=== PATIENT | male | born 1935 | race Caucasian/White ===

== ENCOUNTER → 2016-04-21 | Outpatient (CLI) | payer MEDICARE, BC ==
[2016-04-21 15:03] LABS: Blood Urea Nitrogen 18 mg/dL (9-20); Non-African American GFR(MDRD) >60 (>60 ml/min/1.73 sqM)
--- NOTE | 2016-04-21 15:54 | CT ---
EXAMINATION TYPE: CT chest w con DATE OF EXAM: 04/21/2016 3:33 PM COMPARISON: NONE HISTORY: Follow-up study of lung nodule. CT DLP: 387.80 mGycm Automated exposure control for dose reduction was used. CONTRAST: CT scan of the chest is performed with IV Contrast, patient injected with 100 mL of Omnipaque 300. FINDINGS: There is a 7 mm noncalcified nodule in the anterior aspect of the right middle lobe, best s een on image 38. There are 2 noncalcified nodules measuring 3.8 and 6.5 mm respectively in the right middle lobe, best seen on image 39. At least one of these was present previously. There is scarring at the right lung base has resolved and likely represented atelectasis. There is a 7.5 mm, subpleural, spiculated nodule seen in the left lingula on image 53. There is a small amount o f groundglass opacity in the apical posterior segment of the left upper lobe and also in the lateral segment of the right upper lobe. There is no significant axillary or hilar adenopathy. There are some normal-sized lymph nodes within the mediastinum. There is no evidence of pulmonary embolus. The aorta is normal in caliber without evidence of dissection. The heart is not enlarged. There is no pleural or pericardial fluid. Visualized portions of the upper abdomen are normal. There is mild hypertrophic spondylosis within the spine. IMPRESSION: 1. Multiple groundglass nodules within the right middle lobe. 2. Resolution of the nodule at the right lung base. 3. Spiculated nodule in the left lingula. 4. Groundglass opacities as described may represent ongoing alveolitis or pneumonitis. 5. Degenerative changes within the spine.
== END | disposition home or self-care (01) ==
LOC: RADCTMAIN 14:28
PROVIDERS: ATTEND Family Medicine
DX: R91.8 Other nonspecific abnormal finding of lung field (principal); R10.9 Unspecified abdominal pain
CPT/HCPCS: 82565; 84520; 71260; 36415; Q9967

== ENCOUNTER → 2017-03-07 | Outpatient (CLI) | payer MEDICARE, BC ==
--- NOTE | 2017-03-07 15:50 | XR ---
EXAMINATION TYPE: XR chest 2V DATE OF EXAM: 03/07/2017 COMPARISON: Prior chest x-ray 09/25/2015 HISTORY: COPD, sinus infection TECHNIQUE: Frontal and lateral views of the chest are obtained. FINDINGS: There is no focal air space opacity, pleural effusion, or pneumothorax seen. The cardiac silhouette size is stable. Prominent lung lines compatible with underlying COPD. Patient is rotated. There may be some improvement in aeration as compared to prior, density at the left costophrenic angl e is improved. The osseous structures are intact. IMPRESSION: No acute cardiopulmonary process.
== END | disposition home or self-care (01) ==
LOC: RADXRMAIN 10:30
PROVIDERS: ATTEND Family Medicine
DX: J44.1 Chronic obstructive pulmonary disease with (acute) exacerbation (principal)
CPT/HCPCS: 71046

== ENCOUNTER → 2017-03-26 | Outpatient (CLI) | payer MEDICARE, BC ==
[2017-03-26 13:59] VITALS: BP 180/74; PULSE 55; RESP 16
--- NOTE | 2017-03-26 14:27 | P.CONS ---
History of Present Illness - Reason for Consult Consult date: 03/26/17 - Chief Complaint Right leg pain - History of Present Illness Chief complaint: Right leg pain History of present illness: This is a 81-year-old male with 18 months history of right leg pain for which he's been going to his chiropractor and taken aspirin for it. One week ago the pain spontaneously resolved with no pain at all at this point. When the patient had the pain used to go across his lower back and down his right leg on the front of his thigh anteriorly down to the knee level. He denies any numbness or tingling or weakness in the lower extremities. He denies any bowel or bladder dysfunction. He did do was 10 pounds of his weight over the last few weeks because with he thinks is a bad cold and loss of appetite. He does have a significant history of COPD and he is being followed up by his primary care physician for this problem. He describes the pain that he had as burning in quality that would get worse by standing for too long. The patient is claustrophobic and he could not get an MRI done on the lumbar spine however his lumbar spine plain x-ray showed moderate to severe degenerative changes. Social history tobacco: none Marijuana none illicit drugs none On disability:no Work [ ]Review of Systems : 1- Constitutional : no chills , no fever , no night sweats , 2- Ears : no ear discharge , no change in hearing 3-Nose, Mouth ,Throat ; no bleeding gums, no sore throat , no epistaxis , 4-Cardiovascular : Denies chest pain, , no orthopnea , no palpitation 5-Respiratory : Patient has: Is coughing with small amount of sputum ,however he denies any fever or shortness of breath 6-Gastrointestinal :, no change in bowel habits , no coffee- ground emesis . 7-Genitourinary : No hematuria , no discharge , no incontinence, 8-Musculoskeletal : No gait dysfunction , report low back pain , 9- Neurological : no ataxia , no tremor , no seizure , 10-Psychatric , no suicidal ideation no hallucination 11- Endocrine : no cold intolerence , no polyuria , no polydypsia , 12-Hematologic : no easy bleeding , no easy brusing , 13-Allergic / immunology : no angioedema , no wheezing ,no allergic rhinitis 14-Integumentary : no brttle nails , no change hair / nails , no foot/leg ulcers . Physical Examinations : 1-Constitutional : Cooperative , not in acute distress . 2-HEENT : nech ; supple , no Lymphadenopathy , no Thyromegaly , eyes , no icterus, no photophobia . ENT : , normal oropharynx , no Thrush 3- Respiratory : Chest clear to auscultations Bilaterally , no wheezing .+ Reduced sounds in the right lung base. . 4- Cardiovascular : regular rate and rhythem , S1 , S2 , no S3 , no S4. 5- Gastrointestinal: abdomen soft no tenderness , no organomegally . 6- Genitourinary : Defferred . 7-Integumentary : No cellulitis , no ulcers , normal skin turgor , no cyanosis . 8- neurologic : Cranial nerve II to XII intact , no focal neurological deffecit 9-psychatric : alert , oriented X 3 , appropriate affect , intact judgment and insight . 10-Lymphatic : no Lymphadenopathy. 11- musculoskeltal: normal gait , Neuro exam of the lower extremities showed normal and symmetrical muscle strength, symmetrical knee reflexes and absent ankle reflexes. Straight leg raising test negative bilaterally. The patient has mild tenderness in the lumbar paravertebral area. He has normal range of motion of the lumbar spine. Past Medical History Past Medical History: COPD, Prostate Disorder History of Any Multi-Drug Resistant Organisms: None Reported Past Surgical History: Orthopedic Surgery, Tonsillectomy Additional Past Surgical History / Comment(s): bilat. cataract removal Past Anesthesia/Blood Transfusion Reactions: No Reported Reaction Past Psychological History: No Psychological Hx Reported Smoking Status: Former smoker Past Alcohol Use History: Daily Past Drug Use History: None Reported - Past Family History Brother(s) Family Medical History: Congestive Heart Failure (CHF), Prostate Disorder Medications and Allergies Home Medications Medication Instructions Recorded Confirmed Type Albuterol Sulfate [Proair Hfa] 1 - 2 puff INHALATION RT-QID PRN 05/22/15 History Nebivolol [Bystolic] 5 mg PO DAILY 05/22/15 03/26/17 History Roflumilast [Daliresp] 500 mcg PO DAILY 05/22/15 03/26/17 History Alfuzosin HCl [Uroxatral ER] 10 mg PO DAILY 09/09/15 03/26/17 History Finasteride [Proscar] 5 mg PO DAILY 09/09/15 03/26/17 History Tiotropium 18 Mcg/Puff [Spiriva] 1 cap INHALATION RT-DAILY 09/09/15 03/26/17 History Travoprost [Travatan Z 0.004%] 1 drop BOTH EYES HS 09/10/15 03/26/17 History Mometasone Furoate [Nasonex Nasal 1 spray EA NOSTRIL BID #1 bottle 09/21/1501/29 Rx [place]] Ammonium Lactate Lotion 1 applic TOPICAL BID PRN 09/25/15 03/26/17 History [Lac-Hydrin 12% Lotion] Nystatin 100,000 Unit/ml Susp 5 ml PO QID 09/25/15 03/26/17 History [Mycostatin Oral Susp] predniSONE 10 mg PO DAILY #40 tab 09/27/15 03/26/17 Rx Budesonide/Formoterol Fumarate 2 puff IN BID 03/26/17 03/26/17 History [Symbicort 80-4.5 Mcg Inhaler] Allergies Allergy/AdvReac Type Severity Reaction Status Date / Time amoxicillin trihydrate Allergy Unknown Verified 03/26/17 13:35 [From Augmentin] moxifloxacin HCl Allergy Nausea & Verified 03/26/17 13:35 [From Avelox] Vomiting potassium clavulanate Allergy Unknown Verified 03/26/17 13:35 [From Augmentin] Physical Exam Vitals: Vital Signs Pulse Resp BP Pulse Ox 03/26/17 13:43 55 L 16 180/74 94 L Intake and Output 03/25/17 03/26/17 03/26/17 22:59 06:59 14:59 Other: Weight 86.183 kg Patient Weight 03/27/17 06:59 Weight 86.183 kg Assessment and Plan Plan: This is a 81-year-old male with a spontaneously and completely resolved lower back and right leg pain. The patient has significant degeneration of the lumbar spine on his plain x-ray. He is claustrophobic and cannot go through an MRI. He takes aspirin on a daily basis that also helps him with the pain. I asked the patient to give us a call with the first sign of his pain coming back and then we will schedule him to have lumbar epidural steroid injection under fluoroscopic guidance at the L3-4 or L4-5 levels in the right paramedian approach. The patient has history of COPD and by physical exam today he has reduced breath sounds in the right lung base however he denies any fever or any other symptoms that would suggest a pneumonia and as a matter of fact he had an x-ray done at his primary care physician's office a few days ago that did not show any abnormality. The patient will be seen on an as-needed basis.
== END | disposition home or self-care (01) ==
LOC: PNWHC3 12:55
PROVIDERS: ATTEND Anesthesiology
DX: M51.36 Other intervertebral disc degeneration, lumbar region (principal); J44.9 Chronic obstructive pulmonary disease, unspecified; N42.9 Disorder of prostate, unspecified; Z87.891 Personal history of nicotine dependence; Z88.1 Allergy status to other antibiotic agents; Z79.52 Long term (current) use of systemic steroids; Z79.899 Other long term (current) drug therapy; Z79.82 Long term (current) use of aspirin
CPT/HCPCS: 99211

== ENCOUNTER → 2018-01-11 | Outpatient (CLI) | payer MEDICARE, BC ==
--- NOTE | 2018-01-11 13:14 | XR ---
EXAMINATION TYPE: XR chest 2V DATE OF EXAM: 01/11/2018 COMPARISON: 03/07/2017 TECHNIQUE: PA and lateral views submitted. HISTORY: Cough and congestion FINDINGS: The lungs are clear and there is no pneumothorax, pleural effusion, or focal pneumonia. Atheroscler otic change aorta. Degenerative change of the spine. No overt failure. Hyperinflation suggests COPD. Atherosclerotic change of the aorta. IMPRESSION: 1. No acute process.
== END ==
LOC: RADXRMAIN 11:52
PROVIDERS: ATTEND Family Medicine
DX: J44.1 Chronic obstructive pulmonary disease with (acute) exacerbation (principal)
CPT/HCPCS: 71046

== ENCOUNTER 2018-03-21 06:36 | Observation (INO) | payer MEDICARE, BC ==
[2018-03-21] MEDS ORDERED: ASPIRIN 81 MG PO STA (06:44)
[2018-03-21] MEDS ORDERED: NITROGLYCERIN SL TABS 0.4 MG TAB SUBLINGUAL STA (06:58)
--- NOTE | 2018-03-21 07:02 | ED ---
Chest Pain HPI - General Chief Complaint: Chest Pain Stated Complaint: chest pain Source: patient Mode of arrival: wheelchair Limitations: no limitations - History of Present Illness Initial Comments: Marin is a pleasant 82-year-old male with history of hypertension and hyperlipidemia as well as former cigarette smoking and COPD he presents the emergency department today for evaluation of pressure in his chest radiating to his left shoulder and neck. Patient reports that he frequently has a morning cough and a little bit of chest discomfort however for the past 3 days he's noticed more heaviness in his chest which is new to him. Patient reports that he initially thought that this was due to COPD so he been trying to treated at home with breathing treatments. Patient reports that he's felt more fatigued over the past 3 days and upon waking this morning he feels more chest pressure and a general sense of dread which made him very nervous and prompted him to ask his to bring him to the hospital for evaluation. 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 - Related Data Home Medications Medication Instructions Recorded Confirmed Albuterol Sulfate [Proair Hfa] 1 - 2 puff INHALATION RT-QID PRN 05/22/15 Nebivolol [Bystolic] 5 mg PO DAILY 05/22/15 03/21/18 Roflumilast [Daliresp] 500 mcg PO DAILY 05/22/15 03/21/18 Alfuzosin HCl [Uroxatral ER] 10 mg PO DAILY 09/09/15 03/21/18 Finasteride [Proscar] 5 mg PO DAILY 09/09/15 03/21/18 Tiotropium 18 Mcg/Puff [Spiriva] 1 cap INHALATION RT-DAILY 09/09/15 03/21/18 Travoprost [Travatan Z 0.004%] 1 drop BOTH EYES HS 09/10/15 03/21/18 Budesonide/Formoterol Fumarate 2 puff INHALATION RT-BID 03/26/17 03/21/18 [Symbicort 80-4.5 Mcg Inhaler] Aspirin EC [Ecotrin] 650 mg PO DAILY 03/21/18 03/21/18 Brinzolamide/Brimonidine Tart 1 drop BOTH EYES BID 03/21/18 03/21/18 [Simbrinza 1%-0.2% Eye Drops] Allergies Allergy/AdvReac Type Severity Reaction Status Date / Time amoxicillin trihydrate Allergy Unknown Verified 03/21/18 06:52 [From Augmentin] moxifloxacin HCl Allergy Nausea & Verified 03/21/18 06:52 [From Avelox] Vomiting potassium clavulanate Allergy Unknown Verified 03/21/18 06:52 [From Augmentin] Review of Systems ROS Statement: Those systems with pertinent positive or pertinent negative responses have been documented in the HPI. ROS Other: All systems not noted in ROS Statement are negative. EKG Findings - EKG Comments: EKG Findings:: EKG obtained at 6:44 AM, rate is 77 rhythm is sinus with frequent PVCs. There is a normal axis there are normal intervals, IN 188, QRS 114, QTC 475. There are no acute ST elevations or depressions there is no evidence of acute ischemia or infarction. Past Medical History Past Medical History: COPD, Prostate Disorder History of Any Multi-Drug Resistant Organisms: None Reported Past Surgical History: Orthopedic Surgery, Tonsillectomy Additional Past Surgical History / Comment(s): bilat. cataract removal Past Anesthesia/Blood Transfusion Reactions: No Reported Reaction Past Psychological History: No Psychological Hx Reported Smoking Status: Former smoker Past Alcohol Use History: Daily Past Drug Use History: None Reported - Past Family History Brother(s) Family Medical History: Congestive Heart Failure (CHF), Prostate Disorder General Exam - General Exam Comments Initial Comments: Physical Exam GENERAL: Patient is well-developed and well-nourished. Patient is nontoxic and well- hydrated and is in no distress. HENT: Normocephalic, Atraumatic. EYES: PERRL, EOMI PULMONARY: Unlabored respirations. No audible rales rhonchi or wheezing was noted. CARDIOVASCULAR: There is a regular rate and rhythm without any murmurs gallops or rubs. ABDOMEN: Soft and nontender with normal bowel sounds. SKIN: Skin is clear with no lesions or rashes and otherwise unremarkable. : Deferred NEUROLOGIC: Patient is alert and oriented x3. Moving all extremities spontaneously MUSCULOSKELETAL: Normal extremities with adequate strength and full range of motion. No lower extremity swelling or edema. No calf tenderness. PSYCHIATRIC: Normal psychiatric evaluation. Limitations: no limitations Limitations: no limitations Course Vital Signs 03/21/18 06:45 Temperature 98.0 F Pulse Rate 81 Respiratory 16 Rate Blood Pressure 185/84 O2 Sat by Pulse 94 L Oximetry Chest Pain MDM - MDM Patient seen and evaluated history is obtained from the patient 82-year-old male multiple cardiac risk factors presenting with heaviness in his chest and her sense of dread Patient hemodynamically stable EKG nonischemic though there are frequent PVCs Patient took 2 full dose Aspirin prior to coming to the hospital Nitro ordered She care was discussed with patient's primary care physician Dr. Yu who agrees the patient requires further observation and evaluation by cardiology Admission orders were placed, labs are pending Dr Giang to follow up on any critical labs that result in ER Disposition Clinical Impression: Chest pain Disposition: ADMITTED IP TO THIS HOSP Condition: Stable Is patient prescribed a controlled substance at d/c from ED?: No Referrals: Shar Yu MD [Primary Care Provider] - 1-2 days
[2018-03-21 07:14] LABS: Basophils # (A) 0.1 k/uL (0-0.2); Basophils % (A) 1 %; Eosinophils # (A) 0.3 k/uL (0-0.7); Eosinophils % (A) 6 %; HCT 40.8 % (39.0-53.0); HGB 13.6 gm/dL (13.0-17.5); Lymphocytes # (A) 2.2 k/uL (1.0-4.8); Lymphocytes % (A) 38 %; MCH 33.6 pg (25.0-35.0); MCHC 33.4 g/dL (31.0-37.0); MCV 100.5 fL (80.0-100.0); Macrocytosis Slight; Mean Platelet Volume 7.3; Monocytes # (A) 0.3 k/uL (0-1.0); Monocytes % (A) 5 %; Neutrophils # (A) 2.7 k/uL (1.3-7.7); Neutrophils % (A) 48 %; Platelet Count 145 k/uL (150-450); RBC 4.06 m/uL (4.30-5.90); RDW 14.1 % (11.5-15.5); WBC 5.7 k/uL (3.8-10.6)
[2018-03-21 07:22] LABS: INR 0.9 (<1.2); Partial Thromboplastin Time 25.5 sec (22.0-30.0); Prothrombin Time 10.1 sec (9.0-12.0)
[2018-03-21 07:29] LABS: ALT 31 U/L (21-72); AST 30 U/L (17-59); Alkaline Phosphatase 68 U/L (38-126); Anion Gap 9 mmol/L; Blood Urea Nitrogen 15 mg/dL (9-20); Calcium 9.8 mg/dL (8.4-10.2); Carbon Dioxide 22 mmol/L (22-30); Chloride 111 mmol/L (98-107); Glucose 132 mg/dL (74-99); Potassium 4.2 mmol/L (3.5-5.1); Sodium 142 mmol/L (137-145); Total Bilirubin 0.6 mg/dL (0.2-1.3); Total Protein 6.3 g/dL (6.3-8.2)
[2018-03-21 07:39] LABS: Creatine Kinase 190 U/L (55-170)
[2018-03-21 07:52] LABS: Creatine Kinase MB 5.1 ng/mL (0.0-2.4); Troponin I <0.012 ng/mL (0.000-0.034)
[2018-03-21 08:09] VITALS: RESP 18
[2018-03-21] MEDS ORDERED: NON-FORMULARY DRUG (Brinzolamide/Brimonidine Tart [Simbrinza 1%-0.2% Eye Drops] 1 DROP) BOTH EYES SCH (09:00)
[2018-03-21] MEDS: PATIENT'S OWN MED (Roflumilast [Daliresp] 500 MCG) PO SCH (09:53)
--- NOTE | 2018-03-21 10:22 | ECHOF ---
Referral Reason:chest pain MEASUREMENTS -------- HEIGHT: 182.9 cm WEIGHT: 96.2 kg BP: 185/84 RVIDd: 2.9 cm (< 3.3) IVSd: 1.3 cm (0.6 - 1.1) LVIDd: 4.6 cm (3.9 - 5.3) LVPWd: 1.2 cm (0.6 - 1.1) IVSs: 1.7 cm LVIDs: 3.2 cm LVPWs: 1.2 cm LA Diam: 4.4 cm (2.7 - 3.8) LAESV Index (A-L): 34.26 ml/m Ao Diam: 3.3 cm (2.0 - 3.7) AV Cusp: 1.9 cm (1.5 - 2.6) LA Diam: 3.8 cm (2.7 - 3.8) MV EXCURSION: 26.161 mm (> 18.000) MV EF SLOPE: 69 mm/s (70 - 150) EPSS: 0.5 cm MV E Lionel: 0.77 m/s MV DecT: 346 ms MV A Lionel: 1.13 m/s MV E/A Ratio: 0.69 RAP: 5.00 mmHg RVSP: 26.95 mmHg FINDINGS -------- Sinus rhythm. This was a technically good study. The left ventricular size is normal. There is mild concentric left ventricular hypertrophy. Overa ll left ventricular systolic function is normal with, an EF between 55 - 60 %. The right ventricle is normal in size. The left atrium is moderately dilated. LA is moderately dilated 34-39 ml/m2 The right atrial size is normal. The aortic valve is trileaflet, and appears structurally normal. No aortic stenosis or regurgitation. Mild mitral annular calcification present. Mild mitral regurgitation is present. Mild tricuspid regurgitation present. There is no evidence of pulmonary hypertension. The right v entricular systolic pressure, as measured by Doppler, is 26.95mmHg. There is no pulmonic regurgitation present. The aortic root size is normal. There is no pericardial effusion. CONCLUSIONS -------- 1. The left ventricular size is normal. 2. There is mild concentric left ventricular hypertrophy. 3. Overall left ventricular systolic function is normal with, an EF between 55 - 60 %. 4. The right ventricle is normal in size. 5. The left atrium is moderately dilated. 6. LA is moderately dilated 34-39 ml/m2 7. The right atrial size is normal. 8. The aortic valve is trileaflet, and appears structurally normal. No aortic stenosis or regurgitati on. 9. Mild mitral annular calcification present. 10. Mild mitral regurgitation is present. 11. Mild tricuspid regurgitation present. 12. There is no evidence of pulmonary hypertension. 13. The right ventricular systolic pressure, as measured by Doppler, is 26.95mmHg. 14. There is no pulmonic regurgitation present. 15. The aortic root size is normal. 16. There is no pericardial effusion. MOBILE ENGINEER: Trinity Heredia RDCS
[2018-03-21] MEDS: NEBIVOLOL 5 MG TAB PO SCH (10:24)
[2018-03-21] MEDS: TAMSULOSIN 0.4 MG CAP.ER.24H PO SCH (10:24)
[2018-03-21] MEDS: DORZOLAMIDE HCL 2% DROPS 10 ML BTL BOTH EYES SCH ×2 (10:25→20:16)
[2018-03-21] MEDS: BRIMONIDINE TARTRATE 0.2% DROPS 5 ML BTL BOTH EYES SCH ×2 (10:25→20:17)
[2018-03-21] MEDS: FINASTERIDE 5 MG TAB PO SCH (10:25)
[2018-03-21] MEDS ORDERED: ALPRAZolam 0.25 MG TAB PO PRN (11:07)
[2018-03-21] MEDS ORDERED: SODIUM CHLORIDE 0.9% 1,000 ML in EMPTY BAG 1 BAG IV ONE (11:07)
[2018-03-21] MEDS ORDERED: ALPRAZolam 0.5 MG TAB PO PRN (11:07)
[2018-03-21 11:20] LABS: Cholesterol 234 mg/dL (<200); HDL Cholesterol 72 mg/dL (40-60); LDL Cholesterol,Calculated 150 mg/dL (0-99); Triglycerides 59 mg/dL (<150)
--- NOTE | 2018-03-21 11:43 | P.CRDCN ---
History of Present Illness History of present illness: This is a pleasant 82-year-old male past medical history significant for hypertension, dyslipidemia, COPD and former nicotine dependence. He also drinks 2 martinis or 2 beers daily. He denies history of coronary artery disease and is never seen a cardiovascular tech for any reason. We have been asked to see him in consultation for symptoms of chest discomfort. He states approximately one month ago he felt a full sensation at the base of his neck and into the upper anterior chest wall. This came early in the morning with no specific aggravating factor. Ultimately the symptoms subsided on their own with no specific aggravating factor. He subsequently followed up with his primary care physician Dr. Yu and was advised he should undergo outpatient stress testing. However a conservative approach was also discussed and determined that the patient felt symptoms similar to this again he would present to the emergency department for further evaluation. For the last 2 mornings he has woke up feeling similar symptoms with a full sensation at the base of his neck with radiation up the neck and into the upper anterior chest wall and left precordial region. There is no radiation into the back, down the arms or into the jaw. He denies associated shortness of breath, dizziness, palpitations, nausea or diaphoresis. Throughout the course of these previous couple of days he has also felt increasingly fatigued with a feeling of impending doom. He initially associated these symptoms with his COPD however they have not improved with his inhalers. He is seen and examined sitting up in bed with his at the bedside. He denies active chest pain at this time. EKG on arrival reveals sinus mechanism with ST depression noted in the lateral leads. When compared to previous EKGs these ST depressions were noted in the past as well at times. Laboratory data reviewed, WBC 5.7, hemoglobin 13.6, platelets 145 and a sodium 142, potassium 4.2, creatinine 0.9, magnesium 2.0, cardiac enzymes negative 1, LDL 150 HDL 72, triglycerides 59 total cholesterol 234, and T proBNP 397. Current cardiac medications include aspirin 650 mg daily and bystolic 5 mg daily. At the time of my exam: CONSTITUTIONAL: Denies fever. Denies chills. EYES: Denies blurred vision. Denies vision changes. Denies eye pain. EARS, NOSE, MOUTH & THROAT: Denies headache. Denies sore throat. Denies ear pain. CARDIOVASCULAR: Denies chest pain. Denies shortness of breath. Denies orthopnea. Denies PND. Denies palpitations. RESPIRATORY: Denies cough. GASTROINTESTINAL: Denies abdominal pain. Denies diarrhea. Denies constipation. Denies nausea. Denies vomiting. MUSCULOSKELETAL: Denies myalgias. INTEGUMENTARY: Denies pruitis. Denies rash. NEUROLOGIC: Denies numbness. Denies tingling. Denies weakness. PSYCHIATRIC: Denies anxiety. Denies depression. ENDOCRINE: Denies fatigue. Denies weight change. Denies polydipsia. Denies polyurina. GENITOURINARY: Denies burning, hematuria or urgency with micturation. HEMATOLOGIC: Denies history of anemia. Denies bleeding. Blood pressure 162/63 heart rate 69 afebrile maintaining oxygen saturation on room air GENERAL: This is a 82-year-old male in no apparent distress at the time of my examination. HEENT: Head is atraumatic, normocephalic. Pupils are equal, round. Sclerae anicteric. Conjunctivae are clear. Mucous membranes of the mouth are moist. Neck is supple. There is no jugular venous distention. No carotid bruit is heard. LUNGS: Clear to auscultation no wheezes, rales or rhonchi. No chest wall tenderness is noted on palpation or with deep breathing. Diminished bilaterally. HEART: Regular rate and rhythm with short systolic murmur at the left sternal border, no rubs or gallops. S1 and S2 heard. ABDOMEN: Soft, nontender. Bowel sounds are heard. No organomegaly noted. EXTREMITIES: No evidence of peripheral edema and no calf tenderness noted. VASCULAR: Radial and dorsalis pedis pulses palpated, no evidence of clubbing. NEUROLOGIC: Patient is awake, alert and oriented x3. ASSESSMENT Unstable angina Hypertension Dyslipidemia COPD Former nicotine dependence Daily alcohol use PLAN Recommend proceeding with cardiac catheterization to assess for obstructive coronary artery disease. I have discussed the risks, benefits and alternative therapies for the above- mentioned procedure and for both sedation/analgesia as well as necessary blood product administration, if indicated, as they pertain to this patient. The patient and his have indicated understanding and acceptance of the risks and procedures discussed. Questions have been answered appropriately and he is agreeable to move forward with the above stated procedure. Obtain 2-D echocardiogram and Doppler study to assess cardiac structure and function. Check lipid panel. Further recommendations to follow based upon clinical course. Thank you kindly for this consultation. The above impression and plan of care have been discussed and directed by the signing physician. Lamar Rosales, nurse practitioner, acting as scribe for signing physician. 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 History of Any Multi-Drug Resistant Organisms: None Reported Past Surgical History: Orthopedic Surgery, Tonsillectomy Additional Past Surgical History / Comment(s): 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 Past Anesthesia/Blood Transfusion Reactions: No Reported Reaction Additional Past Anesthesia/Blood Transfusion Reaction / Comment(s): Pt has clausterphobia. Smoking Status: Former smoker - Past Family History Brother(s) Family Medical History: Prostate Disorder Additional Family Medical History / Comment(s): Prostate cancer. Father Family Medical History: Dementia Additional Family Medical History / Comment(s): Father of dementia at the age of 79yrs. Mother Family Medical History: No Reported History Additional Family Medical History / Comment(s): Mother was healthy and lived to be 86yrs old. Medications and Allergies Home Medications Medication Instructions Recorded Confirmed Type Albuterol Sulfate [Proair Hfa] 1 - 2 puff INHALATION RT-QID PRN 05/22/15 History Nebivolol [Bystolic] 5 mg PO DAILY 05/22/15 03/21/18 History Roflumilast [Daliresp] 500 mcg PO DAILY 05/22/15 03/21/18 History Alfuzosin HCl [Uroxatral ER] 10 mg PO DAILY 09/09/15 03/21/18 History Finasteride [Proscar] 5 mg PO DAILY 09/09/15 03/21/18 History Tiotropium 18 Mcg/Puff [Spiriva] 1 cap INHALATION RT-DAILY 09/09/15 03/21/18 History Travoprost [Travatan Z 0.004%] 1 drop BOTH EYES HS 09/10/15 03/21/18 History Budesonide/Formoterol Fumarate 2 puff INHALATION RT-BID 03/26/17 03/21/18 History [Symbicort 80-4.5 Mcg Inhaler] Aspirin EC [Ecotrin] 650 mg PO DAILY 03/21/18 03/21/18 History Brinzolamide/Brimonidine Tart 1 drop BOTH EYES BID 03/21/18 03/21/18 History [Simbrinza 1%-0.2% Eye Drops] Allergies Allergy/AdvReac Type Severity Reaction Status Date / Time amoxicillin trihydrate Allergy Unknown Verified 03/21/18 06:52 [From Augmentin] moxifloxacin HCl Allergy Nausea & Verified 03/21/18 06:52 [From Avelox] Vomiting potassium clavulanate Allergy Unknown Verified 03/21/18 06:52 [From Augmentin] Physical Exam Vitals: Vital Signs Temp Pulse Pulse Resp BP BP Pulse Ox 03/21/18 08:20 98.2 F 69 18 162/63 93 L 03/21/18 08:19 18 03/21/18 08:08 84 18 134/67 95 03/21/18 06:45 98.0 F 81 16 185/84 94 L Intake and Output 03/20/18 03/21/18 03/21/18 22:59 06:59 14:59 Other: Voiding Method Toilet # Voids 1 Weight 96.162 kg Results 03/21/18 06:44 03/21/18 06:44 Cardiac Enzymes 03/21/18 03/21/18 Range/Units 06:44 06:44 AST 30 (17-59) U/L CK-MB (CK-2) 5.1 H (0.0-2.4) ng/mL Troponin I <0.012 (0.000-0.034) ng/mL Coagulation 03/21/18 Range/Units 06:44 PT 10.1 (9.0-12.0) sec APTT 25.5 (22.0-30.0) sec CBC 03/21/18 Range/Units 06:44 WBC 5.7 (3.8-10.6) k/uL RBC 4.06 L (4.30-5.90) m/uL Hgb 13.6 (13.0-17.5) gm/dL Hct 40.8 (39.0-53.0) % Plt Count 145 L (150-450) k/uL Comprehensive Metabolic Panel 03/21/18 Range/Units 06:44 Sodium 142 (137-145) mmol/L Potassium 4.2 (3.5-5.1) mmol/L Chloride 111 H (98-107) mmol/L Carbon Dioxide 22 (22-30) mmol/L BUN 15 (9-20) mg/dL Creatinine 0.90 (0.66-1.25) mg/dL Glucose 132 H (74-99) mg/dL Calcium 9.8 (8.4-10.2) mg/dL AST 30 (17-59) U/L ALT 31 (21-72) U/L Alkaline Phosphatase 68 (38-126) U/L Total Protein 6.3 (6.3-8.2) g/dL Albumin 4.0 (3.5-5.0) g/dL Current Medications Generic Name Dose Route Start Last Admin Trade Name Sunilq PRN Reason Stop Dose Admin Brimonidine Tartrate 1 drops 03/21/18 09:30 03/21/18 10:25 Alphagan P 0.2% Ophth Soln BOTH EYES 1 drops BID WILFREDO Administration Budesonide/Formoterol Fumarate 2 puff 03/21/18 20:00 Symbicort 80-4.5 Mcg Inhaler INHALATION RT-BID WILFREDO Dorzolamide HCl 1 drops 03/21/18 09:30 03/21/18 10:25 Trusopt BOTH EYES 1 drops BID WILFREDO Administration Finasteride 5 mg 03/21/18 09:00 03/21/18 10:25 Proscar PO 5 mg DAILY WILFREDO Administration Ipratropium Mary Alice 0.5 mg 03/21/18 09:00 Atrovent Nebulized INHALATION RT-QID WILFREDO Latanoprost 1 drops 03/21/18 21:00 Xalatan 0.005% BOTH EYES HS WILFREDO Nebivolol 5 mg 03/21/18 09:00 03/21/18 10:24 Bystolic PO 5 mg DAILY WILFREDO Administration Patient's Own Med ( 500 mcg 03/21/18 09:00 03/21/18 09:53 Roflumilast [ PO Not Given Daliresp] 500 Mcg) DAILY WILFREDO Tamsulosin HCl 0.4 mg 03/21/18 09:00 03/21/18 10:24 Flomax PO 0.4 mg DAILY WILFREDO Administration Intake and Output 03/20/18 03/21/18 03/21/18 22:59 06:59 14:59 Other: Voiding Method Toilet # Voids 1 Weight 96.162 kg 03/21/18 06:44 03/21/18 06:44
[2018-03-21] MEDS: IPRATROPIUM 0.5 MG/2.5 ML NEBU INHALATION SCH ×4 (12:04→18:33)
--- NOTE | 2018-03-21 12:09 | XR ---
EXAMINATION TYPE: XR chest 2V DATE OF EXAM: 03/21/2018 COMPARISON: 01/11/2018 HISTORY: Shortness of breath TECHNIQUE: Frontal and lateral views of the chest are obtained. FINDINGS: Scattered senescent parenchymal changes noted. Hyperinflation compatible with COPD. No evidence for infiltrate. No evidence for atelectasis. Heart size is stable. Mediastinal structures are stable and grossly unremarkable. No evidence for hilar prominence. Degenerative changes dorsal spine. IMPRESSION: 1. No evidence for acute pulmonary disease.
--- NOTE | 2018-03-21 12:11 | P.HPIM ---
History of Present Illness 82-year-old male on presented the emergency room with complaints of 2 days of chest pain worse in the morning pain radiated to neck mild nausea and some diaphoresis at night. 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 History of Any Multi-Drug Resistant Organisms: None Reported Past Surgical History: Orthopedic Surgery, Tonsillectomy Additional Past Surgical History / Comment(s): 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 Past Anesthesia/Blood Transfusion Reactions: No Reported Reaction Additional Past Anesthesia/Blood Transfusion Reaction / Comment(s): Pt has clausterphobia. Smoking Status: Former smoker - Past Family History Brother(s) Family Medical History: Prostate Disorder Additional Family Medical History / Comment(s): Prostate cancer. Father Family Medical History: Dementia Additional Family Medical History / Comment(s): Father of dementia at the age of 79yrs. Mother Family Medical History: No Reported History Additional Family Medical History / Comment(s): Mother was healthy and lived to be 86yrs old. Medications and Allergies Home Medications Medication Instructions Recorded Confirmed Type Albuterol Sulfate [Proair Hfa] 1 - 2 puff INHALATION RT-QID PRN 05/22/15 History Nebivolol [Bystolic] 5 mg PO DAILY 05/22/15 03/21/18 History Roflumilast [Daliresp] 500 mcg PO DAILY 05/22/15 03/21/18 History Alfuzosin HCl [Uroxatral ER] 10 mg PO DAILY 09/09/15 03/21/18 History Finasteride [Proscar] 5 mg PO DAILY 09/09/15 03/21/18 History Tiotropium 18 Mcg/Puff [Spiriva] 1 cap INHALATION RT-DAILY 09/09/15 03/21/18 History Travoprost [Travatan Z 0.004%] 1 drop BOTH EYES HS 09/10/15 03/21/18 History Budesonide/Formoterol Fumarate 2 puff INHALATION RT-BID 03/26/17 03/21/18 History [Symbicort 80-4.5 Mcg Inhaler] Aspirin EC [Ecotrin] 650 mg PO DAILY 03/21/18 03/21/18 History Brinzolamide/Brimonidine Tart 1 drop BOTH EYES BID 03/21/18 03/21/18 History [Simbrinza 1%-0.2% Eye Drops] Allergies Allergy/AdvReac Type Severity Reaction Status Date / Time amoxicillin trihydrate Allergy Unknown Verified 03/21/18 06:52 [From Augmentin] moxifloxacin HCl Allergy Nausea & Verified 03/21/18 06:52 [From Avelox] Vomiting potassium clavulanate Allergy Unknown Verified 03/21/18 06:52 [From Augmentin] Physical Exam Vitals: Vital Signs Temp Pulse Pulse Resp BP BP Pulse Ox 03/21/18 08:20 98.2 F 69 18 162/63 93 L 03/21/18 08:19 18 03/21/18 08:08 84 18 134/67 95 03/21/18 06:45 98.0 F 81 16 185/84 94 L Intake and Output 03/20/18 03/21/18 03/21/18 22:59 06:59 14:59 Other: Voiding Method Toilet # Voids 1 Weight 96.162 kg - Constitutional General appearance: obese - EENT Eyes: PERRLA Ears: bilateral: normal - Neck Neck: normal ROM - Respiratory Respiratory: bilateral: CTA - Cardiovascular Rhythm: regularly irregular - Gastrointestinal General gastrointestinal: soft - Integumentary Integumentary: normal - Neurologic Neurologic: CNII-XII intact - Musculoskeletal Musculoskeletal: gait normal - Psychiatric Psychiatric: A&O x's 3, appropriate affect, intact judgment & insight Results CBC & Chem 7: 03/21/18 06:44 03/21/18 06:44 Labs: Abnormal Lab Results - Last 24 Hours (Table) 03/21/18 03/21/18 03/21/18 Range/Units 06:44 06:44 06:44 RBC 4.06 L (4.30-5.90) m/uL MCV 100.5 H (80.0-100.0) fL Plt Count 145 L (150-450) k/uL Chloride 111 H (98-107) mmol/L Glucose 132 H (74-99) mg/dL Total Creatine Kinase 190 H (55-170) U/L CK-MB (CK-2) 5.1 H (0.0-2.4) ng/mL Cholesterol (<200) mg/dL LDL Cholesterol, Calc (0-99) mg/dL HDL Cholesterol (40-60) mg/dL 03/21/18 Range/Units 10:45 RBC (4.30-5.90) m/uL MCV (80.0-100.0) fL Plt Count (150-450) k/uL Chloride (98-107) mmol/L Glucose (74-99) mg/dL Total Creatine Kinase (55-170) U/L CK-MB (CK-2) (0.0-2.4) ng/mL Cholesterol 234 H (<200) mg/dL LDL Cholesterol, Calc 150 H (0-99) mg/dL HDL Cholesterol 72 H (40-60) mg/dL Chest x-ray: report reviewed Thrombosis Risk Factor Assmnt - Choose All That Apply Any of the Below Risk Factors Present?: Yes Each Factor Represents 1 point: Abnormal pulmonary function (COPD), Obesity ( BMI >25) Other Risk Factors: Yes Each Risk Factor Represents 2 Points: Malignancy Each Risk Factor Represents 3 Points: Age 75 years or older Other congenital or acquired thrombophilia - If yes, enter type in comment: No Thrombosis Risk Factor Assessment Total Risk Factor Score: 7 Thrombosis Risk Factor Assessment Level: High Risk Assessment and Plan Plan: Assessment Chest pain unstable angina History of COPD Prostate cancer hypertension Hyperlipidemia Daily alcohol Plan Cardiology consultation with cardiac cath in the morning
[2018-03-21] MEDS: ALBUTEROL NEBULIZED 2.5 MG/3 ML INHALATION PRN (18:33)
[2018-03-21] MEDS ORDERED: ATORVASTATIN 80 MG TAB PO SCH (21:00)
[2018-03-21] MEDS ORDERED: LATANOPROST 0.005% OPHTH DROPS 2.5 ML BTL BOTH EYES SCH (21:00)
[2018-03-21] MEDS: SYMBICORT 80-4.5 MCG INHALER INHALATION SCH (21:13)
[2018-03-22] MEDS ORDERED: hydrALAZINE HCL 20 MG/ML 1 ML VIAL IVP PRN (00:05)
[2018-03-22] MEDS: ALBUTEROL NEBULIZED 2.5 MG/3 ML INHALATION PRN (05:45)
[2018-03-22] MEDS: SYMBICORT 80-4.5 MCG INHALER INHALATION SCH ×2 (07:42→19:51)
[2018-03-22] MEDS: IPRATROPIUM 0.5 MG/2.5 ML NEBU INHALATION SCH ×4 (07:42→19:51)
[2018-03-22] MEDS: FINASTERIDE 5 MG TAB PO SCH (08:01)
[2018-03-22] MEDS: TAMSULOSIN 0.4 MG CAP.ER.24H PO SCH (08:01)
[2018-03-22] MEDS: NEBIVOLOL 5 MG TAB PO SCH (08:01)
[2018-03-22] MEDS: PATIENT'S OWN MED (Roflumilast [Daliresp] 500 MCG) PO SCH (08:03)
[2018-03-22] MEDS ORDERED: ATORVASTATIN 80 MG TAB PO ONE (09:00)
[2018-03-22] MEDS ORDERED: ASPIRIN 325 MG TAB PO ONE (09:00)
[2018-03-22] MEDS: DORZOLAMIDE HCL 2% DROPS 10 ML BTL BOTH EYES SCH (09:16)
[2018-03-22] MEDS: BRIMONIDINE TARTRATE 0.2% DROPS 5 ML BTL BOTH EYES SCH (09:16)
[2018-03-22] MEDS ORDERED: LIDOCAINE 1% INJ 10MG/ML (20 ML MDV) ONE (10:35)
[2018-03-22] MEDS ORDERED: fentaNYL (PF) 50 MCG/ML 2 ML AMP ONE (10:36)
[2018-03-22] MEDS ORDERED: fentaNYL (PF) 50 MCG/ML 2 ML AMP IVP ONE (10:37)
[2018-03-22] MEDS ORDERED: LIDOCAINE 1% (PF) 10 MG/ML (30 ML SDV) SQ ONE (10:40)
[2018-03-22] MEDS ORDERED: MIDAZOLAM 2 MG/2 ML VIAL IVP ONE (10:47)
[2018-03-22] MEDS ORDERED: IV FLUID CONTINUATION 1,000 ML IV ONE (10:48)
[2018-03-22] MEDS ORDERED: NITROGLYCERIN OINT 1 INCH/GM PACKET TOPICAL ONE ×2 (10:53→10:56)
[2018-03-22] MEDS ORDERED: RX INFO: IV CONTRAST WAS GIVEN 1 EACH MISC MISCELLANE PRN (10:57)
[2018-03-22] MEDS ORDERED: IOPAMIDOL-370 125ML BTL INJ ONE (10:57)
[2018-03-22] MEDS ORDERED: LOSARTAN 50 MG TAB PO SCH (11:00)
--- NOTE | 2018-03-22 12:22 | CC ---
CARDIAC CATHETERIZATION REPORT INDICATION: Unstable angina. PROCEDURE NOTE: After obtaining informed consent, left heart catheterization and coronary angiogram were performed via the right femoral artery using standard Sarina catheters. Patient tolerated the procedure well without any obvious immediate complications. A femoral angiogram was performed and Angio-Seal was deployed for hemostasis. FINDINGS: HEMODYNAMICS: Left ventricular end-diastolic pressure is 14-16 mm. There is no significant gradient across the aortic valve. LEFT VENTRICULOGRAM: Ventriculogram is not performed. ANGIOGRAPHIC DATA: LEFT MAIN CORONARY ARTERY: This is a short vessel. Divides into a large dominant circumflex coronary artery and LAD. Circumflex coronary artery and its branches are free of significant stenosis. LAD and its branches are free of significant stenosis. Right coronary artery is a small nondominant vessel and is free of significant disease. CONCLUSION: 1. Normal coronary arteries. 2. Normal left ventricular end-diastolic pressure. PLAN: Patient's chest discomfort is noncardiac in origin and his management is going to be optimal medical therapy. Patient received moderate conscious sedation. Total sedation time was 19 minutes. MMODL / IJN: [id number] /
--- NOTE | 2018-03-22 17:23 | P.DS ---
Providers Date of admission: 03/21/18 07:09 Expected date of discharge: 03/22/18 Attending physician: Shar Yu Consults: 03/21/18 07:10 Consult Physician Urgent Consulting Provider: [facility] Consult Reason/Comments: high risk chest pain Do you want consulting provider notified?: Yes Primary care physician: Shar Yu Hospital Course: Discharge diagnosis - Chest pain, cardiac cause ruled out, heart cath shows no significant blockage - HTN - Hyperlipidemia - COPD Hospital course Very pleasant 82 y/o male comes in with c/o chest pain. He says he was having chest pain for the past 3 days but last evening his chest pain was constant.Ther was no radiation of the pain, he was having cogh, no sob, no diarrhea, no vomiting, no nausea , no vomiting, no lightheadedness, no dizziness. He had a heart cath done which was neagtive His d dimer was high. There is low probability of PE, so he will get a vq scan. He negative he can be discharged home and follow up with cardiology and PCP. Patient Condition at Discharge: Fair Plan - Discharge Summary Discharge Rx Participant: No New Discharge Prescriptions: New Atorvastatin [Lipitor] 80 mg PO HS #30 tab Losartan [Cozaar] 50 mg PO DAILY #30 tab Continue Albuterol Sulfate [Proair Hfa] 1 - 2 puff INHALATION RT-QID PRN PRN Reason: Shortness Of Breath Nebivolol [Bystolic] 5 mg PO DAILY Roflumilast [Daliresp] 500 mcg PO DAILY Tiotropium 18 Mcg/Puff [Spiriva] 1 cap INHALATION RT-DAILY Alfuzosin HCl [Uroxatral ER] 10 mg PO DAILY Finasteride [Proscar] 5 mg PO DAILY Travoprost [Travatan Z 0.004%] 1 drop BOTH EYES HS Budesonide/Formoterol Fumarate [Symbicort 80-4.5 Mcg Inhaler] 2 puff INHALATION RT-BID Brinzolamide/Brimonidine Tart [Simbrinza 1%-0.2% Eye Drops] 1 drop BOTH EYES BID Aspirin EC [Ecotrin] 650 mg PO DAILY Discharge Medication List Albuterol Sulfate [Proair Hfa] 1 - 2 puff INHALATION RT-QID PRN 05/22/15 [ History] Nebivolol [Bystolic] 5 mg PO DAILY 05/22/15 [History] Roflumilast [Daliresp] 500 mcg PO DAILY 05/22/15 [History] Alfuzosin HCl [Uroxatral ER] 10 mg PO DAILY 09/09/15 [History] Finasteride [Proscar] 5 mg PO DAILY 09/09/15 [History] Tiotropium 18 Mcg/Puff [Spiriva] 1 cap INHALATION RT-DAILY 09/09/15 [History] Travoprost [Travatan Z 0.004%] 1 drop BOTH EYES HS 09/10/15 [History] Budesonide/Formoterol Fumarate [Symbicort 80-4.5 Mcg Inhaler] 2 puff INHALATION RT-BID 03/26/17 [History] Aspirin EC [Ecotrin] 650 mg PO DAILY 03/21/18 [History] Brinzolamide/Brimonidine Tart [Simbrinza 1%-0.2% Eye Drops] 1 drop BOTH EYES BID 03/21/18 [History] Atorvastatin [Lipitor] 80 mg PO HS #30 tab 03/22/18 [Rx] Losartan [Cozaar] 50 mg PO DAILY #30 tab 03/22/18 [Rx] Follow up Appointment(s)/Referral(s): Shar Yu MD [Primary Care Provider] - 1-2 days Godwin Gillette MD [STAFF PHYSICIAN] - 04/02/18 4:15 pm Activity/Diet/Wound Care/Special Instructions: Discahrge if vq scan negative and after cleared by cardiology Care Plan Goals (MU): If you ahve any chest pain, racing heart, any cough, sob, any lightheadedness, dizziness, pls come to er or call 911. Discharge Disposition: HOME SELF-CARE
--- NOTE | 2018-03-22 19:21 | NM ---
EXAMINATION TYPE: NM pul vent and perfuse DATE OF EXAM: 03/22/2018 COMPARISON: Chest radiographs 03/31/1916 HISTORY: Elevated d-dimer, dyspnea TECHNIQUE: Utilizing inhalation of 38.2 mCi Tc 99m DTPA aerosol and intravenous injection of 5.15 mC i of Tc 99m MAA, ventilation and perfusion images are acquired post injection in multiple projections . FINDINGS: Mild-plus heterogeneous distribution of the radiopharmaceutical activity throughout the lungs on both the perfusion and ventilation scintigraphic images - more prominent on the ventilation images. However, no evidence of mismatched defects. IMPRESSION: Low probability for the diagnosis of pulmonary embolism.
[2018-03-22 19:34] VITALS: BP 164/83; TEMP 98
[2018-03-22 20:03] VITALS: PULSE 67
== END 2018-03-22 20:35 | disposition home or self-care (01) ==
LOC: EC 06:36 → 1SOBS 07:09
PROVIDERS: ADMIT Family Medicine; ATTEND Family Medicine
DX: R07.89 Other chest pain (principal); R79.89 Other specified abnormal findings of blood chemistry; R53.83 Other fatigue; R11.0 Nausea; R61 Generalized hyperhidrosis; I10 Essential (primary) hypertension; E78.5 Hyperlipidemia, unspecified; J44.9 Chronic obstructive pulmonary disease, unspecified; H40.9 Unspecified glaucoma; I49.3 Ventricular premature depolarization; N40.0 Benign prostatic hyperplasia without lower urinary tract symptoms; Z87.891 Personal history of nicotine dependence; Z79.82 Long term (current) use of aspirin; Z79.899 Other long term (current) drug therapy; Z88.0 Allergy status to penicillin; Z88.1 Allergy status to other antibiotic agents; Z87.01 Personal history of pneumonia (recurrent); Z87.09 Personal history of other diseases of the respiratory system; Z85.830 Personal history of malignant neoplasm of bone; E66.9 Obesity, unspecified; Z68.27 Body mass index [BMI] 27.0-27.9, adult; Z82.49 Family history of ischemic heart disease and other diseases of the circulatory system; Z80.42 Family history of malignant neoplasm of prostate; Z81.8 Family history of other mental and behavioral disorders
CPT/HCPCS: 96361 ×2; 96374; 99285; 36415; 94640 ×4; 93005; 93306; 93458; 85379; 83880; 80061; 80053; 82550; 82553; 83735; 84484; 85025; 85610; 85730; 71046; 78582; G0378 ×2; C1760; C1894; C1769; A9540; A9567; S0138 ×2; J2250; J0360; J2001; J3010; Q9967

== ENCOUNTER → 2018-11-12 | Outpatient (CLI) | payer BC, MEDICARE ==
--- NOTE | 2018-11-12 14:05 | US ---
EXAMINATION TYPE: US venous doppler duplex LE BI DATE OF EXAM: 11/12/2018 1:12 PM COMPARISON: NONE CLINICAL HISTORY: R60.0 Edema. SIDE PERFORMED: TECHNIQUE: The lower extremity deep venous system is examined utilizing real time linear array sonog rome with graded compression, doppler sonography and color-flow sonography. VESSELS IMAGED: Common Femoral Vein Deep Femoral Vein Greater Saphenous Vein * Femoral Vein Popliteal Vein Small Saphenous Vein * Proximal Calf Veins (* superficial vessels) Right Leg: Negative for DVT. Fluid channels are noted anteriorly from superior to inferior right lat eral leg at patient's c/o swelling. Left Leg: Negative for DVT IMPRESSION: 1. Soft tissue edema right lower extremity. 2. No deep venous thrombosis bilateral lower extremities.
== END | disposition home or self-care (01) ==
LOC: RADUSWWP 12:07
PROVIDERS: ATTEND Family Medicine
DX: M79.89 Other specified soft tissue disorders (principal)
CPT/HCPCS: 93970

== ENCOUNTER → 2018-12-06 | Outpatient (CLI) | payer MEDICARE ==
--- NOTE | 2018-12-11 09:19 | P.ARTDOP ---
Arterial Doppler LOWER EXTREMITY ARTERIAL DOPPLER: DATE OF SERVICE: 12/06/2018 Reason for study: Right leg ulcer, swelling right leg. Doppler waveforms: Multiphasic at the right femoral, atypical at the right popliteal, monophasic below. Pulse volume recording: []. Pressure gradients: Mild gradient above the knee bilaterally. Moderate gradient below the knee on the left and more severe gradient on the right.. Ankle-brachial indices: 0.31 on the right and 0.65 on the left. 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 Moderate to severe right fem-pop disease. Clinical correlation recommended..
== END | disposition home or self-care (01) ==
LOC: RADUSWWP 08:04
PROVIDERS: ATTEND Family Medicine
DX: I83.009 Varicose veins of unspecified lower extremity with ulcer of unspecified site (principal)
CPT/HCPCS: 93923

== ENCOUNTER 2020-04-20 13:42 | Emergency (ER) | payer MEDICARE ==
[2020-04-20 13:47] VITALS: RESP 18; TEMP 98.1
--- NOTE | 2020-04-20 14:05 | ED ---
General Adult HPI - General Chief complaint: Chest Pain Stated complaint: chest pain Time Seen by Provider: 04/20/20 13:45 Source: patient, RN notes reviewed, old records reviewed Mode of arrival: ambulatory Limitations: no limitations - History of Present Illness Initial comments: This is an 84-year-old male who presents emergency Department complaining of chest pain. Patient states this in the center of his chest. It does not radiate anywhere. Patient denies any shortness of breath associated with it. Patient states he woke up with it. Patient denies any diaphoretic episodes. Patient denies any nausea vomiting. Patient states he did take 4 aspirin. Home. Patient denies any headache patient denies numbness weakness. Patient denies any abdominal pain patient denies nausea vomiting diarrhea. Patient denies any recent fever chills or cough. Patient denies any exposure: The patient denies any swelling to the legs and in fact he says he Chronic cellulitis and it is getting better slowly. - Related Data Home Medications Medication Instructions Recorded Confirmed Albuterol Sulfate [Proair Hfa] 2 puff INHALATION RT-Q4H PRN 05/22/15 04/20/20 Roflumilast [Daliresp] 500 mcg PO DAILY 05/22/15 04/20/20 Alfuzosin HCl [Uroxatral ER] 10 mg PO DAILY 09/09/15 04/20/20 Finasteride [Proscar] 5 mg PO DAILY 09/09/15 04/20/20 Travoprost [Travatan Z 0.004%] 1 drop BOTH EYES HS 09/10/15 04/20/20 Brinzolamide/Brimonidine Tart 1 drop BOTH EYES BID 03/21/18 04/20/20 [Simbrinza 1%-0.2% Eye Drops] Budesonide/Glycopyr/Formoterol 2 puff INHALATION RT-BID 04/20/20 04/20/20 [Breztri Aerosphere Inhaler] Carvedilol [Coreg] 3.125 mg PO BID 04/20/20 04/20/20 Fluticasone Nasal [place] [Flonase 1 spray EA NOSTRIL DAILY PRN 04/20/20 04/20/20 Nasal [place]] Levocetirizine Dihydrochloride 5 mg PO DAILY 04/20/20 04/20/20 Multivitamins, Thera [Multivitamin 1 tab PO DAILY 04/20/20 04/20/20 (formulary)] Tiotropium 2.5 Mcg/Puff [Spiriva 2 puff INHALATION RT-DAILY 04/20/20 04/20/20 Respimat 2.5 Mcg] Vit C/E/Zn/Coppr/Lutein/Zeaxan 1 cap PO DAILY 04/20/20 04/20/20 [Preservision Areds 2 Softgel] rOPINIRole HCL [Requip] 1 mg PO TID 04/20/20 04/20/20 Allergies Allergy/AdvReac Type Severity Reaction Status Date / Time amoxicillin trihydrate Allergy Unknown Verified 04/20/20 15:33 [From Augmentin] moxifloxacin HCl Allergy Nausea & Verified 04/20/20 15:33 [From Avelox] Vomiting potassium clavulanate Allergy Unknown Verified 04/20/20 15:33 [From Augmentin] Review of Systems ROS Statement: Those systems with pertinent positive or pertinent negative responses have been documented in the HPI. ROS Other: All systems not noted in ROS Statement are negative. 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 heart cath negative (2019) Past Anesthesia/Blood Transfusion Reactions: No Reported Reaction Additional Past Anesthesia/Blood Transfusion Reaction / Comment(s): Pt has clausterphobia. Past Psychological History: No Psychological Hx Reported Smoking Status: Former smoker Past Alcohol Use History: Daily Past Drug Use History: None Reported - Past Family History Brother(s) Family Medical History: Prostate Disorder Additional Family Medical History / Comment(s): Prostate cancer. Father Family Medical History: Dementia Additional Family Medical History / Comment(s): Father of dementia at the age of 79yrs. Mother Family Medical History: No Reported History Additional Family Medical History / Comment(s): Mother was healthy and lived to be 86yrs old. General Exam - General Exam Comments Initial Comments: GENERAL: Patient is well-developed and well-nourished. Patient is nontoxic and well- hydrated and is in mild distress. ENT: Neck is soft and supple. No significant lymphadenopathy is noted. Oropharynx is clear. Moist mucous membranes. Neck has full range of motion without eliciting any pain. EYES: The sclera were anicteric and conjunctiva were pink and moist. Extraocular movements were intact and pupils were equal round and reactive to light. Eyelids were unremarkable. PULMONARY: Unlabored respirations. Good breath sounds bilaterally. No audible rales rhonchi or wheezing was noted. CARDIOVASCULAR: There is a regular rate and rhythm without any murmurs gallops or rubs. ABDOMEN: Soft and nontender with normal bowel sounds. SKIN: Skin is clear with no lesions or rashes and otherwise unremarkable. NEUROLOGIC: Patient is alert and oriented x3. Cranial nerves II through XII are grossly intact. Motor and sensory are also intact. Normal speech, volume and content. Symmetrical smile. MUSCULOSKELETAL: Normal extremities with adequate strength and full range of motion. No edema bilaterally with chronic cellulitis LYMPHATICS: No significant lymphadenopathy is noted PSYCHIATRIC: Normal psychiatric evaluation. Limitations: no limitations Course Vital Signs 04/20/20 04/20/20 13:43 14:55 Temperature 98.1 F Pulse Rate 65 65 Respiratory 18 18 Rate Blood Pressure 198/92 138/94 O2 Sat by Pulse 95 98 Oximetry Medical Decision Making - Medical Decision Making EKG shows sinus rhythm at 76 bpm NC interval 150 for cardiac 114 QT interval 42 QTC is 452. Patient's EKG shows a PVC but no ST segment elevation there is some slight ST segment depression in precordial leads V3 through V6. Chest x-ray shows no acute normalities. I discussed that the patient on heparin however the patient refused to stay he understood that he had a sent out AGAINST MEDICAL ADVICE and he understood the risks of possibly going home. Patient was informed to follow up with primary medical care doctor soon as possible. Patient also was informed if he had any further chest pain or difficulty breathing to return to emergency department immediately. - Lab Data Result diagrams: 04/20/20 14:48 04/20/20 14:48 Lab Results 04/20/20 04/20/20 04/20/20 Range/Units 14:48 14:48 14:48 WBC 6.1 (3.8-10.6) k/uL RBC 3.91 L (4.30-5.90) m/uL Hgb 13.0 (13.0-17.5) gm/dL Hct 38.9 L (39.0-53.0) % MCV 99.3 (80.0-100.0) fL MCH 33.2 (25.0-35.0) pg MCHC 33.4 (31.0-37.0) g/dL RDW 13.8 (11.5-15.5) % Plt Count 141 L (150-450) k/uL MPV 8.3 Neutrophils % 69 % Lymphocytes % 19 % Monocytes % 6 % Eosinophils % 4 % Basophils % 1 % Neutrophils # 4.2 (1.3-7.7) k/uL Lymphocytes # 1.2 (1.0-4.8) k/uL Monocytes # 0.4 (0-1.0) k/uL Eosinophils # 0.2 (0-0.7) k/uL Basophils # 0.1 (0-0.2) k/uL PT 10.2 (9.0-12.0) sec INR 0.9 (<1.2) APTT 24.4 (22.0-30.0) sec Sodium 140 (137-145) mmol/L Potassium 4.5 (3.5-5.1) mmol/L Chloride 106 (98-107) mmol/L Carbon Dioxide 24 (22-30) mmol/L Anion Gap 10 mmol/L BUN 21 H (9-20) mg/dL Creatinine 0.83 (0.66-1.25) mg/dL Est GFR (CKD-EPI)AfAm >90 (>60 ml/min/1.73 sqM) Est GFR (CKD-EPI)NonAf 82 (>60 ml/min/1.73 sqM) Glucose 105 H (74-99) mg/dL Calcium 9.7 (8.4-10.2) mg/dL Magnesium 2.1 (1.6-2.3) mg/dL Total Bilirubin 0.5 (0.2-1.3) mg/dL AST 27 (17-59) U/L ALT 18 (4-49) U/L Alkaline Phosphatase 81 (38-126) U/L Troponin I (0.000-0.034) ng/mL Total Protein 6.6 (6.3-8.2) g/dL Albumin 4.0 (3.5-5.0) g/dL 04/20/20 Range/Units 14:48 WBC (3.8-10.6) k/uL RBC (4.30-5.90) m/uL Hgb (13.0-17.5) gm/dL Hct (39.0-53.0) % MCV (80.0-100.0) fL MCH (25.0-35.0) pg MCHC (31.0-37.0) g/dL RDW (11.5-15.5) % Plt Count (150-450) k/uL MPV Neutrophils % % Lymphocytes % % Monocytes % % Eosinophils % % Basophils % % Neutrophils # (1.3-7.7) k/uL Lymphocytes # (1.0-4.8) k/uL Monocytes # (0-1.0) k/uL Eosinophils # (0-0.7) k/uL Basophils # (0-0.2) k/uL PT (9.0-12.0) sec INR (<1.2) APTT (22.0-30.0) sec Sodium (137-145) mmol/L Potassium (3.5-5.1) mmol/L Chloride (98-107) mmol/L Carbon Dioxide (22-30) mmol/L Anion Gap mmol/L BUN (9-20) mg/dL Creatinine (0.66-1.25) mg/dL Est GFR (CKD-EPI)AfAm (>60 ml/min/1.73 sqM) Est GFR (CKD-EPI)NonAf (>60 ml/min/1.73 sqM) Glucose (74-99) mg/dL Calcium (8.4-10.2) mg/dL Magnesium (1.6-2.3) mg/dL Total Bilirubin (0.2-1.3) mg/dL AST (17-59) U/L ALT (4-49) U/L Alkaline Phosphatase (38-126) U/L Troponin I <0.012 (0.000-0.034) ng/mL Total Protein (6.3-8.2) g/dL Albumin (3.5-5.0) g/dL Disposition Clinical Impression: Unstable angina pectoris Disposition: Left Against Medical Advice Instructions (If sedation given, give patient instructions): Chest Pain (ED) Referrals: Shar Yu MD [Primary Care Provider] - 1-2 days Time of Disposition: 16:08
[2020-04-20] MEDS ORDERED: NITROGLYCERIN OINT 1 INCH/GM PACKET TOPICAL STA (14:37)
--- NOTE | 2020-04-20 15:04 | XR ---
EXAMINATION TYPE: XR chest 2V DATE OF EXAM: 04/20/2020 COMPARISON: Chest x-ray March 21, 2018 HISTORY: Chest pain today. TECHNIQUE: Frontal and lateral views of the chest are obtained. FINDINGS: There is chronic parenchymal change bilaterally without suspicious new focal air space [place] or pneumothorax seen. Chronic blunting left posterior costophrenic angle consistent with tiny pl eural effusion or pleural thickening redemonstrated. The cardiac silhouette size is stable and within normal limits. Exaggerated thoracic kyphosis with mild to moderate multilevel disc space narrowing a nd endplate sclerosis. IMPRESSION: Chronic parenchymal changes without acute pulmonary process.
[2020-04-20 15:12] LABS: Basophils # (A) 0.1 k/uL (0-0.2); Basophils % (A) 1 %; Eosinophils # (A) 0.2 k/uL (0-0.7); Eosinophils % (A) 4 %; HCT 38.9 % (39.0-53.0); Lymphocytes # (A) 1.2 k/uL (1.0-4.8); Lymphocytes % (A) 19 %; MCH 33.2 pg (25.0-35.0); MCHC 33.4 g/dL (31.0-37.0); MCV 99.3 fL (80.0-100.0); Mean Platelet Volume 8.3; Monocytes # (A) 0.4 k/uL (0-1.0); Monocytes % (A) 6 %; Neutrophils # (A) 4.2 k/uL (1.3-7.7); Neutrophils % (A) 69 %; Platelet Count 141 k/uL (150-450); RBC 3.91 m/uL (4.30-5.90); RDW 13.8 % (11.5-15.5); WBC 6.1 k/uL (3.8-10.6)
[2020-04-20 15:21] LABS: INR 0.9 (<1.2)
[2020-04-20 15:22] LABS: Partial Thromboplastin Time 24.4 sec (22.0-30.0); Prothrombin Time 10.2 sec (9.0-12.0)
[2020-04-20 15:27] LABS: ALT 18 U/L (4-49); AST 27 U/L (17-59); African American GFR (CKD) >90 (>60 ml/min/1.73 sqM); Alkaline Phosphatase 81 U/L (38-126); Anion Gap 10 mmol/L; Blood Urea Nitrogen 21 mg/dL (9-20); Calcium 9.7 mg/dL (8.4-10.2); Carbon Dioxide 24 mmol/L (22-30); Chloride 106 mmol/L (98-107); Glucose 105 mg/dL (74-99); Magnesium 2.1 mg/dL (1.6-2.3); Non-African American GFR(CKD) 82 (>60 ml/min/1.73 sqM); Potassium 4.5 mmol/L (3.5-5.1); Sodium 140 mmol/L (137-145); Total Bilirubin 0.5 mg/dL (0.2-1.3); Total Protein 6.6 g/dL (6.3-8.2)
[2020-04-20] MEDS ORDERED: HEPARIN SODIUM,PORCINE 5,000 UNIT/ML 1 ML VIAL IV ONE (16:04)
[2020-04-20 16:11] VITALS: BP 174/77; PULSE 66
[2020-04-20] MEDS ORDERED: HEPARIN SOD,PORK IN 0.45% NACL 25,000 UNIT in 0.45% NACL 1 250ML.BAG IV SCH (16:15)
== END 2020-04-20 16:31 | disposition left against medical advice (07) ==
LOC: EC 13:42
DX: I20.0 Unstable angina (principal); E78.5 Hyperlipidemia, unspecified; I10 Essential (primary) hypertension; J44.9 Chronic obstructive pulmonary disease, unspecified; Z79.899 Other long term (current) drug therapy; Z87.891 Personal history of nicotine dependence; Z88.0 Allergy status to penicillin
CPT/HCPCS: 36415; 71046; 80053; 83735; 84484; 85025; 85610; 85730; 93005; 96374; 99285

== ENCOUNTER 2020-04-23 02:31 | Emergency (ER) | payer MEDICARE ==
[2020-04-23 02:40] VITALS: TEMP 97.9
[2020-04-23 03:17] LABS: Basophils # (A) 0.1 k/uL (0-0.2); Basophils % (A) 1 %; Eosinophils # (A) 0.4 k/uL (0-0.7); Eosinophils % (A) 6 %; HCT 37.4 % (39.0-53.0); HGB 12.6 gm/dL (13.0-17.5); Lymphocytes # (A) 1.3 k/uL (1.0-4.8); Lymphocytes % (A) 22 %; MCH 33.4 pg (25.0-35.0); MCHC 33.6 g/dL (31.0-37.0); MCV 99.5 fL (80.0-100.0); Monocytes # (A) 0.4 k/uL (0-1.0); Monocytes % (A) 6 %; Neutrophils # (A) 3.6 k/uL (1.3-7.7); Neutrophils % (A) 62 %; Platelet Count 139 k/uL (150-450); RBC 3.76 m/uL (4.30-5.90); RDW 13.6 % (11.5-15.5); WBC 5.7 k/uL (3.8-10.6)
--- NOTE | 2020-04-23 03:34 | XR ---
EXAM: XR Chest, 2 Views CLINICAL HISTORY: ITS.REASON XR Reason: Chest Pain TECHNIQUE: Frontal and lateral views of the chest. COMPARISON: April 20, 2020 FINDINGS: Lungs: Slight interstitial prominence in the lungs, similar to previous suggesting mild emphysema. No acute infiltrate is seen. Pleural space: Unremarkable. No pneumothorax. Heart: The heart size is upper normal. Mediastinum: Unremarkable. Bones/joints: Mild to moderate degenerative changes throughout the mid to lower thoracic spine, unchanged. IMPRESSION: Slight interstitial prominence in the lungs, similar to previous suggesting mild emphysema. No acute infiltrate is seen.
[2020-04-23 04:05] LABS: ALT 18 U/L (4-49); AST 26 U/L (17-59); African American GFR (CKD) >90 (>60 ml/min/1.73 sqM); Albumin 3.7 g/dL (3.5-5.0); Alkaline Phosphatase 71 U/L (38-126); Anion Gap 11 mmol/L; Blood Urea Nitrogen 20 mg/dL (9-20); Calcium 9.2 mg/dL (8.4-10.2); Carbon Dioxide 21 mmol/L (22-30); Chloride 107 mmol/L (98-107); Glucose 121 mg/dL (74-99); Non-African American GFR(CKD) 80 (>60 ml/min/1.73 sqM); Potassium 4.1 mmol/L (3.5-5.1); Sodium 139 mmol/L (137-145); Total Bilirubin 0.4 mg/dL (0.2-1.3); Total Protein 6.1 g/dL (6.3-8.2)
[2020-04-23 04:32] LABS: INR 0.9 (<1.2); Partial Thromboplastin Time 24.7 sec (22.0-30.0); Prothrombin Time 10.2 sec (9.0-12.0)
--- NOTE | 2020-04-23 04:53 | ED ---
Chest Pain HPI - General Chief Complaint: Chest Pain Stated Complaint: Neck & Left arm pain Time Seen by Provider: 04/23/20 02:45 Source: patient Mode of arrival: wheelchair Limitations: no limitations - History of Present Illness MD Complaint: other Onset/Timin -: hour(s) Onset: during rest Pain Radiation: LUE, neck Severity: mild Quality: aching Consistency: now resolved Improves With: nothing Worsens With: nothing Treatments Prior to Arrival: none - Related Data Home Medications Medication Instructions Recorded Confirmed Albuterol Sulfate [Proair Hfa] 2 puff INHALATION RT-Q4H PRN 05/22/15 04/20/20 Roflumilast [Daliresp] 500 mcg PO DAILY 05/22/15 04/20/20 Alfuzosin HCl [Uroxatral ER] 10 mg PO DAILY 09/09/15 04/20/20 Finasteride [Proscar] 5 mg PO DAILY 09/09/15 04/20/20 Travoprost [Travatan Z 0.004%] 1 drop BOTH EYES HS 09/10/15 04/20/20 Brinzolamide/Brimonidine Tart 1 drop BOTH EYES BID 03/21/18 04/20/20 [Simbrinza 1%-0.2% Eye Drops] Budesonide/Glycopyr/Formoterol 2 puff INHALATION RT-BID 04/20/20 04/20/20 [Breztri Aerosphere Inhaler] Carvedilol [Coreg] 3.125 mg PO BID 04/20/20 04/20/20 Fluticasone Nasal [place] [Flonase 1 spray EA NOSTRIL DAILY PRN 04/20/20 04/20/20 Nasal [place]] Levocetirizine Dihydrochloride 5 mg PO DAILY 04/20/20 04/20/20 Multivitamins, Thera [Multivitamin 1 tab PO DAILY 04/20/20 04/20/20 (formulary)] Tiotropium 2.5 Mcg/Puff [Spiriva 2 puff INHALATION RT-DAILY 04/20/20 04/20/20 Respimat 2.5 Mcg] Vit C/E/Zn/Coppr/Lutein/Zeaxan 1 cap PO DAILY 04/20/20 04/20/20 [Preservision Areds 2 Softgel] rOPINIRole HCL [Requip] 1 mg PO TID 04/20/20 04/20/20 Allergies Allergy/AdvReac Type Severity Reaction Status Date / Time amoxicillin trihydrate Allergy Unknown Verified 04/23/20 02:41 [From Augmentin] moxifloxacin HCl Allergy Nausea & Verified 04/23/20 02:41 [From Avelox] Vomiting potassium clavulanate Allergy Unknown Verified 04/23/20 02:41 [From Augmentin] Review of Systems ROS Statement: Those systems with pertinent positive or pertinent negative responses have been documented in the HPI. ROS Other: All systems not noted in ROS Statement are negative. Constitutional: Denies: fever, chills Respiratory: Denies: cough, dyspnea Cardiovascular: Reports: chest pain. 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 heart cath negative (2019) Past Anesthesia/Blood Transfusion Reactions: No Reported Reaction Additional Past Anesthesia/Blood Transfusion Reaction / Comment(s): Pt has clausterphobia. Past Psychological History: No Psychological Hx Reported Smoking Status: Former smoker Past Alcohol Use History: Daily Past Drug Use History: None Reported - Past Family History Brother(s) Family Medical History: Prostate Disorder Additional Family Medical History / Comment(s): Prostate cancer. Father Family Medical History: Dementia Additional Family Medical History / Comment(s): Father of dementia at the age of 79yrs. Mother Family Medical History: No Reported History Additional Family Medical History / Comment(s): Mother was healthy and lived to be 86yrs old. General Exam Limitations: no limitations General appearance: alert, in no apparent distress Head exam: Present: atraumatic, normocephalic Eye exam: Present: normal appearance. Absent: scleral icterus, conjunctival injection Neck exam: Present: normal inspection, full ROM. Absent: tenderness Respiratory exam: Present: normal lung sounds bilaterally. Absent: respiratory distress, wheezes, rales, rhonchi, stridor Cardiovascular Exam: Present: regular rate, normal rhythm, normal heart sounds. Absent: systolic murmur, diastolic murmur, rubs, gallop GI/Abdominal exam: Present: soft. Absent: distended, tenderness, guarding, rebound, rigid, mass Extremities exam: Present: normal inspection, normal capillary refill. Absent: pedal edema, calf tenderness Back exam: Present: normal inspection. Absent: CVA tenderness (R), CVA tenderness (L) Neurological exam: Present: alert Skin exam: Present: warm, dry, intact, normal color. Absent: rash Course Vital Signs 04/23/20 04/23/20 02:36 05:06 Temperature 97.9 F Pulse Rate 66 53 L Respiratory 18 16 Rate Blood Pressure 139/66 173/81 O2 Sat by Pulse 95 96 Oximetry Chest Pain MDM - MDM This patient is a 84-year-old man who presents with episode of chest discomfort. Given that this is second visit for similar complaint I was in the process of working on admission for the patient when it was called and informed me that he wanted to go home. We discussed that there is deftly risk of missing cardiac source of his chest pain if we stopped workup at this point. The patient expresses understanding states she will follow up as outpatient but declines admission. He states he will return if he has any further symptoms. Disposition Clinical Impression: Chest pain Disposition: HOME SELF-CARE Condition: Undetermined Instructions (If sedation given, give patient instructions): Chest Pain (ED) Is patient prescribed a controlled substance at d/c from ED?: No Referrals: Shar Yu MD [Primary Care Provider] - 1-2 days
[2020-04-23 05:07] VITALS: BP 173/81; PULSE 53; RESP 16
== END 2020-04-23 05:07 | disposition home or self-care (01) ==
LOC: EC 02:31
DX: R07.9 Chest pain, unspecified (principal); E78.5 Hyperlipidemia, unspecified; I10 Essential (primary) hypertension; J44.9 Chronic obstructive pulmonary disease, unspecified; Z87.891 Personal history of nicotine dependence; Z88.0 Allergy status to penicillin
CPT/HCPCS: 36415; 71046; 80053; 83735; 84484; 85025; 85610; 85730; 93005; 99285

== ENCOUNTER → 2020-07-01 | Outpatient (CLI) | payer MEDICARE ==
--- NOTE | 2020-07-01 16:10 | US ---
EXAMINATION TYPE: US venous doppler duplex LE DATE OF EXAM: 07/01/2020 3:20 PM COMPARISON: US 11/12/18 CLINICAL HISTORY: R60.0 edema. SIDE PERFORMED: Bilateral TECHNIQUE: The lower extremity deep venous system is examined utilizing real time linear array sonog rome with graded compression, doppler sonography and color-flow sonography. VESSELS IMAGED: Common Femoral Vein Deep Femoral Vein Greater Saphenous Vein * Femoral Vein Popliteal Vein Small Saphenous Vein * Proximal Calf Veins (* superficial vessels) Edema in the left popliteal soft tissues. Bilateral enlarged lymph nodes noted in groin. Largest: Right = 2.4 cm Left = 3.9 cm Right Leg: Negative for DVT Left Leg: Negative for DVT IMPRESSION: 1. No evidence of deep venous thrombosis of the lower extremities. 2. Bilateral prominent groin lymph nodes, larger on the left measuring 3.9 cm. Clinical follow-up is recommended. Returned imaging as clinically indicated. 3. Edema within the left popliteal fossa soft tissues.
== END | disposition home or self-care (01) ==
LOC: RADUSWWP 14:42
PROVIDERS: ATTEND Family Medicine
DX: R60.0 Localized edema (principal)
CPT/HCPCS: 93970

== ENCOUNTER → 2020-08-06 | Outpatient (CLI) | payer MEDICARE ==
[2020-08-06 10:11] LABS: African American GFR (CKD) >90 (>60 ml/min/1.73 sqM); Blood Urea Nitrogen 17 mg/dL (9-20); Non-African American GFR(CKD) 81 (>60 ml/min/1.73 sqM)
--- NOTE | 2020-08-06 12:33 | CT ---
EXAMINATION TYPE: CT abdomen pelvis wo/w con DATE OF EXAM: 08/06/2020 COMPARISON: 12/03/2015 INDICATION: Malignant neoplasm of prostate DLP: 2402.00 mGycm, Automated exposure control for dose reduction was used. CONTRAST: 100 ml mL of Isovue 300. Study performed with Oral Contrast TECHNIQUE: Axial images were obtained from above the diaphragm to the pubic rami in the axial plane a t 5 mm thick sections. Reconstructed images are reviewed on the computer in the coronal plane. FINDINGS: Limited CT sections are obtained the lung bases. The lung bases are clear. CT ABDOMEN: Liver: Normal Spleen: Normal Pancreas: Normal Adrenal glands: The adrenal glands are normal. Gallbladder: Normal Kidneys: No masses are evident. No hydronephrosis is present. There is a 1.6 cm cyst on the lateral right mid kidney. No renal stones are evident. Aorta: Vascular calcification is within the aorta. Inferior vena cava: Normal. CT PELVIS: Loops of bowel within the abdomen and pelvis are normal. There are loops of bowel which are incom pletely distended or lack oral contrast limiting their evaluation. Appendix: Normal as visualized. No adjacent inflammatory changes are Urinary bladder: Normal. Genitourinary structures: Prostate is prominent inferior urinary bladder impression Osseous structures: There is some scattered sclerotic areas with ill-defined margins within the lumba r lower thoracic region. Metastatic disease and degenerative change could be considered. These are ch anges from comparison. Nuclear medicine bone scan may be useful. Lymphadenopathy: No suspicious pelvic adenopathy is evident. There are scattered enlarged lymph nodes in the periaortic and retrocaval regions. There are some enlarged retrocaval lymph nodes. There is some nonspecific left retroperitoneal inflammatory type change present of uncertain etiology IMPRESSIONS: 1. Prostate hypertrophy with inferior impression on the urinary bladder. 2. Irregular sclerotic areas which appear to be developing within the thoracic lumbar spine within th e [id number]. Sclerotic metastasis should be considered. Nuclear medicine bone scan may be useful for differentiation from degenerative changes. 3. Enlarged retroperitoneal periaortic and retrocaval adenopathy consider additional workup with PET CT
--- NOTE | 2020-08-06 15:20 | NM ---
EXAMINATION TYPE: NM bone scan whole body DATE OF EXAM: 08/06/2020 COMPARISON: CT same date HISTORY: C 61 Delayed whole-body scanning was performed following the injection of 22.1 mCi Tc 99m MDP. Images acq uired 3 hours post injection. FINDINGS: Multiple foci of uptake are present along the spine which are felt likely to be degenerative changes. Uptake within the shoulders, sternoclavicular joints, wrists and hands, knees and feet is likely deg enerative. Soft tissue uptake is within normal limits. IMPRESSION: No convincing metastatic disease. Findings felt likely to be degenerative change.
== END | disposition home or self-care (01) ==
LOC: RADCTMAIN 09:31
PROVIDERS: ATTEND Radiology Radiation Oncology
DX: C61 Malignant neoplasm of prostate (principal); N40.0 Benign prostatic hyperplasia without lower urinary tract symptoms
CPT/HCPCS: 82565; 84520; 74178; 36415; 78306; A9503; Q9967

== ENCOUNTER 2020-09-02 08:23 | Day surgery (SDC) | payer MEDICARE ==
[2020-08-31 14:11] VITALS: BMI 27.7
--- NOTE | 2020-09-01 20:04 | P.GSHP ---
History of Present Illness H&P Date: 09/01/20 84 yo male with large prostate[80ml] whose psa went from 6.5 to 44.6 Biopsies showed a larger extra prostate nodule next to the right sv that was biopsied for a G8 cap as well as one biopsy in the prostate. Because of this high grade lesion in the location it is I felt he would be best served with ebrt and lhrh. He comes for spaceoar treatment by Dr Beyer prior to his ebrt. His metastatic w/u was negative - Constitutional Constitutional: Denies chills, Denies fever - EENT Eyes: denies blurred vision, denies pain Ears, nose, mouth and throat: Denies headache, Denies sore throat - Cardiovascular Cardiovascular: Denies chest pain, Denies shortness of breath - Respiratory Respiratory: Denies cough, Denies 7 - Gastrointestinal Gastrointestinal: Denies abdominal pain, Denies diarrhea, Denies nausea, Denies vomiting - Genitourinary (Female) Genitourinary: Denies dysuria, Denies hematuria - Genitourinary (Male) Genitourinary: Denies dysuria, Denies hematuria - Musculoskeletal Musculoskeletal: Denies myalgias - Integumentary Integumentary: Denies pruritus, Denies rash - Neurological Neurological: Denies numbness, Denies weakness - Psychiatric Psychiatric: Denies anxiety, Denies depression - Endocrine Endocrine: Denies fatigue, Denies weight change Past Medical History Past Medical History: Cancer, COPD, Hyperlipidemia, Hypertension, Pneumonia, Prostate Disorder Additional Past Medical History / Comment(s): Tracheobronchitis, BPH, 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 Past Anesthesia/Blood Transfusion Reactions: No Reported Reaction Additional Past Anesthesia/Blood Transfusion Reaction / Comment(s): Pt has claustrophobia. Smoking Status: Former smoker - Past Family History Brother(s) Family Medical History: Cancer Additional Family Medical History / Comment(s): Prostate cancer. Father Family Medical History: Deep Vein Thrombosis (DVT) Additional Family Medical History / Comment(s): Father of dementia at the age of 79yrs. Mother Family Medical History: No Reported History Additional Family Medical History / Comment(s): Mother was healthy and lived to be 86yrs old. Medications and Allergies Home Medications Medication Instructions Recorded Confirmed Type Albuterol Sulfate [Proair Hfa] 2 puff INHALATION RT-Q4H PRN 05/22/15 08/31/20 History Roflumilast [Daliresp] 500 mcg PO DAILY 05/22/15 08/31/20 History Alfuzosin HCl [Uroxatral ER] 10 mg PO DAILY 09/09/15 08/31/20 History Finasteride [Proscar] 5 mg PO DAILY 09/09/15 08/31/20 History Travoprost [Travatan Z 0.004%] 1 drop BOTH EYES HS 09/10/15 08/31/20 History Brinzolamide/Brimonidine Tart 1 drop BOTH EYES BID 03/21/18 08/31/20 History [Simbrinza 1%-0.2% Eye Drops] Budesonide/Glycopyr/Formoterol 2 puff INHALATION RT-BID 04/20/20 08/31/20 History [Breztri Aerosphere Inhaler] Fluticasone Nasal [place] [Flonase 1 spray EA NOSTRIL DAILY PRN 04/20/20 08/31/20 History Nasal [place]] Levocetirizine Dihydrochloride 5 mg PO DAILY 04/20/20 08/31/20 History Multivitamins, Thera [Multivitamin 1 tab PO DAILY 04/20/20 08/31/20 History (formulary)] Vit C/E/Zn/Coppr/Lutein/Zeaxan 1 cap PO DAILY 04/20/20 08/31/20 History [Preservision Areds 2 Softgel] rOPINIRole HCL [Requip] 1 mg PO TID PRN 04/20/20 08/31/20 History Albuterol Nebulized [Ventolin 2.5 mg INHALATION QID PRN 08/31/20 08/31/20 History Nebulized] Aspirin 325 mg PO DAILY 08/31/20 08/31/20 History Furosemide [Lasix] 20 mg PO DAILY 08/31/20 08/31/20 History Nebivolol HCl [Bystolic] 5 mg PO DAILY 08/31/20 08/31/20 History Allergies Allergy/AdvReac Type Severity Reaction Status Date / Time amoxicillin trihydrate Allergy Unknown Verified 08/31/20 13:52 [From Augmentin] moxifloxacin HCl Allergy Nausea & Verified 08/31/20 13:52 [From Avelox] Vomiting potassium clavulanate Allergy Unknown Verified 08/31/20 13:52 [From Augmentin] Surgical - Exam - General well developed, well nourished, no distress - ENT no hearing loss - Neck trachea midline - Respiratory normal expansion, normal respiratory effort - Cardiovascular Rhythm: regular - Abdomen Abdomen: soft, non tender - Genitourinary prostate large without palpable nodule - Integumentary no rash - Neurologic normal coordination, normal sensation - Musculoskeletal normal gait, normal posture - Psychiatric oriented to time, oriented to person, oriented to place, speech is normal, memory intact Assessment and Plan Assessment: Impression: High grade t3a ca prostate Plan Spaceoar prior to ebrt
[~2020-09-02 08:23] MED LIST: DEXAMETHASONE SOD PHOSPHATE 4 MG/ML 1 ML VIAL IV ONE; HYDROmorphone 0.5 MG/0.5 ML SYRINGE IVP PRN; LACTATED RINGERS 1,000 ML IV SCH; ONDANSETRON 4 MG/2 ML VIAL IVP ONE
[2020-09-02 08:54] VITALS: TEMP 97.5
[2020-09-02] MEDS ORDERED: ONDANSETRON 4 MG/2 ML VIAL ONE (08:57)
[2020-09-02] MEDS ORDERED: LIDOCAINE 1% (10MG/ML) FOR IV START INTRADERMA ONE (08:58)
[2020-09-02] MEDS ORDERED: fentaNYL (PF) 50 MCG/ML 2 ML AMP ONE (10:22)
[2020-09-02] MEDS ORDERED: PROPOFOL 10 MG/ML 20 ML VIAL IV ONE (10:22)
[2020-09-02] MEDS ORDERED: MIDAZOLAM 2 MG/2 ML VIAL ONE (10:22)
[2020-09-02] MEDS ORDERED: LIDOCAINE 2% INJ 20 MG/ML SQ ONE ×2 (10:48)
--- NOTE | 2020-09-02 11:08 | P.OP ---
Date of Procedure: 09/02/20 Preoperative Diagnosis: Adenocarcinoma of the prostate Postoperative Diagnosis: Same Procedure(s) Performed: SpaceOAR Implant Anesthesia: MAC Surgeon: Miguel Ángel Beyer Estimated Blood Loss (ml): 10 IV fluids (ml): 800 Pathology: none sent Condition: stable Disposition: PACU Indications for Procedure: The patient is an 84-year-old white male whose PSA level corrine from 6.5-44.6. He was found to have a right-sided prostate nodule with extension into the right seminal vesicle, Collin score 7 (4+3). His metastatic evaluation was negative. He is to be treated with IMRT and androgen deprivation therapy. He now comes for SpaceOAR implant. Operative Findings: Large external hemorrhoids. Excellent separation created between prostate and rectum. Description of Procedure: The patient was taken to the operating room and placed in the dorsolithotomy position, with his legs supported in Desmond stirrups. The external genitalia was prepped and draped sterilely. Large external hemorrhoids were noted. The Bruel and Kjaer transrectal ultrasound probe was placed intrarectally. The prostate was imaged. The probe was then placed within the stabilizing stand. A spinal needle was advanced under ultrasonic guidance to the level of the urogenital diaphragm, and lidocaine was used to infiltrate the tissues as the needle was withdrawn. Next, the SpaceOAR needle was passed through the midline of the perineum, 1-2 cm anterior to the anal opening. The needle was slowly advanced under ultrasonic guidance until the needle tip was located within the fat plane between the prostate and rectum, at the level of the mid prostate gland. The needle was confirmed to be midline on the axial imaging. A small amount of normal saline was injected for hydrodissection. Next, the SpaceOAR components were mixed and loaded into the Y connector per protocol. The Y connector was then connected to the needle, and the components were injected slowly over a course of approximately 12 seconds. A total of 13 ml was injected. Significant distance (1.3 cm) was created between the prostate and rectum. It should be noted that at no point was there any concern of rectal perforation. The needle was withdrawn, as well as the transrectal ultrasound probe, and the procedure was terminated. The patient tolerated the procedure well and was taken to the recovery room in stable condition.
[2020-09-02 11:34] VITALS: RESP 16
[2020-09-02] MEDS ORDERED: hydrALAZINE HCL 20 MG/ML 1 ML VIAL ONE (11:45)
[2020-09-02] MEDS ORDERED: hydrALAZINE HCL 20 MG/ML 1 ML VIAL IV ONE (11:47)
[2020-09-02 12:05] VITALS: BP 172/78; PULSE 65
== END 2020-09-02 12:23 | disposition home or self-care (01) ==
LOC: OR 08:23
PROVIDERS: ATTEND Urology
DX: C61 Malignant neoplasm of prostate (principal); J44.9 Chronic obstructive pulmonary disease, unspecified; E78.5 Hyperlipidemia, unspecified; I10 Essential (primary) hypertension; Z87.891 Personal history of nicotine dependence; Z80.9 Family history of malignant neoplasm, unspecified
CPT/HCPCS: 55876; C1889; J2001; J2250; J0360; J1100; J0690; J2405; J3010; J2704

== ENCOUNTER → 2020-10-26 | Outpatient (CLI) | payer MEDICARE ==
--- NOTE | 2020-10-26 15:47 | XR ---
EXAM TYPE: LUMBAR SPINE X RAY SERIES COMPARISON: NONE HISTORY: Pain TECHNIQUE: 3 views are submitted. FINDINGS: There is severe multilevel degenerative disc disease with scoliotic curvature. Severe changes at all levels with multilevel facet arthropathy and foraminal encroachment suspected. Scoliotic curvature no roly. Suspect a 6 mm left renal calculus. Vascular calcification seen. IMPRESSION: 1. Scoliosis with severe multilevel degenerative disc disease, facet arthropathy and suspected forami nal encroachment. 2. Left renal calculus measuring 6 mm suspected correlate clinically..
== END | disposition home or self-care (01) ==
LOC: RADXRMAIN 14:15
PROVIDERS: ATTEND Family Medicine
DX: M51.36 Other intervertebral disc degeneration, lumbar region (principal); M41.86 Other forms of scoliosis, lumbar region; M47.816 Spondylosis without myelopathy or radiculopathy, lumbar region
CPT/HCPCS: 72100

== ENCOUNTER → 2020-11-24 | Outpatient (CLI) | payer MEDICARE ==
--- NOTE | 2020-12-23 18:37 | EM ---
EVENT MONITOR Patient was monitored between November 24 and December 07, 2020. The rhythm strip revealed sinus mechanism with normal conduction. Single PVCs and ventricular couplets were noted. No ventricular tachycardia was noted. No atrial fibrillation was noted. No pauses were noted. No symptoms were reported. ZORAN / SEAN: [id number] /
== END | disposition home or self-care (01) ==
LOC: RADECHMAIN 11:48
PROVIDERS: ATTEND Family Medicine
DX: I49.3 Ventricular premature depolarization (principal)
CPT/HCPCS: 93270

== ENCOUNTER 2021-05-08 22:36 | Emergency (ER) | payer MEDICARE ==
[2021-05-08 22:42] VITALS: BP 119/89; PULSE 59; RESP 18; TEMP 97.9
--- NOTE | 2021-05-08 22:55 | ED ---
General Adult HPI - General Chief complaint: Fall Stated complaint: Fall Time Seen by Provider: 05/08/21 22:46 Source: patient Mode of arrival: EMS Limitations: no limitations - History of Present Illness Initial comments: Patient presents to the ED by ambulance for evaluation with his friend at bedside. Patient states that he accidentally tripped and fell while leaving a restaurant tonight. Patient admits to drinking 4-5 alcoholic beverages tonight. Patient has sustained some dermal avulsions to his bilateral upper extremities. Patient denies having any significant pain. Patient does admit to head injury, but he denies LOC, and patient's friend (who is with him at the time of his fall) also denies LOC. Patient is unsure of his last tetanus shot. Patient denies headache, facial pain, focal neuro deficit, visual changes, neck/back/extremity pain, chest pain, dyspnea, dizziness, abdominal pain, nausea or vomiting, or any other symptoms or complaints. Patient denies any anticoagulant medication abuse besides aspirin. - Related Data Home Medications Medication Instructions Recorded Confirmed Albuterol Sulfate [Proair Hfa] 2 puff INHALATION RT-Q4H PRN 05/22/15 09/02/20 Roflumilast [Daliresp] 500 mcg PO DAILY 05/22/15 09/02/20 Alfuzosin HCl [Uroxatral ER] 10 mg PO DAILY 09/09/15 09/02/20 Finasteride [Proscar] 5 mg PO DAILY 09/09/15 09/02/20 Travoprost [Travatan Z 0.004%] 1 drop BOTH EYES HS 09/10/15 09/02/20 Brinzolamide/Brimonidine Tart 1 drop BOTH EYES BID 03/21/18 09/02/20 [Simbrinza 1%-0.2% Eye Drops] Budesonide/Glycopyr/Formoterol 2 puff INHALATION RT-BID 04/20/20 09/02/20 [Breztri Aerosphere Inhaler] Fluticasone Nasal [place] [Flonase 1 spray EA NOSTRIL DAILY PRN 04/20/20 09/02/20 Nasal [place]] Levocetirizine Dihydrochloride 5 mg PO DAILY 04/20/20 09/02/20 Multivitamins, Thera [Multivitamin 1 tab PO DAILY 04/20/20 09/02/20 (formulary)] Vit C/E/Zn/Coppr/Lutein/Zeaxan 1 cap PO DAILY 04/20/20 09/02/20 [Preservision Areds 2 Softgel] rOPINIRole HCL [Requip] 1 mg PO TID PRN 04/20/20 09/02/20 Albuterol Nebulized [Ventolin 2.5 mg INHALATION QID PRN 08/31/20 09/02/20 Nebulized] Aspirin 325 mg PO DAILY 08/31/20 09/02/20 Furosemide [Lasix] 20 mg PO DAILY 08/31/20 09/02/20 Nebivolol HCl [Bystolic] 5 mg PO DAILY 08/31/20 09/02/20 Allergies Allergy/AdvReac Type Severity Reaction Status Date / Time amoxicillin trihydrate Allergy Unknown Verified 08/31/20 13:52 [From Augmentin] moxifloxacin HCl Allergy Nausea & Verified 08/31/20 13:52 [From Avelox] Vomiting potassium clavulanate Allergy Unknown Verified 08/31/20 13:52 [From Augmentin] Review of Systems ROS Statement: Those systems with pertinent positive or pertinent negative responses have been documented in the HPI. ROS Other: All systems not noted in ROS Statement are negative. 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 Past Anesthesia/Blood Transfusion Reactions: No Reported Reaction Additional Past Anesthesia/Blood Transfusion Reaction / Comment(s): Pt has claustrophobia. Past Psychological History: No Psychological Hx Reported Smoking Status: Former smoker - Past Family History Brother(s) Family Medical History: Cancer Additional Family Medical History / Comment(s): Prostate cancer. Father Family Medical History: Deep Vein Thrombosis (DVT) Additional Family Medical History / Comment(s): Father of dementia at the age of 79yrs. Mother Family Medical History: No Reported History Additional Family Medical History / Comment(s): Mother was healthy and lived to be 86yrs old. General Exam Limitations: no limitations General appearance: alert, appears intoxicated, other (Smells of alcohol) Head exam: Present: other (Left forehead swelling and ecchymosis) Eye exam: Present: normal appearance, PERRL, EOMI ENT exam: Present: mucous membranes moist, TM's normal bilaterally Neck exam: Present: normal inspection, other (Trachea is in midline; no step-off deformity). Absent: tenderness Respiratory exam: Present: normal lung sounds bilaterally. Absent: respiratory distress, wheezes, rales, rhonchi, stridor, chest wall tenderness Cardiovascular Exam: Present: regular rate, normal rhythm, normal heart sounds, other (Normal radial pulses bilaterally) GI/Abdominal exam: Present: soft. Absent: distended, tenderness, guarding Extremities exam: Present: full ROM, other (A large dermal avulsion and ecchymosis is noted over left lateral elbow; patient has full range of motion at left elbow; a small dermal avulsion and ecchymosis is also noted over right second MCP joint dorsally; patient has full range of motion of right hand; pelvis is stable and nontender). Absent: tenderness, pedal edema Back exam: Present: normal inspection. Absent: tenderness Neurological exam: Present: alert, oriented X3, CN II-XII intact. Absent: motor sensory deficit Psychiatric exam: Present: normal affect, normal mood Skin exam: Present: warm, dry Course Vital Signs 05/08/21 22:37 Temperature 97.9 F Pulse Rate 59 L Respiratory 18 Rate Blood Pressure 119/89 O2 Sat by Pulse 97 Oximetry - Reevaluation(s) Reevaluation #1: 05/09/21 00:33 Patient continues to deny having any significant pain while in the ED. Patient remains alert and breathing comfortable. Patient and friend are aware the patient's negative imaging studies, and patient feels comfortable being discharged home with his friend at this time. Patient was counseled about alcohol intoxication, skin tears and contusions. Patient was clearly explained return and follow-up instructions, and he was instructed to follow up closely with his primary care provider. Patient was also instructed to have a low threshold for return to the emergency department should his symptoms worsen. Patient feels comfortable with this plan. Medical Decision Making - Medical Decision Making Patient's imaging studies are negative. Patient's skin tears were cleaned and dressed by ED nursing staff. Will discharge patient home with his friend at this time. Patient and friend both feel comfortable with this plan. 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 No fracture. Cerebral atrophy. No acute intracranial abnormality. Brain not change compared to 06/27/2013. Left elbow x-rays: Negative left elbow exam. 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 There is also osteoarthritis at the DIP joints of all the digits. No fracture seen. Mild osteoarthritis at the radiocarpal joint. Disposition Clinical Impression: Fall, Alcohol intoxication, Head injury, Contusion of left arm, Contusion of right hand, Skin tear Disposition: HOME SELF-CARE Condition: Stable Instructions (If sedation given, give patient instructions): Fall Prevention for Older Adults (ED), Alcohol Intoxication (ED), Contusion in Adults (ED), Skin Tear (ED), Facial Contusion (ED) Additional Instructions: Return to the ER immediately should you develop new or worsening pain, feeling dizzy or faint, shortness of breath, or new or worsening symptoms. Follow up closely with your primary care provider. Is patient prescribed a controlled substance at d/c from ED?: No Referrals: Shar Yu MD [Primary Care Provider] - 1-2 days Time of Disposition: 00:36
[2021-05-08] MEDS ORDERED: DIPH,PERTUS(ACELL)TETVAC-LF 0.5 ML VIAL IM ONE (23:00)
--- NOTE | 2021-05-08 23:33 | CT ---
EXAMINATION TYPE: CT brain luis wo con DATE OF EXAM: 05/08/2021 COMPARISON: CT brain 06/27/2013 HISTORY: fall CT DLP: 1649.9 mGycm Automated exposure control for dose reduction was used. Images obtained of the brain and cervical spine without contrast. There is cerebral cortical atrophy. There is left lateral frontal scalp hematoma. This measures 6 mm in thickness. There is no mass effect or midline shift. There is no sign of intracranial hemorrhage. The calvarium is intact. There is 4 mm calcification in the left parietal sulcus unchanged and of amrita btful significance. Cervical vertebra have normal alignment. There is degenerative disc space narrowing at C5-6 and C6-7 with spurring and sclerosis. Facet joints are intact. There is multilevel hypertrophic facet arthropa thy. No cervical spine fracture seen. 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 No fracture. Cerebral atrophy. No acute intracranial abnormality. Brain not changed compared to 06/27/2013.
--- NOTE | 2021-05-09 00:30 | XR ---
EXAMINATION TYPE: XR hand complete RT DATE OF EXAM: 05/09/2021 COMPARISON: NONE HISTORY: Fall. Pain TECHNIQUE: 3 views FINDINGS: There is narrowing and spurring at the first carpometacarpal joint. There is moderate spurr ing at the scaphoid trapezium joint. I see no fracture nor dislocation. 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 There is also osteoarthritis at the DIP joints of all the digits. No fracture seen. Mild osteoarthritis at the radiocarpal joint.
--- NOTE | 2021-05-09 00:31 | XR ---
EXAMINATION TYPE: XR elbow complete LT DATE OF EXAM: 05/09/2021 COMPARISON: NONE HISTORY: Fall. Pain TECHNIQUE: 3 views FINDINGS: There is no fracture nor dislocation. Joint spaces are normal. There is no sign of an elbow joint effusion. IMPRESSION: Negative left elbow exam.
== END 2021-05-09 00:52 | disposition home or self-care (01) ==
LOC: EC 22:36
DX: S09.90XA Unspecified injury of head, initial encounter (principal); S51.012A Laceration without foreign body of left elbow, initial encounter; S61.411A Laceration without foreign body of right hand, initial encounter; F10.129 Alcohol abuse with intoxication, unspecified; M19.041 Primary osteoarthritis, right hand; Z23 Encounter for immunization; J44.9 Chronic obstructive pulmonary disease, unspecified; E78.5 Hyperlipidemia, unspecified; I10 Essential (primary) hypertension; Z79.82 Long term (current) use of aspirin; Z85.46 Personal history of malignant neoplasm of prostate; Z87.891 Personal history of nicotine dependence; W01.0XXA Fall on same level from slipping, tripping and stumbling without subsequent striking against object, initial encounter; Y90.9 Presence of alcohol in blood, level not specified
CPT/HCPCS: 70450; 72125; 90471; 90715; 99284

== ENCOUNTER 2021-09-06 16:19 | Inpatient (IN) | payer MEDICARE ==
--- NOTE | 2021-09-06 16:50 | ED ---
SOB HPI - General Chief Complaint: Shortness of Breath Stated Complaint: SOB Time Seen by Provider: 09/06/21 16:24 Source: patient, RN notes reviewed, old records reviewed Mode of arrival: EMS Limitations: no limitations - History of Present Illness Initial Comments: Patient is an 85-year-old male presents to the emergency room via EMS after worsening progressive shortness of breath over the last week. He reports that he became very short of breath earlier today with minimal exertion. He was hypoxic upon initial arrival of EMS with an O2 saturation in the upper 80s. He had 2 L nasal cannula applied and was given albuterol treatment resulting and good aeration with oxygen levels coming up to 99% on 2 L and subsequently 94-95% on room air. He reports that he has had progressive shortness of breath with activity over the last week where he is unable to go shorter and shorter distances. He has known COPD but is not on home oxygen. He utilizes nebulizers and inhalers as prescribed and typically follows with pulmonary once a year. He denies a past medical history of CHF and is not currently on any diuretics but does follow with cardiology in regards to hypertension; he had a cardiac catheterization in 2019 that showed no coronary artery disease. He has a past medical history in addition to his hypertension and COPD significant for prostate cancer and restless leg syndrome. He denies any chest pain, orthopnea, previous lower extremity swelling; he reports his lower extremity swelling he currently has is due to his legs being in the dependent position often over the last week from his lack of activity. He denies any fevers, chills, exposure to cold or influenza. He denies any other complaints or concerns at this time. - Related Data Home Medications Medication Instructions Recorded Confirmed Albuterol Sulfate [Proair Hfa] 2 puff INHALATION RT-Q6H PRN 05/22/15 09/06/21 Roflumilast [Daliresp] 500 mcg PO DAILY 05/22/15 09/06/21 Alfuzosin HCl [Uroxatral ER] 10 mg PO DAILY 09/09/15 09/06/21 Finasteride [Proscar] 5 mg PO DAILY 09/09/15 09/06/21 Travoprost [Travatan Z 0.004%] 1 drop BOTH EYES HS 09/10/15 09/06/21 Brinzolamide/Brimonidine Tart 1 drop BOTH EYES BID 03/21/18 09/06/21 [Simbrinza 1%-0.2% Eye Drops] Fluticasone Nasal [place] [Flonase 1 spray EA NOSTRIL DAILY PRN 04/20/20 09/06/21 Nasal [place]] Levocetirizine Dihydrochloride 5 mg PO DAILY PRN 04/20/20 09/06/21 rOPINIRole HCL [Requip] 1 mg PO TID PRN 04/20/20 09/06/21 Albuterol Nebulized [Ventolin 2.5 mg INHALATION RT-QID PRN 08/31/20 09/06/21 Nebulized] Aspirin 325 mg PO DAILY 08/31/20 09/06/21 Nebivolol HCl [Bystolic] 5 mg PO DAILY 08/31/20 09/06/21 Budesonide-Formot 160-4.5 Mcg 2 puff INHALATION RT-BID 09/06/21 09/06/21 [Symbicort 160-4.5 Mcg Inhaler] Tiotropium 2.5 Mcg/Puff [Spiriva 2 puff INHALATION RT-DAILY 09/06/21 09/06/21 Respimat 2.5 Mcg] Allergies Allergy/AdvReac Type Severity Reaction Status Date / Time amoxicillin trihydrate Allergy Unknown Verified 09/06/21 19:12 [From Augmentin] moxifloxacin HCl Allergy Nausea & Verified 09/06/21 19:12 [From Avelox] Vomiting potassium clavulanate Allergy Unknown Verified 09/06/21 19:12 [From Augmentin] Review of Systems ROS Statement: Those systems with pertinent positive or pertinent negative responses have been documented in the HPI. ROS Other: All systems not noted in ROS Statement are negative. 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 Past Anesthesia/Blood Transfusion Reactions: No Reported Reaction Additional Past Anesthesia/Blood Transfusion Reaction / Comment(s): Pt has claustrophobia. Past Psychological History: No Psychological Hx Reported Smoking Status: Former smoker - Past Family History Brother(s) Family Medical History: Cancer Additional Family Medical History / Comment(s): Prostate cancer. Father Family Medical History: Deep Vein Thrombosis (DVT) Additional Family Medical History / Comment(s): Father of dementia at the age of 79yrs. Mother Family Medical History: No Reported History Additional Family Medical History / Comment(s): Mother was healthy and lived to be 86yrs old. General Exam Limitations: no limitations General appearance: alert, in no apparent distress Head exam: Present: atraumatic, normocephalic, normal inspection Eye exam: Present: normal appearance, PERRL, EOMI. Absent: scleral icterus, conjunctival injection, periorbital swelling ENT exam: Present: normal exam, mucous membranes moist Neck exam: Present: normal inspection Respiratory exam: Present: wheezes (Fine bilateral upper expiratory), decreased breath sounds. Absent: respiratory distress, rales, rhonchi, accessory muscle use Cardiovascular Exam: Present: regular rate, normal rhythm, normal heart sounds. Absent: systolic murmur, diastolic murmur, rubs, gallop, clicks GI/Abdominal exam: Present: soft, normal bowel sounds. Absent: distended, tenderness, guarding, rebound, rigid Extremities exam: Present: pedal edema (bilateral lower extremity edema +1 L>R) Back exam: Present: normal inspection Neurological exam: Present: alert, oriented X3, CN II-XII intact Psychiatric exam: Present: normal affect, normal mood Skin exam: Present: warm, dry, intact, normal color. Absent: rash Course Vital Signs 09/06/21 09/06/21 09/06/21 16:23 16:32 17:57 Temperature 98.3 F Pulse Rate 91 75 Respiratory 24 24 16 Rate Blood Pressure 156/59 143/80 O2 Sat by Pulse 93 L 96 Oximetry Medical Decision Making - Medical Decision Making Progressive shortness of breath with exertion and known COPD with improvement with albuterol treatment. High probability for COPD exacerbation Will check CBC, lactic acid and CMP along with chest x-ray.however in the setting of progressive trends of breath with exertion along with associated lower extremity swelling will also obtain EKG and troponin along with a proBNP. No significant wheeze on exam except for mild fine expiratory upper lobe wheeze no indication for repeat breathing treatment at this time. Oxygen saturations stable on room air. No need for ABGs or CTA. Will await diagnostic laboratory studies prior to any other medication administration at this time. Chest x-ray shows no acute cardiopulmonary process and COPD. Chronic anemia noted on CBC without leukocytosis low probability for pneumonia; BUN slightly elevated at 22, creatinine normal mildly low sodium levels. Troponin slightly elevated 0.035. Low probability for ACS however given normal creatinine along with previously normal troponin will need observation admission for troponin rocky nding. ProBNP slightly elevated at 1160 previous normal in the 300s elevation for him noted will treat with IV Lasix 1 dose along with one-time dose of IV steroids. Will plan for observation admission. No need for IV antibiotics. Will defer further steroids as well at this time. Nay Jones with [facility] hospitalists contacted regarding admission who is covering for Dr. Yu his primary care provider. Case discussed with Dr. Lorenz. - Lab Data Result diagrams: 09/06/21 16:32 09/06/21 16:32 Lab Results 09/06/21 09/06/21 09/06/21 Range/Units 16:32 16:32 16:32 WBC 6.9 (3.8-10.6) k/uL RBC 3.53 L (4.30-5.90) m/uL Hgb 11.5 L (13.0-17.5) gm/dL Hct 35.3 L (39.0-53.0) % MCV 100.1 H (80.0-100.0) fL MCH 32.6 (25.0-35.0) pg MCHC 32.6 (31.0-37.0) g/dL RDW 14.5 (11.5-15.5) % Plt Count 125 L (150-450) k/uL MPV 7.7 Neutrophils % 88 % Lymphocytes % 7 % Monocytes % 3 % Eosinophils % 1 % Basophils % 1 % Neutrophils # 6.1 (1.3-7.7) k/uL Lymphocytes # 0.5 L (1.0-4.8) k/uL Monocytes # 0.2 (0-1.0) k/uL Eosinophils # 0.1 (0-0.7) k/uL Basophils # 0.0 (0-0.2) k/uL Macrocytosis Slight Sodium 134 L (137-145) mmol/L Potassium 4.4 (3.5-5.1) mmol/L Chloride 103 (98-107) mmol/L Carbon Dioxide 23 (22-30) mmol/L Anion Gap 8 mmol/L BUN 22 H (9-20) mg/dL Creatinine 0.90 (0.66-1.25) mg/dL Est GFR (CKD-EPI)AfAm >90 (>60 ml/min/1.73 sqM) Est GFR (CKD-EPI)NonAf 79 (>60 ml/min/1.73 sqM) Glucose 195 H (74-99) mg/dL Lactic Ac Sepsis Rflx Plasma Lactic Acid Alok 2.3 H* (0.7-2.0) mmol/L Calcium 8.8 (8.4-10.2) mg/dL Total Bilirubin 1.1 (0.2-1.3) mg/dL AST 25 (17-59) U/L ALT 19 (4-49) U/L Alkaline Phosphatase 63 (38-126) U/L CK-MB (CK-2) (0.0-2.4) ng/mL Troponin I (0.000-0.034) ng/mL NT-Pro-B Natriuret Pep pg/mL Total Protein 5.7 L (6.3-8.2) g/dL Albumin 3.4 L (3.5-5.0) g/dL Coronavirus (PCR) (Not Detectd) Influenza Type A RNA (Not Detectd) Influenza Type B (PCR) (Not Detectd) 09/06/21 09/06/21 09/06/21 Range/Units 16:32 16:32 16:51 WBC (3.8-10.6) k/uL RBC (4.30-5.90) m/uL Hgb (13.0-17.5) gm/dL Hct (39.0-53.0) % MCV (80.0-100.0) fL MCH (25.0-35.0) pg MCHC (31.0-37.0) g/dL RDW (11.5-15.5) % Plt Count (150-450) k/uL MPV Neutrophils % % Lymphocytes % % Monocytes % % Eosinophils % % Basophils % % Neutrophils # (1.3-7.7) k/uL Lymphocytes # (1.0-4.8) k/uL Monocytes # (0-1.0) k/uL Eosinophils # (0-0.7) k/uL Basophils # (0-0.2) k/uL Macrocytosis Sodium (137-145) mmol/L Potassium (3.5-5.1) mmol/L Chloride (98-107) mmol/L Carbon Dioxide (22-30) mmol/L Anion Gap mmol/L BUN (9-20) mg/dL Creatinine (0.66-1.25) mg/dL Est GFR (CKD-EPI)AfAm (>60 ml/min/1.73 sqM) Est GFR (CKD-EPI)NonAf (>60 ml/min/1.73 sqM) Glucose (74-99) mg/dL Lactic Ac Sepsis Rflx Plasma Lactic Acid Alok (0.7-2.0) mmol/L Calcium (8.4-10.2) mg/dL Total Bilirubin (0.2-1.3) mg/dL AST (17-59) U/L ALT (4-49) U/L Alkaline Phosphatase (38-126) U/L CK-MB (CK-2) (0.0-2.4) ng/mL Troponin I 0.035 H* (0.000-0.034) ng/mL NT-Pro-B Natriuret Pep 1160 pg/mL Total Protein (6.3-8.2) g/dL Albumin (3.5-5.0) g/dL Coronavirus (PCR) (Not Detectd) Influenza Type A RNA Not Detected (Not Detectd) Influenza Type B (PCR) Not Detected (Not Detectd) 09/06/21 09/06/21 09/06/21 Range/Units 16:51 17:54 19:24 WBC (3.8-10.6) k/uL RBC (4.30-5.90) m/uL Hgb (13.0-17.5) gm/dL Hct (39.0-53.0) % MCV (80.0-100.0) fL MCH (25.0-35.0) pg MCHC (31.0-37.0) g/dL RDW (11.5-15.5) % Plt Count (150-450) k/uL MPV Neutrophils % % Lymphocytes % % Monocytes % % Eosinophils % % Basophils % % Neutrophils # (1.3-7.7) k/uL Lymphocytes # (1.0-4.8) k/uL Monocytes # (0-1.0) k/uL Eosinophils # (0-0.7) k/uL Basophils # (0-0.2) k/uL Macrocytosis Sodium (137-145) mmol/L Potassium (3.5-5.1) mmol/L Chloride (98-107) mmol/L Carbon Dioxide (22-30) mmol/L Anion Gap mmol/L BUN (9-20) mg/dL Creatinine (0.66-1.25) mg/dL Est GFR (CKD-EPI)AfAm (>60 ml/min/1.73 sqM) Est GFR (CKD-EPI)NonAf (>60 ml/min/1.73 sqM) Glucose (74-99) mg/dL Lactic Ac Sepsis Rflx Y Plasma Lactic Acid Alok (0.7-2.0) mmol/L Calcium (8.4-10.2) mg/dL Total Bilirubin (0.2-1.3) mg/dL AST (17-59) U/L ALT (4-49) U/L Alkaline Phosphatase (38-126) U/L CK-MB (CK-2) 3.1 H (0.0-2.4) ng/mL Troponin I 0.034 (0.000-0.034) ng/mL NT-Pro-B Natriuret Pep pg/mL Total Protein (6.3-8.2) g/dL Albumin (3.5-5.0) g/dL Coronavirus (PCR) Not Detected (Not Detectd) Influenza Type A RNA (Not Detectd) Influenza Type B (PCR) (Not Detectd) - EKG Data EKG Comments: Sinus rhythm, old ST changes in lead II/aVF 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 Ventricular 92 bpm, LA interval 196 ms QRS duration 109 ms, QT/QTC 364/413 ms, PRT axes 64, 83, 9 When compared to previous EKG there are: no significant change - Radiology Data Radiology results: report reviewed, image reviewed Disposition Clinical Impression: Acute exacerbation of chronic obstructive pulmonary disease, Elevated troponin I level Disposition: ADMITTED IP TO THIS HOSP Condition: Stable Is patient prescribed a controlled substance at d/c from ED?: No
[2021-09-06 17:10] LABS: Basophils % (A) 1 %; Eosinophils # (A) 0.1 k/uL (0-0.7); Eosinophils % (A) 1 %; HCT 35.3 % (39.0-53.0); HGB 11.5 gm/dL (13.0-17.5); Lymphocytes # (A) 0.5 k/uL (1.0-4.8); Lymphocytes % (A) 7 %; MCH 32.6 pg (25.0-35.0); MCHC 32.6 g/dL (31.0-37.0); MCV 100.1 fL (80.0-100.0); Macrocytosis Slight; Mean Platelet Volume 7.7; Monocytes # (A) 0.2 k/uL (0-1.0); Monocytes % (A) 3 %; Neutrophils # (A) 6.1 k/uL (1.3-7.7); Neutrophils % (A) 88 %; Platelet Count 125 k/uL (150-450); RBC 3.53 m/uL (4.30-5.90); RDW 14.5 % (11.5-15.5); WBC 6.9 k/uL (3.8-10.6)
--- NOTE | 2021-09-06 17:17 | XR ---
EXAMINATION TYPE: XR chest 2V DATE OF EXAM: 09/06/2021 4:59 PM COMPARISON: Chest radiographs from 04/23/2020 TECHNIQUE: XR chest 2V Frontal and lateral views of the chest. CLINICAL INDICATION:Male, 85 years old with history of difficulty breathing; FINDINGS: Lungs/Pleura: There is flattening of the diaphragm with increased lucency of the lungs. No evidence o f pneumothorax, pleural effusion or focal consolidation. Pulmonary vascularity: Unremarkable. Heart/mediastinum: Cardiomediastinal silhouette is unremarkable. Musculoskeletal: No acute osseous pathology. IMPRESSION: 1. No acute cardiopulmonary disease process. 2. COPD changes.
[2021-09-06 17:19] LABS: ALT 19 U/L (4-49); AST 25 U/L (17-59); African American GFR (CKD) >90 (>60 ml/min/1.73 sqM); Albumin 3.4 g/dL (3.5-5.0); Alkaline Phosphatase 63 U/L (38-126); Anion Gap 8 mmol/L; Blood Urea Nitrogen 22 mg/dL (9-20); Calcium 8.8 mg/dL (8.4-10.2); Carbon Dioxide 23 mmol/L (22-30); Chloride 103 mmol/L (98-107); Glucose 195 mg/dL (74-99); Non-African American GFR(CKD) 79 (>60 ml/min/1.73 sqM); Potassium 4.4 mmol/L (3.5-5.1); Sodium 134 mmol/L (137-145); Total Bilirubin 1.1 mg/dL (0.2-1.3); Total Protein 5.7 g/dL (6.3-8.2)
[2021-09-06] MEDS ORDERED: NALOXONE 0.4 MG/ML 1 ML VIAL IV PRN (19:13)
[2021-09-06] MEDS ORDERED: FUROSEMIDE 10 MG/ML 4 ML VIAL IV STA (19:16)
[2021-09-06] MEDS ORDERED: methylPREDNISolone SOD SUCCI 125 MG/2 ML VIAL IV STA (19:16)
[2021-09-06 20:20] LABS: Creatine Kinase MB 3.1 ng/mL (0.0-2.4); Troponin I 0.034 ng/mL (0.000-0.034)
[2021-09-07] MEDS: carvediloL 3.125 MG TAB PO SCH ×2 (00:34→06:32)
[2021-09-07] MEDS: ALBUTEROL NEBULIZED 2.5 MG/3 ML INHALATION SCH ×4 (05:59→20:38)
[2021-09-07] MEDS ORDERED: FLUTICASONE 50MCG/SPRAY NASAL 16GM EA NOSTRIL PRN (06:34)
[2021-09-07] MEDS ORDERED: ALBUTEROL NEBULIZED 2.5 MG/3 ML INHALATION PRN ×2 (06:34)
[2021-09-07] MEDS ORDERED: SYMBICORT 160-4.5 MCG INHALER INHALATION SCH (08:00)
--- NOTE | 2021-09-07 08:47 | P.HPIM ---
History of Present Illness This is a pleasant 86 years old male with past medical history of hypertension, hyperlipidemia, advanced COPD on ruflumilast , restless leg syndrome patient presents because of dyspnea for about one week associated with cough and clear phlegm but no chest pain. Patient says that he has history of COPD but he is not on home oxygen and his been following up with Dr. Riggins in his enrollment services vice president. He denies any GI or urinary symptoms. No headache or weakness or numbness. He is alert awake and oriented 3 and he wants to go home. He does not want to stay in the hospital because he thinks he can go home. Vitals looks stable, blood pressure is slightly elevated to 186/86. CBC is unremarkable except for mild anemia with hemoglobin 11.5 and thrombocytopenia with platelet 125. BMP is unremarkable. Sodium 134. Creatinine 0.9. Liver enzymes not elevated. Troponin is elevated 0.03 and 0.034. ProBNP is 1160. EKG showing normal sinus rhythm at [address]-T changes. In the emergency room he received steroids and Lasix Patient's wants to leave [facility], I explained the risks and benefits for him including but not limited to risk of respiratory failure and/or not this and he verbalized understanding but he still does not want to send the hospital. I asked the patient if there is anything I can do to prevent him from leaving [facility] and he declines. However he wants to wait until he sees a enrollment services vice president Review of Systems Review of systems CONSTITUTIONAL: No fever, no malaise, no fatigue. HEENT: No recent visual problems or hearing problems. Denied any sore throat. CARDIOVASCULAR: No orthopnea, PND, no palpitations, no syncope. PULMONARY: No chest wall tenderness no cough, no hemoptysis. GASTROINTESTINAL: No diarrhea, no nausea, no vomiting, no abdominal pain. Normoactive bowel sounds. NEUROLOGICAL: No headaches, no weakness, no numbness. HEMATOLOGICAL: Denies any bleeding or petechiae. GENITOURINARY: Denies any burning micturition, frequency, or urgency. MUSCULOSKELETAL/RHEUMATOLOGICAL: Denies any joint pain, swelling, or any muscle pain. ENDOCRINE: Denies any polyuria or polydipsia. 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 Past Anesthesia/Blood Transfusion Reactions: No Reported Reaction Additional Past Anesthesia/Blood Transfusion Reaction / Comment(s): Pt has claustrophobia. Past Psychological History: No Psychological Hx Reported Smoking Status: Former smoker - Past Family History Brother(s) Family Medical History: Cancer Additional Family Medical History / Comment(s): Prostate cancer. Father Family Medical History: Deep Vein Thrombosis (DVT) Additional Family Medical History / Comment(s): Father of dementia at the age of 79yrs. Mother Family Medical History: No Reported History Additional Family Medical History / Comment(s): Mother was healthy and lived to be 86yrs old. Medications and Allergies Home Medications Medication Instructions Recorded Confirmed Type Albuterol Sulfate [Proair Hfa] 2 puff INHALATION RT-Q6H PRN 05/22/15 09/06/21 History Roflumilast [Daliresp] 500 mcg PO DAILY 05/22/15 09/06/21 History Alfuzosin HCl [Uroxatral ER] 10 mg PO DAILY 09/09/15 09/06/21 History Finasteride [Proscar] 5 mg PO DAILY 09/09/15 09/06/21 History Travoprost [Travatan Z 0.004%] 1 drop BOTH EYES HS 09/10/15 09/06/21 History Brinzolamide/Brimonidine Tart 1 drop BOTH EYES BID 03/21/18 09/06/21 History [Simbrinza 1%-0.2% Eye Drops] Fluticasone Nasal [place] [Flonase 1 spray EA NOSTRIL DAILY PRN 04/20/20 09/06/21 History Nasal [place]] Levocetirizine Dihydrochloride 5 mg PO DAILY PRN 04/20/20 09/06/21 History rOPINIRole HCL [Requip] 1 mg PO TID PRN 04/20/20 09/06/21 History Albuterol Nebulized [Ventolin 2.5 mg INHALATION RT-QID PRN 08/31/20 09/06/21 His tory Nebulized] Aspirin 325 mg PO DAILY 08/31/20 09/06/21 History Nebivolol HCl [Bystolic] 5 mg PO DAILY 08/31/20 09/06/21 History Budesonide-Formot 160-4.5 Mcg 2 puff INHALATION RT-BID 09/06/21 09/06/21 History [Symbicort 160-4.5 Mcg Inhaler] Tiotropium 2.5 Mcg/Puff [Spiriva 2 puff INHALATION RT-DAILY 09/06/21 09/06/21 History Respimat 2.5 Mcg] Allergies Allergy/AdvReac Type Severity Reaction Status Date / Time amoxicillin trihydrate Allergy Unknown Verified 09/06/21 19:12 [From Augmentin] moxifloxacin HCl Allergy Nausea & Verified 09/06/21 19:12 [From Avelox] Vomiting potassium clavulanate Allergy Unknown Verified 09/06/21 19:12 [From Augmentin] Physical Exam Vitals: Vital Signs Temp Pulse Pulse Resp BP BP Pulse Ox 09/07/21 06:31 12 195/84 98 09/07/21 05:57 70 09/07/21 04:00 97.8 F 70 14 186/86 95 09/07/21 02:00 178/79 09/07/21 00:00 98.4 F 72 12 190/89 97 09/06/21 20:39 98.5 F 72 12 172/69 98 09/06/21 17:57 75 16 143/80 96 09/06/21 16:32 24 09/06/21 16:23 98.3 F 91 24 156/59 93 L Intake and Output 09/06/21 09/06/21 09/07/21 14:59 22:59 06:59 Intake Total 240 Balance 240 Intake: Oral 240 Other: Voiding Method Toilet Toilet # Voids 5 Weight 95.254 kg GENERAL: The patient is alert and oriented x3, not in any acute distress. Well developed, well nourished. HEENT: Pupils are round and equally reacting to light. EOMI. No scleral icterus. No conjunctival pallor. Normocephalic, atraumatic. No pharyngeal erythema. No thyromegaly. CARDIOVASCULAR: S1 and S2 present. No murmurs, rubs, or gallops. -PULMONARY: Chest is clear to auscultation, no wheezing or crackles. Decreased air entry on both sides ABDOMEN: Soft, nontender, nondistended, normoactive bowel sounds. No palpable organomegaly. MUSCULOSKELETAL: No joint swelling or deformity. EXTREMITIES: No cyanosis, clubbing, or pedal edema. NEUROLOGICAL: Gross neurological examination did not reveal any focal deficits. SKIN: No rashes. no petechiae. Results CBC & Chem 7: 09/06/21 16:32 09/06/21 16:32 Labs: Abnormal Lab Results - Last 24 Hours (Table) 09/06/21 09/06/21 09/06/21 Range/Units 16:32 16:32 16:32 RBC 3.53 L (4.30-5.90) m/uL Hgb 11.5 L (13.0-17.5) gm/dL Hct 35.3 L (39.0-53.0) % MCV 100.1 H (80.0-100.0) fL Plt Count 125 L (150-450) k/uL Lymphocytes # 0.5 L (1.0-4.8) k/uL Sodium 134 L (137-145) mmol/L BUN 22 H (9-20) mg/dL Glucose 195 H (74-99) mg/dL Plasma Lactic Acid Alok 2.3 H* (0.7-2.0) mmol/L CK-MB (CK-2) (0.0-2.4) ng/mL Troponin I (0.000-0.034) ng/mL Total Protein 5.7 L (6.3-8.2) g/dL Albumin 3.4 L (3.5-5.0) g/dL 09/06/21 09/06/21 09/06/21 Range/Units 16:32 19:24 20:28 RBC (4.30-5.90) m/uL Hgb (13.0-17.5) gm/dL Hct (39.0-53.0) % MCV (80.0-100.0) fL Plt Count (150-450) k/uL Lymphocytes # (1.0-4.8) k/uL Sodium (137-145) mmol/L BUN (9-20) mg/dL Glucose (74-99) mg/dL Plasma Lactic Acid Alok 2.4 H* (0.7-2.0) mmol/L CK-MB (CK-2) 3.1 H (0.0-2.4) ng/mL Troponin I 0.035 H* (0.000-0.034) ng/mL Total Protein (6.3-8.2) g/dL Albumin (3.5-5.0) g/dL Thrombosis Risk Factor Assmnt - Choose All That Apply Any of the Below Risk Factors Present?: Yes Each Factor Represents 1 point: Abnormal pulmonary function (COPD), Obesity (BMI >25) Other Risk Factors: Yes Each Risk Factor Represents 3 Points: Age 75 years or older Other congenital or acquired thrombophilia - If yes, enter type in comment: No Thrombosis Risk Factor Assessment Total Risk Factor Score: 5 Thrombosis Risk Factor Assessment Level: High Risk Assessment and Plan Assessment: Acute COPD exacerbation Elevated troponin, rule out cardiac causes noncompliance, patient does not want to stay in the hospital despite the risk and benefits explained Hypertension Hyperlipidemia History of restless leg syndrome Benign prostatic hypertrophy History of bilateral regular, History of chronic back pain History of prostate cancer Plan: This is a pleasant 86 years old male who presents with elevated troponin, possible COPD Continue with aspirin Cardiology consult and pulmonary consult Start Solu-Medrol based upon my evaluation patient has capacity to make medical decision Labs and medication were reviewed.. Continue same treatment. Continue with symptomatic treatment. Resume home medication. Monitor lytes and vitals. DVT and GI prophylaxis. Further recommendations as per clinical course of the patient DVT prophylaxis: Subcutaneous heparin GI Prophylaxis: Pepcid PT/OT: Pending Prognosis is guarded
[2021-09-07] MEDS: SYMBICORT 160-4.5 MCG INHALER INHALATION SCH ×2 (08:54→20:38)
[2021-09-07] MEDS ORDERED: FAMOTIDINE 20 MG/2 ML VIAL IV SCH (09:00)
[2021-09-07] MEDS ORDERED: HEPARIN SODIUM,PORCINE/PF 5,000 UNIT/0.5 ML SYRINGE SQ SCH (09:00)
[2021-09-07] MEDS: FINASTERIDE 5 MG TAB PO SCH (09:11)
[2021-09-07] MEDS: ASPIRIN 325 MG TAB PO SCH (09:11)
[2021-09-07] MEDS: methylPREDNISolone SOD SUCCI 40 MG/ML 1 ML VIAL IV SCH ×3 (09:12→22:34)
[2021-09-07] MEDS: FUROSEMIDE 10 MG/ML 4 ML VIAL IV SCH ×2 (09:12→20:05)
[2021-09-07] MEDS: BRIMONIDINE TARTRATE 0.2% DROPS 5 ML BTL BOTH EYES SCH ×2 (09:13→20:06)
[2021-09-07] MEDS: DORZOLAMIDE HCL 2% DROPS 10 ML BTL BOTH EYES SCH ×2 (09:13→20:06)
[2021-09-07] MEDS: Roflumilast [Daliresp] PO SCH (09:14)
[2021-09-07] MEDS: amLODIPine 10 MG TAB PO SCH (12:18)
[2021-09-07] MEDS: NEBIVOLOL 5 MG TAB PO SCH (12:19)
--- NOTE | 2021-09-07 12:41 | CA ---
Transthoracic Echo Report Name: Samy Gracia Age: 86 Gender: M : 1935 Exam Date: 09/07/2021 10:17 Exam Location: [place] [facility] Ht (in): 71 Wt (lb): 210 Ordering Physician: Neetu Mccrary Attending/Referring Phys: Concessions Manager Zulema Dailey RDCS Procedure CPT: Indications: Per Dr. Gillette repeat secondary to elevate D-dimer Cardiac Hx: Copd Technical Quality: Technically difficult study Contrast 1: [place]ason Total Dose (mL): 1 Contrast 2: Total Dose (mL): MEASUREMENTS (Male / Female) Normal Values 2D ECHO LV Diastolic Diameter PLAX 3.8 cm 4.2 - 5.9 / 3.9 - 5.3 cm LV Systolic Diameter PLAX 2.3 cm IVS Diastolic Thickness 1.3 cm 0.6 - 1.0 / 0.6 - 0.9 cm LVPW Diastolic Thickness 1.4 cm 0.6 - 1.0 / 0.6 - 0.9 cm LV Relative Wall Thickness 0.7 DOPPLER AV Peak Velocity 137.9 cm/s AV Peak Gradient 7.6 mmHg MV Area PHT 1.8 cm??? MR Peak Velocity 185.3 cm/s MR Peak Gradient 13.7 mmHg Mitral E Point Velocity 53.1 cm/s Mitral A Point Velocity 119.8 cm/s Mitral E to A Ratio 0.4 MV Deceleration Time 430.8 ms MV E' Velocity 2.9 cm/s Mitral E to MV E' Ratio 18.5 TR Peak Velocity 85.3 cm/s TR Peak Gradient 2.9 mmHg Right Ventricular Systolic Press 7.9 mmHg FINDINGS Left Ventricle Mildly increased septal wall thickness. Left ventricular ejection fraction is estimated at 55-60%. Left ventricular cavity size normal. Right Ventricle Right ventricle not well visualized. Right Atrium Right atrium not well visualized. Left Atrium Normal left atrial size. Mitral Valve Structurally normal mitral valve. Trace mitral regurgitation. Aortic Valve Aortic valve not well visualized. Tricuspid Valve Trace tricuspid regurgitation. Pulmonic Valve Pulmonic valve not well visualized. Pericardium No pericardial effusion. Aorta Aortic root and proximal ascending aorta not well visualized. CONCLUSIONS Technically difficult study. [place] LV systolic function is normal. There is no significant abnormality on Doppler although the study is technically difficult. No pericardial effusion Previewed by: Dr. Hayley Middleton MD (Electronically Signed) Final Date: 07 September 2021 12:41
--- NOTE | 2021-09-07 13:07 | CONS ---
CONSULTATION CHIEF COMPLAINT: Shortness of breath. Samy is an 86-year-old gentleman with history of COPD, hypertension and diastolic heart failure who presented to hospital complaining of shortness of breath at home. He was complaining of worsening shortness of breath of one week's duration. It initially started with shortness of breath with exertion and has gradually gotten worse. He has also had worsening leg edema. Patient had a cardiac catheterization in 2019 that did not reveal significant obstructive CAD. He had a stress test within the last one year that did not reveal ischemia and he had an echocardiogram within the last one month that showed normal LV function. The patient's clinical presentation is consistent with both COPD and CHF exacerbations. He does not have any chest pain. He has had a troponin that was mildly elevated to 0.035, but the subsequent one was 0.03. EKG showed sinus tachycardia with evidence of prior inferior wall myocardial infarction. Patient's elevated troponin could be related to congestive heart failure. His D-dimer was elevated at 3 and BNP was elevated at . We were consulted because of elevated troponin. I am going to perform a CT scan of the chest to rule out pulmonary embolism, given the elevated D-dimer. PAST MEDICAL HISTORY: Significant for COPD, chronic diastolic heart failure, hypertension. MEDICATIONS: Medications at home include aspirin, Bystolic, Lasix, Uroxatral various nebulizers that he is on. ALLERGIES: AMOXICILLIN AND AVELOX. FAMILY HISTORY: Negative for premature coronary artery disease. SOCIAL HISTORY: Negative for smoking, EtOH abuse or drug abuse. REVIEW OF SYSTEMS: Significant for shortness of breath and mild leg edema. Rest of the system review is not relevant. PHYSICAL EXAMINATION: Comfortable at rest. Afebrile. Heart rate is 70 beats per minute. Blood pressure is 186/86, respiratory rate 18. Chest exam reveals diminished air entry bilaterally with occasional rhonchi. Heart exam reveals first and second heart sounds, a systolic murmur at the apex. Abdomen is soft. Examination of extremities reveals bilateral 1+ edema. ASSESSMENT: 1. Shortness of breath with elevated D-dimer. Rule out pulmonary embolism. 2. Acute exacerbation of chronic diastolic heart failure. 3. Troponin elevation, probably related to either pulmonary embolism or heart failure. 4. Uncontrolled hypertension. PLAN: I will treat the patient with IV Lasix, obtain a CT scan of the chest to rule out pulmonary embolism. We need to control his blood pressures better. Will start him on amlodipine 10 mg daily. Resume the Bystolic and start him on an LAWRENCE inhibitor. MMODL / IJN: [id number] /
[2021-09-07] MEDS ORDERED: HEPARIN SODIUM 1,000 UN/ML (10ML VL) IV PRN (14:29)
--- NOTE | 2021-09-07 14:32 | CT ---
EXAMINATION TYPE: CT angio chest CT DLP: 523.9 mGycm, Automated exposure control for dose reduction was used. DATE OF EXAM: 09/07/2021 2:02 PM COMPARISON: Chest radiograph 09/06/2021, CT chest 04/21/2016. CLINICAL INDICATION:Male, 86 years old with history of elevated d-dimer rule out Pulmonary Embolism; elevated d-dimer rule out Pulmonary Embolism TECHNIQUE/CONTRAST: CTA scan of the thorax is performed with IV Contrast, patient injected with 100 mL of Isovue 300, pul monary embolism protocol. MIP images are created and reviewed. FINDINGS: Pulmonary Artery: Filling defects demonstrated within the left lower lobe and left upper lobe segment al pulmonary arteries. Questionable filling defect demonstrated within the lingular segmental pulmona ry artery. No evidence for right heart strain. The pulmonary artery is of normal size. Lungs/Pleura: No evidence of focal consolidation, pleural effusion or pneumothorax. Slight increase i n bilateral perihilar groundglass opacities. Respiratory motion artifact. Right minor fissure intrafi ssural lymph node redemonstrated. Subsegmental atelectasis of the left lower lobe. No new or enlargin g pulmonary nodules. Airway: Large airways are patent. Heart: Heart is within normal limits for size. Coronary artery calcifications. No pericardial effusio n. Vasculature: No evidence of aortic aneurysm. Atherosclerotic calcification of the aorta and its branc hes. Mediastinum: No gross evidence of adenopathy. Musculoskeletal: No acute osseous abnormalities. Moderate degenerative changes of the visualized spin e. Dextrocurvature of the thoracic spine. Soft Tissues: Unremarkable. Lower neck: No significant findings. Upper Abdomen: Small hypodensity peripheral region within the spleen which may represent perfusion ab normality versus small splenic infarct. IMPRESSION: 1. Pulmonary emboli demonstrated within the left upper lower lobe segmental pulmonary arteries with q uestionable embolus in the left middle lobe segmental pulmonary artery. 2. Slightly more prominent patchy groundglass opacities which may represent air trapping versus pneum onitis. Findings communicated with Neetu Mccrary NP at 2:28 PM on 09/07/2021 via [employer].
--- NOTE | 2021-09-07 14:51 | P.CNPUL ---
History of Present Illness Consult date: 09/07/21 Requesting physician: Demarcus Robles Reason for consult: dyspnea Chief complaint: Shortness of breath History of present illness: 86-year-old male patient of Dr. Shar Yu with past history of COPD not on home oxygen, former smoker who quit smoking 5 years ago, but does carry [id number] smoking history, hypertension, hyperlipidemia, BPH, presents the emergency department on 09/06/2021 with complaints of progressive worsening shortness of breath over the past week. Patient was recently treated with steroids by Dr. Yu, she finished the taper, however noticed that he still quite short of breath with any exertion. He denied any cough, no fever, no chest pain. When EMS arrived he was hypoxic in the upper 80s, he was placed on supplemental oxygen at 2 L and was given breathing treatments. Chest x-ray showed no acute cardiopulmonary process. Patient tested negative for COVID-19, influenza A and B. His proBNP was 1160, initial troponin was 0.035, and second set was 0.034. White blood cell count is 6.9, hemoglobin is 11.5. Patient had elevated d-dimer of 3.05, and CTA chest was completed showing pulmonary emboli within the left upper lobe segmental pulmonary arteries with questionable embolus in the left middle lobe, and slightly more prominent patchy groundglass opacities that could represent air trapping versus pneumonitis. Patient was started on heparin infusion. Echocardiogram showing left ventricular ejection fraction of 55-60%, right ventricle was not well visualized, trace mitral regurg, trace tricuspid regurg, no pericardial effusion. Patient is on IV s teroids and Symbicort. He was started on IV Lasix per cardiology Review of Systems All systems: negative Constitutional: Denies chills, Denies fever Eyes: denies blurred vision, denies pain Ears, nose, mouth and throat: Denies headache, Denies sore throat Cardiovascular: Denies chest pain, Denies shortness of breath Respiratory: Reports dyspnea, Denies cough Gastrointestinal: Denies abdominal pain, Denies diarrhea, Denies nausea, Denies vomiting Musculoskeletal: Denies myalgias Integumentary: Denies pruritus, Denies rash Neurological: Denies numbness, Denies weakness Psychiatric: Denies anxiety, Denies depression Endocrine: Denies fatigue, Denies weight change Past Medical History Past Medical History: Cancer, COPD, Hyperlipidemia, Hypertension, Pneumonia, Prostate Disorder Additional Past Medical History / Comment(s): Tracheobronchitis, BPH, 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 Past Anesthesia/Blood Transfusion Reactions: No Reported Reaction Additional Past Anesthesia/Blood Transfusion Reaction / Comment(s): Pt has claustrophobia. Past Psychological History: No Psychological Hx Reported Smoking Status: Former smoker - Past Family History Brother(s) Family Medical History: Cancer Additional Family Medical History / Comment(s): Prostate cancer. Father Family Medical History: Deep Vein Thrombosis (DVT) Additional Family Medical History / Comment(s): Father of dementia at the age of 79yrs. Mother Family Medical History: No Reported History Additional Family Medical History / Comment(s): Mother was healthy and lived to be 86yrs old. Medications and Allergies Home Medications Medication Instructions Recorded Confirmed Type Albuterol Sulfate [Proair Hfa] 2 puff INHALATION RT-Q6H PRN 05/22/15 09/06/21 Hi story Roflumilast [Daliresp] 500 mcg PO DAILY 05/22/15 09/06/21 History Alfuzosin HCl [Uroxatral ER] 10 mg PO DAILY 09/09/15 09/06/21 History Finasteride [Proscar] 5 mg PO DAILY 09/09/15 09/06/21 History Travoprost [Travatan Z 0.004%] 1 drop BOTH EYES HS 09/10/15 09/06/21 History Brinzolamide/Brimonidine Tart 1 drop BOTH EYES BID 03/21/18 09/06/21 History [Simbrinza 1%-0.2% Eye Drops] Fluticasone Nasal [place] [Flonase 1 spray EA NOSTRIL DAILY PRN 04/20/20 09/06/21 History Nasal [place]] Levocetirizine Dihydrochloride 5 mg PO DAILY PRN 04/20/20 09/06/21 History rOPINIRole HCL [Requip] 1 mg PO TID PRN 04/20/20 09/06/21 History Albuterol Nebulized [Ventolin 2.5 mg INHALATION RT-QID PRN 08/31/20 09/06/21 History Nebulized] Aspirin 325 mg PO DAILY 08/31/20 09/06/21 History Nebivolol HCl [Bystolic] 5 mg PO DAILY 08/31/20 09/06/21 History Budesonide-Formot 160-4.5 Mcg 2 puff INHALATION RT-BID 09/06/21 09/06/21 History [Symbicort 160-4.5 Mcg Inhaler] Tiotropium 2.5 Mcg/Puff [Spiriva 2 puff INHALATION RT-DAILY 09/06/21 09/06/21 History Respimat 2.5 Mcg] Furosemide [Lasix] 40 mg PO BID #60 tablet 09/07/21 Rx Allergies Allergy/AdvReac Type Severity Reaction Status Date / Time amoxicillin trihydrate Allergy Unknown Verified 09/06/21 19:12 [From Augmentin] moxifloxacin HCl Allergy Nausea & Verified 09/06/21 19:12 [From Avelox] Vomiting potassium clavulanate Allergy Unknown Verified 09/06/21 19:12 [From Augmentin] Physical Exam Vitals: Vital Signs Temp Pulse Pulse Resp BP BP Pulse Ox 09/07/21 12:26 68 09/07/21 12:12 66 09/07/21 12:00 82 16 176/89 100 09/07/21 08:00 76 16 205/98 96 09/07/21 06:31 12 195/84 98 09/07/21 05:57 70 09/07/21 04:00 97.8 F 70 14 186/86 95 09/07/21 02:00 178/79 09/07/21 00:00 98.4 F 72 12 190/89 97 09/06/21 20:39 98.5 F 72 12 172/69 98 09/06/21 17:57 75 16 143/80 96 09/06/21 16:32 24 09/06/21 16:23 98.3 F 91 24 156/59 93 L Intake and Output 09/06/21 09/07/21 09/07/21 22:59 06:59 14:59 Intake Total 240 Output Total 600 Balance 240 -600 Intake: Oral 240 Output: Urine 600 Other: Voiding Method Toilet Toilet Toilet # Voids 5 Weight 95.254 kg 95.7 kg GENERAL EXAM: Alert, very pleasant, 86-year-old on room air with a pulse oximeter 100% comfortable in no apparent distress. HEAD: Normocephalic/atraumatic. EYES: Normal reaction of pupils, equal size. Conjunctiva pink, sclera white. NOSE: Clear with pink turbinates. THROAT: No erythema or exudates. NECK: No masses, no JVD, no thyroid enlargement, no adenopathy. CHEST: No chest wall deformity. Symmetrical expansion. LUNGS: Equal air entry with no crackles, wheeze, rhonchi or dullness. CVS: Regular rate and rhythm, normal S1 and S2, no gallops, no murmurs, no rubs ABDOMEN: Soft, nontender. No hepatosplenomegaly, normal bowel sounds, no guarding or rigidity. EXTREMITIES: No clubbing, no edema, no cyanosis, 2+ pulses and upper and lower extremities. MUSCULOSKELETAL: Muscle strength and tone normal. SPINE: No scoliosis or deformity SKIN: No rashes CENTRAL NERVOUS SYSTEM: Alert and oriented -3. No focal deficits, tone is normal in all 4 extremities. PSYCHIATRIC: Alert and oriented -3. Appropriate affect. Intact judgment and insight. Results - Laboratory Findings CBC and BMP: 09/06/21 16:32 09/06/21 16:32 PT/INR, D-dimer D-Dimer 3.05 mg/L FEU (<0.60) H 09/07/21 09:07 Abnormal lab findings: Abnormal Labs 09/06/21 09/06/21 09/06/21 16:32 16:32 16:32 RBC 3.53 L Hgb 11.5 L Hct 35.3 L MCV 100.1 H Plt Count 125 L Lymphocytes # 0.5 L D-Dimer Sodium 134 L BUN 22 H Glucose 195 H Plasma Lactic Acid Alok 2.3 H* CK-MB (CK-2) Troponin I Total Protein 5.7 L Albumin 3.4 L 09/06/21 09/06/21 09/06/21 16:32 19:24 20:28 RBC Hgb Hct MCV Plt Count Lymphocytes # D-Dimer Sodium BUN Glucose Plasma Lactic Acid Alok 2.4 H* CK-MB (CK-2) 3.1 H Troponin I 0.035 H* Total Protein Albumin 09/07/21 09:07 RBC Hgb Hct MCV Plt Count Lymphocytes # D-Dimer 3.05 H Sodium BUN Glucose Plasma Lactic Acid Aolk CK-MB (CK-2) Troponin I Total Protein Albumin - Diagnostic Findings Chest x-ray: report reviewed, image reviewed CT scan - chest: report reviewed, image reviewed Assessment and Plan Plan: Assessment: #1. Acute hypoxic respiratory failure, related to acute pulmonary embolism. D- dimer was elevated, and CT chest completed showing pulmonary emboli in the left upper lobe segmental pulmonary arteries and questionable PE in the left middle lobe segmental pulmonary artery #2. Acute exacerbation of chronic diastolic heart failure #3. History of COPD not on home oxygen #4. Troponin leak likely related to acute PE and acute exacerbation of diastolic CHF #5. Hypertension #6. Hyperlipidemia #7. BPH #8. Former smoker, smoking 5 years ago, carries [id number] smoking history Plan: Continue heparin infusion Continue IV steroids, continue bronchodilators Echocardiogram, CT chest, chest x-ray reviewed Vital signs are stable, patient remains on room air We'll continue to follow Will likely switch the patient to oral anticoagulants tomorrow, and consider patient for discharge if cleared by cardiology I have personally seen and examined the patient, performed the documentation and the assessment and plan as written. Number of minutes spent on the visit: [15] Time with Patient: Greater than 30
[2021-09-07 15:00] LABS: Basophils % (A) 0 %; Eosinophils % (A) 0 %; HCT 38.1 % (39.0-53.0); HGB 12.8 gm/dL (13.0-17.5); Lymphocytes # (A) 0.3 k/uL (1.0-4.8); Lymphocytes % (A) 6 %; MCH 33.3 pg (25.0-35.0); MCHC 33.6 g/dL (31.0-37.0); MCV 99.1 fL (80.0-100.0); Mean Platelet Volume 8.3; Monocytes # (A) 0.2 k/uL (0-1.0); Monocytes % (A) 3 %; Neutrophils # (A) 5.5 k/uL (1.3-7.7); Neutrophils % (A) 91 %; Platelet Count 137 k/uL (150-450); RBC 3.85 m/uL (4.30-5.90); RDW 14.1 % (11.5-15.5); WBC 6.1 k/uL (3.8-10.6)
[2021-09-07] MEDS: HEPARIN SOD,PORK IN 0.45% NACL 25,000 UNIT in 0.45% NACL 1 250ML.BAG IV SCH (15:09)
[2021-09-07 15:12] LABS: INR 0.9 (<1.2); Partial Thromboplastin Time 24.8 sec (22.0-30.0)
[2021-09-07 16:39] LABS: Glucose,Whole Blood 232 mg/dL (70-110)
[2021-09-07] MEDS ORDERED: DEXTROSE 50% SYRINGE 50 ML IVP PRN ×2 (17:33)
[2021-09-07] MEDS: INSULIN ASPART (NovoLOG) 100 UNIT/ML VIAL SQ SCH ×2 (18:56→20:18)
[2021-09-07] MEDS: FAMOTIDINE 20 MG TAB PO SCH (20:05)
[2021-09-07 20:17] LABS: Glucose,Whole Blood 326 mg/dL (70-110)
[2021-09-08] MEDS: HEPARIN SOD,PORK IN 0.45% NACL 25,000 UNIT in 0.45% NACL 1 250ML.BAG IV SCH (05:35)
[2021-09-08 06:04] LABS: Glucose,Whole Blood 243 mg/dL (70-110)
[2021-09-08] MEDS: INSULIN ASPART (NovoLOG) 100 UNIT/ML VIAL SQ SCH ×2 (06:21→12:01)
[2021-09-08 07:58] LABS: Basophils % (A) 0 %; Eosinophils % (A) 0 %; HGB 12.5 gm/dL (13.0-17.5); Lymphocytes # (A) 0.5 k/uL (1.0-4.8); Lymphocytes % (A) 7 %; MCH 32.8 pg (25.0-35.0); MCHC 32.9 g/dL (31.0-37.0); MCV 99.6 fL (80.0-100.0); Mean Platelet Volume 7.5; Monocytes # (A) 0.2 k/uL (0-1.0); Monocytes % (A) 4 %; Neutrophils # (A) 5.8 k/uL (1.3-7.7); Neutrophils % (A) 89 %; Platelet Count 175 k/uL (150-450); RBC 3.81 m/uL (4.30-5.90); RDW 13.9 % (11.5-15.5); WBC 6.5 k/uL (3.8-10.6)
[2021-09-08] MEDS: SYMBICORT 160-4.5 MCG INHALER INHALATION SCH (08:26)
[2021-09-08] MEDS: ALBUTEROL NEBULIZED 2.5 MG/3 ML INHALATION SCH ×2 (08:26→11:51)
[2021-09-08 08:47] LABS: Calcium 9.3 mg/dL (8.4-10.2); Magnesium 2.2 mg/dL (1.6-2.3); Potassium 4.6 mmol/L (3.5-5.1)
[2021-09-08] MEDS: ASPIRIN 325 MG TAB PO SCH (08:47)
[2021-09-08] MEDS: FAMOTIDINE 20 MG TAB PO SCH (08:47)
[2021-09-08] MEDS: NEBIVOLOL 5 MG TAB PO SCH (08:47)
[2021-09-08] MEDS: amLODIPine 10 MG TAB PO SCH (08:48)
[2021-09-08] MEDS: FUROSEMIDE 10 MG/ML 4 ML VIAL IV SCH (08:48)
[2021-09-08] MEDS: FINASTERIDE 5 MG TAB PO SCH (08:48)
[2021-09-08] MEDS: methylPREDNISolone SOD SUCCI 40 MG/ML 1 ML VIAL IV SCH (08:48)
[2021-09-08 08:54] VITALS: RESP 16
[2021-09-08] MEDS ORDERED: APIXABAN 5 MG TAB PO SCH (09:15)
--- NOTE | 2021-09-08 10:17 | P.PN ---
Subjective This is a pleasant 86 years old male with past medical history of hypertension, hyperlipidemia, advanced COPD on ruflumilast , restless leg syndrome patient presents because of dyspnea for about one week associated with cough and clear phlegm but no chest pain. Patient says that he has history of COPD but he is not on home oxygen and his been following up with Dr. 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 He denies any GI or urinary symptoms. No headache or weakness or numbness. He is alert awake and oriented 3 and he wants to go home. He does not want to stay in the hospital because he thinks he can go home. Vitals looks stable, blood pressure is slightly elevated to 186/86. CBC is unremarkable except for mild anemia with hemoglobin 11.5 and thr ombocytopenia with platelet 125. BMP is unremarkable. Sodium 134. Creatinine 0.9. Liver enzymes not elevated. Troponin is elevated 0.03 and 0.034. ProBNP is 1160. EKG showing normal sinus rhythm at [address]-T changes. In the emergency room he received steroids and Lasix Patient's wants to leave [facility], I explained the risks and benefits for him including but not limited to risk of respiratory failure and/or not this and he verbalized understanding but he still does not want to send the hospital. I asked the patient if there is anything I can do to prevent him from leaving [facility] and he declines. 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 No chest pain or dyspnea. Patient informed that he has pulmonary embolism and he has to be on blood thinner heparin and then Eliquis and risks of bleeding are explained for him ex tensively and he verbalized understanding and acceptance. He has also month elements of fluid overload and COPD exacerbation responding well to IV Lasix which is switched to oral dose today. Also he is on aspirin 325 mg. He denies any other symptoms. Ejection fraction was 55-60% and his troponin leak could be secondary to his pulmonary embolism. Physical therapy recommended home. Objective - Vital Signs Vital signs: Vital Signs Temp 97.7 F 09/08/21 04:00 Pulse 76 09/08/21 08:43 Resp 16 09/08/21 08:00 BP 177/54 09/08/21 08:00 Pulse Ox 97 09/08/21 08:00 FiO2 Intake & Output 09/07/21 09/08/21 09/08/21 18:59 06:59 18:59 Intake Total 230.398 37.53 Output Total 600 Balance -600 230.398 37.53 Weight 95.7 kg Intake: Intake, IV Titration 230.398 37.53 Amount Heparin Sod,Pork in 0.45% 230.398 37.53 NaCl 25,000 unit In 0.45 % NaCl 1 250ml.bag @ 18 UNITS/KG/HR 17.226 mls/hr IV .[id number] [facility] Rx#: [id number] Output: Urine 600 Other: Voiding Method Toilet Toilet - Exam GENERAL: The patient is alert and oriented x3, not in any acute distress. Well d eveloped, well nourished. HEENT: Pupils are round and equally reacting to light. EOMI. No scleral icterus. No conjunctival pallor. Normocephalic, atraumatic. No pharyngeal erythema. No thyromegaly. CARDIOVASCULAR: S1 and S2 present. No murmurs, rubs, or gallops. PULMONARY: Chest is clear to auscultation, no wheezing or crackles. ABDOMEN: Soft, nontender, nondistended, normoactive bowel sounds. No palpable organomegaly. MUSCULOSKELETAL: No joint swelling or deformity. EXTREMITIES: No cyanosis, clubbing, or pedal edema. NEUROLOGICAL: Gross neurological examination did not reveal any focal deficits. SKIN: No rashes. no petechiae. - Labs CBC & Chem 7: 09/08/21 07:14 09/08/21 07:14 Labs: Abnormal Lab Results - Last 24 Hours (Table) 09/07/21 09/07/21 09/07/21 Range/Units 09:07 14:50 14:50 RBC 3.85 L (4.30-5.90) m/uL Hgb 12.8 L (13.0-17.5) gm/dL Hct 38.1 L (39.0-53.0) % Plt Count 137 L (150-450) k/uL Lymphocytes # 0.3 L (1.0-4.8) k/uL APTT (22.0-30.0) sec D-Dimer 3.05 H (<0.60) mg/L FEU Sodium (137-145) mmol/L Chloride (98-107) mmol/L BUN (9-20) mg/dL Glucose (74-99) mg/dL POC Glucose (mg/dL) (70-110) mg/dL Hemoglobin A1c 7.4 H (0.0-6.0) % 09/07/21 09/07/21 09/07/21 Range/Units 16:37 20:09 20:14 RBC (4.30-5.90) m/uL Hgb (13.0-17.5) gm/dL Hct (39.0-53.0) % Plt Count (150-450) k/uL Lymphocytes # (1.0-4.8) k/uL APTT 87.4 H (22.0-30.0) sec D-Dimer (<0.60) mg/L FEU Sodium (137-145) mmol/L Chloride (98-107) mmol/L BUN (9-20) mg/dL Glucose (74-99) mg/dL POC Glucose (mg/dL) 232 H 326 H (70-110) mg/dL Hemoglobin A1c (0.0-6.0) % 09/08/21 09/08/21 09/08/21 Range/Units 01:29 06:02 07:14 RBC (4.30-5.90) m/uL Hgb (13.0-17.5) gm/dL Hct (39.0-53.0) % Plt Count (150-450) k/uL Lymphocytes # (1.0-4.8) k/uL APTT 138.7 H* (22.0-30.0) sec D-Dimer (<0.60) mg/L FEU Sodium 133 L (137-145) mmol/L Chloride 96 L (98-107) mmol/L BUN 36 H (9-20) mg/dL Glucose 245 H (74-99) mg/dL POC Glucose (mg/dL) 243 H (70-110) mg/dL Hemoglobin A1c (0.0-6.0) % 09/08/21 09/08/21 Range/Units 07:14 07:14 RBC 3.81 L (4.30-5.90) m/uL Hgb 12.5 L (13.0-17.5) gm/dL Hct 38.0 L (39.0-53.0) % Plt Count (150-450) k/uL Lymphocytes # 0.5 L (1.0-4.8) k/uL APTT 70.7 H (22.0-30.0) sec D-Dimer (<0.60) mg/L FEU Sodium (137-145) mmol/L Chloride (98-107) mmol/L BUN (9-20) mg/dL Glucose (74-99) mg/dL POC Glucose (mg/dL) (70-110) mg/dL Hemoglobin A1c (0.0-6.0) % Assessment and Plan Assessment: Acute left pulmonary embolism Acute COPD exacerbation Elevated troponin, rule out cardiac causes noncompliance, patient does not want to stay in the hospital despite the risk and benefits explained Hypertension Hyperlipidemia History of restless leg syndrome Benign prostatic hypertrophy History of bilateral regular, History of chronic back pain History of prostate cancer Plan: This is a pleasant 86 years old male who presents with elevated troponin, possible COPD Continue with aspirin continue with Eliquis at therapeutic dose Cardiology consult and pulmonary consultContinue with steroids, currently on Solu-Medrol based upon my evaluation patient has capacity to make medical decision Labs and medication were reviewed.. Continue same treatment. Continue with symptomatic treatment. Resume home medication. Monitor lytes and vitals. DVT and GI prophylaxis. Further recommendations as per clinical course of the patient DVT prophylaxis Eliquis GI Prophylaxis: Pepcid PT/OT Home
--- NOTE | 2021-09-08 10:49 | P.PN ---
Subjective Progress Note Date: 09/08/21 Principal diagnosis: Acute exacerbation of COPD and pulmonary embolism 86-year-old male patient of Dr. Shar Yu with past history of COPD not on home oxygen, former smoker who quit smoking 5 years ago, but does carry [id number] smoking history, hypertension, hyperlipidemia, BPH, presents the emergency department on 09/06/2021 with complaints of progressive worsening shortness of breath over the past week. Patient was recently treated with steroids by Dr. Yu, she finished the taper, however noticed that he still quite short of breath with any exertion. He denied any cough, no fever, no chest pain. When EMS arrived he was hypoxic in the upper 80s, he was placed on supplemental oxygen at 2 L and was given breathing treatments. Chest x-ray showed no acute cardiopulmonary process. Patient tested negative for COVID-19, influenza A and B. His proBNP was 1160, initial troponin was 0.035, and second set was 0.034. White blood cell count is 6.9, hemoglobin is 11.5. Patient had elevated d-dimer of 3.05, and CTA chest was completed showing pulmonary emboli within the left upper lobe segmental pulmonary arteries with questionable embolus in the left middle lobe, and slightly more prominent patchy groundglass opacities that could represent air trapping versus pneumonitis. Patient was started on heparin infusion. Echocardiogram showing left ventricular ejection fraction of 55-60%, right ventricle was not well visualized, trace mitral regurg, trace tricuspid regurg, no pericardial effusion. Patient is on IV steroids and Symbicort. He was started on IV Lasix per cardiology Reevaluated today 09/08/21, patient seems to be doing well, asymptomatic, he is already on eliquis replacing heparin. Patient is in the process of being discharged home. Patient will follow-up with Dr. Maldonado postdischarge. Objective - Vital Signs Vital signs: Vital Signs Temp 97.7 F 09/08/21 04:00 Pulse 76 09/08/21 08:43 Resp 16 09/08/21 08:00 BP 177/54 09/08/21 08:00 Pulse Ox 97 09/08/21 08:00 FiO2 Intake & Output 09/07/21 09/08/21 09/08/21 18:59 06:59 18:59 Intake Total 230.398 37.53 Output Total 600 Balance -600 230.398 37.53 Weight 95.7 kg 95.1 kg Intake: Intake, IV Titration 230.398 37.53 Amount Heparin Sod,Pork in 0.45% 230.398 37.53 NaCl 25,000 unit In 0.45 % NaCl 1 250ml.bag @ 18 UNITS/KG/HR 17.226 mls/hr IV .[id number] [facility] Rx#: [id number] Output: Urine 600 Other: Voiding Method Toilet Toilet - Exam Physical Exam: Revealed an 86-year-old white male in no distress. Head: Atraumatic, normocephalic. HEENT:[Neck is supple.] [No neck masses.] [No thyromegaly.] [No JVD.] Chest: [Clear throughout, no crackles, no rhonchi, no wheezes.] Cardiac Exam: [Normal S1 and S2, no S3 gallop, no murmur.] Abdomen: [Soft, nontender, no megaly, no rebound, no guarding, normal bowel sounds.] Extremities: [No clubbing, no edema, no cyanosis.] Neurological Exam: [No focal neurologic deficit.] Alert oriented 3. Psychiatric: Normal mood, affect and normal mental status examination. Skin: No rashes. - Labs CBC & Chem 7: 09/08/21 07:14 09/08/21 07:14 Labs: Abnormal Lab Results - Last 24 Hours (Table) 09/07/21 09/07/21 09/07/21 Range/Units 14:50 14:50 16:37 RBC 3.85 L (4.30-5.90) m/uL Hgb 12.8 L (13.0-17.5) gm/dL Hct 38.1 L (39.0-53.0) % Plt Count 137 L (150-450) k/uL Lymphocytes # 0.3 L (1.0-4.8) k/uL APTT (22.0-30.0) sec Sodium (137-145) mmol/L Chloride (98-107) mmol/L BUN (9-20) mg/dL Glucose (74-99) mg/dL POC Glucose (mg/dL) 232 H (70-110) mg/dL Hemoglobin A1c 7.4 H (0.0-6.0) % 09/07/21 09/07/21 09/08/21 Range/Units 20:09 20:14 01:29 RBC (4.30-5.90) m/uL Hgb (13.0-17.5) gm/dL Hct (39.0-53.0) % Plt Count (150-450) k/uL Lymphocytes # (1.0-4.8) k/uL APTT 87.4 H 138.7 H* (22.0-30.0) sec Sodium (137-145) mmol/L Chloride (98-107) mmol/L BUN (9-20) mg/dL Glucose (74-99) mg/dL POC Glucose (mg/dL) 326 H (70-110) mg/dL Hemoglobin A1c (0.0-6.0) % 09/08/21 09/08/21 09/08/21 Range/Units 06:02 07:14 07:14 RBC 3.81 L (4.30-5.90) m/uL Hgb 12.5 L (13.0-17.5) gm/dL Hct 38.0 L (39.0-53.0) % Plt Count (150-450) k/uL Lymphocytes # 0.5 L (1.0-4.8) k/uL APTT (22.0-30.0) sec Sodium 133 L (137-145) mmol/L Chloride 96 L (98-107) mmol/L BUN 36 H (9-20) mg/dL Glucose 245 H (74-99) mg/dL POC Glucose (mg/dL) 243 H (70-110) mg/dL Hemoglobin A1c (0.0-6.0) % 09/08/21 Range/Units 07:14 RBC (4.30-5.90) m/uL Hgb (13.0-17.5) gm/dL Hct (39.0-53.0) % Plt Count (150-450) k/uL Lymphocytes # (1.0-4.8) k/uL APTT 70.7 H (22.0-30.0) sec Sodium (137-145) mmol/L Chloride (98-107) mmol/L BUN (9-20) mg/dL Glucose (74-99) mg/dL POC Glucose (mg/dL) (70-110) mg/dL Hemoglobin A1c (0.0-6.0) % Assessment and Plan Assessment: Impression: Acute hypoxic respiratory failure secondary to acute exacerbation of COPD and acute pulmonary embolism with acute on chronic diastolic congestive heart failure. Hypertension. Dyslipidemia Ex-smoker patient had a [id number] smoking history quit 5 years ago. Recommendation: Continue bronchodilators Prednisone taper over the next 2 weeks Eliquis as per protocol for acute pulmonary embolism Agree with discharge planning today and follow up on outpatient basis with Dr. Maldonado. Time with Patient: Less than 30
[2021-09-08] MEDS ORDERED: predniSONE 10 MG TAB PO SCH (11:00)
--- NOTE | 2021-09-08 11:10 | P.PN ---
Subjective This is an 86-year-old male past medical history of hypertension, dyslipidemia, mitral regurgitation, COPD, former tobacco use, chronic heart failure with preserved ejection fraction. He follows in the office with Dr. Gillette. We have been asked to consultation for shortness of breath and bigeminy. Patient presents emergency department for worsening shortness of breath for one week. Patient's D-dimer was elevated and he underwent CT chest. DIAGNOSTICS: Lexiscan stress test 05/2020 revealed a moderate fixed perfusion defects involving the inferior wall. No reversible perfusion defects noted. Echocardiogram revealed EF 5560%, technically difficult study CTA- reported with pulmonary emboli demonstrated within the left upper lobe segmental pulmonary arteries with questionable embolus in the left middle lobe segmental pulmonary artery. 09/08/2021 Patient seen and examined at bedside, no acute distress. He denies any chest pain or shortness of breath. Overall his symptoms have improved. CTA revealed a pulmonary embolism, patient was started on IV heparin drip. Blood pressure this morning elevated at 177/54 prior to medications given. Amlodipine 10mg started yesterday. , heart rate 70, afebrile, saturations 97% room air. Serum creatinine 0.94, BUN 36. GENERAL: Well-appearing, well-nourished and in no acute distress. NECK: Supple without JVD or thyromegaly. LUNGS: Breath sounds clear to auscultation bilaterally. Respiration equal and unlabored. No wheezes, rales or rhonchi. HEART: Regular rate and rhythm without murmurs, rubs or gallops. S1 and S2 heard. EXTREMITIES: Normal range of motion, no edema. No clubbing or cyanosis. Peripheral pulses intact. ASSESSMENT Shortness of breath Pulmonary embolism Elevated troponin, likely related to pulmonary embolism Acute on chronic heart failure with preserved ejection fraction Hypertension Dyslipidemia CPOD Former tobacco use PLAN From cardiology perspective, patient can be discharged home today on Eliquis Continue home cardiac medications. Transition to PO Lasix 40mg BID Follow up with Dr Gillette in 1-2 weeks. Nurse Practitioner note has been reviewed, I agree with a documented findings and plan of care. Patient was seen and examined. Objective - Vital Signs Vital signs: Vital Signs Temp 97.8 F 09/07/21 04:00 Pulse 68 09/07/21 12:26 Resp 16 09/07/21 12:00 BP 176/89 09/07/21 12:00 Pulse Ox 100 09/07/21 12:00 FiO2 Intake & Output 09/06/21 09/07/21 09/07/21 18:59 06:59 18:59 Intake Total 240 Output Total 600 Balance 240 -600 Weight 95.254 kg 95.254 kg 95.7 kg Intake: Oral 240 Output: Urine 600 Other: Voiding Method Toilet Toilet # Voids 5 - Labs CBC & Chem 7: 09/08/21 07:14 09/08/21 07:14 Labs: Abnormal Lab Results - Last 24 Hours (Table) 09/06/21 09/06/21 09/06/21 Range/Units 16:32 16:32 16:32 RBC 3.53 L (4.30-5.90) m/uL Hgb 11.5 L (13.0-17.5) gm/dL Hct 35.3 L (39.0-53.0) % MCV 100.1 H (80.0-100.0) fL Plt Count 125 L (150-450) k/uL Lymphocytes # 0.5 L (1.0-4.8) k/uL D-Dimer (<0.60) mg/L FEU Sodium 134 L (137-145) mmol/L BUN 22 H (9-20) mg/dL Glucose 195 H (74-99) mg/dL Plasma Lactic Acid Alok 2.3 H* (0.7-2.0) mmol/L CK-MB (CK-2) (0.0-2.4) ng/mL Troponin I (0.000-0.034) ng/mL Total Protein 5.7 L (6.3-8.2) g/dL Albumin 3.4 L (3.5-5.0) g/dL 09/06/21 09/06/21 09/06/21 Range/Units 16:32 19:24 20:28 RBC (4.30-5.90) m/uL Hgb (13.0-17.5) gm/dL Hct (39.0-53.0) % MCV (80.0-100.0) fL Plt Count (150-450) k/uL Lymphocytes # (1.0-4.8) k/uL D-Dimer (<0.60) mg/L FEU Sodium (137-145) mmol/L BUN (9-20) mg/dL Glucose (74-99) mg/dL Plasma Lactic Acid Alok 2.4 H* (0.7-2.0) mmol/L CK-MB (CK-2) 3.1 H (0.0-2.4) ng/mL Troponin I 0.035 H* (0.000-0.034) ng/mL Total Protein (6.3-8.2) g/dL Albumin (3.5-5.0) g/dL 09/07/21 Range/Units 09:07 RBC (4.30-5.90) m/uL Hgb (13.0-17.5) gm/dL Hct (39.0-53.0) % MCV (80.0-100.0) fL Plt Count (150-450) k/uL Lymphocytes # (1.0-4.8) k/uL D-Dimer 3.05 H (<0.60) mg/L FEU Sodium (137-145) mmol/L BUN (9-20) mg/dL Glucose (74-99) mg/dL Plasma Lactic Acid Alok (0.7-2.0) mmol/L CK-MB (CK-2) (0.0-2.4) ng/mL Troponin I (0.000-0.034) ng/mL Total Protein (6.3-8.2) g/dL Albumin (3.5-5.0) g/dL
[2021-09-08] MEDS: Roflumilast [Daliresp] PO SCH (11:45)
[2021-09-08] MEDS: BRIMONIDINE TARTRATE 0.2% DROPS 5 ML BTL BOTH EYES SCH (11:52)
[2021-09-08] MEDS: DORZOLAMIDE HCL 2% DROPS 10 ML BTL BOTH EYES SCH (11:52)
[2021-09-08 11:53] LABS: Glucose,Whole Blood 295 mg/dL (70-110)
[2021-09-08 12:07] VITALS: BP 146/74; PULSE 58; TEMP 97.4
[2021-09-08] MEDS ORDERED: FUROSEMIDE 40 MG TAB PO SCH (21:00)
== END 2021-09-08 13:32 | disposition home or self-care (01) | DRG 175 ==
LOC: EC 16:19 → 3SCARD 19:38 → OBSVTOIN 09-08 07:23
PROVIDERS: ADMIT Hospitalist; ATTEND Hospitalist
DX: I26.94 Multiple subsegmental thrombotic pulmonary emboli without acute cor pulmonale (principal); I50.33 Acute on chronic diastolic (congestive) heart failure; J96.01 Acute respiratory failure with hypoxia; J44.1 Chronic obstructive pulmonary disease with (acute) exacerbation; D69.6 Thrombocytopenia, unspecified; I11.0 Hypertensive heart disease with heart failure; D64.9 Anemia, unspecified; G25.81 Restless legs syndrome; I08.1 Rheumatic disorders of both mitral and tricuspid valves; M79.89 Other specified soft tissue disorders; E78.5 Hyperlipidemia, unspecified; N40.0 Benign prostatic hyperplasia without lower urinary tract symptoms; H40.9 Unspecified glaucoma; M19.90 Unspecified osteoarthritis, unspecified site; F40.240 Claustrophobia; R00.8 Other abnormalities of heart beat; G89.29 Other chronic pain; M54.9 Dorsalgia, unspecified; R00.0 Tachycardia, unspecified; I26.99 Other pulmonary embolism without acute cor pulmonale; R77.8 Other specified abnormalities of plasma proteins; Z96.1 Presence of intraocular lens; Z20.822 Contact with and (suspected) exposure to COVID-19; I25.2 Old myocardial infarction; Z91.19 Patient's noncompliance with other medical treatment and regimen; Z98.61 Coronary angioplasty status; Z85.46 Personal history of malignant neoplasm of prostate; Z79.899 Other long term (current) drug therapy; Z79.82 Long term (current) use of aspirin; Z79.51 Long term (current) use of inhaled steroids; Z88.0 Allergy status to penicillin; Z88.1 Allergy status to other antibiotic agents; Z87.01 Personal history of pneumonia (recurrent); Z85.830 Personal history of malignant neoplasm of bone; Z90.89 Acquired absence of other organs; Z98.41 Cataract extraction status, right eye; Z98.42 Cataract extraction status, left eye; Z87.891 Personal history of nicotine dependence; Z80.42 Family history of malignant neoplasm of prostate; Z81.8 Family history of other mental and behavioral disorders; Z82.49 Family history of ischemic heart disease and other diseases of the circulatory system
CPT/HCPCS: 36415; 71046; 71275; 80048; 80053; 82553; 83036; 83605; 83735; 83880; 84484; 85025; 85379; 85610; 85730; 87502; 87635; 93005; 93306; 94640; 96374; 96375; 99285

== ENCOUNTER 2021-09-11 20:48 | Observation (INO) | payer MEDICARE ==
--- NOTE | 2021-09-11 21:07 | ED ---
SOB HPI - General Chief Complaint: Shortness of Breath Stated Complaint: Shortness of Breath, Recent PE Time Seen by Provider: 09/11/21 20:51 Source: EMS, RN notes reviewed, old records reviewed Mode of arrival: EMS Limitations: no limitations - History of Present Illness Initial Comments: This is a 6-year-old male DF for evaluation patient presents today for evaluation regards to shortness of breath. Patient has history of COPD with multiple admissions. Recent hospital admission for shortness of breath for a phone he had a PE, patient's on blood thinners has been taking them and doing his breathing treatments as expected to patient is no travel history or sick contacts no current chest pain or no other issue MD Complaint: shortness of breath, cough -: days(s) Severity: moderate Severity scale (1-10): 4 Quality: dull Consistency: constant Improves With: nothing Worsens With: nothing Known History Of: COPD, congestive heart failure Context: recent URI Associated Symptoms: denies other symptoms Treatments Prior to Arrival: oxygen - Related Data Home Medications Medication Instructions Recorded Confirmed Albuterol Sulfate [Proair Hfa] 2 puff INHALATION RT-Q6H PRN 05/22/15 09/11/21 Roflumilast [Daliresp] 500 mcg PO DAILY 05/22/15 09/11/21 Alfuzosin HCl [Uroxatral ER] 10 mg PO DAILY 09/09/15 09/11/21 Finasteride [Proscar] 5 mg PO DAILY 09/09/15 09/11/21 Travoprost [Travatan Z 0.004%] 1 drop BOTH EYES HS 09/10/15 09/11/21 Brinzolamide/Brimonidine Tart 1 drop BOTH EYES BID 03/21/18 09/11/21 [Simbrinza 1%-0.2% Eye Drops] Fluticasone Nasal [place] [Flonase 1 spray EA NOSTRIL DAILY PRN 04/20/20 09/11/21 Nasal [place]] rOPINIRole HCL [Requip] 1 mg PO TID PRN 04/20/20 09/11/21 Albuterol Nebulized [Ventolin 2.5 mg INHALATION RT-QID PRN 08/31/20 09/11/21 Nebulized] Nebivolol HCl [Bystolic] 5 mg PO DAILY 08/31/20 09/11/21 Budesonide-Formot 160-4.5 Mcg 2 puff INHALATION RT-BID 09/06/21 09/11/21 [Symbicort 160-4.5 Mcg Inhaler] Tiotropium 2.5 Mcg/Puff [Spiriva 2 puff INHALATION RT-DAILY 09/06/21 09/11/21 Respimat 2.5 Mcg] Apixaban [Eliquis] See Taper PO DIRECTED 09/11/21 09/11/21 predniSONE See Taper PO DIRECTED 09/11/21 09/11/21 Previous Rx's Medication Instructions Recorded Furosemide [Lasix] 40 mg PO BID #60 tablet 09/07/21 amLODIPine [Norvasc] 10 mg PO DAILY #30 tab 09/08/21 Allergies Allergy/AdvReac Type Severity Reaction Status Date / Time amoxicillin trihydrate Allergy Unknown Verified 09/06/21 19:12 [From Augmentin] moxifloxacin HCl Allergy Nausea & Verified 09/06/21 19:12 [From Avelox] Vomiting potassium clavulanate Allergy Unknown Verified 09/06/21 19:12 [From Augmentin] Review of Systems ROS Statement: Those systems with pertinent positive or pertinent negative responses have been documented in the HPI. ROS Other: All systems not noted in ROS Statement are negative. 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 Past Anesthesia/Blood Transfusion Reactions: No Reported Reaction Additional Past Anesthesia/Blood Transfusion Reaction / Comment(s): Pt has claustrophobia. Past Psychological History: No Psychological Hx Reported Smoking Status: Former smoker - Past Family History Brother(s) Family Medical History: Cancer Additional Family Medical History / Comment(s): Prostate cancer. Father Family Medical History: Deep Vein Thrombosis (DVT) Additional Family Medical History / Comment(s): Father of dementia at the age of 79yrs. Mother Family Medical History: No Reported History Additional Family Medical History / Comment(s): Mother was healthy and lived to be 86yrs old. General Exam Limitations: no limitations General appearance: alert, in no apparent distress Head exam: Present: atraumatic, normocephalic, normal inspection Eye exam: Present: normal appearance, PERRL, EOMI. Absent: scleral icterus, conjunctival injection, periorbital swelling ENT exam: Present: normal exam, mucous membranes moist Neck exam: Present: normal inspection. Absent: tenderness, meningismus, lymphadenopathy Respiratory exam: Present: normal lung sounds bilaterally. Absent: respiratory distress, wheezes, rales, rhonchi, stridor Cardiovascular Exam: Present: regular rate, normal rhythm, normal heart sounds. Absent: systolic murmur, diastolic murmur, rubs, gallop, clicks GI/Abdominal exam: Present: soft, normal bowel sounds. Absent: distended, tenderness, guarding, rebound, rigid Extremities exam: Present: normal inspection, full ROM, normal capillary refill. Absent: tenderness, pedal edema, joint swelling, calf tenderness Back exam: Present: normal inspection Neurological exam: Present: alert, oriented X3, CN II-XII intact Psychiatric exam: Present: normal affect, normal mood Skin exam: Present: warm, dry, intact, normal color. Absent: rash Course Vital Signs 09/11/21 09/11/21 09/11/21 20:51 21:36 21:44 Temperature 98.3 F Pulse Rate 57 L 84 84 Respiratory 18 Rate Blood Pressure 144/78 O2 Sat by Pulse 95 Oximetry 09/11/21 22:28 Temperature Pulse Rate 85 Respiratory 18 Rate Blood Pressure 133/91 O2 Sat by Pulse 93 L Oximetry - Reevaluation(s) Reevaluation #1: 09/11/21 21:35 Medical record is reviewed Reevaluation #2: 09/11/21 21:35 Patient feels better after treatment per EMS Reevaluation #3: 09/11/21 22:59 Patient does feel improved here in the ER with no chest pain or abdominal pain - Consultations Consultation #1: Spoke with [facility] regarding admission there agreeable Medical Decision Making - Medical Decision Making 86 male with significant lactic acidosis, COPD exacerbation.., At this point we will put on prophylactic antibiotics secondary lactic acid and possible false negative chest x-ray. We'll repeat chest x-ray in the morning after hydration. Patient placed on breathing treatments and steroids. Patient also found to have elevated blood sugar, to be new onset diabetes - Lab Data Result diagrams: 09/11/21 21:26 09/11/21 21:26 Lab Results 09/11/21 09/11/21 09/11/21 Range/Units 21:26 21: 21: WBC 5.3 (3.8-10.6) k/uL RBC 3.26 L (4.30-5.90) m/uL Hgb 10.8 L (13.0-17.5) gm/dL Hct 32.1 L (39.0-53.0) % MCV 98.4 (80.0-100.0) fL MCH 33.0 (25.0-35.0) pg MCHC 33.6 (31.0-37.0) g/dL RDW 14.0 (11.5-15.5) % Plt Count 145 L (150-450) k/uL MPV 7.7 Neutrophils % 90 % Lymphocytes % 6 % Monocytes % 3 % Eosinophils % 1 % Basophils % 0 % Neutrophils # 4.8 (1.3-7.7) k/uL Lymphocytes # 0.3 L (1.0-4.8) k/uL Monocytes # 0.2 (0-1.0) k/uL Eosinophils # 0.0 (0-0.7) k/uL Basophils # 0.0 (0-0.2) k/uL PT 10.5 (9.0-12.0) sec INR 1.0 (<1.2) APTT 23.4 (22.0-30.0) sec Sodium 133 L (137-145) mmol/L Potassium 4.2 (3.5-5.1) mmol/L Chloride 96 L (98-107) mmol/L Carbon Dioxide 29 (22-30) mmol/L Anion Gap 8 mmol/L BUN 34 H (9-20) mg/dL Creatinine 1.10 (0.66-1.25) mg/dL Est GFR (CKD-EPI)AfAm 71 (>60 ml/min/1.73 sqM) Est GFR (CKD-EPI)NonAf 61 (>60 ml/min/1.73 sqM) Glucose 384 H (74-99) mg/dL Plasma Lactic Acid Alok (0.7-2.0) mmol/L Calcium 9.0 (8.4-10.2) mg/dL Magnesium 1.9 (1.6-2.3) mg/dL Total Bilirubin 0.5 (0.2-1.3) mg/dL AST 21 (17-59) U/L ALT 26 (4-49) U/L Alkaline Phosphatase 66 (38-126) U/L Troponin I (0.000-0.034) ng/mL NT-Pro-B Natriuret Pep pg/mL Total Protein 5.5 L (6.3-8.2) g/dL Albumin 3.4 L (3.5-5.0) g/dL 09/11/21 09/11/21 09/11/21 Range/Units 21:26 21:26 21:28 WBC (3.8-10.6) k/uL RBC (4.30-5.90) m/uL Hgb (13.0-17.5) gm/dL Hct (39.0-53.0) % MCV (80.0-100.0) fL MCH (25.0-35.0) pg MCHC (31.0-37.0) g/dL RDW (11.5-15.5) % Plt Count (150-450) k/uL MPV Neutrophils % % Lymphocytes % % Monocytes % % Eosinophils % % Basophils % % Neutrophils # (1.3-7.7) k/uL Lymphocytes # (1.0-4.8) k/uL Monocytes # (0-1.0) k/uL Eosinophils # (0-0.7) k/uL Basophils # (0-0.2) k/uL PT (9.0-12.0) sec INR (<1.2) APTT (22.0-30.0) sec Sodium (137-145) mmol/L Potassium (3.5-5.1) mmol/L Chloride (98-107) mmol/L Carbon Dioxide (22-30) mmol/L Anion Gap mmol/L BUN (9-20) mg/dL Creatinine (0.66-1.25) mg/dL Est GFR (CKD-EPI)AfAm (>60 ml/min/1.73 sqM) Est GFR (CKD-EPI)NonAf (>60 ml/min/1.73 sqM) Glucose (74-99) mg/dL Plasma Lactic Acid Alok 4.1 H* (0.7-2.0) mmol/L Calcium (8.4-10.2) mg/dL Magnesium (1.6-2.3) mg/dL Total Bilirubin (0.2-1.3) mg/dL AST (17-59) U/L ALT (4-49) U/L Alkaline Phosphatase (38-126) U/L Troponin I 0.034 (0.000-0.034) ng/mL NT-Pro-B Natriuret Pep 790 pg/mL Total Protein (6.3-8.2) g/dL Albumin (3.5-5.0) g/dL - EKG Data -: EKG Interpreted by Me (EKG shows sinus rhythm 72 FL 187 QRS 121 QTc 401) - Radiology Data Radiology results: report reviewed (Chest x-rays negative for acute disease), image reviewed Disposition Clinical Impression: Acute exacerbation of chronic obstructive pulmonary disease, Lactic acidosis Disposition: ADMITTED IP TO THIS HOSP Condition: Fair Is patient prescribed a controlled substance at d/c from ED?: No Referrals: Shar Yu MD [Primary Care Provider] - 1-2 days Time of Disposition: 23:00
[2021-09-11] MEDS ORDERED: SODIUM CHLORIDE 0.9% 1,000 ML IV STA ×2 (21:22→22:27)
[2021-09-11] MEDS ORDERED: SODIUM CHLORIDE 0.9% 500 ML 500 ML IV STA (21:22)
[2021-09-11] MEDS ORDERED: IPRATROPIUM-ALBUTEROL 3 ML NEB INHALATION STA (21:22)
[2021-09-11 21:34] LABS: Basophils % (A) 0 %; Eosinophils % (A) 1 %; HCT 32.1 % (39.0-53.0); HGB 10.8 gm/dL (13.0-17.5); Lymphocytes # (A) 0.3 k/uL (1.0-4.8); Lymphocytes % (A) 6 %; MCHC 33.6 g/dL (31.0-37.0); MCV 98.4 fL (80.0-100.0); Mean Platelet Volume 7.7; Monocytes # (A) 0.2 k/uL (0-1.0); Monocytes % (A) 3 %; Neutrophils # (A) 4.8 k/uL (1.3-7.7); Neutrophils % (A) 90 %; Platelet Count 145 k/uL (150-450); RBC 3.26 m/uL (4.30-5.90); WBC 5.3 k/uL (3.8-10.6)
[2021-09-11 21:43] LABS: Albumin 3.4 g/dL (3.5-5.0); Magnesium 1.9 mg/dL (1.6-2.3); Potassium 4.2 mmol/L (3.5-5.1); Total Bilirubin 0.5 mg/dL (0.2-1.3); Total Protein 5.5 g/dL (6.3-8.2)
--- NOTE | 2021-09-11 21:44 | XR ---
EXAMINATION TYPE: XR chest 1V portable DATE OF EXAM: 09/11/2021 COMPARISON: 09/06/2021 HISTORY: Short of breath TECHNIQUE: FINDINGS: There is no heart failure nor confluent pneumonic infiltrate. Costophrenic angles are clear . There is minimal subsegmental atelectasis left lung base. There are no hilar masses. There are ches t leads. IMPRESSION: Mild subsegmental atelectasis left lung base that is increased compared to old exam. Norm al heart.
[2021-09-11 21:49] LABS: Partial Thromboplastin Time 23.4 sec (22.0-30.0); Prothrombin Time 10.5 sec (9.0-12.0)
[2021-09-11] MEDS ORDERED: AZITHROMYCIN 500 MG in SODIUM CHLORIDE 0.9% 250 ML IVPB STA (22:27)
[2021-09-12] MEDS ORDERED: NALOXONE 0.4 MG/ML 1 ML VIAL IVP PRN (01:01)
[2021-09-12] MEDS: methylPREDNISolone SOD SUCCI 125 MG/2 ML VIAL IV SCH ×3 (05:37→18:35)
[2021-09-12] MEDS ORDERED: FLUTICASONE 50MCG/SPRAY NASAL 16GM EA NOSTRIL PRN (06:34)
[2021-09-12] MEDS ORDERED: DEXTROSE 50% SYRINGE 50 ML IVP PRN ×4 (06:36→21:44)
[2021-09-12] MEDS ORDERED: hydrALAZINE HCL 25 MG TAB PO PRN (06:37)
[2021-09-12 06:53] LABS: Glucose,Whole Blood 222 mg/dL (70-110)
[2021-09-12] MEDS ORDERED: FAMOTIDINE 20 MG/2 ML VIAL IV SCH (09:00)
[2021-09-12] MEDS: IPRATROPIUM-ALBUTEROL 3 ML NEB INHALATION SCH ×4 (09:00→19:34)
[2021-09-12] MEDS: ROFLUMILAST 500 MCG PO SCH (09:02)
[2021-09-12] MEDS: SYMBICORT 160-4.5 MCG INHALER INHALATION SCH ×2 (09:03→19:34)
[2021-09-12] MEDS: APIXABAN 5 MG TAB PO SCH ×2 (09:09→20:45)
[2021-09-12] MEDS: NEBIVOLOL 5 MG TAB PO SCH (09:10)
[2021-09-12] MEDS: FINASTERIDE 5 MG TAB PO SCH (09:10)
[2021-09-12] MEDS: amLODIPine 10 MG TAB PO SCH (09:10)
[2021-09-12] MEDS: INSULIN ASPART (NovoLOG) 100 UNIT/ML VIAL SQ SCH ×4 (09:10→22:07)
[2021-09-12] MEDS: FUROSEMIDE 40 MG TAB PO SCH ×2 (09:10→18:35)
--- NOTE | 2021-09-12 10:41 | P.HPIM ---
History of Present Illness This is a pleasant 86 years old male with past medical history of hypertension, hyperlipidemia, advanced COPD on ruflumilast , restless leg syndrome Patient was recently discharged from this facility (09/06-09/08) where he was for acute pulmonary embolism, with elements of acute COPD exacerbation, also had elevated troponin secondary to his PE, he is been evaluated by wan support specialist and company dancer who cleared him for discharge Presents because of worsening dyspnea Patient says that she's been doing well for the first 3-4 days but on Sunday he started getting more short of breath especially with exertion and feels very tired and lost his energy, he's been having some cough with little phlegm but no chest pain. No other abdominal or urinary complaints. No dizziness or weakness or numbness. Patient conference to me he's been taking his prednisone taper and Eliquis pupils twice a day as instructed and he does not miss any dose, actually he confirms to me that 3 more days are left On admission he is saturating 95% on room air, currently 94% within ureter oxygen, rest of vitals looks stable Hemoglobin is 10.8. Trace of CBC, INR is unremarkable. BMP is unremarkable, sodium is 133, BUN is 34 and creatinine 1.1. Glucose is elevated 384. EKG showing normal sinus rhythm at [address]-T changes. Chest x-ray: Likely mild subsegmental atelectasis in the left lung bases that is increased compared to old exam. Normal heart Patient received bronchodilator, normal saline and Rocephin as well as Solu-Medrol Patient also confirms to me he did not smoke over the last few days, last time he smoked about 5 years ago Review of Systems CONSTITUTIONAL: No fever, no malaise, no fatigue. HEENT: No recent visual problems or hearing problems. Denied any sore throat. CARDIOVASCULAR: No orthopnea, PND, no palpitations, no syncope. PULMONARY: No chest wall tenderness, no hemoptysis. GASTROINTESTINAL: No diarrhea, no nausea, no vomiting, no abdominal pain. Normoactive bowel sounds. NEUROLOGICAL: No headaches, no weakness, no numbness. HEMATOLOGICAL: Denies any bleeding or petechiae. GENITOURINARY: Denies any burning micturition, frequency, or urgency. MUSCULOSKELETAL/RHEUMATOLOGICAL: Denies any joint pain, swelling, or any muscle pain. ENDOCRINE: Denies any polyuria or polydipsia. 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 Past Anesthesia/Blood Transfusion Reactions: No Reported Reaction Additional Past Anesthesia/Blood Transfusion Reaction / Comment(s): Pt has claustrophobia. Past Psychological History: No Psychological Hx Reported Additional Psychological History / Comment(s): . Smoking Status: Former smoker Past Alcohol Use History: Daily Additional Past Alcohol Use History / Comment(s): Pt started smoking in 1954 and quit 5 yrs ago. He drinks 2 beers a day. Past Drug Use History: None Reported - Past Family History Brother(s) Family Medical History: Cancer Additional Family Medical History / Comment(s): Prostate cancer. Father Family Medical History: Deep Vein Thrombosis (DVT) Additional Family Medical History / Comment(s): Father of dementia at the age of 79yrs. Mother Family Medical History: No Reported History Additional Family Medical History / Comment(s): Mother was healthy and lived to be 86yrs old. Medications and Allergies Home Medications Medication Instructions Recorded Confirmed Type Albuterol Sulfate [Proair Hfa] 2 puff INHALATION RT-Q6H PRN 05/22/15 09/11/21 History Roflumilast [Daliresp] 500 mcg PO DAILY 05/22/15 09/11/21 History Alfuzosin HCl [Uroxatral ER] 10 mg PO DAILY 09/09/15 09/11/21 History Finasteride [Proscar] 5 mg PO DAILY 09/09/15 09/11/21 History Travoprost [Travatan Z 0.004%] 1 drop BOTH EYES HS 09/10/15 09/11/21 History Brinzolamide/Brimonidine Tart 1 drop BOTH EYES BID 03/21/18 09/11/21 History [Simbrinza 1%-0.2% Eye Drops] Fluticasone Nasal [place] [Flonase 1 spray EA NOSTRIL DAILY PRN 04/20/20 09/11/21 History Nasal [place]] rOPINIRole HCL [Requip] 1 mg PO TID PRN 04/20/20 09/11/21 History Albuterol Nebulized [Ventolin 2.5 mg INHALATION RT-QID PRN 08/31/20 09/11/21 History Nebulized] Nebivolol HCl [Bystolic] 5 mg PO DAILY 08/31/20 09/11/21 History Budesonide-Formot 160-4.5 Mcg 2 puff INHALATION RT-BID 09/06/21 09/11/21 History [Symbicort 160-4.5 Mcg Inhaler] Tiotropium 2.5 Mcg/Puff [Spiriva 2 puff INHALATION RT-DAILY 09/06/21 09/11/21 History Respimat 2.5 Mcg] Furosemide [Lasix] 40 mg PO BID #60 tablet 09/07/21 09/11/21 Rx amLODIPine [Norvasc] 10 mg PO DAILY #30 tab 09/08/21 09/11/21 Rx Apixaban [Eliquis] See Taper PO DIRECTED 09/11/21 09/11/21 History predniSONE See Taper PO DIRECTED 09/11/21 09/11/21 History Allergies Allergy/AdvReac Type Severity Reaction Status Date / Time amoxicillin trihydrate Allergy Unknown Verified 09/06/21 19:12 [From Augmentin] moxifloxacin HCl Allergy Nausea & Verified 09/06/21 19:12 [From Avelox] Vomiting potassium clavulanate Allergy Unknown Verified 09/06/21 19:12 [From Augmentin] Physical Exam Vitals: Vital Signs Temp Pulse Pulse Resp BP BP Pulse Ox 09/12/21 02:10 97.8 F 75 18 150/66 94 L 09/11/21 22:28 85 18 133/91 93 L 09/11/21 21:44 84 09/11/21 21:36 84 09/11/21 20:51 98.3 F 57 L 18 144/78 95 Intake and Output 09/11/21 09/11/21 09/12/21 14:59 22:59 06:59 Other: # Voids 2 Weight 95.708 kg 95.708 kg GENERAL: The patient is alert and oriented x3, not in any acute distress. Well developed, well nourished. HEENT: Pupils are round and equally reacting to light. EOMI. No scleral icterus. No conjunctival pallor. Normocephalic, atraumatic. No pharyngeal erythema. No thyromegaly. CARDIOVASCULAR: S1 and S2 present. No murmurs, rubs, or gallops. -PULMONARY: Chest is clear to auscultation, no wheezing or crackles. Scattered expiratory wheezing with limited to air entry on both sides ABDOMEN: Soft, nontender, nondistended, normoactive bowel sounds. No palpable organomegaly. MUSCULOSKELETAL: No joint swelling or deformity. EXTREMITIES: No cyanosis, clubbing, or pedal edema. NEUROLOGICAL: Gross neurological examination did not reveal any focal deficits. SKIN: No rashes. No petechiae Results CBC & Chem 7: 09/11/21 21:26 09/11/21 21:26 Labs: Abnormal Lab Results - Last 24 Hours (Table) 09/11/21 09/11/21 09/11/21 Range/Units 21:26 21:26 21:26 RBC 3.26 L (4.30-5.90) m/uL Hgb 10.8 L (13.0-17.5) gm/dL Hct 32.1 L (39.0-53.0) % Plt Count 145 L (150-450) k/uL Lymphocytes # 0.3 L (1.0-4.8) k/uL Sodium 133 L (137-145) mmol/L Chloride 96 L (98-107) mmol/L BUN 34 H (9-20) mg/dL Glucose 384 H (74-99) mg/dL Plasma Lactic Acid Alok 4.1 H* (0.7-2.0) mmol/L Total Protein 5.5 L (6.3-8.2) g/dL Albumin 3.4 L (3.5-5.0) g/dL 09/12/21 Range/Units 01:20 RBC (4.30-5.90) m/uL Hgb (13.0-17.5) gm/dL Hct (39.0-53.0) % Plt Count (150-450) k/uL Lymphocytes # (1.0-4.8) k/uL Sodium (137-145) mmol/L Chloride (98-107) mmol/L BUN (9-20) mg/dL Glucose (74-99) mg/dL Plasma Lactic Acid Alok 3.7 H* (0.7-2.0) mmol/L Total Protein (6.3-8.2) g/dL Albumin (3.5-5.0) g/dL Thrombosis Risk Factor Assmnt - Choose All That Apply Any of the Below Risk Factors Present?: Yes Each Factor Represents 1 point: Abnormal pulmonary function (COPD), Obesity (BMI >25) Each Risk Factor Represents 3 Points: History of DVT/PE Thrombosis Risk Factor Assessment Total Risk Factor Score: 5 Thrombosis Risk Factor Assessment Level: High Risk Assessment and Plan Assessment: Acute COPD exacerbation, with chest x-ray showing atelectasis, pneumonia felt less likely Dehydration and elevated lactic acid, improved with normal saline Recent history of Acute left pulmonary embolism hyperglycemia, most likely secondary to steroid effect noncompliance, patient did not want to stay in the hospital despite the risk and benefits explained to him last time Hypertension Hyperlipidemia History of restless leg syndrome Benign prostatic hypertrophy History of bilateral regular, History of chronic back pain History of prostate cancer Plan: This is a pleasant 86 years old male who presents with acute COPD exacerbation Continue with Solu-Medrol Continue with oxygen as needed Continue with bronchodilator and oxygen Pulmonary consult check ProTime is counseled on and Labs and medication were reviewed.. Continue same treatment. Continue with symptomatic treatment. Resume home medication. Monitor lytes and vitals. DVT and GI prophylaxis. Further recommendations depends on the clinical course of the patient DVT prophylalaxis: Eliquis GI prophylaxis: Pepcid PT/OT: Pending Prognosis is guarded
[2021-09-12 11:17] LABS: Glucose,Whole Blood 415 mg/dL (70-110)
[2021-09-12] MEDS ORDERED: INSULIN DETEMIR (LEVEMIR) 100 UNIT/ML SYR SQ SCH (11:35)
[2021-09-12] MEDS: DOCUSATE 100 MG CAP PO SCH ×2 (12:33→12:39)
[2021-09-12] MEDS ORDERED: DOCUSATE 100 MG CAP PO PRN (12:50)
[2021-09-12 16:35] LABS: Glucose,Whole Blood 401 mg/dL (70-110)
[2021-09-12] MEDS ORDERED: INSULIN DETEMIR (LEVEMIR) 100 UNIT/ML SYR SQ ONE (20:30)
[2021-09-12] MEDS: FAMOTIDINE 20 MG TAB PO SCH (20:45)
[2021-09-12 21:30] LABS: Glucose,Whole Blood 477 mg/dL (70-110)
[2021-09-12] MEDS ORDERED: INSULIN ASPART (NovoLOG) 100 UNIT/ML VIAL SQ ONE (22:15)
[2021-09-13] MEDS: AZITHROMYCIN 500 MG in SODIUM CHLORIDE 0.9% 250 ML IVPB SCH ×2 (00:57→22:50)
[2021-09-13] MEDS: methylPREDNISolone SOD SUCCI 125 MG/2 ML VIAL IV SCH ×5 (00:57→20:08)
[2021-09-13 07:05] LABS: Glucose,Whole Blood 264 mg/dL (70-110)
[2021-09-13] MEDS: INSULIN DETEMIR (LEVEMIR) 100 UNIT/ML SYR SQ SCH (07:38)
[2021-09-13] MEDS: INSULIN ASPART (NovoLOG) 100 UNIT/ML VIAL SQ SCH ×7 (07:39→21:04)
[2021-09-13] MEDS: SYMBICORT 160-4.5 MCG INHALER INHALATION SCH ×2 (08:33→20:01)
[2021-09-13] MEDS: IPRATROPIUM-ALBUTEROL 3 ML NEB INHALATION SCH ×4 (08:33→20:01)
[2021-09-13] MEDS: amLODIPine 10 MG TAB PO SCH (09:21)
[2021-09-13] MEDS: FAMOTIDINE 20 MG TAB PO SCH ×2 (09:21→21:01)
[2021-09-13] MEDS: FINASTERIDE 5 MG TAB PO SCH (09:21)
[2021-09-13] MEDS: NEBIVOLOL 5 MG TAB PO SCH (09:21)
[2021-09-13] MEDS: FUROSEMIDE 40 MG TAB PO SCH (09:22)
[2021-09-13] MEDS: APIXABAN 5 MG TAB PO SCH ×2 (09:22→21:01)
[2021-09-13] MEDS: ROFLUMILAST 500 MCG PO SCH (09:26)
[2021-09-13] MEDS ORDERED: DEXTROSE 50% SYRINGE 50 ML IVP PRN ×2 (09:34)
[2021-09-13 10:47] LABS: Glucose,Whole Blood 235 mg/dL (70-110)
[2021-09-13 11:25] LABS: African American GFR (CKD) >90 (>60 ml/min/1.73 sqM); Anion Gap 11 mmol/L; Blood Urea Nitrogen 27 mg/dL (9-20); Calcium 8.7 mg/dL (8.4-10.2); Carbon Dioxide 24 mmol/L (22-30); Chloride 99 mmol/L (98-107); Glucose 240 mg/dL (74-99); Non-African American GFR(CKD) 80 (>60 ml/min/1.73 sqM); Potassium 3.9 mmol/L (3.5-5.1); Sodium 134 mmol/L (137-145)
--- NOTE | 2021-09-13 15:11 | P.CNPUL ---
History of Present Illness Consult date: 09/13/21 Requesting physician: Amalia Hirsch Reason for consult: dyspnea, COPD, hypoxemia, pulmonary embolism, abnormal CXR/CT Chief complaint: Shortness of breath. History of present illness: Pulmonary consult dated 09/13/2021. 86-year-old male seen in the emergency room, on September 11. He apparently came there with a complaint of shortness of breath. The patient was recently inpatient here, and saw my partner, for COPD exacerbation, and pulmonary embolism. The patient has been on a factor X a inhibitor. Currently, he is resting comfortably, on 2 L. He's not receiving any IV fluids. There is a discharge note already in the chart. He had a pulmonary embolism on the last admission. The patient is not on home oxygen. He appears in no acute distress. White count 5.3, hemoglobin 10.8, hematocrit 31, with a platelet count of 145,000. Sodium 134, potassium 3.9, chlorides 99, CO2 24, BUN 27, creatinine 0.85. Initial plasma lactic acid was 4.1, repeat was 2. Albumin was 3.4. Chest x-ray showed some minimal atelectasis at the left lung base. Review of Systems REVIEW OF SYSTEMS: CONSTITUTIONAL: [Negative.] NEUROLOGIC: [ Negative.] HEENT: [ Negative.] CARDIAC: [Negative.] PULMONARY: Shortness of breath, worse on exertion. GI: [Negative.] : [Negative.] RHEUMATOLOGIC: [ Negative.] IMMUNOLOGIC: [ Negative.] ENDOCRINE: [Negative. 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 Past Anesthesia/Blood Transfusion Reactions: No Reported Reaction Additional Past Anesthesia/Blood Transfusion Reaction / Comment(s): Pt has claustrophobia. Past Psychological History: No Psychological Hx Reported Additional Psychological History / Comment(s): . Smoking Status: Former smoker Past Alcohol Use History: Daily Additional Past Alcohol Use History / Comment(s): Pt started smoking in 1954 and quit 5 yrs ago. He drinks 2 beers a day. Past Drug Use History: None Reported - Past Family History Brother(s) Family Medical History: Cancer Additional Family Medical History / Comment(s): Prostate cancer. Father Family Medical History: Deep Vein Thrombosis (DVT) Additional Family Medical History / Comment(s): Father of dementia at the age of 79yrs. Mother Family Medical History: No Reported History Additional Family Medical History / Comment(s): Mother was healthy and lived to be 86yrs old. Medications and Allergies Home Medications Medication Instructions Recorded Confirmed Type Albuterol Sulfate [Proair Hfa] 2 puff INHALATION RT-Q6H PRN 05/22/15 09/11/21 History Roflumilast [Daliresp] 500 mcg PO DAILY 05/22/15 09/11/21 History Alfuzosin HCl [Uroxatral ER] 10 mg PO DAILY 09/09/15 09/11/21 History Finasteride [Proscar] 5 mg PO DAILY 09/09/15 09/11/21 History Travoprost [Travatan Z 0.004%] 1 drop BOTH EYES HS 09/10/15 09/11/21 History Brinzolamide/Brimonidine Tart 1 drop BOTH EYES BID 03/21/18 09/11/21 History [Simbrinza 1%-0.2% Eye Drops] Fluticasone Nasal [place] [Flonase 1 spray EA NOSTRIL DAILY PRN 04/20/20 09/11/21 History Nasal [place]] rOPINIRole HCL [Requip] 1 mg PO TID PRN 04/20/20 09/11/21 History Albuterol Nebulized [Ventolin 2.5 mg INHALATION RT-QID PRN 08/31/20 09/11/21 History Nebulized] Nebivolol HCl [Bystolic] 5 mg PO DAILY 08/31/20 09/11/21 History Budesonide-Formot 160-4.5 Mcg 2 puff INHALATION RT-BID 09/06/21 09/11/21 History [Symbicort 160-4.5 Mcg Inhaler] Tiotropium 2.5 Mcg/Puff [Spiriva 2 puff INHALATION RT-DAILY 09/06/21 09/11/21 History Respimat 2.5 Mcg] Furosemide [Lasix] 40 mg PO BID #60 tablet 09/07/21 09/11/21 Rx amLODIPine [Norvasc] 10 mg PO DAILY #30 tab 09/08/21 09/11/21 Rx Apixaban [Eliquis] See Taper PO DIRECTED #0 09/13/21 09/11/21 Rx Azithromycin [Zithromax] 500 mg PO DAILY 3 Days #3 tab 09/13/21 Rx Docusate [Colace] 100 mg PO BID PRN cap 09/13/21 Rx Empagliflozin [Jardiance] 10 mg PO DAILY #30 tablet 09/13/21 Rx Famotidine [Pepcid] 20 mg PO DAILY #30 tablet 09/13/21 Rx Insulin Glargine,Hum.rec.anlog 12 units SQ DAILY #2 each 09/13/21 Rx [Lantus Solostar Pen] predniSONE 0 mg PO DIRECTED 9 Days #27 tab 09/13/21 Rx Allergies Allergy/AdvReac Type Severity Reaction Status Date / Time amoxicillin trihydrate Allergy Unknown Verified 09/06/21 19:12 [From Augmentin] moxifloxacin HCl Allergy Nausea & Verified 09/06/21 19:12 [From Avelox] Vomiting potassium clavulanate Allergy Unknown Verified 09/06/21 19:12 [From Augmentin] Physical Exam Osteopathic Statement: *. No significant issues noted on an osteopathic structural exam other than those noted in the History and Physical/Consult. Vitals: Vital Signs Temp Pulse Pulse Resp BP Pulse Ox 09/13/21 13:42 98.1 F 84 20 136/60 96 09/13/21 13:25 76 09/13/21 13:14 76 09/13/21 08:50 76 09/13/21 08:33 76 95 09/13/21 08:00 89 18 177/86 93 L 09/13/21 07:49 97.8 F 70 20 177/80 95 09/13/21 02:35 97.9 F 67 18 162/65 99 09/12/21 20:00 98.1 F 70 18 163/66 98 09/12/21 19:45 76 09/12/21 19:35 73 09/12/21 16:04 71 09/12/21 15:55 72 96 No acute distress, oriented 3. No conversational dyspnea, use of accessory mus cles, or audible wheezing. Room air saturation is 96%. HEENT examination is grossly unremarkable. Neck supple. Full range of motion. No adenopathy thyromegaly or neck vein distention. Cardiovascular examination reveals regular rhythm rate. S1-S2 normal. No S3 or S4. No discernible murmur noted. Heart rate 84 bpm. Lungs reveal clear, slightly diminished bilateral breath sounds. No wheezes. No rhonchi. No crackles. Breath sounds equal bilaterally. Abdomen soft bowel sounds are heard. No masses or tenderness. Extremities are intact. No cyanosis clubbing or edema. Skin is without rash or lesion. Neurologic examination is brief but nonfocal. Results - Laboratory Findings CBC and BMP: 09/11/21 21:26 09/13/21 10:40 PT/INR, D-dimer PT 10.5 sec (9.0-12.0) 09/11/21 21:26 INR 1.0 (<1.2) 09/11/21 21:26 Abnormal lab findings: Abnormal Labs 09/11/21 09/11/21 09/11/21 21:26 21:26 21:26 RBC 3.26 L Hgb 10.8 L Hct 32.1 L Plt Count 145 L Lymphocytes # 0.3 L Sodium 133 L Chloride 96 L BUN 34 H Glucose 384 H POC Glucose (mg/dL) Hemoglobin A1c Plasma Lactic Acid Alok 4.1 H* Total Protein 5.5 L Albumin 3.4 L 09/12/21 09/12/21 09/12/21 01:20 06:38 06:50 RBC Hgb Hct Plt Count Lymphocytes # Sodium Chloride BUN Glucose POC Glucose (mg/dL) 222 H Hemoglobin A1c 7.8 H Plasma Lactic Acid Alok 3.7 H* Total Protein Albumin 09/12/21 09/12/21 09/12/21 11:15 16:33 21:29 RBC Hgb Hct Plt Count Lymphocytes # Sodium Chloride BUN Glucose POC Glucose (mg/dL) 415 H 401 H 477 H Hemoglobin A1c Plasma Lactic Acid Alok Total Protein Albumin 09/13/21 09/13/21 09/13/21 07:03 10:40 10:45 RBC Hgb Hct Plt Count Lymphocytes # Sodium 134 L Chloride BUN 27 H Glucose 240 H POC Glucose (mg/dL) 264 H 235 H Hemoglobin A1c Plasma Lactic Acid Alok Total Protein Albumin - Diagnostic Findings Chest x-ray: image reviewed Assessment and Plan Assessment: Chronic shortness of breath, worse on exertion, secondary to COPD, as well as a recent diagnosis of pulmonary embolism. History of hyperlipidemia. History of hypertension. History of BPH. History of glaucoma. History of prostate cancer. Multiple other medical problems and comorbidities. Plan: Plan dated 09/13/2021. Not exactly sure why this patient was actually admitted to the hospital. He is currently at baseline. The patient was recently diagnosed with pulmonary embolism and COPD exacerbation on his last admission, just last week. He is currently on a factor X a inhibitor. He is tolerating it well. I believe he is pretty much at baseline. In my opinion, the patient could be discharged home. Labs, x-rays, medications are reviewed. The patient does not need antibiotics in my opinion. Additional recommendations and suggestions are forthcoming. The patient should follow my partner, post discharge. Time with Patient: Greater than 30
[2021-09-13 18:04] LABS: Glucose,Whole Blood 281 mg/dL (70-110)
[2021-09-13 20:54] LABS: Glucose,Whole Blood 289 mg/dL (70-110)
[2021-09-13] MEDS: predniSONE 20 MG TAB PO SCH (22:15)
--- NOTE | 2021-09-14 00:36 | P.PN ---
Subjective Progress Note Date: 09/14/21 This is an 86 year old male with history of COPD, quit smoking 5 years ago. He follows with Dr Maldonado outpatient and is maintained on symbicort, albuterol, spiriva. He is also on Roflumilast daily. He was recently hospitalized with COPD exacerbation and also recent diagnosis of PE on eliquis. He returns to the hospital with shortness of breath, cough with phlegm and fatigue. He was started on IV antibiotics, IV steroids and pulmonary was consulted for evaluation. Today patient has no wheezing, he is not short of breath at rest. He does require home oxygen as his saturations were dropping into the mid 80s with ambulation on room air. This has been set up for discharge. Discharge was held today as patient found was fount have hemoglobin A1C of 7.8 with A1C of 7.4 previous admission. He does have elevated A1C back in 2016 consistent with diabetes, although patient states he is not diabetic. Patient will be set up with glucometer and will discharge tomorrow. He already has follow up appointments made with Dr Gillette and Dr Maldonado within the next week. No antibiotics on discharge. Pulmonary has evaluated the patient. Review of Systems Constitutional: Denied any fatigue denied any fever. Cardio vascular: denied any chest pain, palpitations Gastrointestinal: denied any nausea, vomiting, diarrhea Pulmonary: Denied any shortness of breath cough Neurologic denied any new focal deficits All inpatient medications were reviewed and appropriate changes in these medications as dictated in the interval history and assessment and plan. PHYSICAL EXAMINATION: GENERAL: The patient is alert and oriented x3, not in any acute distress. Well developed, well nourished. HEENT: Pupils are round and equally reacting to light. EOMI. No scleral icterus. No conjunctival pallor. Normocephalic, atraumatic. No pharyngeal erythema. No thyromegaly. CARDIOVASCULAR: S1 and S2 present. No murmurs, rubs, or gallops. PULMONARY: Chest is clear to auscultation, no wheezing or crackles. ABDOMEN: Soft, nontender, nondistended, normoactive bowel sounds. No palpable organomegaly. MUSCULOSKELETAL: No joint swelling or deformity. EXTREMITIES: No cyanosis, clubbing, or pedal edema. NEUROLOGICAL: Cranial nerves grossly intact. No focal neurological deficit. SKIN: No rashes. Assessment and Plan Assessment Acute on chronic hypoxic respiratory distress secondary to COPD with recent diagnosis of acute PE requiring 2L nasal cannula, patient is set up with home oxygen Lactic acidosis secondary to dehydration Recent history acute left pulmonary embolism, on eliquis Diabetes Mellitus type 2 with A1C 7.8 Hyponatremia Steroid inducted hyperglycemia Hypertension Hyperlipidemia History BPH History of Prostate Cancer Former smoker GI Prophylaxis DVT Prophylaxis Plan Discontinue antibiotics Change to oral steroids Patient will be set up with glucometer Keep same follow up appointments from previous hospital stay. Monitor blood glucose Repeat BMP in AM Discharge home tomorrow with blood glucose monitoring, and oxygen The impression and plan of care has been dictated by Fanta Garcia, Nurse Practitioner as directed. Dr. Leonora MD I have performed a history and physical examination and medical decision making of this patient, discussed the same with the dictator, and agree with the dictators assessment and plan as written, documented as a scribe. Based on total visit time, I have performed more than 50% of this visit. Objective - Vital Signs Vital signs: Vital Signs Temp 98.1 F 09/13/21 19:45 Pulse 76 09/13/21 20:13 Resp 18 09/13/21 20:13 BP 161/56 09/13/21 19:45 Pulse Ox 94 L 09/13/21 20:01 FiO2 Intake & Output 09/13/21 09/13/21 09/14/21 06:59 18:59 06:59 Intake Total 50 Balance 50 Intake: Intake, IV Titration 50 Amount cefTRIAXone 1 gm In 50 Sodium Chloride 0.9% 50 ml @ 100 mls/hr IVPB Q12H [facility] Rx#:[id number] Other: Voiding Method Toilet - Labs CBC & Chem 7: 09/11/21 21:26 09/13/21 10:40 Labs: Abnormal Lab Results - Last 24 Hours (Table) 09/13/21 09/13/21 09/13/21 Range/Units 07:03 10:40 10:45 Sodium 134 L (137-145) mmol/L BUN 27 H (9-20) mg/dL Glucose 240 H (74-99) mg/dL POC Glucose (mg/dL) 264 H 235 H (70-110) mg/dL 09/13/21 09/13/21 Range/Units 18:03 20:52 Sodium (137-145) mmol/L BUN (9-20) mg/dL Glucose (74-99) mg/dL POC Glucose (mg/dL) 281 H 289 H (70-110) mg/dL Assessment and Plan Time with Patient: Less than 30
[2021-09-14 06:51] LABS: Glucose,Whole Blood 176 mg/dL (70-110)
[2021-09-14 07:16] VITALS: BP 117/74; RESP 18; TEMP 97.9
[2021-09-14] MEDS: INSULIN ASPART (NovoLOG) 100 UNIT/ML VIAL SQ SCH ×4 (07:28→12:22)
[2021-09-14] MEDS: APIXABAN 5 MG TAB PO SCH (07:29)
[2021-09-14] MEDS: amLODIPine 10 MG TAB PO SCH (07:29)
[2021-09-14] MEDS: INSULIN DETEMIR (LEVEMIR) 100 UNIT/ML SYR SQ SCH (07:29)
[2021-09-14] MEDS: predniSONE 20 MG TAB PO SCH (07:29)
[2021-09-14] MEDS: FINASTERIDE 5 MG TAB PO SCH (07:30)
[2021-09-14] MEDS: ROFLUMILAST 500 MCG PO SCH (07:30)
[2021-09-14] MEDS: FAMOTIDINE 20 MG TAB PO SCH (07:30)
[2021-09-14] MEDS: NEBIVOLOL 5 MG TAB PO SCH (07:30)
[2021-09-14] MEDS: IPRATROPIUM-ALBUTEROL 3 ML NEB INHALATION SCH ×2 (07:50→12:01)
[2021-09-14] MEDS: SYMBICORT 160-4.5 MCG INHALER INHALATION SCH (07:50)
--- NOTE | 2021-09-14 12:06 | P.PN ---
Subjective Progress Note Date: 09/14/21 Principal diagnosis: Shortness of breath. Pulmonary consult dated 09/13/2021. 86-year-old male seen in the emergency room, on September 11. He apparently came there with a complaint of shortness of breath. The patient was recently inpatient here, and saw my partner, for COPD exacerbation, and pulmonary embolism. The patient has been on a factor X a inhibitor. Currently, he is resting comfortably, on 2 L. He's not receiving any IV fluids. There is a discharge note already in the chart. He had a pulmonary embolism on the last admission. The patient is not on home oxygen. He appears in no acute distress. White count 5.3, hemoglobin 10.8, hematocrit 31, with a platelet count of 145,000. Sodium 134, potassium 3.9, chlorides 99, CO2 24, BUN 27, creatinine 0.85. Initial plasma lactic acid was 4.1, repeat was 2. Albumin was 3.4. Chest x-ray showed some minimal atelectasis at the left lung base. Progress note dated 09/14/2021. 86-year-old male seen in consultation yesterday. He was seen in the emergency department on September 11, with complaints of shortness of breath. He was recently inpatient at this institution, for a COPD exacerbation, and pulmonary embolism. On that admission, he was started on a factor X a inhibitor. The patient was seen yesterday in consultation, and I wondered why the patient was admitted to the hospital. The patient was very comfortable, on 2 L. He was not manifesting any signs or symptoms of respiratory distress. I'm not even sure that he needed the oxygen. He was taking his blood thinner. The only laboratory data today is a glucose of 176. Objective - Vital Signs Vital signs: Vital Signs Temp 97.9 F 09/14/21 07:16 Pulse 60 09/14/21 12:01 Resp 18 09/14/21 09:03 BP 117/74 09/14/21 07:16 Pulse Ox 97 09/14/21 07:50 FiO2 Intake & Output 09/13/21 09/14/21 09/14/21 18:59 06:59 18:59 Intake Total 50 590 Balance 50 590 Intake: Intake, IV Titration 50 Amount cefTRIAXone 1 gm In 50 Sodium Chloride 0.9% 50 ml @ 100 mls/hr IVPB Q12H [facility] Rx#:[id number] Oral 590 Other: Voiding Method Toilet Toilet - Exam No acute distress, oriented 3. No conversational dyspnea, use of accessory muscles, or audible wheezing. Room air saturation is 97%. HEENT examination is grossly unremarkable. Neck supple. Full range of motion. No adenopathy thyromegaly or neck vein distention. Cardiovascular examination reveals regular rhythm rate. S1-S2 normal. No S3 or S4. No discernible murmur noted. Heart rate 87bpm. Lungs reveal clear, slightly diminished bilateral breath sounds. No wheezes. No rhonchi. No crackles. Breath sounds equal bilaterally. Abdomen soft bowel sounds are heard. No masses or tenderness. Extremities are intact. No cyanosis clubbing or edema. Skin is without rash or lesion. Neurologic examination is brief but nonfocal. - Labs CBC & Chem 7: 09/11/21 21:26 09/13/21 10:40 Labs: Abnormal Lab Results - Last 24 Hours (Table) 09/13/21 09/13/21 09/14/21 Range/Units 18:03 20:52 06:50 POC Glucose (mg/dL) 281 H 289 H 176 H (70-110) mg/dL Assessment and Plan Assessment: Chronic shortness of breath, worse on exertion, secondary to COPD, as well as a recent diagnosis of pulmonary embolism. History of hyperlipidemia. History of hypertension. History of BPH. History of glaucoma. History of prostate cancer. Multiple other medical problems and comorbidities. Plan: Plan dated 09/13/2021. Not exactly sure why this patient was actually admitted to the hospital. He is currently at baseline. The patient was recently diagnosed with pulmonary embolism and COPD exacerbation on his last admission, just last week. He is currently on a factor X a inhibitor. He is tolerating it well. I believe he is pretty much at baseline. In my opinion, the patient could be discharged home. Labs, x-rays, medications are reviewed. The patient does not need antibiotics in my opinion. Additional recommendations and suggestions are forthcoming. The patient should follow my partner, post discharge. Plan dated 09/14/2021. The patient appears be doing well. His room air saturations are 97%. He is not manifesting any signs or symptoms of respiratory difficulty or distress. The patient will likely be discharged home possibly today. We'll leave that up to the primary service. No additional recommendations are made at this time. The patient does have a follow-up appointment with my partner next week. He needs to keep that appointment. Prognosis is thought to be generally good. Labs, x- rays, and medications are all reviewed. Time with Patient: Less than 30
[2021-09-14 12:12] VITALS: PULSE 58
--- NOTE | 2021-09-14 16:32 | P.DS ---
Providers Date of admission: 09/12/21 01:01 Attending physician: Amalia Hirsch Consults: 09/12/21 19:58 Consult Physician Routine Consulting Provider: Ankur Almanzar Reason/Comments: sob, copd, recent PE Do you want consulting provider notified?: Yes Primary care physician: Shar Yu Hospital Course: Diagnosis Acute on chronic hypoxic respiratory distress secondary to COPD with recent diagnosis of acute PE requiring 2L nasal cannula, patient is set up with home oxygen Lactic acidosis secondary to dehydration Recent history acute left pulmonary embolism, on eliquis Diabetes Mellitus type 2 with A1C 7.8 Hyponatremia Steroid inducted hyperglycemia Hypertension Hyperlipidemia History BPH History of Prostate Cancer Daily alcohol use with 2 mixed drinks every night Discharge Disposition Patient stable for discharge. Cleared by pulmonary he has follow up appointment with Dr Maldonado early next week. No recommendations for antibiotics on discharge. A1C found to be 7.8, he will be discharge on lantus and jardiance. Recommend to check blood sugar and follow up with Dr Yu for further management. Follow up with cardiology as previously scheduled. Hospital Course This is an 86-year-old male with history of COPD who quit smoking 5 years ago, he sees Dr Maldonado in the office. he is maintained on Symbicort, albuterol, Spiriva. He is also on Roflumilast daily. Patient is recently hospital as a COPD exacerbation and also the recent diagnosis of pulmonary embolism and was started on eliquis. Patient returns to the hospital after being discharged 5 days ago for shortness of breath and cough with phlegm and fatigue. Her lactic acidosis on admission at 4.1, sodium 133, hemoglobin 10.8. Troponin is negative. BNP 790. He was started on IV antibiotics and IV steroids and pulmonary was counseled for evaluation. Patient has not been wheezing this hospital stay. During home oxygen evaluation patient was found to be 85% on room air and he will be discharged on 2 L nasal cannula as needed. Patient will continue all current home medications and complete a short course of oral steroids to taper and will not need antibiotics on discharge. Educated on hemoglobin A1c, he did present with a blood glucose of 477 this hospital stay. Patient will follow-up with his primary care doctor for further management. 09/14/2021 Patient sitting up at the bedside. No acute events overnight. Chest pain, denies shortness of breath, denies nausea vomiting diarrhea. He is tolerating diet. His lungs are clear, S1-S2 auscultated, abdomen is soft nontender, focal neurological exam is negative he is alert and oriented 3. Blood glucose today is 176. His afebrile, heart rate 60, blood pressure 17/74, 97% on 2 L nasal cannula. Please see medication reconciliation for list of current medication. Thank you for allowing us to participate in the care of this patient. Total time taken in discharge planning greater than 35 minutes. The impression and plan of care has been dictated by Fanta Garcia, Nurse Practitioner as directed. Dr. Leonora MD I have performed a history and physical examination and medical decision making of this patient, discussed the same with the dictator, and agree with the dictators assessment and plan as written, documented as a scribe. Based on total visit time, I have performed more than 50% of this visit. Patient Condition at Discharge: Fair Plan - Discharge Summary Discharge Rx Participant: Yes New Discharge Prescriptions: New Empagliflozin [Jardiance] 10 mg PO DAILY #30 tablet predniSONE 0 mg PO DIRECTED 9 Days #27 tab Docusate [Colace] 100 mg PO BID PRN cap PRN Reason: Constipation Insulin Glargine,Hum.rec.anlog [Lantus Solostar Pen] 12 units SQ DAILY #2 each Famotidine [Pepcid] 20 mg PO DAILY #30 tablet Continue Albuterol Sulfate [Proair Hfa] 2 puff INHALATION RT-Q6H PRN PRN Reason: Shortness Of Breath Roflumilast [Daliresp] 500 mcg PO DAILY Alfuzosin HCl [Uroxatral ER] 10 mg PO DAILY Finasteride [Proscar] 5 mg PO DAILY Travoprost [Travatan Z 0.004%] 1 drop BOTH EYES HS Brinzolamide/Brimonidine Tart [Simbrinza 1%-0.2% Eye Drops] 1 drop BOTH EYES BID rOPINIRole HCL [Requip] 1 mg PO TID PRN PRN Reason: restless legs Fluticasone Nasal [place] [Flonase Nasal [place]] 1 spray EA NOSTRIL DAILY PRN PRN Reason: Allergy Symptoms Nebivolol HCl [Bystolic] 5 mg PO DAILY Budesonide-Formot 160-4.5 Mcg [Symbicort 160-4.5 Mcg Inhaler] 2 puff INHALATION RT-BID Furosemide [Lasix] 40 mg PO BID #60 tablet amLODIPine [Norvasc] 10 mg PO DAILY #30 tab Albuterol Nebulized [Ventolin Nebulized] 2.5 mg INHALATION RT-QID PRN PRN Reason: Shortness Of Breath Tiotropium 2.5 Mcg/Puff [Spiriva Respimat 2.5 Mcg] 2 puff INHALATION RT-DAILY Changed Apixaban [Eliquis] See Taper PO DIRECTED #0 Discontinued predniSONE See Taper PO DIRECTED Discharge Medication List Albuterol Sulfate [Proair Hfa] 2 puff INHALATION RT-Q6H PRN 05/22/15 [History] Roflumilast [Daliresp] 500 mcg PO DAILY 05/22/15 [History] Alfuzosin HCl [Uroxatral ER] 10 mg PO DAILY 09/09/15 [History] Finasteride [Proscar] 5 mg PO DAILY 09/09/15 [History] Travoprost [Travatan Z 0.004%] 1 drop BOTH EYES HS 09/10/15 [History] Brinzolamide/Brimonidine Tart [Simbrinza 1%-0.2% Eye Drops] 1 drop BOTH EYES BID 03/21/18 [History] Fluticasone Nasal [place] [Flonase Nasal [place]] 1 spray EA NOSTRIL DAILY PRN 04/20/20 [History] rOPINIRole HCL [Requip] 1 mg PO TID PRN 04/20/20 [History] Albuterol Nebulized [Ventolin Nebulized] 2.5 mg INHALATION RT-QID PRN 08/31/20 [History] Nebivolol HCl [Bystolic] 5 mg PO DAILY 08/31/20 [History] Budesonide-Formot 160-4.5 Mcg [Symbicort 160-4.5 Mcg Inhaler] 2 puff INHALATION RT-BID 09/06/21 [History] Tiotropium 2.5 Mcg/Puff [Spiriva Respimat 2.5 Mcg] 2 puff INHALATION RT-DAILY 09/06/21 [History] Furosemide [Lasix] 40 mg PO BID #60 tablet 09/07/21 [Rx] amLODIPine [Norvasc] 10 mg PO DAILY #30 tab 09/08/21 [Rx] Apixaban [Eliquis] See Taper PO DIRECTED #0 09/13/21 [Rx] Docusate [Colace] 100 mg PO BID PRN cap 09/13/21 [Rx] Empagliflozin [Jardiance] 10 mg PO DAILY #30 tablet 09/13/21 [Rx] Famotidine [Pepcid] 20 mg PO DAILY #30 tablet 09/13/21 [Rx] Insulin Glargine,Hum.rec.anlog [Lantus Solostar Pen] 12 units SQ DAILY #2 each 09/13/21 [Rx] predniSONE 0 mg PO DIRECTED 9 Days #27 tab 09/13/21 [Rx] Follow up Appointment(s)/Referral(s): Shar Yu MD [Primary Care Provider] - 09/16/21 3:[address] [facility],Equipment [NON-STAFF] - As Needed (oxygen and nebulizer) Care,Alyssa Senior [NON-STAFF] - As Needed Godwin Gillette MD [STAFF PHYSICIAN] - 09/20/21 Jarvis Maldonado MD [STAFF PHYSICIAN] - 09/19/21 10:00 am (With Dr almanzar) Ambulatory/Diagnostic Orders: Basic Metabolic Panel [LAB.AMB] Time Frame: 2 Days, Location: None Selected Patient Instructions/Handouts: Hypoglycemia in a Person with Diabetes (DC), COPD (Chronic Obstructive Pulmonary Disease) (DC), Meal Planning with Diabetes Exchanges (DC), Diabetic Hyperglycemia (DC), Type 2 Diabetes Management for Adults (DC) Activity/Diet/Wound Care/Special Instructions: Diabetic supplies ordered through [facility] at [facility] Continue eliquis 10 mg PO twice a day through 09/16/2021 AM dose Beginning 09/16/2021 evening dose transition to eliquis 5 mg PO twice a day. Discontinue previous oral steroid taper and begin new steroid taper as prescribed A1C was 7.8, this is consistent with Diabetes Mellitus Type 2 Patient will require glucometer on discharge and will need to check blood sugar before meals and at bedtime Keep log and bring to follow up appointment with Dr Gigi Weeks long acting insulin has been prescribed as a once daily in the morning injection Patient has been started on Jardiance 10 mg PO daily in the morning Information provided regarding diabetic diet Follow up with office workforce planner outpatient Continue pepcid 20 mg po daily for GI prophylaxis especially while continuing on oral steroids Hold Lasix today and resume tomorrow Repeat labs in 2-3 days to monitor sodium Discharge Disposition: HOME WITH HOME HEALTH SERVICES
[2021-09-16] MEDS ORDERED: APIXABAN 5 MG TAB PO SCH (09:00)
== END 2021-09-14 13:30 | disposition home health service (06) ==
LOC: EC 20:48 → INTOOBSV 09-12 01:01 → 4SSUR 09-12 01:01 → UNDODISIN 09-14 13:30
PROVIDERS: ADMIT Hospitalist; ATTEND Hospitalist
DX: J44.1 Chronic obstructive pulmonary disease with (acute) exacerbation (principal); E86.0 Dehydration; E87.2 Acidosis; E11.65 Type 2 diabetes mellitus with hyperglycemia; T38.0X5A Adverse effect of glucocorticoids and synthetic analogues, initial encounter; E87.1 Hypo-osmolality and hyponatremia; I26.99 Other pulmonary embolism without acute cor pulmonale; I11.0 Hypertensive heart disease with heart failure; I50.9 Heart failure, unspecified; E78.5 Hyperlipidemia, unspecified; H40.89 Other specified glaucoma; C61 Malignant neoplasm of prostate; G25.81 Restless legs syndrome; M54.9 Dorsalgia, unspecified; G89.29 Other chronic pain; J98.11 Atelectasis; N40.0 Benign prostatic hyperplasia without lower urinary tract symptoms; Z79.899 Other long term (current) drug therapy; Z88.0 Allergy status to penicillin; Z98.42 Cataract extraction status, left eye; Z98.41 Cataract extraction status, right eye; Z96.1 Presence of intraocular lens; Z87.891 Personal history of nicotine dependence; Z80.42 Family history of malignant neoplasm of prostate; Z82.0 Family history of epilepsy and other diseases of the nervous system
CPT/HCPCS: 96376 ×2; 96361 ×4; 96366 ×3; 96375; 96365 ×2; 99285; 36415; 94640 ×7; 94760; 93005; 83880; 80053; 80048; 83605 ×2; 83735; 84484; 85025; 85610; 85730; 83036; 71045; G0378 ×3; S0138 ×3; J2930 ×2; J0456 ×2; J0696 ×3; J7512 ×2; 96368

== ENCOUNTER → 2022-07-13 | Outpatient (CLI) | payer MEDICARE | END | disposition home or self-care (01) | LOC: LABWHC1 13:25 | PROVIDERS: ATTEND Urology | DX: C61 Malignant neoplasm of prostate (principal) | CPT/HCPCS: 36415; 84153 ==

== ENCOUNTER 2022-12-22 07:11 | Emergency (ER) | payer MEDICARE ==
[2022-12-22 07:35] VITALS: RESP 18
[2022-12-22] MEDS ORDERED: SODIUM CHLORIDE 0.9% 500 ML 500 ML IV STA (07:55)
[2022-12-22] MEDS ORDERED: ONDANSETRON 4 MG/2 ML VIAL IVP STA (07:55)
--- NOTE | 2022-12-22 08:16 | ED ---
General Adult HPI - General Chief complaint: Upper Respiratory Infection Stated complaint: Flu Symptoms Time Seen by Provider: 12/22/22 07:20 Source: patient, EMS, RN notes reviewed, old records reviewed Mode of arrival: EMS Limitations: no limitations - History of Present Illness Initial comments: This is an 87-year-old male presents emergency department stating that over the last 2 days he's had diffuse abdominal discomfort. Patient states this made him nauseated. Patient states been having quite a bit of problems having a bowel movement lately. Patient denies any fever chills. patient's any vomiting or diarrhea. Patient denies any back pain. Patient's chest pain difficulty breathing or shortness of breath. Patient states she just doesn't feel well and is not getting any better over the last 2 days patient states he had a slight cough that is nonproductive and only occurs once a great while. - Related Data Home Medications Medication Instructions Recorded Confirmed Albuterol Sulfate [Proair Hfa] 2 puff INHALATION RT-Q6H PRN 05/22/15 12/22/22 Alfuzosin HCl [Uroxatral ER] 10 mg PO DAILY 09/09/15 12/22/22 Finasteride [Proscar] 5 mg PO DAILY 09/09/15 12/22/22 Travoprost [Travatan Z 0.004%] 1 drop BOTH EYES HS 09/10/15 12/22/22 rOPINIRole HCL [Requip] 2 - 3 mg PO DAILY 04/20/20 12/22/22 Dorzolamide-Timol 2.23%/0.68% 1 drop RIGHT EYE BID 10/29/22 12/22/22 [Cosopt] Enzalutamide [Xtandi] 160 mg PO DAILY 10/29/22 12/22/22 Fluticasone/Umeclidin/Vilanter 1 puff INHALATION RT-DAILY 10/29/22 12/22/22 [Trelegy Ellipta 100-62.5-25] Vit C/E/Zn/Coppr/Lutein/Zeaxan 1 cap PO DAILY 10/29/22 12/22/22 [Preservision Areds 2 Softgel] HYDROcodone/APAP 5-325MG [[place] 1 tab PO BID PRN 12/22/22 12/22/22 5-325] Previous Rx's Medication Instructions Recorded Empagliflozin [Jardiance] 10 mg PO DAILY #30 tablet 09/13/21 Aspirin 81 mg PO DAILY 30 Days #30 tab 11/02/22 lisinopriL [Zestril] 10 mg PO DAILY 30 Days #30 tab 11/02/22 Allergies Allergy/AdvReac Type Severity Reaction Status Date / Time amoxicillin trihydrate Allergy Unknown Verified 12/22/22 08:42 [From Augmentin] moxifloxacin HCl Allergy Nausea & Verified 12/22/22 08:42 [From Avelox] Vomiting potassium clavulanate Allergy Unknown Verified 12/22/22 08:42 [From Augmentin] Review of Systems ROS Statement: Those systems with pertinent positive or pertinent negative responses have been documented in the HPI. ROS Other: All systems not noted in ROS Statement are negative. 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 Past Anesthesia/Blood Transfusion Reactions: No Reported Reaction Additional Past Anesthesia/Blood Transfusion Reaction / Comment(s): Pt has claustrophobia. Past Psychological History: No Psychological Hx Reported Smoking Status: Former smoker Past Alcohol Use History: Daily Past Drug Use History: None Reported - Past Family History Brother(s) Family Medical History: Cancer Additional Family Medical History / Comment(s): Prostate cancer. Father Family Medical History: Deep Vein Thrombosis (DVT) Additional Family Medical History / Comment(s): Father of dementia at the age of 79yrs. Mother Family Medical History: No Reported History Additional Family Medical History / Comment(s): Mother was healthy and lived to be 86yrs old. General Exam - General Exam Comments Initial Comments: GENERAL: Patient is well-developed and well-nourished. Patient is nontoxic and well- hydrated and is in mild distress. ENT: Neck is soft and supple. No significant lymphadenopathy is noted. Oropharynx is clear. Moist mucous membranes. Neck has full range of motion without eliciting any pain. EYES: The sclera were anicteric and conjunctiva were pink and moist. Extraocular movements were intact and pupils were equal round and reactive to light. Eyelids were unremarkable. PULMONARY: Unlabored respirations. Good breath sounds bilaterally. No audible rales rhonchi or wheezing was noted. CARDIOVASCULAR: There is a regular rate and rhythm without any murmurs gallops or rubs. Femoral pulses are equal bilaterally ABDOMEN: Mild diffuse tenderness no point tenderness no rebound or guarding. Abdomen looks mildly distended SKIN: Skin is clear with no lesions or rashes and otherwise unremarkable. NEUROLOGIC: Patient is alert and oriented x3. Cranial nerves II through XII are grossly intact. Motor and sensory are also intact. Normal speech, volume and content. Symmetrical smile. MUSCULOSKELETAL: Normal extremities with adequate strength and full range of motion. No lower extremity swelling or edema. No calf tenderness. LYMPHATICS: No significant lymphadenopathy is noted PSYCHIATRIC: Normal psychiatric evaluation. Limitations: no limitations Course Vital Signs 12/22/22 12/22/22 07:16 09:21 Temperature 97.8 F Pulse Rate 58 L 46 L Respiratory 18 18 Rate Blood Pressure 143/67 162/74 O2 Sat by Pulse 100 100 Oximetry Medical Decision Making - Medical Decision Making Was pt. sent in by a medical professional or institution (ELINA Luo, FILLING CARRIER, urgent care, hospital, or correction...) When possible be specific @ -No Did you speak to anyone other than the patient for history (EMS, parent, family, police, friend...)? What history was obtained from this source @ -No Did you review nursing and triage notes (agree or disagree)? Why? @ -I reviewed and agree with nursing and triage notes Were old charts reviewed (outside hosp., previous admission, EMS record, old EKG, old radiological studies, urgent care reports/EKG's, correction records)? Report findings @ -I reviewed prior charts in prior lab work on this patient Differential Diagnosis (chest pain, altered mental status, abdominal pain women, abdominal pain men, vaginal bleeding, weakness, fever, dyspnea, syncope, headache, dizziness, GI bleed, back pain, seizure, CVA, palpatations, mental health, musculoskeletal)? @ -Differential Abdominal Pain Men: Appendicitis, cholecystitis, diverticulosis, ischemic bowel, pancreatitis, hepatitis, UTI, gastroenteritis, AAA, incarcerated hernia, bowel obstruction, constipation, inflammatory bowel, hepatitis, peptic ulcer disease, splenic infarction, perforated viscus, testicular torsion, this is not meant to be an all-inclusive list EKG interpreted by me (3pts min.). @ -As above X-rays interpreted by me (1pt min.). @ -KUB shows no acute abnormality CT interpreted by me (1pt min.). @ -CT of the abdomen when compared to previous CT shows no acute abnormality U/S interpreted by me (1pt. min.). @ -None done What testing was considered but not performed or refused? (CT, X-rays, U/S, labs)? Why? @ -None What meds were considered but not given or refused? Why? @ -None Did you discuss the management of the patient with other professionals (professionals i.e. , PA, FILLING CARRIER, lab, RT, psych nurse, addiction social worker, housing manager, teacher, agricultural technical officer, employment case manager)? Give summary @ -No Was smoking cessation discussed for >3mins.? @ -No Was critical care preformed (if so, how long)? @ -No Were there social determinants of health that impacted care today? How? (Homelessness, low income, unemployed, alcoholism, drug addiction, transportation, low edu. Level, literacy, decrease access to med. care, custodial, rehab)? @ -No Was there de-escalation of care discussed even if they declined (Discuss DNR or withdrawal of care, Hospice)? DNR status @ -No What co-morbidities impacted this encounter? (DM, HTN, Smoking, COPD, CAD, Cancer, CVA, ARF, Chemo, Hep., AIDS, mental health diagnosis, sleep apnea, morb id obesity)? @ -None Was patient admitted / discharged? Hospital course, mention meds given and route, prescriptions, significant lab abnormalities, going to OR and other pertinent info. @ -Patient's CAT scan lab work within normal range. Patient was feeling better after the Zofran and patient felt comfortable going home at this time. Undiagnosed new problem with uncertain prognosis? @ -No Drug Therapy requiring intensive monitoring for toxicity (Heparin, Nitro, Insulin, Cardizem)? @ -No Were any procedures done? @ -No Diagnosis/symptom? @ -Abdominal pain Acute, or Chronic, or Acute on Chronic? @ -Acute Uncomplicated (without systemic symptoms) or Complicated (systemic symptoms)? @ -Complicated Side effects of treatment? @ -No Exacerbation, Progression, or Severe Exacerbation? @ -No Poses a threat to life or bodily function? How? (Chest pain, [place], MT, pneumonia, PE, COPD, DKA, ARF, appy, cholecystitis, CVA, Diverticulitis, Homicidal, Suicidal, threat to staff... and all critical care pts) @ -No - Lab Data Result diagrams: 12/22/22 08:31 12/22/22 08:31 Lab Results 12/22/22 12/22/22 Range/Units 08:31 08:31 WBC 5.5 (3.8-10.6) k/uL RBC 3.38 L (4.30-5.90) m/uL Hgb 11.1 L (13.0-17.5) gm/dL Hct 33.6 L (39.0-53.0) % MCV 99.4 (80.0-100.0) fL MCH 32.9 (25.0-35.0) pg MCHC 33.1 (31.0-37.0) g/dL RDW 14.7 (11.5-15.5) % Plt Count 177 (150-450) k/uL MPV 7.9 Neutrophils % 64 % Lymphocytes % 23 % Monocytes % 5 % Eosinophils % 6 % Basophils % 0 % Neutrophils # 3.5 (1.3-7.7) k/uL Lymphocytes # 1.3 (1.0-4.8) k/uL Monocytes # 0.3 (0-1.0) k/uL Eosinophils # 0.3 (0-0.7) k/uL Basophils # 0.0 (0-0.2) k/uL Macrocytosis Slight Sodium 138 (137-145) mmol/L Potassium 4.5 (3.5-5.1) mmol/L Chloride 102 (98-107) mmol/L Carbon Dioxide 27 (22-30) mmol/L Anion Gap 9 mmol/L BUN 20 (9-20) mg/dL Creatinine 0.74 (0.66-1.25) mg/dL Est GFR (CKD-EPI)AfAm >90 (>60 ml/min/1.73 sqM) Est GFR (CKD-EPI)NonAf 84 (>60 ml/min/1.73 sqM) Glucose 106 H (74-99) mg/dL Calcium 9.2 (8.4-10.2) mg/dL Total Bilirubin 0.8 (0.2-1.3) mg/dL AST 26 (17-59) U/L ALT 11 (4-49) U/L Alkaline Phosphatase 81 (38-126) U/L Total Protein 5.8 L (6.3-8.2) g/dL Albumin 3.5 (3.5-5.0) g/dL Amylase 34 (30-110) U/L Lipase 38 (23-300) U/L Disposition Clinical Impression: Abdominal pain Disposition: HOME SELF-CARE Instructions (If sedation given, give patient instructions): Abdominal Pain (ED) Is patient prescribed a controlled substance at d/c from ED?: No Referrals: Shar Yu MD [Primary Care Provider] - 1-2 days Time of Disposition: 11:51
[2022-12-22 08:43] LABS: Basophils % (A) 0 %; Eosinophils # (A) 0.3 k/uL (0-0.7); Eosinophils % (A) 6 %; HCT 33.6 % (39.0-53.0); HGB 11.1 gm/dL (13.0-17.5); Lymphocytes # (A) 1.3 k/uL (1.0-4.8); Lymphocytes % (A) 23 %; MCH 32.9 pg (25.0-35.0); MCHC 33.1 g/dL (31.0-37.0); MCV 99.4 fL (80.0-100.0); Macrocytosis Slight; Mean Platelet Volume 7.9; Monocytes # (A) 0.3 k/uL (0-1.0); Monocytes % (A) 5 %; Neutrophils # (A) 3.5 k/uL (1.3-7.7); Neutrophils % (A) 64 %; Platelet Count 177 k/uL (150-450); RBC 3.38 m/uL (4.30-5.90); RDW 14.7 % (11.5-15.5); WBC 5.5 k/uL (3.8-10.6)
--- NOTE | 2022-12-22 08:59 | XR ---
EXAMINATION TYPE: XR KUB DATE OF EXAM: 12/22/2022 COMPARISON: NONE HISTORY: Pain TECHNIQUE: One view abdominal series FINDINGS: The osseous structures are intact. The bowel gas pattern is nonspecific. Prominent small bowel loops are seen and there is arthropathy of the hips and scoliosis and degenerative changes in the spine. L johnny bases are clear. Calcification is seen in the left upper quadrant which is not renal calculus in the differential diagnosis. IMPRESSION: 1. Nonspecific abdomen. Few prominent small bowel loops are seen in the mid and left abdomen. Could be on the basis of an ileus or enteritis. Partial obstructive pattern not entirely excluded. 2. Possible left renal calculus.
[2022-12-22 09:01] LABS: ALT 11 U/L (4-49); AST 26 U/L (17-59); African American GFR (CKD) >90 (>60 ml/min/1.73 sqM); Albumin 3.5 g/dL (3.5-5.0); Alkaline Phosphatase 81 U/L (38-126); Amylase 34 U/L (30-110); Anion Gap 9 mmol/L; Blood Urea Nitrogen 20 mg/dL (9-20); Calcium 9.2 mg/dL (8.4-10.2); Carbon Dioxide 27 mmol/L (22-30); Chloride 102 mmol/L (98-107); Glucose 106 mg/dL (74-99); Lipase 38 U/L (23-300); Non-African American GFR(CKD) 84 (>60 ml/min/1.73 sqM); Potassium 4.5 mmol/L (3.5-5.1); Sodium 138 mmol/L (137-145); Total Bilirubin 0.8 mg/dL (0.2-1.3); Total Protein 5.8 g/dL (6.3-8.2)
--- NOTE | 2022-12-22 10:34 | CT ---
EXAMINATION TYPE: CT abdomen pelvis wo con DATE OF EXAM: 12/22/2022 COMPARISON: 08/06/2020 HISTORY: 87-year-old male with abdominal pain, FLU SYMPTOMS, ABDOMINAL PAIN CT DLP: 817.2 mGycm. Automated exposure control for dose reduction was used. TECHNIQUE: Contiguous axial scanning of the abdomen and pelvis without IV contrast. Coronal and sagit joseph reconstructions performed. FINDINGS: Heart borderline in size. No pericardial effusion. Mitral annular calcifications are present. Mild br onchial wall thickening in the lower lungs with strandy scarring or atelectasis, similar 2020. No ple ural effusions. Tiny hiatal hernia. Subtle contour nodularity of the liver. Noncontrast appearance of the gallbladder, and atrophic pancreas shows no gross abnormality. Tiny 9 mm cortical lesion lateral lower pole left kidney was present in 2020 as well suggesting a com plicated cyst. 2.1 cm cortical cyst lateral right kidney was slightly smaller in 2020. A small 1.0 cm cyst lateral spleen slightly larger from 202. There is generalized anasarca change. Scattered trace intraperitoneal fluid. No free air. Moderate atherosclerotic calcifications abdominal aorta and iliac arteries. No dilated small bowel or free air. There is some distended small bowel loops with air-fluid levels i n the left upper quadrant. Dilatation up to 3.1 cm with some fecalization of intraluminal content, re daniel to coronal image 32 and 35. Transition point not clearly identified. Normal appendix. Generalized colonic diverticulosis. No significant stool burden. Possible inflamed epiploic appendage at the junction of the descending and sigmoid colon, axial image 56. Bladder urine distended. Prostate gland enlargement measuring 5.5 x 5.3 cm. Nodular soft tissue impre sses into the base of the bladder, likely median lobe hypertrophy. Some prominent inguinal lymph nodes measuring up to 1.7 cm short axis appear to be chronic, present b ack on 08/06/2020 as well. Presacral edema. Bones: Advanced spondylotic change throughout the visualized spine. Mild degenerative change of both hips. IMPRESSION: 1. Correlate for fluid overload state/third spacing given generalized anasarca change and scattered trace peritoneal fluid. 2. Subtle contour nodularity of the liver may reflect underlying cirrhosis. Clinically correlate. 3. Distended small bowel loops with air-fluid levels in the left upper quadrant, dilated up to 3.1 c m. There is some fecalization of bowel content here. Early/partial small bowel obstruction not exclud ed at this time. Refer to coronal images 32 and 35. 4. Generalized colonic diverticulosis with a possible inflamed epiploic appendage at the junction of the descending and sigmoid colon. 5. Prostatomegaly of 5.5 cm with soft tissue impressing into the base of the bladder, likely median lobe hypertrophy. Correlate with PSA values. 6. Inguinal adenopathy measuring up to 1.7 cm short axis appears to be a chronic finding, present ba ck in 2020.
[2022-12-22] MEDS ORDERED: KETOROLAC 15 MG/ML 1 ML VIAL IVP STA (10:43)
[2022-12-22] MEDS ORDERED: lisinopriL 10 MG TAB PO STA (12:51)
[2022-12-22] MEDS ORDERED: ONDANSETRON ODT 4 MG TAB PO STA (13:50)
[2022-12-22] MEDS ORDERED: ONDANSETRON 4 MG ODT STARTER PACK 2 TAB BTL PO STA (13:52)
[2022-12-22 14:52] VITALS: BP 166/74; PULSE 78; TEMP 98.5
== END 2022-12-22 14:47 | disposition home or self-care (01) ==
LOC: EC 07:11
DX: R10.9 Unspecified abdominal pain (principal); J44.9 Chronic obstructive pulmonary disease, unspecified; E78.5 Hyperlipidemia, unspecified; I10 Essential (primary) hypertension; Z87.891 Personal history of nicotine dependence; Z79.51 Long term (current) use of inhaled steroids; Z79.899 Other long term (current) drug therapy; Z88.0 Allergy status to penicillin; Z88.1 Allergy status to other antibiotic agents
CPT/HCPCS: 36415; 80053; 82150; 83690; 85025; 74018; 74176; 99285; 96374; J1885; S0119

== ENCOUNTER → 2023-06-11 | Outpatient (CLI) | payer MEDICARE ==
--- NOTE | 2023-06-11 14:23 | XR ---
EXAMINATION TYPE: XR chest 2V DATE OF EXAM: 06/11/2023 COMPARISON: 10/29/2022 TECHNIQUE: PA and lateral views submitted. HISTORY: Shortness of breath FINDINGS: Bilateral consolidation small effusion. Heart size mildly enlarged. Atherosclerotic change of the aor ta. Biapical pleural thickening. Underlying COPD. Enlargement of the pulmonary arteries suggestive of arterial hypertension. Vascular calcifications. Diffuse osteopenia. Degenerative change of the spine . IMPRESSION: 1. Bilateral lower lobe infiltrate and small effusion. No overt failure..
== END | disposition home or self-care (01) ==
LOC: RADXRMAIN 14:00
PROVIDERS: ATTEND Family Medicine
DX: R91.8 Other nonspecific abnormal finding of lung field (principal); J90 Pleural effusion, not elsewhere classified; I50.9 Heart failure, unspecified
CPT/HCPCS: 71046

== ENCOUNTER 2023-11-28 21:03 | Observation (INO) | payer MEDICARE ==
--- NOTE | 2023-11-28 21:28 | ED ---
General Adult HPI - General Chief complaint: Weakness Stated complaint: Weakness Time Seen by Provider: 11/28/23 21:05 Source: patient, EMS, RN notes reviewed, old records reviewed Mode of arrival: EMS - History of Present Illness Initial comments: 88-year-old male presenting from home with weakness. Patient states he does not feel right. He is unable to give specific care to his symptoms. He denies chest pain. Denies abdominal pain. Denies fever. States has had poor appetite today. No vomiting. No diarrhea. No dysuria or hematuria. - Related Data Home Medications Medication Instructions Recorded Confirmed Albuterol Sulfate [Proair Hfa] 2 puff INHALATION RT-Q6H PRN 05/22/15 12/22/22 Alfuzosin HCl [Uroxatral ER] 10 mg PO DAILY 09/09/15 12/22/22 Finasteride [Proscar] 5 mg PO DAILY 09/09/15 12/22/22 Travoprost [Travatan Z 0.004%] 1 drop BOTH EYES HS 09/10/15 12/22/22 rOPINIRole HCL [Requip] 2 - 3 mg PO DAILY 04/20/20 12/22/22 Dorzolamide-Timol 2.23%/0.68% 1 drop RIGHT EYE BID 10/29/22 12/22/22 [Cosopt] Enzalutamide [Xtandi] 160 mg PO DAILY 10/29/22 12/22/22 Fluticasone/Umeclidin/Vilanter 1 puff INHALATION RT-DAILY 10/29/22 12/22/22 [Trelegy Ellipta 100-62.5-25] Vit C/E/Zn/Coppr/Lutein/Zeaxan 1 cap PO DAILY 10/29/22 12/22/22 [Preservision Areds 2 Softgel] HYDROcodone/APAP 5-325MG [[place] 1 tab PO BID PRN 12/22/22 12/22/22 5-325] Previous Rx's Medication Instructions Recorded Empagliflozin [Jardiance] 10 mg PO DAILY #30 tablet 09/13/21 Aspirin 81 mg PO DAILY 30 Days #30 tab 11/02/22 lisinopriL [Zestril] 10 mg PO DAILY 30 Days #30 tab 11/02/22 Allergies Allergy/AdvReac Type Severity Reaction Status Date / Time amoxicillin trihydrate Allergy Unknown Verified 11/28/23 21:13 [From Augmentin] moxifloxacin HCl Allergy Nausea & Verified 11/28/23 21:13 [From Avelox] Vomiting potassium clavulanate Allergy Unknown Verified 11/28/23 21:13 [From Augmentin] Review of Systems ROS Statement: Those systems with pertinent positive or pertinent negative responses have been documented in the HPI. ROS Other: All systems not noted in ROS Statement are negative. 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 Past Anesthesia/Blood Transfusion Reactions: No Reported Reaction Additional Past Anesthesia/Blood Transfusion Reaction / Comment(s): Pt has claustrophobia. Past Psychological History: No Psychological Hx Reported Smoking Status: Former smoker Past Alcohol Use History: Daily Past Drug Use History: None Reported - Past Family History Brother(s) Family Medical History: Cancer Additional Family Medical History / Comment(s): Prostate cancer. Father Family Medical History: Deep Vein Thrombosis (DVT) Additional Family Medical History / Comment(s): Father of dementia at the age of 79yrs. Mother Family Medical History: No Reported History Additional Family Medical History / Comment(s): Mother was healthy and lived to be 86yrs old. General Exam General appearance: alert, in no apparent distress Head exam: Present: atraumatic, normocephalic Eye exam: Present: normal appearance, PERRL ENT exam: Present: mucous membranes dry Neck exam: Present: normal inspection. Absent: tenderness, meningismus Respiratory exam: Present: decreased breath sounds. Absent: respiratory distress, wheezes Cardiovascular Exam: Present: bradycardia, irregular rhythm GI/Abdominal exam: Present: soft, distended. Absent: tenderness Extremities exam: Present: pedal edema (Venous stasis) Neurological exam: Present: alert, oriented X3, CN II-XII intact. Absent: motor sensory deficit Psychiatric exam: Present: normal affect, normal mood Skin exam: Present: warm, dry Course Vital Signs 11/28/23 21:07 Temperature 97.9 F Pulse Rate 56 L Respiratory 19 Rate Blood Pressure 118/78 O2 Sat by Pulse 94 L Oximetry Medical Decision Making - Medical Decision Making Was pt. sent in by a medical professional or institution (, [facility], [facility], urgent care, hospital, or care home...) When possible be specific @ -No Did you speak to anyone other than the patient for history (EMS, parent, family, police, friend...)? What history was obtained from this source @ -No Did you review nursing and triage notes (agree or disagree)? Why? @ -I reviewed and agree with nursing and triage notes Were old charts reviewed (outside hosp., previous admission, EMS record, old EKG, old radiological studies, urgent care reports/EKG's, care home records)? Report findings @ -No old charts were reviewed Differential Weakness: Hypoglycemia, shock, sepsis, hyponatremia, anemia, infection, MA, ETOH, adverse medicine reaction, overdose, stroke, this is not meant to be an all-inclusive list. EKG interpreted by me (3pts min.). @ -Initial EKG at 2137, narrow complex suspect sinus rhythm with a rate of 47, RI interval 126, Qtc 473 T wave inversion in V6 Repeat EKG at 2316, sinus bradycardia rate of 42 RI interval 217, QRS duration 126, QTc 478 X-rays interpreted by me (1pt min.). @ -X-ray showing left-sided pleural effusion no other acute findings CT interpreted by me (1pt min.). @ -None done U/S interpreted by me (1pt. min.). @ -None done What testing was considered but not performed or refused? (CT, X-rays, U/S, labs)? Why? @ -None What meds were considered but not given or refused? Why? @ -None Did you discuss the management of the patient with other professionals (professionals i.e. [facility] Luo, [facility], lab, RT, psych nurse, social work specialist, planer hand, teacher, facility security officer, classification case manager)? Give summary @ -No Was smoking cessation discussed for >3mins.? @ -No Was critical care preformed (if so, how long)? @ -No Were there social determinants of health that impacted care today? How? (Homelessness, low income, unemployed, alcoholism, drug addiction, transportation, low edu. Level, literacy, decrease access to med. care, prison, rehab)? @ -No Was there de-escalation of care discussed even if they declined (Discuss DNR or withdrawal of care, Hospice)? DNR status @ -No What co-morbidities impacted this encounter? (DM, HTN, Smoking, COPD, CAD, Cancer, CVA, ARF, Chemo, Hep., AIDS, mental health diagnosis, sleep apnea, morbid obesity)? @ -Hypertension Was patient admitted / discharged? Hospital course, mention meds given and route, prescriptions, significant lab abnormalities, going to OR and other pertinent info. @ -[88-year-old male presenting with generalized weakness, not feeling well. No specific additional symptoms. Patient is bradycardic and is on a beta- idania. Otherwise vital signs are stable. Chest x-ray shows left-sided pleural effusion. He has cytopenia. Normal electrolytes. Negative troponin. Urinalysis pending. Patient will be observed for small amount of IV hydration and telemetry. Cardiology placed on consult. Undiagnosed new problem with uncertain prognosis? @ -No Drug Therapy requiring intensive monitoring for toxicity (Heparin, Nitro, Insulin, Cardizem)? @ -No Were any procedures done? @ -No Diagnosis/symptom? @ -Weakness, bradycardia Acute, or Chronic, or Acute on Chronic? @ -Acute Uncomplicated (without systemic symptoms) or Complicated (systemic symptoms)? @ -Default Side effects of treatment? @ -No Exacerbation, Progression, or Severe Exacerbation? @ -No Poses a threat to life or bodily function? How? (Chest pain, USA, MA, pneumonia, PE, COPD, DKA, ARF, appy, cholecystitis, CVA, Diverticulitis, Homicidal, Suicidal, threat to staff... and all critical care pts) @ -moderate risk - Lab Data Result diagrams: 11/28/23 21:47 11/28/23 21:47 Lab Results 11/28/23 11/28/23 11/28/23 Range/Units 21:47 21:47 21:47 WBC 2.9 L (3.8-10.6) k/uL RBC 2.95 L (4.30-5.90) m/uL Hgb 9.6 L (13.0-17.5) gm/dL Hct 30.4 L (39.0-53.0) % MCV 103.1 H (80.0-100.0) fL MCH 32.5 (25.0-35.0) pg MCHC 31.5 (31.0-37.0) g/dL RDW 14.9 (11.5-15.5) % Plt Count 103 L (150-450) k/uL MPV 9.4 Neutrophils % 58 % Lymphocytes % 27 % Monocytes % 5 % Eosinophils % 6 % Basophils % 1 % Neutrophils # 1.7 (1.3-7.7) k/uL Lymphocytes # 0.8 L (1.0-4.8) k/uL Monocytes # 0.2 (0-1.0) k/uL Eosinophils # 0.2 (0-0.7) k/uL Basophils # 0.0 (0-0.2) k/uL Hypochromasia Slight Macrocytosis Slight PT 11.4 (10.0-12.5) sec INR 1.0 (<1.2) APTT 31.1 H (22.0-30.0) sec Sodium 139 (137-145) mmol/L Potassium 4.5 (3.5-5.1) mmol/L Chloride 102 (98-107) mmol/L Carbon Dioxide 30 (22-30) mmol/L Anion Gap 7 mmol/L BUN 23 H (9-20) mg/dL Creatinine 0.73 (0.66-1.25) mg/dL Est GFR (CKD-EPI)AfAm >90 (>60 ml/min/1.73 sqM) Est GFR (CKD-EPI)NonAf 84 (>60 ml/min/1.73 sqM) Glucose 115 H (74-99) mg/dL Plasma Lactic Acid Alok (0.7-2.0) mmol/L Calcium 8.4 (8.4-10.2) mg/dL Magnesium 2.0 (1.6-2.3) mg/dL Total Bilirubin 0.9 (0.2-1.3) mg/dL AST 28 (17-59) U/L ALT 9 (4-49) U/L Alkaline Phosphatase 74 (38-126) U/L Troponin I (0.000-0.034) ng/mL Total Protein 5.9 L (6.3-8.2) g/dL Albumin 3.6 (3.5-5.0) g/dL Influenza Type A (PCR) (Not Detectd) Influenza Type B (PCR) (Not Detectd) RSV (PCR) (Not Detectd) SARS-CoV-2 (PCR) (Not Detectd) 11/28/23 11/28/23 11/28/23 Range/Units 21:47 21:47 21:50 WBC (3.8-10.6) k/uL RBC (4.30-5.90) m/uL Hgb (13.0-17.5) gm/dL Hct (39.0-53.0) % MCV (80.0-100.0) fL MCH (25.0-35.0) pg MCHC (31.0-37.0) g/dL RDW (11.5-15.5) % Plt Count (150-450) k/uL MPV Neutrophils % % Lymphocytes % % Monocytes % % Eosinophils % % Basophils % % Neutrophils # (1.3-7.7) k/uL Lymphocytes # (1.0-4.8) k/uL Monocytes # (0-1.0) k/uL Eosinophils # (0-0.7) k/uL Basophils # (0-0.2) k/uL Hypochromasia Macrocytosis PT (10.0-12.5) sec INR (<1.2) APTT (22.0-30.0) sec Sodium (137-145) mmol/L Potassium (3.5-5.1) mmol/L Chloride (98-107) mmol/L Carbon Dioxide (22-30) mmol/L Anion Gap mmol/L BUN (9-20) mg/dL Creatinine (0.66-1.25) mg/dL Est GFR (CKD-EPI)AfAm (>60 ml/min/1.73 sqM) Est GFR (CKD-EPI)NonAf (>60 ml/min/1.73 sqM) Glucose (74-99) mg/dL Plasma Lactic Acid Alok 1.1 (0.7-2.0) mmol/L Calcium (8.4-10.2) mg/dL Magnesium (1.6-2.3) mg/dL Total Bilirubin (0.2-1.3) mg/dL AST (17-59) U/L ALT (4-49) U/L Alkaline Phosphatase (38-126) U/L Troponin I 0.017 (0.000-0.034) ng/mL Total Protein (6.3-8.2) g/dL Albumin (3.5-5.0) g/dL Influenza Type A (PCR) Not Detected (Not Detectd) Influenza Type B (PCR) Not Detected (Not Detectd) RSV (PCR) Not Detected (Not Detectd) SARS-CoV-2 (PCR) Not Detected (Not Detectd) Disposition Clinical Impression: Weakness, Bradycardia Disposition: ADMITTED IP TO THIS HOSP Condition: Stable Is patient prescribed a controlled substance at d/c from ED?: No Referrals: Shar Yu MD [Primary Care Provider] - 1-2 days Time of Disposition: 00:13
[2023-11-28 22:11] LABS: Basophils % (A) 1 %; Eosinophils # (A) 0.2 k/uL (0-0.7); Eosinophils % (A) 6 %; HCT 30.4 % (39.0-53.0); HGB 9.6 gm/dL (13.0-17.5); Hypochromasia Slight; Lymphocytes # (A) 0.8 k/uL (1.0-4.8); Lymphocytes % (A) 27 %; MCH 32.5 pg (25.0-35.0); MCHC 31.5 g/dL (31.0-37.0); MCV 103.1 fL (80.0-100.0); Macrocytosis Slight; Mean Platelet Volume 9.4; Monocytes # (A) 0.2 k/uL (0-1.0); Monocytes % (A) 5 %; Neutrophils # (A) 1.7 k/uL (1.3-7.7); Neutrophils % (A) 58 %; Platelet Count 103 k/uL (150-450); RBC 2.95 m/uL (4.30-5.90); RDW 14.9 % (11.5-15.5); WBC 2.9 k/uL (3.8-10.6)
[2023-11-28 22:25] LABS: Partial Thromboplastin Time 31.1 sec (22.0-30.0); Prothrombin Time 11.4 sec (10.0-12.5)
[2023-11-28 22:52] LABS: ALT 9 U/L (4-49); African American GFR (CKD) >90 (>60 ml/min/1.73 sqM); Anion Gap 7 mmol/L; Blood Urea Nitrogen 23 mg/dL (9-20); Calcium 8.4 mg/dL (8.4-10.2); Carbon Dioxide 30 mmol/L (22-30); Chloride 102 mmol/L (98-107); Glucose 115 mg/dL (74-99); Non-African American GFR(CKD) 84 (>60 ml/min/1.73 sqM); Sodium 139 mmol/L (137-145); Total Bilirubin 0.9 mg/dL (0.2-1.3)
[2023-11-28 22:56] LABS: AST 28 U/L (17-59); Albumin 3.6 g/dL (3.5-5.0); Alkaline Phosphatase 74 U/L (38-126); Potassium 4.5 mmol/L (3.5-5.1); Total Protein 5.9 g/dL (6.3-8.2)
--- NOTE | 2023-11-28 23:51 | XR ---
EXAM: XR Chest, 2 Views CLINICAL HISTORY: ITS.REASON XR Reason: Weakness TECHNIQUE: Frontal and lateral views of the chest. COMPARISON: No relevant prior studies available. FINDINGS: Lungs: Unremarkable. No consolidation. Pleural space: Moderate LEFT pleural effusion. No pneumothorax. Heart: Cardiomegaly. Mediastinum: Unremarkable. Normal mediastinal contour. Bones/joints: Unremarkable. No acute fracture. IMPRESSION: Moderate LEFT pleural effusion.
[2023-11-29] MEDS ORDERED: NALOXONE 0.4 MG/ML 1 ML VIAL IV PRN (00:09)
[2023-11-29] MEDS ORDERED: ACETAMINOPHEN TAB 325 MG TAB PO PRN (00:09)
[2023-11-29] MEDS ORDERED: ONDANSETRON 4 MG/2 ML VIAL IVP PRN (00:09)
[2023-11-29] MEDS: SODIUM CHLORIDE 0.9% 1,000 ML IV SCH (00:29)
[2023-11-29 02:54] LABS: Appearance,Urine Clear (Clear); Bilirubin,Urine Negative (Negative); Blood,Urine Negative (Negative); Color,Urine Yellow; Glucose,Urine (UA) 4+ (Negative); Ketones,Urine Negative (Negative); Leukocyte Esterase,Urine Negative (Negative); Nitrite,Urine Negative (Negative); PH, Urine 6.5 (5.0-8.0); Protein,Urine Negative (Negative); Specific Gravity,Urine 1.024 (1.001-1.035)
[2023-11-29] MEDS ORDERED: DAPAGLIFLOZIN PROPANEDIOL 5 MG TABLET PO SCH ×2 (09:15→09:30)
--- NOTE | 2023-11-29 09:34 | P.HPIM ---
History of Present Illness This is a pleasant 88 years old male with past medical history of COPD and chronic hypoxic respiratory failure. Presents because of nonspecific symptoms, he says he did not feel well and could not specify for how long. However patient denies any other specific symptoms. And when I ask him he denies any chest pain or dyspnea. He has occasional coughing but nothing done and usual No abdominal pain vomiting or diarrhea on the other side he is constipated. Also he denies urinary complaints like change in frequency, urgency or dysuria He denies headache dizziness weakness or numbness On admission he has evidence of urinary retention and Zimmer catheter was inserted. Other than that patient now feels fine and hope he can be discharged and go home today. at bedside and she is agreeable with him. Patient is hemodynamically stable. His heart rate is on the low side it went down to 41 during the night, currently 52 but patient is asymptomatic He denies smoking or illicit drugs. However he states he drinks about 2 beers per day and sometimes he takes a drink 1 beer. His labs reviewed. He has WBC of 2.9, hemoglobin 9.6 and platelet count 103 BMP and liver enzymes INR and troponin were unremarkable Urine analysis were unremarkable Influenza A and type B, RSV, SARS (coronavirus) are and detected EKG showing A-fib with slow ventricular rate another EKG showing sinus bradycardia Chest x-ray is negative for acute process Echocardiogram from 10/2022 showing ejection fraction of 30 to 35% with mild to moderate mitral regurgitation Review of Systems Review of systems CONSTITUTIONAL: No fever, no malaise, no fatigue. HEENT: No recent visual problems or hearing problems. Denied any sore throat. CARDIOVASCULAR: No orthopnea, PND, no palpitations, no syncope. PULMONARY: No shortness of breath, no cough, no hemoptysis. GASTROINTESTINAL: No diarrhea, no nausea, no vomiting, no abdominal pain. Normoactive bowel sounds. NEUROLOGICAL: No headaches, no weakness, no numbness. HEMATOLOGICAL: Denies any bleeding or petechiae. GENITOURINARY: Denies any burning micturition, frequency, or urgency. MUSCULOSKELETAL/RHEUMATOLOGICAL: Denies any joint pain, swelling, or any muscle pain. ENDOCRINE: Denies any polyuria or polydipsia. 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 Past Anesthesia/Blood Transfusion Reactions: No Reported Reaction Additional Past Anesthesia/Blood Transfusion Reaction / Comment(s): Pt has claustrophobia. Past Psychological History: No Psychological Hx Reported Smoking Status: Former smoker Past Alcohol Use History: Daily Past Drug Use History: None Reported - Past Family History Brother(s) Family Medical History: Cancer Additional Family Medical History / Comment(s): Prostate cancer. Father Family Medical History: Deep Vein Thrombosis (DVT) Additional Family Medical History / Comment(s): Father of dementia at the age of 79yrs. Mother Family Medical History: No Reported History Additional Family Medical History / Comment(s): Mother was healthy and lived to be 86yrs old. Medications and Allergies Home Medications Medication Instructions Recorded Confirmed Type Alfuzosin HCl [Uroxatral ER] 10 mg PO DAILY 09/09/15 11/29/23 History Finasteride [Proscar] 5 mg PO DAILY 09/09/15 11/29/23 History Travoprost [Travatan Z 0.004%] 1 drop BOTH EYES HS 09/10/15 11/29/23 History rOPINIRole HCL [Requip] 2 - 3 mg PO DAILY 04/20/20 11/29/23 History Empagliflozin [Jardiance] 10 mg PO DAILY #30 tablet 09/13/21 11/29/23 Rx Dorzolamide-Timol 2.23%/0.68% 1 drop RIGHT EYE BID 10/29/22 11/29/23 History [Cosopt] Enzalutamide [Xtandi] 160 mg PO DAILY 10/29/22 11/29/23 History Fluticasone/Umeclidin/Vilanter 1 puff INHALATION RT-DAILY 10/29/22 11/29/23 History [Treledebra Ellipta 100-62.5-25] lisinopriL [Zestril] 10 mg PO DAILY 30 Days #30 tab 11/02/22 11/29/23 Rx Ergocalciferol (Vitamin D2) 1,250 mcg PO FR 11/29/23 11/29/23 History [Drisdol (50,000 Iu)] Furosemide [Lasix] 40 mg PO DAILY 11/29/23 11/29/23 History Nebivolol [Bystolic] 5 mg PO DAILY 11/29/23 11/29/23 History Allergies Allergy/AdvReac Type Severity Reaction Status Date / Time amoxicillin trihydrate Allergy Unknown Verified 11/29/23 08:06 [From Augmentin] moxifloxacin HCl Allergy Nausea & Verified 11/29/23 08:06 [From Avelox] Vomiting potassium clavulanate Allergy Unknown Verified 11/29/23 08:06 [From Augmentin] Physical Exam Vitals: Vital Signs Temp Pulse Resp BP Pulse Ox 11/29/23 07:45 97.7 F 52 L 20 167/74 98 11/29/23 06:03 97.8 F 49 L 18 166/69 98 11/29/23 05:08 45 L 18 156/62 98 11/29/23 04:37 40 L 18 156/72 95 11/29/23 03:20 43 L 19 129/57 100 11/29/23 01:54 41 L 19 156/64 99 11/29/23 01:02 46 L 20 133/59 97 11/29/23 00:39 97.7 F 42 L 18 147/54 99 11/28/23 21:07 97.9 F 56 L 19 118/78 94 L Intake and Output 11/28/23 11/29/23 11/29/23 22:59 06:59 14:59 Output Total 600 Balance -600 Output: Urine 300 Uretheral (Zimmer) 300 Post Void Residual 300 Other: Weight 95.254 kg Results CBC & Chem 7: 11/28/23 21:47 11/28/23 21:47 Labs: Abnormal Lab Results - Last 24 Hours (Table) 11/28/23 11/28/23 11/28/23 Range/Units 21:47 21:47 21:47 WBC 2.9 L (3.8-10.6) k/uL RBC 2.95 L (4.30-5.90) m/uL Hgb 9.6 L (13.0-17.5) gm/dL Hct 30.4 L (39.0-53.0) % MCV 103.1 H (80.0-100.0) fL Plt Count 103 L (150-450) k/uL Lymphocytes # 0.8 L (1.0-4.8) k/uL APTT 31.1 H (22.0-30.0) sec BUN 23 H (9-20) mg/dL Glucose 115 H (74-99) mg/dL Total Protein 5.9 L (6.3-8.2) g/dL Urine Glucose (UA) (Negative) 11/29/23 Range/Units 02:36 WBC (3.8-10.6) k/uL RBC (4.30-5.90) m/uL Hgb (13.0-17.5) gm/dL Hct (39.0-53.0) % MCV (80.0-100.0) fL Plt Count (150-450) k/uL Lymphocytes # (1.0-4.8) k/uL APTT (22.0-30.0) sec BUN (9-20) mg/dL Glucose (74-99) mg/dL Total Protein (6.3-8.2) g/dL Urine Glucose (UA) 4+ H (Negative) Assessment and Plan Assessment: Paroxysmal A-fib with slow heart rate with periods of sinus bradycardia Chronic systolic CHF with ejection fraction 30 to 35%, with suspected or questionable acute exacerbation acute urinary retention status post Zimmer catheter COPD without acute exacerbation Chronic hypoxic respiratory failure on 3 L oxygen via nasal cannula Pancytopenia, mild, patient can follow-up outpatient Hyperlipidemia Hypertension BPH History of pulmonary embolism Alcohol use disorder Plan: Continue telemetry monitoring for heart rate Patient was started on IV Lasix by 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 Mancilla upon discharge and they are agreeable Continue with Zimmer catheter and Flomax Patient at some risk from alcohol withdrawal as he is a daily drinker Labs and medication were reviewed.. Continue same treatment. Continue with symptomatic treatment. Resume home medication. Monitor labs and vitals. DVT and GI prophylaxis. Further recommendations as per clinical course of the pat ient DVT prophylaxis: Subcutaneous heparin GI Prophylaxis: Pepcid PT/OT: Pending Prognosis is guarded
[2023-11-29] MEDS ORDERED: LORazepam 1 MG TAB PO PRN ×3 (09:35)
[2023-11-29] MEDS ORDERED: LORazepam 0.5 MG TAB PO PRN (09:35)
[2023-11-29] MEDS: DAPAGLIFLOZIN PROPANEDIOL 10 MG TABLET PO SCH (09:36)
[2023-11-29] MEDS: FUROSEMIDE 10 MG/ML 4 ML VIAL IV SCH (09:38)
[2023-11-29] MEDS: lisinopriL 10 MG TAB PO SCH ×2 (09:38→23:28)
[2023-11-29] MEDS: TAMSULOSIN 0.4 MG CAP.ER.24H PO SCH (09:51)
[2023-11-29] MEDS: THIAMINE 100 MG TAB PO SCH (09:51)
[2023-11-29] MEDS: FUROSEMIDE 40 MG TAB PO SCH (09:57)
--- NOTE | 2023-11-29 11:39 | P.CRDCN ---
History of Present Illness History of present illness: HISTORY OF PRESENT ILLNESS: This is a 88-year-old male with a past medical history significant for congestive heart failure, hypertension and COPD. Patient follows in the office with Dr. Gillette. We have been asked to see the patient in consultation for bradycardia. Patient examined at the bedside the emergency room. Patient's family is present. Patient states yesterday he felt very tired. He reports not having much of an appetite and did not eat much yesterday. He states because of his symptoms he was concerned and wanted to make sure there was nothing seriously wrong so he came to the emergency room. The patient currently denies any chest pain or pressure. He denies any shortness of breath. Denies dizziness or lightheadedness. No episodes of syncope at home. Blood pressures are elevated with a systolic between [id number]. Patient is bradycardic with a heart rate in the 40s50s. He is prescribed Bystolic on an outpatient basis. The patient is also prescribed Lasix 40 mg daily on an outpatient basis. Patient states he has not been compliant with his Lasix and has only been taking it approximately every other day due to increased urination. DIAGNOSTICS: - EKG reveals sinus bradycardia with no signs of acute ischemia. - Chest xray moderate left pleural effusion - Laboratory data: WBC 2.9. Hemoglobin 9.6. Platelet count 103. Sodium 139. Potassium 4.5. BUN 23. Creatinine 0.73. Troponin negative x 1. proBNP 1920. - Current home cardiac medications include Jardiance 10 mg daily, Lasix 40 mg daily, Bystolic 5 mg daily, lisinopril 10 mg daily - Most recent echocardiogram obtained in October 2022 revealed ejection fraction 30 to 35%, mild to moderate MR, mild TR. - Cardiac catheterization history: March 2018 revealing normal coronary arteries REVIEW OF SYSTEMS: At the time of my exam: CONSTITUTIONAL: Denies fever or chills. HEENT: Denies blurred vision, vision changes, or eye pain. Denies hemoptysis CARDIOVASCULAR: Denies chest pain. Denies orthopnea. Denies PND. Denies palpitations RESPIRATORY: Denies shortness of breath. GASTROINTESTINAL: Denies abdominal pain. Denies nausea or vomiting. HEMATOLOGIC: Denies bleeding disorders. GENITOURINARY: Denies any blood in urine. SKIN: Denies pruitis. Denies rash. PHYSICAL EXAM: VITAL SIGNS: Reviewed. GENERAL: Well-developed in no acute distress. HEENT: Head is normocephalic. Pupils are equal, round. Sclerae anicteric. Mucous membranes of the mouth are moist. Neck supple. No JVD or thyromegaly LUNGS: Respirations even and unlabored. Lungs essentially clear to auscultation bilaterally. HEART: Bradycardic. Regular rate and rhythm. S1 and S2 heard. ABDOMEN: Soft. Nondistended. Nontender. EXTREMITIES: Normal range of motion. No clubbing or cyanosis. Peripheral pulses intact. Trace bilateral lower extremity edema NEUROLOGIC: Awake and alert. Oriented x 3. ASSESSMENT: Generalized weakness and decreased appetite Asymptomatic sinus bradycardia Atrial fibrillation, ruled out, EKG reveals sinus mechanism Moderate left pleural effusion Acute on chronic heart failure with reduced EF Normal coronary arteries, per cath 2019 Nonischemic cardiomyopathy, 3035% Hypertension History of COPD Medication noncompliance, patient not taking Lasix daily as prescribed PLAN: Obtain 2D echo to assess cardiac structure and function Discontinue Bystolic Continue telemetry monitoring Begin IV Lasix 40 mg every 12 hours for 24 hours due to moderate left size p leural effusion Daily weights, accurate intake and output, and monitoring of kidney function Medication compliance reinforced Possible discharge home tomorrow Further recommendations pending patient course Nurse practitioner note has been reviewed by physician. Signing provider agrees with the documented findings, assessment, and plan of care documented by [employer] TECHNICIAN as a scribe. 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 Past Anesthesia/Blood Transfusion Reactions: No Reported Reaction Additional Past Anesthesia/Blood Transfusion Reaction / Comment(s): Pt has claustrophobia. Past Psychological History: No Psychological Hx Reported Smoking Status: Former smoker Past Alcohol Use History: Daily Past Drug Use History: None Reported - Past Family History Brother(s) Family Medical History: Cancer Additional Family Medical History / Comment(s): Prostate cancer. Father Family Medical History: Deep Vein Thrombosis (DVT) Additional Family Medical History / Comment(s): Father of dementia at the age of 79yrs. Mother Family Medical History: No Reported History Additional Family Medical History / Comment(s): Mother was healthy and lived to be 86yrs old. Medications and Allergies Home Medications Medication Instructions Recorded Confirmed Type Alfuzosin HCl [Uroxatral ER] 10 mg PO DAILY 09/09/15 11/29/23 History Finasteride [Proscar] 5 mg PO DAILY 09/09/15 11/29/23 History Travoprost [Travatan Z 0.004%] 1 drop BOTH EYES HS 09/10/15 11/29/23 History rOPINIRole HCL [Requip] 2 - 3 mg PO DAILY 04/20/20 11/29/23 History Empagliflozin [Jardiance] 10 mg PO DAILY #30 tablet 09/13/21 11/29/23 Rx Dorzolamide-Timol 2.23%/0.68% 1 drop RIGHT EYE BID 10/29/22 11/29/23 History [Cosopt] Enzalutamide [Xtandi] 160 mg PO DAILY 10/29/22 11/29/23 History Fluticasone/Umeclidin/Vilanter 1 puff INHALATION RT-DAILY 10/29/22 11/29/23 History [Trelegy Ellipta 100-62.5-25] lisinopriL [Zestril] 10 mg PO DAILY 30 Days #30 tab 11/02/22 11/29/23 Rx Ergocalciferol (Vitamin D2) 1,250 mcg PO FR 11/29/23 11/29/23 History [Drisdol (50,000 Iu)] Furosemide [Lasix] 40 mg PO DAILY 11/29/23 11/29/23 History Nebivolol [Bystolic] 5 mg PO DAILY 11/29/23 11/29/23 History Allergies Allergy/AdvReac Type Severity Reaction Status Date / Time amoxicillin trihydrate Allergy Unknown Verified 11/29/23 08:06 [From Augmentin] moxifloxacin HCl Allergy Nausea & Verified 11/29/23 08:06 [From Avelox] Vomiting potassium clavulanate Allergy Unknown Verified 11/29/23 08:06 [From Augmentin] Physical Exam Vitals: Vital Signs Temp Pulse Resp BP Pulse Ox 11/29/23 07:45 97.7 F 52 L 20 167/74 98 11/29/23 06:03 97.8 F 49 L 18 166/69 98 11/29/23 05:08 45 L 18 156/62 98 11/29/23 04:37 40 L 18 156/72 95 11/29/23 03:20 43 L 19 129/57 100 11/29/23 01:54 41 L 19 156/64 99 11/29/23 01:02 46 L 20 133/59 97 11/29/23 00:39 97.7 F 42 L 18 147/54 99 11/28/23 21:07 97.9 F 56 L 19 118/78 94 L Intake and Output 11/28/23 11/29/23 11/29/23 22:59 06:59 14:59 Output Total 600 Balance -600 Output: Urine 300 Uretheral (Zimmer) 300 Post Void Residual 300 Other: Weight 95.254 kg Results 11/28/23 21:47 11/28/23 21:47 Cardiac Enzymes 11/28/23 11/28/23 Range/Units 21:47 21:47 AST 28 (17-59) U/L Troponin I 0.017 (0.000-0.034) ng/mL Coagulation 11/28/23 Range/Units 21:47 PT 11.4 (10.0-12.5) sec APTT 31.1 H (22.0-30.0) sec CBC 11/28/23 Range/Units 21:47 WBC 2.9 L (3.8-10.6) k/uL RBC 2.95 L (4.30-5.90) m/uL Hgb 9.6 L (13.0-17.5) gm/dL Hct 30.4 L (39.0-53.0) % Plt Count 103 L (150-450) k/uL Comprehensive Metabolic Panel 11/28/23 Range/Units 21:47 Sodium 139 (137-145) mmol/L Potassium 4.5 (3.5-5.1) mmol/L Chloride 102 (98-107) mmol/L Carbon Dioxide 30 (22-30) mmol/L BUN 23 H (9-20) mg/dL Creatinine 0.73 (0.66-1.25) mg/dL Glucose 115 H (74-99) mg/dL Calcium 8.4 (8.4-10.2) mg/dL AST 28 (17-59) U/L ALT 9 (4-49) U/L Alkaline Phosphatase 74 (38-126) U/L Total Protein 5.9 L (6.3-8.2) g/dL Albumin 3.6 (3.5-5.0) g/dL Current Medications Generic Name Dose Route Start Last Admin Trade Name Freq PRN Reason Stop Dose Admin Acetaminophen 650 mg 11/29/23 00:09 Acetaminophen Tab 325 Mg Tab PO Q6HR PRN Mild Pain or Fever > 100.5 Budesonide/Formoterol Fumarate 2 puff 11/29/23 12:00 Symbicort 80-4.5 Mcg Inhaler INHALATION RT-BID WILFREDO Dapagliflozin 10 mg 11/29/23 10:00 11/29/23 09:36 Dapagliflozin Propanediol 10 Mg Tablet PO 10 mg DAILY WILFREDO Administration Dorzolamide/Timolol 1 drops 11/29/23 21:00 Dorzolamide-Timolol 2.23%/0.68 10ml Btl RIGHT EYE BID WILFREDO Ergocalciferol 1,250 mcg 11/30/23 09:00 Ergocalciferol 1,250 Mcg (50,000 Iu) Capsule PO FR WILFREDO Finasteride 5 mg 11/30/23 09:00 Finasteride 5 Mg Tab PO DAILY WILFREDO Furosemide 40 mg 11/29/23 09:30 11/29/23 09:38 Furosemide 10 Mg/Ml 4 Ml Vial IV 40 mg Q12HR WILFREDO Administration Ipratropium [place] 0.5 mg 11/29/23 12:00 Ipratropium 0.5 Mg/2.5 Ml Nebu INHALATION RT-QID WILFREDO Latanoprost 1 drops 11/29/23 21:00 Latanoprost 0.005% Ophth Drops 2.5 Ml Btl BOTH EYES HS WILFREDO Lisinopril 10 mg 11/29/23 09:15 11/29/23 09:38 Lisinopril 10 Mg Tab PO 10 mg DAILY WILFREDO Administration Lorazepam 0.5 mg 11/29/23 09:35 Lorazepam 0.5 Mg Tab PO Q4HR PRN [place] 4 To 5 Lorazepam 1 mg 11/29/23 09:35 Lorazepam 1 Mg Tab PO Q4HR PRN [place] 6 To 7 Lorazepam 2 mg 11/29/23 09:35 Lorazepam 1 Mg Tab PO Q2HR PRN [place] 10 or greater Lorazepam 2 mg 11/29/23 09:35 Lorazepam 1 Mg Tab PO Q3HR PRN [place] 8 To 9 Naloxone HCl 0.2 mg 11/29/23 00:09 Naloxone 0.4 Mg/Ml 1 Ml Vial IV Q2M PRN Opioid Reversal Alfuzosin Hcl [ 10 mg 11/30/23 09:00 Uroxatral Er] 10 Mg PO Tab.Er.24h DAILY WILFREDO Xtandi (Enzalutamide 160 mg 11/30/23 09:00 ) 40 Mg Capsule PO DAILY WILFREDO Ondansetron HCl 4 mg 11/29/23 00:09 Ondansetron 4 Mg/2 Ml Vial IVP Q8HR PRN Nausea And Vomiting Ropinirole HCl 3 mg 11/30/23 09:00 Ropinirole Hcl 1 Mg Tab PO DAILY WILFREDO Tamsulosin HCl 0.4 mg 11/29/23 09:45 11/29/23 09:51 Tamsulosin 0.4 Mg Cap.Er.24h PO 0.4 mg PC-[id number] WILFREDO Administration Thiamine HCl 100 mg 11/29/23 09:45 11/29/23 09:51 Thiamine 100 Mg Tab PO 100 mg DAILY WILFREDO Administration Intake and Output 11/28/23 11/29/23 11/29/23 22:59 06:59 14:59 Output Total 600 Balance -600 Output: Urine 300 Uretheral (Zimmer) 300 Post Void Residual 300 Other: Weight 95.254 kg 11/28/23 21:47 11/28/23 21:47
[2023-11-29] MEDS: SYMBICORT 80-4.5 MCG INHALER INHALATION SCH (17:12)
[2023-11-29] MEDS: IPRATROPIUM 0.5 MG/2.5 ML NEBU INHALATION SCH (17:13)
[2023-11-29] MEDS: DORZOLAMIDE-TIMOLOL 2.23%/0.68 10ML BTL RIGHT EYE SCH (21:02)
[2023-11-29] MEDS: LATANOPROST 0.005% OPHTH DROPS 2.5 ML BTL BOTH EYES SCH (21:05)
[2023-11-30 07:22] LABS: African American GFR (CKD) >90 (>60 ml/min/1.73 sqM); Anion Gap 5 mmol/L; Blood Urea Nitrogen 21 mg/dL (9-20); Calcium 9.1 mg/dL (8.4-10.2); Carbon Dioxide 31 mmol/L (22-30); Chloride 101 mmol/L (98-107); Glucose 105 mg/dL (74-99); Non-African American GFR(CKD) 78 (>60 ml/min/1.73 sqM); Potassium 4.2 mmol/L (3.5-5.1); Sodium 137 mmol/L (137-145)
[2023-11-30] MEDS: ERGOCALCIFEROL 1,250 MCG (50,000 IU) CAPSULE PO SCH (08:57)
[2023-11-30] MEDS: FINASTERIDE 5 MG TAB PO SCH (08:57)
[2023-11-30] MEDS: FUROSEMIDE 40 MG TAB PO SCH (09:02)
[2023-11-30] MEDS: lisinopriL 20 MG TAB PO SCH (09:02)
--- NOTE | 2023-11-30 11:24 | P.PN ---
Subjective This is a pleasant 88 years old male with past medical history of COPD and chronic hypoxic respiratory failure. Presents because of nonspecific symptoms, he says he did not feel well and could not specify for how long. However patient denies any other specific symptoms. And when I ask him he denies any chest pain or dyspnea. He has occasional c oughing but nothing done and usual No abdominal pain vomiting or diarrhea on the other side he is constipated. Also he denies urinary complaints like change in frequency, urgency or dysuria He denies headache dizziness weakness or numbness On admission he has evidence of urinary retention and Zimmer catheter was inserted. Other than that patient now feels fine and hope he can be discharged and go home today. at bedside and she is agreeable with him. Patient is hemodynamically stable. His heart rate is on the low side it went down to 41 during the night, currently 52 but patient is asymptomatic He denies smoking or illicit drugs. However he states he drinks about 2 beers per day and sometimes he takes a drink 1 beer. His labs reviewed. He has WBC of 2.9, hemoglobin 9.6 and platelet count 103 BMP and liver enzymes INR and troponin were unremarkable Urine analysis were unremarkable Influenza A and type B, RSV, SARS (coronavirus) are and detected EKG showing A-fib with slow ventricular rate another EKG showing sinus bradycardia Chest x-ray is negative for acute process Echocardiogram from 10/2022 showing ejection fraction of 30 to 35% with mild to moderate mitral regurgitation 12/01/2023 Patient awake alert, he denies specific symptoms, he wants to go home. But he agrees to stay per diesel crane operator recommendation to monitor his heart rate at his was going up and down. Per diesel crane operator patient has no A-fib His blood pressure was elevated with systolic 1 80-200. Norvasc 5 mg is added to his regiment He is also on IV Lasix for his cardiomyopathy with low ejection fraction. Creatinine and electrolytes are stable Patient aware about his mild pancytopenia and he agrees to follow-up as an outpatient Objective - Vital Signs Vital signs: Vital Signs Temp 98 F 11/30/23 08:00 Pulse 62 11/30/23 08:00 Resp 18 11/30/23 08:00 BP 186/76 11/30/23 08:00 Pulse Ox 99 11/30/23 08:00 FiO2 Intake & Output 10/11/30/23 11/30/23 18:59 06:59 18:59 Intake Total 240 240 Balance 240 240 Weight 95.254 kg 91.7 kg Intake: Oral 240 240 Other: Voiding Method Toilet - Labs CBC & Chem 7: 11/28/23 21:47 11/30/23 06:18 Labs: Abnormal Lab Results - Last 24 Hours (Table) 11/30/23 Range/Units 06:18 Carbon Dioxide 31 H (22-30) mmol/L BUN 21 H (9-20) mg/dL Glucose 105 H (74-99) mg/dL Assessment and Plan Assessment: The cardia, slow heart rate with periods of tachycardia, rule out sick sinus syndrome per diesel crane operator a (as per diesel crane operator patient has no A-fib) Acute on chronic systolic CHF with ejection fraction 30 to 35%, with suspected or questionable acute exacerbation acute urinary retention status post Zimmer catheter COPD without acute exacerbation Chronic hypoxic respiratory failure on 3 L oxygen via nasal cannula Pancytopenia, mild, patient can follow-up outpatient Hyperlipidemia Hypertension BPH History of pulmonary embolism Alcohol use disorder Plan: Continue telemetry monitoring for heart rate Patient was started on IV Lasix by diesel crane operator who evaluated the patient Check proBNP was elevated 1920, which is mildly elevated Continue with IV Lasix Hold Bystolic for bradycardia for now Patient could benefit from hematology/oncology evaluation as an outpatient, I talked to the patient and to follow-up with Dr. Mancilla upon discharge and they are agreeable Continue with Zimmer catheter and Flomax Patient at some risk from alcohol withdrawal as he is a daily drinker Labs and medication were reviewed.. Continue same treatment. Continue with symptomatic treatment. Resume home medication. Monitor labs and vitals. DVT and GI prophylaxis. Further recommendations as per clinical course of the patient DVT prophylaxis: Subcutaneous heparin GI Prophylaxis: Pepcid PT/OT: Pending Prognosis is guarded
--- NOTE | 2023-11-30 12:40 | P.PN ---
Subjective HISTORY OF PRESENT ILLNESS: This is a 88-year-old male with a past medical history significant for congestive heart failure, hypertension and COPD. Patient follows in the office with Dr. Gillette. We have been asked to see the patient in consultation for bradycardia. Patient examined at the bedside the emergency room. Patient's family is present. Patient states yesterday he felt very tired. He reports not having much of an appetite and did not eat much yesterday. He states because of his symptoms he was concerned and wanted to make sure there was nothing seriously wrong so he came to the emergency room. The patient currently denies any chest pain or pressure. He denies any shortness of breath. Denies dizziness or lightheadedness. No episodes of syncope at home. Blood pressures are elevated with a systolic between [id number]. Patient is bradycardic with a heart rate in the 40s50s. He is prescribed Bystolic on an outpatient basis. The patient is also prescribed Lasix 40 mg daily on an outpatient basis. Patient states he has not been compliant with his Lasix and has only been taking it approximately every other day due to increased urination. DIAGNOSTICS: - EKG reveals sinus bradycardia with no signs of acute ischemia. - Chest xray moderate left pleural effusion - Laboratory data: WBC 2.9. Hemoglobin 9.6. Platelet count 103. Sodium 139. Potassium 4.5. BUN 23. Creatinine 0.73. Troponin negative x 1. proBNP 1920. - Current home cardiac medications include Jardiance 10 mg daily, Lasix 40 mg daily, Bystolic 5 mg daily, lisinopril 10 mg daily - Most recent echocardiogram obtained in October 2022 revealed ejection fraction 30 to 35%, mild to moderate MR, mild TR. - Cardiac catheterization history: March 2018 revealing normal coronary arteries 11/30/2023 Patient examined this morning at the bedside. Patient currently denies chest pain or pressure. He denies shortness of breath. He denies any dizziness or lightheadedness. He has been up ambulating to the bathroom. Patient's blood pressures remain elevated this morning with a systolic in the 180s. Overnight, the patient did have pauses up to 3 seconds due to dropped QRS complex after a p wave. PHYSICAL EXAM: VITAL SIGNS: Reviewed. GENERAL: Well-developed in no acute distress. HEENT: Head is normocephalic. Pupils are equal, round. Sclerae anicteric. Mucous membranes of the mouth are moist. Neck supple. No JVD or thyromegaly LUNGS: Respirations even and unlabored. Lungs essentially clear to auscultation bilaterally. HEART: Bradycardic. Regular rate and rhythm. S1 and S2 heard. ABDOMEN: Soft. Nondistended. Nontender. EXTREMITIES: Normal range of motion. No clubbing or cyanosis. Peripheral pulses intact. Trace bilateral lower extremity edema NEUROLOGIC: Awake and alert. Oriented x 3. ASSESSMENT: Generalized weakness and decreased appetite Asymptomatic sinus bradycardia Sinus pauses of 3 seconds due to dropped QRS overnight/ Second degree Type II heart block Atrial fibrillation, ruled out, EKG reveals sinus mechanism Moderate left pleural effusion Acute on chronic heart failure with reduced EF Normal coronary arteries, per cath 2019 Nonischemic cardiomyopathy, 3035% Hypertension History of COPD Medication noncompliance, patient not taking Lasix daily as prescribed PLAN: Bystolic was discontinued yesterday Discontinue IV Lasix. Begin oral Lasix 40 mg daily Increase lisinopril to 20 mg twice a day secondary to elevated blood pressures this morning Patient with sinus pauses overnight up to 3 seconds. Continue to monitor telemetry for an additional 24 hours to assess the need for possible pacemaker Further recommendations pending patient course Nurse practitioner note has been reviewed by physician. Signing provider agrees with the documented findings, assessment, and plan of care documented by MEAT STUFFER as a scribe. Objective - Vital Signs Vital signs: Vital Signs Temp 98 F 11/30/23 08:00 Pulse 62 11/30/23 08:00 Resp 18 11/30/23 08:00 BP 186/76 11/30/23 08:00 Pulse Ox 99 11/30/23 08:00 FiO2 Intake & Output 11/29/23 11/30/23 11/30/23 18:59 06:59 18:59 Intake Total 240 240 Balance 240 240 Weight 95.254 kg 91.7 kg Intake: Oral 240 240 Other: Voiding Method Toilet Toilet - Labs CBC & Chem 7: 11/28/23 21:47 11/30/23 06:18 Labs: Abnormal Lab Results - Last 24 Hours (Table) 11/30/23 Range/Units 06:18 Carbon Dioxide 31 H (22-30) mmol/L BUN 21 H (9-20) mg/dL Glucose 105 H (74-99) mg/dL
[2023-11-30] MEDS: amLODIPine 5 MG TAB PO SCH (12:55)
--- NOTE | 2023-11-30 15:02 | CA ---
Transthoracic Echo Report Name: Samy Gracia Age: 88 Gender: M : 1935 Exam Date: 11/29/2023 15:11 Exam Location: [facility] Ht (in): 72 Wt (lb): 210 Ordering Physician: Mona Ferrer Attending/Referring Phys: [id number], Nabil Lift Mechanic Angelica Yang RDCS Procedure CPT: Indications: LV function, bradycardia, weakness Cardiac Hx: Technical Quality: Fair Contrast 1: Definity Total Dose (mL): 2 Contrast 2: Total Dose (mL): MEASUREMENTS (Male / Female) Normal Values 2D ECHO LV Diastolic Diameter PLAX 6.2 cm 4.2 - 5.9 / 3.9 - 5.3 cm LV Systolic Diameter PLAX 5.0 cm IVS Diastolic Thickness 1.3 cm 0.6 - 1.0 / 0.6 - 0.9 cm LVPW Diastolic Thickness 0.7 cm 0.6 - 1.0 / 0.6 - 0.9 cm LV Relative Wall Thickness 0.3 RV Internal Dim ED PLAX 1.9 cm LVOT Diameter 1.8 cm LA Systolic Diameter LX 4.7 cm 3.0 - 4.0 / 2.7 - 3.8 cm LA Volume 145.7 cm??? 18 - 58 / 22 - 52 cm??? LA Volume Index 65.7 cm???/m??? 16 - 28 cm???/m??? M-MODE Aortic Root Diameter MM 3.2 cm LA Systolic Diameter MM 5.6 cm LA Ao Ratio MM 1.8 AV Cusp Separation MM 1.4 cm DOPPLER AV Peak Velocity 230.8 cm/s AV Peak Gradient 21.3 mmHg AV Mean Velocity 158.0 cm/s AV Mean Gradient 11.0 mmHg AV Velocity Time Integral 68.5 cm AI Peak Velocity 349.8 cm/s AI Peak Gradient 48.9 mmHg AI Pressure Half Time 635.6 ms LVOT Peak Velocity 94.3 cm/s LVOT Peak Gradient 3.6 mmHg LVOT Velocity Time Integral 27.9 cm LVOT Stroke Volume 74.9 cm??? LVOT Stroke Volume Index 34.4 ml/m??? LVOT Cardiac Index 1991.6 cm???/min???m??? AV Area Cont Eq vti 1.1 cm??? AV Area Cont Eq pk 1.1 cm??? MV Area PHT 5.2 cm??? Mitral E Point Velocity 128.1 cm/s Mitral A Point Velocity 132.6 cm/s Mitral E to A Ratio 1.0 MV Deceleration Time 147.2 ms TR Peak Velocity 286.1 cm/s TR Peak Gradient 32.7 mmHg FINDINGS Left Ventricle Left ventricular ejection fraction is estimated at 40-45%. Mildly increased septal wall thickness. Mildly increased left ventricular diastolic diameter. Mildly reduced global left ventricular systolic function. Right Ventricle Normal right ventricular size and function. Mild pulmonary hypertension. Right Atrium Severe right atrial dilatation. Left Atrium Moderately increased left atrial diameter. Severely increased left atrial volume. Moderately increased left atrial area. Mitral Valve No mitral stenosis. Mitral valve thickened. Moderate mitral regurgitation. Aortic Valve Trileaflet aortic valve. Mild aortic stenosis with a peak gradient of 21 mmHg and a mean gradient of 11mmHg. Mild aortic regurgitation. Tricuspid Valve Structurally normal tricuspid valve. No tricuspid stenosis. Moderate tricuspid regurgitation. Pulmonic Valve Structurally normal pulmonic valve. Trace pulmonic regurgitation. No pulmonic stenosis. Pericardium No pericardial or pleural effusion. Aorta Normal size aortic root and proximal ascending aorta. CONCLUSIONS Left ventricular ejection fraction 40-45% Mild increased left ventricular wall thickness Moderately dilated left atrium Mild aortic stenosis Mild aortic regurgitation Moderate tricuspid regurgitation Previewed by: Dr. Deuce Valdez DO (Electronically Signed) Final Date: 30 November 2023 15:01
[2023-11-30] MEDS: ALFUZOSIN HCL 10 MG PO SCH (16:03)
[2023-11-30] MEDS: polyethylene glycoL 3350 17 GM POWD.PACK PO PRN (22:10)
[2023-12-01 01:24] VITALS: RESP 18
--- NOTE | 2023-12-01 14:52 | P.PN ---
Subjective This is a pleasant 88 years old male with past medical history of COPD and chronic hypoxic respiratory failure. Presents because of nonspecific symptoms, he says he did not feel well and could not specify for how long. However patient denies any other specific symptoms. And when I ask him he denies any chest pain or dyspnea. He has occasional c oughing but nothing done and usual No abdominal pain vomiting or diarrhea on the other side he is constipated. Also he denies urinary complaints like change in frequency, urgency or dysuria He denies headache dizziness weakness or numbness On admission he has evidence of urinary retention and Zimmer catheter was inserted. Other than that patient now feels fine and hope he can be discharged and go home today. at bedside and she is agreeable with him. Patient is hemodynamically stable. His heart rate is on the low side it went down to 41 during the night, currently 52 but patient is asymptomatic He denies smoking or illicit drugs. However he states he drinks about 2 beers per day and sometimes he takes a drink 1 beer. His labs reviewed. He has WBC of 2.9, hemoglobin 9.6 and platelet count 103 BMP and liver enzymes INR and troponin were unremarkable Urine analysis were unremarkable Influenza A and type B, RSV, SARS (coronavirus) are and detected EKG showing A-fib with slow ventricular rate another EKG showing sinus bradycardia Chest x-ray is negative for acute process Echocardiogram from 10/2022 showing ejection fraction of 30 to 35% with mild to moderate mitral regurgitation 11/30/2023 Patient awake alert, he denies specific symptoms, he wants to go home. But he agrees to stay per employment specialist recommendation to monitor his heart rate at his was going up and down. Per employment specialist patient has no A-fib His blood pressure was elevated with systolic 1 80-200. Norvasc 5 mg is added to his regiment He is also on IV Lasix for his cardiomyopathy with low ejection fraction. Creatinine and electrolytes are stable Patient aware about his mild pancytopenia and he agrees to follow-up as an outpatient 11/30 Patient with no complaint today No chest pain or dyspnea. No headache. He was eager to go home today. I discussed the problems and management plan in details with him. All his questions were answered to his satisfaction His heart rate is still on the low side 45 this morning and 53 currently. His blood pressure still uncontrolled 179/79 despite increasing dose of lisinopril and Norvasc. TSH 3.9 EKG today showing sinus bradycardia at 51 with first-degree AV block with occasional supracondylar nuclear premature complex Objective - Vital Signs Vital signs: Vital Signs Temp 97.8 F 12/01/23 12:00 Pulse 53 L 12/01/23 12:00 Resp 18 12/01/23 12:00 BP 179/79 12/01/23 12:00 Pulse Ox 96 12/01/23 12:00 FiO2 Intake & Output 11/30/23 12/01/23 12/01/23 18:59 06:59 18:59 Intake Total 476 10 10 Balance 476 10 10 Weight 88.8 kg Intake: IV 10 10 0.9 10 Invasive Line 1 10 Oral 476 Other: Voiding Method Toilet Toilet Toilet Urinal Urinal # Voids 1 - Exam GENERAL: The patient is alert and oriented x3, not in any acute distress. Well developed, well nourished. HEENT: Pupils are round and equally reacting to light. EOMI. No scleral icterus. No conjunctival pallor. Normocephalic, atraumatic. No pharyngeal erythema. No thyromegaly. CARDIOVASCULAR: S1 and S2 present. No murmurs, rubs, or gallops. PULMONARY: Chest is clear to auscultation, no wheezing , no crackles. ABDOMEN: Soft, nontender, nondistended, normoactive bowel sounds. No palpable organomegaly. MUSCULOSKELETAL: No joint swelling or deformity. EXTREMITIES: No cyanosis, clubbing, or pedal edema. NEUROLOGICAL: Gross neurological examination did not reveal any focal deficits. SKIN: No rashes. no petechiae. - Labs CBC & Chem 7: 11/28/23 21:47 11/30/23 06:18 Assessment and Plan Assessment: Bradycardia, slow heart rate with periods of tachycardia, rule out sick sinus syndrome per employment specialist (as per employment specialist patient has no A-fib) Acute on chronic systolic CHF with ejection fraction 30 to 35%, with suspected or questionable acute exacerbation acute urinary retention status post Zimmer catheter COPD without acute exacerbation Chronic hypoxic respiratory failure on 3 L oxygen via nasal cannula Pancytopenia, mild, patient can follow-up outpatient Hyperlipidemia Hypertension BPH History of pulmonary embolism Alcohol use disorder Plan: Continue telemetry monitoring for heart rate Continue with oral Lasix by employment specialist who evaluated the patient Continue with Norvasc and lisinopril Discontinue Bystolic for bradycardia for now Patient could benefit from hematology/oncology evaluation as an outpatient, I talked to the patient and to follow-up with Dr. Mancilla upon discharge and they are agreeable Continue with Zimmer catheter and Flomax Patient at some risk from alcohol withdrawal as he is a daily drinker Labs and medication were reviewed.. Continue same treatment. Continue with symptomatic treatment. Resume home medication. Monitor labs and vitals. DVT and GI prophylaxis. Further recommendations as per clinical course of the patient DVT prophylaxis: Subcutaneous heparin GI Prophylaxis: Pepcid PT/OT: Pending Prognosis is guarded
[2023-12-01] MEDS: amLODIPine 5 MG TAB PO STA (15:44)
[2023-12-01] MEDS: bisacodyL 5 MG TABLET.DR PO PRN (17:33)
[2023-12-02] MEDS: amLODIPine 10 MG TAB PO SCH (08:34)
--- NOTE | 2023-12-02 10:58 | P.PN ---
Subjective Progress Note Date: 12/01/23 HISTORY OF PRESENT ILLNESS: This is a 88-year-old male with a past medical history significant for alexandra estive heart failure, hypertension and COPD. Patient follows in the office with Dr. Gillette. We have been asked to see the patient in consultation for bradycardia. Patient examined at the bedside the emergency room. Patient's family is present. Patient states yesterday he felt very tired. He reports not having much of an appetite and did not eat much yesterday. He states because of his symptoms he was concerned and wanted to make sure there was nothing seriously wrong so he came to the emergency room. The patient currently denies any chest pain or pressure. He denies any shortness of breath. Denies dizziness or lightheadedness. No episodes of syncope at home. Blood pressures are elevated with a systolic between [id number]. Patient is bradycardic with a heart rate in the 40s50s. He is prescribed Bystolic on an outpatient basis. The patient is also prescribed Lasix 40 mg daily on an outpatient basis. Patient states he has not been compliant with his Lasix and has only been taking it approximately every other day due to increased urination. DIAGNOSTICS: - EKG reveals sinus bradycardia with no signs of acute ischemia. - Chest xray moderate left pleural effusion - Laboratory data: WBC 2.9. Hemoglobin 9.6. Platelet count 103. Sodium 139. Potassium 4.5. BUN 23. Creatinine 0.73. Troponin negative x 1. proBNP 1920. - Current home cardiac medications include Jardiance 10 mg daily, Lasix 40 mg daily, Bystolic 5 mg daily, lisinopril 10 mg daily - Most recent echocardiogram obtained in October 2022 revealed ejection fraction 30 to 35%, mild to moderate MR, mild TR. - Cardiac catheterization history: March 2018 revealing normal coronary arteries 11/30/2023 Patient examined this morning at the bedside. Patient currently denies chest pain or pressure. He denies shortness of breath. He denies any dizziness or lightheadedness. He has been up ambulating to the bathroom. Patient's blood pressures remain elevated this morning with a systolic in the 180s. Overnight, the patient did have pauses up to 3 seconds due to dropped QRS complex after a p wave. 12/01/2023 Patient is seen and examined at bedside this a.m. I reviewed the telemetry and patient is not having any further pauses more than 3 seconds. There were couple of pauses of skipped QRS interval not more than 2 seconds. PHYSICAL EXAM: VITAL SIGNS: Reviewed. GENERAL: Well-developed in no acute distress. HEENT: Head is normocephalic. Pupils are equal, round. Sclerae anicteric. Mucous membranes of the mouth are moist. Neck supple. No JVD or thyromegaly LUNGS: Respirations even and unlabored. Lungs essentially clear to auscultation bilaterally. HEART: Bradycardic. Regular rate and rhythm. S1 and S2 heard. ABDOMEN: Soft. Nondistended. Nontender. EXTREMITIES: Normal range of motion. No clubbing or cyanosis. Peripheral pulses intact. Trace bilateral lower extremity edema NEUROLOGIC: Awake and alert. Oriented x 3. ASSESSMENT: Generalized weakness and decreased appetite Asymptomatic sinus bradycardia Sinus pauses of 3 seconds due to dropped QRS overnight/ Second degree Type II heart block Atrial fibrillation, ruled out, EKG reveals sinus mechanism Moderate left pleural effusion Acute on chronic heart failure with reduced EF Normal coronary arteries, per cath 2019 Nonischemic cardiomyopathy, 3035% Hypertension History of COPD Medication noncompliance, patient not taking Lasix daily as prescribed PLAN: Bystolic was discontinued. Do not resume on discharge Begin oral Lasix 40 mg daily Increase lisinopril to 20 mg twice a day secondary to elevated blood pressures. Amlodipine was increased to 10 mg by primary team. Recommended that patient should get 7 to 14 days event monitor to be [facility] on [facility]. I agree with the details instructions how to do so for him. Patient is otherwise cleared from cardiovascular standpoint to be discharged. I recommended him close outpatient follow-up with Dr. De Guzman. Call cardiology clinic or go to the ER if patient had syncopal episodes or passes out Objective - Vital Signs Vital signs: Vital Signs Temp 97.6 F 12/02/23 08:32 Pulse 41 L 12/02/23 08:32 Resp 18 12/02/23 08:32 BP 146/56 12/02/23 08:32 Pulse Ox 100 12/02/23 09:10 FiO2 Intake & Output 12/01/23 12/02/23 12/02/23 18:59 06:59 18:59 Intake Total 20 20 128 Balance 20 20 128 Weight 88.2 kg Intake: IV 20 20 10 Invasive Line 1 20 20 10 Oral 118 Other: Voiding Method Toilet Toilet Toilet Urinal Urinal Urinal - Labs CBC & Chem 7: 11/28/23 21:47 11/30/23 06:18
[2023-12-02 11:23] VITALS: BP 160/74; PULSE 49; TEMP 97.5
[2023-12-02 15:09] LABS: HCT 33.3 % (39.0-53.0); HGB 10.4 gm/dL (13.0-17.5); Hypochromasia Slight; MCH 32.1 pg (25.0-35.0); MCHC 31.3 g/dL (31.0-37.0); MCV 102.6 fL (80.0-100.0); Macrocytosis Slight; RBC 3.25 m/uL (4.30-5.90); RDW 14.7 % (11.5-15.5); WBC 5.6 k/uL (3.8-10.6)
[2023-12-02 15:18] LABS: African American GFR (CKD) 76 (>60 ml/min/1.73 sqM); Anion Gap 3 mmol/L; Blood Urea Nitrogen 24 mg/dL (9-20); Calcium 8.8 mg/dL (8.4-10.2); Carbon Dioxide 36 mmol/L (22-30); Chloride 97 mmol/L (98-107); Glucose 133 mg/dL (74-99); Non-African American GFR(CKD) 66 (>60 ml/min/1.73 sqM); Potassium 3.9 mmol/L (3.5-5.1); Sodium 136 mmol/L (137-145)
[2023-12-02 15:49] LABS: Platelet Count 165 k/uL (150-450)
--- NOTE | 2023-12-07 10:14 | P.DS ---
Providers Date of admission: 11/29/23 00:10 Attending physician: Amalia Hirsch Consults: 11/29/23 00:09 Consult Physician Routine Consulting Provider: Godwin Gillette Consult Reason/Comments: Bradycardia Do you want consulting provider notified?: Yes Primary care physician: Shar Yu Hospital Course: diagnoses Bradycardia, slow heart rate with periods of tachycardia, rule out sick sinus syndrome per marine steam fitter (as per marine steam fitter patient has no A-fib). Bystolic was discontinued and the bradycardia improved Acute on chronic systolic CHF with ejection fraction 30 to 35%, with suspected or questionable acute exacerbation acute urinary retention status post Zimmer catheter. Improved and Zimmer catheter discontinued Alcohol use disorder COPD without acute exacerbation Chronic hypoxic respiratory failure on 3 L oxygen via nasal cannula Pancytopenia, mild, patient can follow-up outpatient Hyperlipidemia Hypertension BPH History of pulmonary embolism Hospital course: This is a pleasant 88 years old male with past medical history of COPD and chronic hypoxic respiratory failure. Presents because of nonspecific symptoms, he says he did not feel well and could not specify for how long. However patient denies any other specific symptoms. Bystolic beta-idania was discontinued. Railroad Detective monitored the patient closely lisinopril dose was increased, oral Lasix was added. Also patient was started on Norvasc. Event Monitor is recommended for him by marine steam fitter, patient informed with this recommendation and he agrees to follow up with the cardiology office regarding this Other than that patient remains with no chest pain or dyspnea, no other new complaint. Patient was eager to be discharged home. He has evidence of urine retention and Zimmer catheter was inserted. And he was started on Flomax. Prior to discharge we discontinued Zimmer catheter and post was residual was show no urinary retention, however patient was referred to urologist as an outpatient upon discharge and he is agreeable patient was counseled extensively to quit drinking alcohol. Patient did not develop any symptoms of alcohol withdrawal while in the hospital. Patient was cleared for discharge by marine steam fitter problems and management plan were discussed with the patient and he verbalized understanding and acceptance Patient was found stable and can be discharged home in guarded prognosis however he needs follow-up as an outpatient. Patient was instructed to follow up with PCP Dr. Yu within one week and patient agrees patient was instructed to follow up with marine steam fitter Dr. Gillette in one week and urologist Dr. Ortiz in 1 to 2 weeks and he agrees to calll and make appointments Physical exam Gen: patient is a AAOx3, no distress CVS: S1-S2, RRR, no murmur Lungs: B/L CTA, no wheezing Abdomen: soft, no distention, no tenderness, positive bowel sounds Extremity: no leg edema or induration Time spent more than 35 minutes Patient Condition at Discharge: Stable Plan - Discharge Summary Discharge Rx Participant: No New Discharge Prescriptions: New Tamsulosin [Flomax] 0.4 mg PO PC-BRKFST #30 cap lisinopriL [Zestril] 20 mg PO BID #60 tab amLODIPine [Norvasc] 10 mg PO DAILY #30 tab Thiamine [Vitamin B-1] 100 mg PO DAILY #30 tab Continue Alfuzosin HCl [Uroxatral ER] 10 mg PO DAILY Finasteride [Proscar] 5 mg PO DAILY Travoprost [Travatan Z 0.004%] 1 drop BOTH EYES HS rOPINIRole HCL [Requip] 2 - 3 mg PO DAILY Empagliflozin [Jardiance] 10 mg PO DAILY #30 tablet Enzalutamide [Xtandi] 160 mg PO DAILY Dorzolamide-Timol 2.23%/0.68% [Cosopt] 1 drop RIGHT EYE BID Fluticasone/Umeclidin/Vilanter [Trelegy Ellipta 100-62.5-25] 1 puff INHALATION RT-DAILY Ergocalciferol (Vitamin D2) [Drisdol (50,000 Iu)] 1,250 mcg PO FR Furosemide [Lasix] 40 mg PO DAILY #30 tab Discontinued lisinopriL [Zestril] 10 mg PO DAILY 30 Days #30 tab Nebivolol [Bystolic] 5 mg PO DAILY Discharge Medication List Alfuzosin HCl [Uroxatral ER] 10 mg PO DAILY 09/09/15 [History] Finasteride [Proscar] 5 mg PO DAILY 09/09/15 [History] Travoprost [Travatan Z 0.004%] 1 drop BOTH EYES HS 09/10/15 [History] rOPINIRole HCL [Requip] 2 - 3 mg PO DAILY 04/20/20 [History] Empagliflozin [Jardiance] 10 mg PO DAILY #30 tablet 09/13/21 [Rx] Dorzolamide-Timol 2.23%/0.68% [Cosopt] 1 drop RIGHT EYE BID 10/29/22 [History] Enzalutamide [Xtandi] 160 mg PO DAILY 10/29/22 [History] Fluticasone/Umeclidin/Vilanter [Trelegy Ellipta 100-62.5-25] 1 puff INHALATION RT-DAILY 10/29/22 [History] Ergocalciferol (Vitamin D2) [Drisdol (50,000 Iu)] 1,250 mcg PO FR 11/29/23 [History] Furosemide [Lasix] 40 mg PO DAILY #30 tab 12/02/23 [Rx] Tamsulosin [Flomax] 0.4 mg PO PC-BRKFST #30 cap 12/02/23 [Rx] Thiamine [Vitamin B-1] 100 mg PO DAILY #30 tab 12/02/23 [Rx] amLODIPine [Norvasc] 10 mg PO DAILY #30 tab 12/02/23 [Rx] lisinopriL [Zestril] 20 mg PO BID #60 tab 12/02/23 [Rx] Follow up Appointment(s)/Referral(s): Shar Yu MD [Primary Care Provider] - 1-2 days Godwin Gillette MD [STAFF PHYSICIAN] - 1 Week (to poultry picker event monitor) Robert Bell MD [STAFF PHYSICIAN] - 1 Week (Urologist for urinary retention) Patient Instructions/Handouts: Bradycardia (DC) Activity/Diet/Wound Care/Special Instructions: Heart healthy diet Activity is restricted till you see your doctor we recommended that patient should get 7 to 14 days event monitor to be picked [facility] from the [facility] on Sunday. We recommend to follow-up with your doctor in 1 week to check your blood including your kidney function blood test You will need close outpatient follow-up with your heart Dr. Gillette. Call cardiology clinic or go to the ER if patient had syncopal episodes or passes out Discharge Disposition: HOME WITH HOME HEALTH SERVICES Care Plan Goals (MU): Please followup with Dr. Gillette for 14 day event monitor
== END 2023-12-02 19:06 | disposition home health service (06) ==
LOC: EC 21:03 → 3SCARD 11-29 00:10
PROVIDERS: ADMIT Hospitalist; ATTEND Hospitalist
DX: J96.11 Chronic respiratory failure with hypoxia (principal); R00.1 Bradycardia, unspecified; R00.0 Tachycardia, unspecified; R63.0 Anorexia; I50.23 Acute on chronic systolic (congestive) heart failure; I11.0 Hypertensive heart disease with heart failure; J44.9 Chronic obstructive pulmonary disease, unspecified; E78.5 Hyperlipidemia, unspecified; I42.8 Other cardiomyopathies; I34.0 Nonrheumatic mitral (valve) insufficiency; I44.0 Atrioventricular block, first degree; D61.818 Other pancytopenia; F40.240 Claustrophobia; F10.10 Alcohol abuse, uncomplicated; N40.1 Benign prostatic hyperplasia with lower urinary tract symptoms; R33.8 Other retention of urine; M19.90 Unspecified osteoarthritis, unspecified site; K59.00 Constipation, unspecified; T50.1X6A Underdosing of loop [high-ceiling] diuretics, initial encounter; Z91.148 Patient's other noncompliance with medication regimen for other reason; Z79.69 Long term (current) use of other immunomodulators and immunosuppressants; Z79.51 Long term (current) use of inhaled steroids; Z79.84 Long term (current) use of oral hypoglycemic drugs; Z79.82 Long term (current) use of aspirin; Z79.899 Other long term (current) drug therapy; Z88.1 Allergy status to other antibiotic agents; Z88.0 Allergy status to penicillin; Z88.8 Allergy status to other drugs, medicaments and biological substances; Z86.711 Personal history of pulmonary embolism; Z85.830 Personal history of malignant neoplasm of bone; Z85.46 Personal history of malignant neoplasm of prostate; Z87.891 Personal history of nicotine dependence; Z86.69 Personal history of other diseases of the nervous system and sense organs; Z96.1 Presence of intraocular lens; Z80.42 Family history of malignant neoplasm of prostate
CPT/HCPCS: 96376; 96374; 99285; 51798; 36415; 94640; 94760; 93005; 97161; 83880; 80053; 80048 ×2; 84443; 83605; 83735; 84484; 85025; 85027; 85610; 85730; 81003; 87636; 71046; G0378 ×4; C8929; S0138 ×3; J1940; Q9957; 93306

== ENCOUNTER 2023-12-19 10:04 | Day surgery (SDC) | payer MEDICARE ==
[~2023-12-19 10:04] MED LIST changes: -DEXAMETHASONE SOD PHOSPHATE 4 MG/ML 1 ML VIAL IV ONE; -HYDROmorphone 0.5 MG/0.5 ML SYRINGE IVP PRN; -LACTATED RINGERS 1,000 ML IV SCH; -ONDANSETRON 4 MG/2 ML VIAL IVP ONE; +ceFAZolin 1 GM in SODIUM CHLORIDE 0.9% IRRIG BTL 250 ML IRRIGATION PRN
[2023-12-19] MEDS: SODIUM CHLORIDE 0.9% 1,000 ML IV SCH ×2 (10:24)
[2023-12-19] MEDS: IV FLUID CONTINUATION 1,000 ML IV ONE (10:27)
[2023-12-19 10:38] LABS: Glucose,Whole Blood 105 mg/dL (70-110)
[2023-12-19 10:40] LABS: Basophils % (A) 1 %; Eosinophils # (A) 0.3 k/uL (0-0.7); Eosinophils % (A) 5 %; HCT 33.1 % (39.0-53.0); HGB 10.7 gm/dL (13.0-17.5); Lymphocytes # (A) 1.5 k/uL (1.0-4.8); Lymphocytes % (A) 25 %; MCH 31.9 pg (25.0-35.0); MCHC 32.2 g/dL (31.0-37.0); Mean Platelet Volume 8.3; Monocytes # (A) 0.3 k/uL (0-1.0); Monocytes % (A) 6 %; Neutrophils # (A) 3.6 k/uL (1.3-7.7); Neutrophils % (A) 61 %; Platelet Count 138 k/uL (150-450); RBC 3.34 m/uL (4.30-5.90); RDW 13.9 % (11.5-15.5); WBC 5.9 k/uL (3.8-10.6)
[2023-12-19] MEDS: ceFAZolin 1,000 MG VIAL IVPB ONE (10:50)
[2023-12-19 10:52] LABS: African American GFR (CKD) 86 (>60 ml/min/1.73 sqM); Anion Gap 6 mmol/L; Blood Urea Nitrogen 33 mg/dL (9-20); Calcium 9.4 mg/dL (8.4-10.2); Carbon Dioxide 29 mmol/L (22-30); Chloride 104 mmol/L (98-107); Glucose 112 mg/dL (74-99); Non-African American GFR(CKD) 74 (>60 ml/min/1.73 sqM); Potassium 4.4 mmol/L (3.5-5.1); Sodium 139 mmol/L (137-145)
[2023-12-19] MEDS: MIDAZOLAM 2 MG/2 ML VIAL IVP ONE ×2 (11:40→11:50)
[2023-12-19] MEDS: fentaNYL (PF) 50 MCG/ML 2 ML AMP IVP ONE ×3 (11:40→11:54)
[2023-12-19] MEDS: LIDOCAINE 1% INJ 10MG/ML (20 ML MDV) SQ ONE (11:51)
--- NOTE | 2023-12-19 13:14 | P.PCN ---
Description of Procedure: CARDIOLOGY PROCEDURE NOTE Gyn: Dr. Deuce Valdez Procedure performed: Insertion dual chamber permanent pacemaker Site: Left subclavian Indications: Sick Sinus Syndrome, symptomatic bradycardia with need for beta idania for cardiomyopathy Complications: None Blood Loss: Minimal Description of Procedure: After the risks, benefits, and alternatives of the above-mentioned procedure was explained in detail with the patient, informed consent was obtained. The patient was taken to the cardiac catheterization suite where the left subclavian area was sterily prepped and draped in the usual fashion. One percent lidocaine was used to anesthetize the left subclavian area. Twenty milliliters of Isoview 370 contrast was injected into the left antecubital vein to allow for direct visualization of the left subclavian vein under fluoroscopy. A 1.5 inch incision was made utilizing a #15 blade in the left subclavian site. Hemostasis was made complete. Electrocautery along with digital blunt dissection was utilized to dissect to the level of the pectoralis muscle fascia and create a pocket large enough to accommodate the generator. A thin walled micro puncuture needle was used to cannulate the left subclavian vein. A guide-wire was inserted through the needle into the vascular lumen under fluoroscopic guidance. The needle was removed. Another thin walled micr puncture needle was used to again cannulate the left subclavian vein. A guide-wire was inserted through the needle into the vascular lumen under fluoroscopic guidance. The needle was removed and both guide-wires were attached to the field. A venous sheath and dilator were advanced over the guidewire into the vascular lumen under fluoroscopic guidance. The dilator and guidewire were then removed. A right ventricular bipolar lead was inserted into the sheath and advanced under fluoroscopic guidance into the right ventricle under fluoroscopic guidance. Adequate sensing and pacing thresholds were achieved and the lead was screwed into place in the RV apex. The sheath was then torn away. The lead collar was advanced and anchored into place utilizing #0 silk suture. Next, another venous sheath and dilator were advanced under fluoroscopic guidance into the vascular lumen over the guidewire. After removal of the dilator and guidewire, a right atrial bipolar lead was inserted into this sheath and advanced under fluoroscopic guidance into the right atrium. The lead was positioned into the right atrial appendage. Adequate sensing and pacing t hresholds were then achieved and the lead was screwed into place. The sheath was then torn away. The lead collar was advanced and anchored into place utilizing #0 silk suture. The leads were then inserted into the appropriate position into the generator. They were then secured with the setscrew provided. The leads and generator were inserted into the pocket with the leads posterior. The subcutaneous tissue was approximated utilizing #2.0 and 3.0 vicryl in an interrupted stitch fashion. The dermal layer was approximated utilizing #4.0 vicryl. The area was cleansed with sterile saline and dried. A sterile 4x4 dressing was applied and the patient was transferred to the post catheterization holding area in stable and satisfactory condition. The patient tolerated the procedure well. Generator Data Wood Grainer: Amiato Brand: [id number] Ashlie XT DR MRI Model #: [id number] Serial#: [id number] Right Atrial Bipolar Lead Data: Type: Active fixation lead Wood Grainer: Amiato Model#: 5076-52 Serial Number: [id number] Right Ventricular Bipolar Lead Data: Type: Active fixation lead Wood Grainer: Medtronic Model #: 5076-58 Serial #: [id number] Stimulation Thresholds: Right atrial bipolar lead pacing and sensing thresholds Voltage: 1.375 Impedance: 475 ohms P-wave sensin.3 mV Right Ventricular bipolar lead pacing and sensing thresholds Pulse Width: 0.4ms Voltage: 0.75 volts Impedance: 684 ohms R-wave sensin.0 mV Parameter Setting: Pacing mode is DDD Lower rate 60 bpm Upper rate 120 bpm Impressions: 1. Successful implantation of a dual chamber permanent pacemaker in the left pectoral site. Plan: 1. Routine post procedure care will be instituted as well as outpatient follow- up surveillance.
--- NOTE | 2023-12-19 17:54 | XR ---
EXAMINATION TYPE: XR chest 1V portable DATE OF EXAM: 12/19/2023 5:44 PM COMPARISON: Chest radiographs from 11/28/2023. CLINICAL INDICATION: Male, 88 years old with history of Lead placement check; [facility] TECHNIQUE: XR chest 1V portable Frontal view of the chest. FINDINGS: Lungs/Pleura: There is flattening of the diaphragm with increased lucency of the lungs. No evidence o f pneumothorax, pleural effusion or focal consolidation. Pulmonary vascularity: Unremarkable. Heart/mediastinum: Cardiomediastinal silhouette is enlarged. Two lead cardiac conduction device overl soumya the left hemithorax with lead tips projecting over the right ventricle and right atrium. Musculoskeletal: No acute osseous pathology. Other findings: None IMPRESSION: 1. Cardiac conduction leads appear in appropriate position. 2. Mild cardiomegaly. 3. COPD. 4. No acute cardiopulmonary disease/process. [facility], , 12/19/2023 5:52 PM
[2023-12-19] MEDS: LATANOPROST 0.005% OPHTH DROPS 2.5 ML BTL BOTH EYES SCH (19:50)
[2023-12-19] MEDS: ALBUTEROL NEBULIZED 2.5 MG/3 ML INHALATION SCH (19:51)
[2023-12-19] MEDS: ACETAMINOPHEN TAB 325 MG TAB PO PRN (19:51)
[2023-12-19] MEDS: SYMBICORT 80-4.5 MCG INHALER INHALATION SCH (19:51)
[2023-12-19] MEDS: DORZOLAMIDE-TIMOLOL 2.23%/0.68 10ML BTL RIGHT EYE SCH (19:51)
[2023-12-19] MEDS ORDERED: ASPIRIN PO SCH (21:00)
--- NOTE | 2023-12-20 06:56 | P.DS ---
Providers Attending physician: Deuce Valdez DO Primary care physician: Shar Yu [place] [place] Hospital Course: Patient is a pleasant 88 yo male with history of mild cardiomyopathy who presented for elective pacemaker implant secondary to symptomatic bradycardia and pauses > 3 seconds. Patient underwent successful dual chamber PPM 12/19/23 without any complications and is stable for discharge on 12/19. Plan - Discharge Summary Discharge Rx Participant: Yes New Discharge Prescriptions: No Action Alfuzosin HCl [Uroxatral ER] 10 mg PO DAILY Finasteride [Proscar] 5 mg PO DAILY Travoprost [Travatan Z 0.004%] 1 drop BOTH EYES HS rOPINIRole HCL [Requip] 2 - 3 mg PO DAILY Empagliflozin [Jardiance] 10 mg PO DAILY #30 tablet Albuterol Inhaler [Ventolin Hfa Inhaler] 1 - 2 puff INHALATION Q6H PRN PRN Reason: Shortness Of Breath Aspirin 1 tab PO BID Enzalutamide [Xtandi] 160 mg PO DAILY Dorzolamide-Timol 2.23%/0.68% [Cosopt] 1 drop RIGHT EYE BID Fluticasone/Umeclidin/Vilanter [Trelegy Ellipta 100-62.5-25] 1 puff INHALATION RT-DAILY Ergocalciferol (Vitamin D2) [Drisdol (50,000 Iu)] 1,250 mcg PO FR amLODIPine [Norvasc] 10 mg PO DAILY #30 tab Thiamine [Vitamin B-1] 100 mg PO DAILY #30 tab Furosemide [Lasix] 40 mg PO DAILY #30 tab lisinopriL [Zestril] 20 mg PO DAILY Albuterol Nebulized (Conc) [Ventolin Nebulized (Conc)] 2.5 mg INHALATION TID Discharge Medication List Alfuzosin HCl [Uroxatral ER] 10 mg PO DAILY 09/09/15 [History] Finasteride [Proscar] 5 mg PO DAILY 09/09/15 [History] Travoprost [Travatan Z 0.004%] 1 drop BOTH EYES HS 09/10/15 [History] rOPINIRole HCL [Requip] 2 - 3 mg PO DAILY 04/20/20 [History] Empagliflozin [Jardiance] 10 mg PO DAILY #30 tablet 09/13/21 [Rx] Dorzolamide-Timol 2.23%/0.68% [Cosopt] 1 drop RIGHT EYE BID 10/29/22 [History] Enzalutamide [Xtandi] 160 mg PO DAILY 10/29/22 [History] Fluticasone/Umeclidin/Vilanter [Trelegy Ellipta 100-62.5-25] 1 puff INHALATION RT-DAILY 10/29/22 [History] Ergocalciferol (Vitamin D2) [Drisdol (50,000 Iu)] 1,250 mcg PO FR 11/29/23 [History] Furosemide [Lasix] 40 mg PO DAILY #30 tab 12/02/23 [Rx] Thiamine [Vitamin B-1] 100 mg PO DAILY #30 tab 12/02/23 [Rx] amLODIPine [Norvasc] 10 mg PO DAILY #30 tab 12/02/23 [Rx] Albuterol Inhaler [Ventolin Hfa Inhaler] 1 - 2 puff INHALATION Q6H PRN 12/18/23 [History] Albuterol Nebulized (Conc) [Ventolin Nebulized (Conc)] 2.5 mg INHALATION TID 12/18/23 [History] Aspirin 1 tab PO BID 12/18/23 [History] lisinopriL [Zestril] 20 mg PO DAILY 12/18/23 [History] Follow up Appointment(s)/Referral(s): Deuce Valdez DO [STAFF PHYSICIAN] - 12/26/23 4:00 pm (Appointment is at the [facility] located at Cardiology's Main Office on [address]- Followed by appointment with Dr. Gillette) Patient Instructions/Handouts: Moderate Sedation (DC), Pacemaker (DC)
[2023-12-20 07:17] VITALS: BP 132/70; PULSE 60; RESP 17; TEMP 98.2
[2023-12-20] MEDS: IPRATROPIUM 0.5 MG/2.5 ML NEBU INHALATION SCH (08:18)
[2023-12-20] MEDS: FUROSEMIDE 40 MG TAB PO SCH (09:10)
[2023-12-20] MEDS: lisinopriL 20 MG TAB PO SCH (09:12)
[2023-12-20] MEDS: DAPAGLIFLOZIN PROPANEDIOL 5 MG TABLET PO SCH (09:12)
[2023-12-20] MEDS: THIAMINE 100 MG TAB PO SCH (09:12)
[2023-12-20] MEDS: FINASTERIDE 5 MG TAB PO SCH (09:12)
[2023-12-20] MEDS: amLODIPine 10 MG TAB PO SCH (09:13)
[2023-12-20] MEDS: TAMSULOSIN 0.4 MG CAP.ER.24H PO SCH (09:13)
[2023-12-20] MEDS: NON FORMULARY DRUG (Enzalutamide [Xtandi] 40 MG Capsule) PO SCH (09:13)
[2023-12-21] MEDS ORDERED: ERGOCALCIFEROL 1,250 MCG (50,000 IU) CAPSULE PO SCH (09:00)
== END 2023-12-20 11:42 | disposition home or self-care (01) ==
LOC: CATHEP 10:04 → 6NMEDSUR 13:09 → CATHEP 12-20 11:42
PROVIDERS: ATTEND Internal Medicine
DX: I34.0 Nonrheumatic mitral (valve) insufficiency (principal); J44.9 Chronic obstructive pulmonary disease, unspecified; I50.22 Chronic systolic (congestive) heart failure; I11.0 Hypertensive heart disease with heart failure; Z88.0 Allergy status to penicillin; Z88.8 Allergy status to other drugs, medicaments and biological substances; Z88.1 Allergy status to other antibiotic agents; Z79.82 Long term (current) use of aspirin; Z79.02 Long term (current) use of antithrombotics/antiplatelets; Z79.899 Other long term (current) drug therapy
CPT/HCPCS: 33208; 80048; 85025; 71045; C1892; C1898 ×2; C1769; C1785; S0138; J2250; J0690 ×2; J2003; J3010

== ENCOUNTER 2023-12-27 00:34 | Inpatient (IN) | payer MEDICARE ==
--- NOTE | 2023-12-27 01:14 | ED ---
General Adult HPI - General Chief complaint: Shortness of Breath Stated complaint: SOB Time Seen by Provider: 12/27/23 00:40 Source: patient, EMS, RN notes reviewed, old records reviewed - History of Present Illness Initial comments: 88-year-old male presenting with increased dyspnea, patient is 1 week status post pacemaker. He states that he has had increased dyspnea over the past several days. He states that he was seen by his primary care provider today. Patient denies cough or chest pain. Denies fever. States he has chronic bilateral lower extremity swelling. - Related Data Home Medications Medication Instructions Recorded Confirmed Alfuzosin HCl [Uroxatral ER] 10 mg PO DAILY 09/09/15 12/18/23 Finasteride [Proscar] 5 mg PO DAILY 09/09/15 12/18/23 Travoprost [Travatan Z 0.004%] 1 drop BOTH EYES HS 09/10/15 12/18/23 rOPINIRole HCL [Requip] 2 - 3 mg PO DAILY 04/20/20 12/18/23 Dorzolamide-Timol 2.23%/0.68% 1 drop RIGHT EYE BID 10/29/22 12/19/23 [Cosopt] Enzalutamide [Xtandi] 160 mg PO DAILY 10/29/22 12/18/23 Fluticasone/Umeclidin/Vilanter 1 puff INHALATION RT-DAILY 10/29/22 12/19/23 [Trelegy Ellipta 100-62.5-25] Ergocalciferol (Vitamin D2) 1,250 mcg PO FR 11/29/23 12/18/23 [Drisdol (50,000 Iu)] Albuterol Inhaler [Ventolin Hfa 1 - 2 puff INHALATION Q6H PRN 12/18/23 12/18/23 Inhaler] Albuterol Nebulized (Conc) 2.5 mg INHALATION TID 12/18/23 12/18/23 [Ventolin Nebulized (Conc)] Aspirin 1 tab PO BID 12/18/23 12/18/23 lisinopriL [Zestril] 20 mg PO DAILY 12/18/23 12/18/23 Previous Rx's Medication Instructions Recorded Empagliflozin [Jardiance] 10 mg PO DAILY #30 tablet 09/13/21 Furosemide [Lasix] 40 mg PO DAILY #30 tab 12/02/23 Thiamine [Vitamin B-1] 100 mg PO DAILY #30 tab 12/02/23 amLODIPine [Norvasc] 10 mg PO DAILY #30 tab 12/02/23 Allergies Allergy/AdvReac Type Severity Reaction Status Date / Time amoxicillin trihydrate Allergy Unknown Verified 12/27/23 00:42 [From Augmentin] moxifloxacin HCl Allergy Nausea & Verified 12/27/23 00:42 [From Avelox] Vomiting potassium clavulanate Allergy Unknown Verified 12/27/23 00:42 [From Augmentin] Review of Systems ROS Statement: Those systems with pertinent positive or pertinent negative responses have been documented in the HPI. ROS Other: All systems not noted in ROS Statement are negative. 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 Past Anesthesia/Blood Transfusion Reactions: No Reported Reaction Additional Past Anesthesia/Blood Transfusion Reaction / Comment(s): Pt has claustrophobia. Past Psychological History: No Psychological Hx Reported Smoking Status: Former smoker Past Alcohol Use History: None Reported Past Drug Use History: None Reported - Past Family History Brother(s) Family Medical History: Cancer Additional Family Medical History / Comment(s): Prostate cancer. Father Family Medical History: Deep Vein Thrombosis (DVT) Additional Family Medical History / Comment(s): Father of dementia at the age of 79 yrs. Mother Family Medical History: No Reported History Additional Family Medical History / Comment(s): Mother was healthy and lived to be 86yrs old. General Exam General appearance: alert, in no apparent distress Head exam: Present: atraumatic, normocephalic Eye exam: Present: normal appearance, PERRL Respiratory exam: Present: decreased breath sounds (On the left). Absent: respiratory distress Cardiovascular Exam: Present: regular rate, normal rhythm GI/Abdominal exam: Present: soft. Absent: distended, tenderness Extremities exam: Present: pedal edema Neurological exam: Present: alert, oriented X3 Psychiatric exam: Present: normal affect, normal mood Skin exam: Present: warm, dry, pallor Course Vital Signs 12/27/23 12/27/23 12/27/23 00:34 01:00 01:05 Pulse Rate 67 60 Respiratory 17 25 H 26 H Rate Blood Pressure 116/88 103/86 O2 Sat by Pulse 99 100 Oximetry 12/27/23 12/27/23 12/27/23 01:15 01:30 01:45 Pulse Rate 60 60 61 Respiratory 19 19 28 H Rate Blood Pressure 85/49 92/68 80/46 O2 Sat by Pulse 99 99 100 Oximetry Medical Decision Making - Medical Decision Making Was pt. sent in by a medical professional or institution (, PA, PARK WORKER, urgent ca re, hospital, or care home...) When possible be specific @ -No Did you speak to anyone other than the patient for history (EMS, parent, family, police, friend...)? What history was obtained from this source @ -No Did you review nursing and triage notes (agree or disagree)? Why? @ -I reviewed and agree with nursing and triage notes Were old charts reviewed (outside hosp., previous admission, EMS record, old EKG, old radiological studies, urgent care reports/EKG's, care home records)? Report findings @ -No old charts were reviewed Differential Dyspnea: Coronary syndrome, arrhythmia, tamponade, asthma, COPD, pulmonary embolism, pneumonia, pneumothorax, pulmonary effusion, anaphylaxis, diabetic ketoacidosis, flailed chest, pulmonary contusion, diaphragmatic rupture, anemia, neuro muscular, this is not meant to be an all-inclusive list. EKG interpreted by me (3pts min.). @Paced rhythm rate of 73 QRS duration 169, QTc 511 X-rays interpreted by me (1pt min.). @Chest x-ray shows worsening left sided pleural effusion and pulmonary vascular congestion. CT interpreted by me (1pt min.). @ -None done U/S interpreted by me (1pt. min.). @ -None done What testing was considered but not performed or refused? (CT, X-rays, U/S, labs)? Why? @ -None What meds were considered but not given or refused? Why? @ -None Did you discuss the management of the patient with other professionals (professionals i.e. , PA, PARK WORKER, lab, RT, psych nurse, social contact worker, brownfield redevelopment site manager, teacher, chief business officer, briefcase sewer)? Give summary @ -EMH and cardiology Was smoking cessation discussed for >3mins.? @ -No Was critical care preformed (if so, how long)? @ -Yes, 35 minutes Were there social determinants of health that impacted care today? How? (Homelessness, low income, unemployed, alcoholism, drug addiction, transportation, low edu. Level, literacy, decrease access to med. care, [facility], rehab)? @ -No Was there de-escalation of care discussed even if they declined (Discuss DNR or withdrawal of care, Hospice)? DNR status @ -No What co-morbidities impacted this encounter? (DM, HTN, Smoking, COPD, CAD, Cancer, CVA, ARF, Chemo, Hep., AIDS, mental health diagnosis, sleep apnea, morbid obesity)? @ -[CHF, recent pacemaker, hypertension Was patient admitted / discharged? Hospital course, mention meds given and route, prescriptions, significant lab abnormalities, going to OR and other perti nent info. @ -88-year-old male presenting with increased dyspnea. Patient is moderately tachypneic on exam. He has decreased air entry on the left. X-ray does show CHF with left-sided pleural effusion and pulmonary vascular congestion. His BNP is elevated. His troponin is significantly elevated this may be secondary to recent pacemaker placement. He has no current chest pain. His hemoglobin is 8.3 which is slightly worse than baseline. He has an elevated BUN and creatinine. Patient's blood pressure is relatively low. I had a discussion with the patient about his goals of care and CODE STATUS. He states he is a DNR. He is agreeable with medication at this time including diuretics. His blood pressure medications will be held he will be admitted to internal medicine with cardiology on consultation. Undiagnosed new problem with uncertain prognosis? @ -[No Drug Therapy requiring intensive monitoring for toxicity (Heparin, Nitro, Insulin, Cardizem)? @ -No Were any procedures done? @ -No Diagnosis/symptom? @ -CHF, hypotension Acute, or Chronic, or Acute on Chronic? @ -[Acute Uncomplicated (without systemic symptoms) or Complicated (systemic symptoms)? @ -Complicated Side effects of treatment? @ -No Exacerbation, Progression, or Severe Exacerbation? @ -No Poses a threat to life or bodily function? How? (Chest pain, USA, SC, pneumonia, PE, COPD, DKA, ARF, appy, cholecystitis, CVA, Diverticulitis, Homicidal, Suicidal, threat to staff... and all critical care pts) @ -Yes, CHF, respiratory failure, cardiogenic shock - Lab Data Result diagrams: 12/27/23 00:35 12/27/23 00:35 Lab Results 12/27/23 12/27/23 12/27/23 Range/Units 00:35 00:35 00:35 WBC 6.3 (3.8-10.6) k/uL RBC 2.54 L (4.30-5.90) m/uL Hgb 8.3 L D (13.0-17.5) gm/dL Hct 25.2 L (39.0-53.0) % MCV 99.1 (80.0-100.0) fL MCH 32.6 (25.0-35.0) pg MCHC 32.9 (31.0-37.0) g/dL RDW 14.1 (11.5-15.5) % Plt Count 149 L (150-450) k/uL MPV 9.4 Neutrophils % 76 % Lymphocytes % 11 % Monocytes % 8 % Eosinophils % 3 % Basophils % 0 % Neutrophils # 4.8 (1.3-7.7) k/uL Lymphocytes # 0.7 L (1.0-4.8) k/uL Monocytes # 0.5 (0-1.0) k/uL Eosinophils # 0.2 (0-0.7) k/uL Basophils # 0.0 (0-0.2) k/uL PT 11.4 (10.0-12.5) sec INR 1.0 (<1.2) APTT 30.3 H (22.0-30.0) sec Sodium 135 L (137-145) mmol/L Potassium 4.5 (3.5-5.1) mmol/L Chloride 108 H (98-107) mmol/L Carbon Dioxide 18 L (22-30) mmol/L Anion Gap 9 mmol/L BUN 56 H (9-20) mg/dL Creatinine 1.75 H (0.66-1.25) mg/dL Est GFR (CKD-EPI)AfAm 40 (>60 ml/min/1.73 sqM) Est GFR (CKD-EPI)NonAf 35 (>60 ml/min/1.73 sqM) Glucose 143 H (74-99) mg/dL Calcium 8.1 L (8.4-10.2) mg/dL Magnesium 2.4 H (1.6-2.3) mg/dL Total Bilirubin 1.1 (0.2-1.3) mg/dL AST 26 (17-59) U/L ALT 12 (4-49) U/L Alkaline Phosphatase 100 (38-126) U/L Troponin I (0.000-0.034) ng/mL NT-Pro-B Natriuret Pep 2460 pg/mL Total Protein 5.5 L (6.3-8.2) g/dL Albumin 3.0 L (3.5-5.0) g/dL 12/27/23 Range/Units 00:35 WBC (3.8-10.6) k/uL RBC (4.30-5.90) m/uL Hgb (13.0-17.5) gm/dL Hct (39.0-53.0) % MCV (80.0-100.0) fL MCH (25.0-35.0) pg MCHC (31.0-37.0) g/dL RDW (11.5-15.5) % Plt Count (150-450) k/uL MPV Neutrophils % % Lymphocytes % % Monocytes % % Eosinophils % % Basophils % % Neutrophils # (1.3-7.7) k/uL Lymphocytes # (1.0-4.8) k/uL Monocytes # (0-1.0) k/uL Eosinophils # (0-0.7) k/uL Basophils # (0-0.2) k/uL PT (10.0-12.5) sec INR (<1.2) APTT (22.0-30.0) sec Sodium (137-145) mmol/L Potassium (3.5-5.1) mmol/L Chloride (98-107) mmol/L Carbon Dioxide (22-30) mmol/L Anion Gap mmol/L BUN (9-20) mg/dL Creatinine (0.66-1.25) mg/dL Est GFR (CKD-EPI)AfAm (>60 ml/min/1.73 sqM) Est GFR (CKD-EPI)NonAf (>60 ml/min/1.73 sqM) Glucose (74-99) mg/dL Calcium (8.4-10.2) mg/dL Magnesium (1.6-2.3) mg/dL Total Bilirubin (0.2-1.3) mg/dL AST (17-59) U/L ALT (4-49) U/L Alkaline Phosphatase (38-126) U/L Troponin I 4.150 H* (0.000-0.034) ng/mL NT-Pro-B Natriuret Pep pg/mL Total Protein (6.3-8.2) g/dL Albumin (3.5-5.0) g/dL Critical Care Time Critical Care Time: Yes Total Critical Care Time: 35 Disposition Clinical Impression: Elevated troponin I level, Congestive heart failure Disposition: ADMITTED IP TO THIS HOSP Condition: Serious Is patient prescribed a controlled substance at d/c from ED?: No Referrals: None,Stated [Primary Care Provider] - 1-2 days Time of Disposition: 03:05
[2023-12-27] MEDS: SODIUM CHLORIDE 0.9% 500 ML 500 ML IV ONE (01:48)
[2023-12-27 02:06] LABS: ALT 12 U/L (4-49); AST 26 U/L (17-59); African American GFR (CKD) 40 (>60 ml/min/1.73 sqM); Alkaline Phosphatase 100 U/L (38-126); Anion Gap 9 mmol/L; Blood Urea Nitrogen 56 mg/dL (9-20); Calcium 8.1 mg/dL (8.4-10.2); Carbon Dioxide 18 mmol/L (22-30); Chloride 108 mmol/L (98-107); Glucose 143 mg/dL (74-99); Magnesium 2.4 mg/dL (1.6-2.3); Non-African American GFR(CKD) 35 (>60 ml/min/1.73 sqM); Potassium 4.5 mmol/L (3.5-5.1); Sodium 135 mmol/L (137-145); Total Bilirubin 1.1 mg/dL (0.2-1.3); Total Protein 5.5 g/dL (6.3-8.2)
[2023-12-27 02:16] LABS: NT-Pro-B-Type Natriuretic Pept 2460 pg/mL
[2023-12-27] MEDS: FUROSEMIDE 10 MG/ML 2 ML VIAL IV STA (02:36)
--- NOTE | 2023-12-27 02:37 | XR ---
EXAM: XR Chest, 2 Views CLINICAL HISTORY: ITS.REASON XR Reason: difficulty breathing TECHNIQUE: Frontal and lateral views of the chest. COMPARISON: X-ray chest: 12/19/2023 FINDINGS: Patient chin obscures the left lung apex. Left subclavian dual-lead AICD/cardiac pacemaker present in place. Interval moderate left pleural effusion. Bilateral perihilar prominent peripheral pulmonary vascular markings/mild/moderate vascular congestion. No consolidation. A nonspecific nodular density is seen in the left lung apex along the inferior aspects of the patient's chin. No pneumothorax. There is a cardiomegaly. No obvious acute fracture.. IMPRESSION: Cardiomegaly and pulmonary vascular congestion/CHF. Recommend clinical correlation. A nonspecific nodular density is seen in the left lung apex along the inferior aspects of the patient's chin. Follow-up is advised. Moderate volume left pleural effusion. .
[2023-12-27 02:44] LABS: Basophils % (A) 0 %; Eosinophils # (A) 0.2 k/uL (0-0.7); Eosinophils % (A) 3 %; HCT 25.2 % (39.0-53.0); Lymphocytes # (A) 0.7 k/uL (1.0-4.8); Lymphocytes % (A) 11 %; MCH 32.6 pg (25.0-35.0); MCHC 32.9 g/dL (31.0-37.0); MCV 99.1 fL (80.0-100.0); Mean Platelet Volume 9.4; Monocytes # (A) 0.5 k/uL (0-1.0); Monocytes % (A) 8 %; Neutrophils # (A) 4.8 k/uL (1.3-7.7); Neutrophils % (A) 76 %; Platelet Count 149 k/uL (150-450); RBC 2.54 m/uL (4.30-5.90); RDW 14.1 % (11.5-15.5); WBC 6.3 k/uL (3.8-10.6)
[2023-12-27 02:46] LABS: HGB 8.3 gm/dL (13.0-17.5); Partial Thromboplastin Time 30.3 sec (22.0-30.0); Prothrombin Time 11.4 sec (10.0-12.5)
[2023-12-27] MEDS ORDERED: NALOXONE 0.4 MG/ML 1 ML VIAL IV PRN (02:49)
[2023-12-27] MEDS: IPRATROPIUM-ALBUTEROL 3 ML NEB INHALATION SCH (03:12)
[2023-12-27] MEDS: ALBUTEROL NEBULIZED 2.5 MG/3 ML INHALATION STA (03:12)
[2023-12-27] MEDS: IPRATROPIUM-ALBUTEROL 3 ML NEB INHALATION STA (03:12)
[2023-12-27] MEDS: FUROSEMIDE 10 MG/ML 2 ML VIAL IV SCH (09:06)
[2023-12-27] MEDS: ASPIRIN 81 MG PO SCH (09:07)
[2023-12-27] MEDS: PANTOPRAZOLE 40 MG/10 ML VIAL IVP SCH (09:07)
--- NOTE | 2023-12-27 10:05 | P.CRDCN ---
History of Present Illness History of present illness: HISTORY OF PRESENT ILLNESS: This is a 88-year-old male with a past medical history significant for recent pacemaker implantation, cardiomyopathy, congestive heart failure, diabetes, and COPD. Patient follows in the office with Dr. Gillette. We have been asked to see the patient in consultation for CHF, recent pacemaker, elevated troponin. Patient examined at the bedside in the emergency room. Patient underwent pacemaker implantation with Dr. Valdez on December 19, 2023. Patient states since having his pacemaker placed he has been having episodes of chest discomfort. He states that he has been getting sensations of pain poking through his chest and also having episodes of chest pressure. He reports that yesterday morning he began to have shortness of breath. Patient was found to be hypotensive with a systolic blood pressure in the 80s upon arrival. Patient was also found to be anemic with a hemoglobin of 8.3. Previous hemoglobin 10.7. Patient denies any bright red blood in his stools. He denies any black stools. He does report dark brown stools. Patient also found to have acute kidney injury with a creatinine of 1.75. Patient states he is a former cigarette sm oker and quit smoking 6 years ago. DIAGNOSTICS: - EKG reveals ventricular paced rhythm - Chest xray cardiomegaly and pulmonary vascular congestion. Nonspecific nodular density seen in the left lung apex along the inferior aspects of the patient's chin. Moderate volume left pleural effusion - Laboratory data: WBC 6.3. Hemoglobin 8.3. Sodium 135. Potassium 4.5. BUN 56. Creatinine 1.75. Magnesium 2.4. Troponin 4.150. 2.280. proBNP 2460. - Current home cardiac medications include lisinopril 20 mg daily, amlodipine 10 mg daily, Lasix 40 mg daily, Jardiance 10 mg daily, Eliquis 5 mg twice a day - Most recent echocardiogram obtained in November 2023 revealing ejection fraction 40-45%, mild pulmonary hypertension, mild aortic stenosis, mild aortic regurgitation, moderate tricuspid regurgitation - Cardiac catheterization history: 2019 which did not reveal significant CAD -Patient underwent Lexiscan stress test in May 2020 which was negative for ischemia REVIEW OF SYSTEMS: At the time of my exam: CONSTITUTIONAL: Denies fever or chills. HEENT: Denies blurred vision, vision changes, or eye pain. Denies hemoptysis CARDIOVASCULAR: Denies chest pain. Denies orthopnea. Denies PND. Denies palpitations RESPIRATORY: Denies shortness of breath. GASTROINTESTINAL: Denies abdominal pain. Denies nausea or vomiting. HEMATOLOGIC: Denies bleeding disorders. GENITOURINARY: Denies any blood in urine. SKIN: Denies pruitis. Denies rash. PHYSICAL EXAM: VITAL SIGNS: Reviewed. GENERAL: Well-developed in no acute distress. HEENT: Head is normocephalic. Pupils are equal, round. Sclerae anicteric. Mucous membranes of the mouth are moist. Neck supple. No JVD or thyromegaly LUNGS: Respirations even and unlabored. Lungs diminished bilaterally. HEART: Regular rate and rhythm. S1 and S2 heard. Distant heart sounds. ABDOMEN: Soft. Nondistended. Nontender. EXTREMITIES: Normal range of motion. No clubbing or cyanosis. Peripheral pulses intact. 1+ bilateral lower extremity edema. Legs are dry and scaly. NEUROLOGIC: Awake and alert. Oriented x 3. ASSESSMENT: Shortness of breath Acute on chronic heart failure with reduced EF, 40 to 45% Non-STEMI Acute anemia, etiology unclear Acute kidney injury Hypotension Recent dual-chamber pacemaker implantation, 12/19/2023, [employer] Nonischemic cardiomyopathy, 40-45% History of COPD History of diabetes History of PE, on Eliquis outpatient Former nicotine dependence, patient quit smoking 6 years ago PLAN: Obtain 2D echo to assess cardiac structure and function Interrogate pacemaker No IV heparin secondary to acute anemia. Hold Eliquis. Add aspirin 81 mg daily and atorvastatin 40 mg at night Continue IV Lasix 20 mg every 12 hours Daily weights, accurate intake and output, and monitoring of kidney function Hold nephrotoxic agents Hold antihypertensive medications due to hypotension this morning Further recommendations pending patient course Nurse practitioner note has been reviewed by physician. Signing provider agrees with the documented findings, assessment, and plan of care documented by CONNIE SCRATCHER as a scribe. 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 Past Anesthesia/Blood Transfusion Reactions: No Reported Reaction Additional Past Anesthesia/Blood Transfusion Reaction / Comment(s): Pt has claustrophobia. Past Psychological History: No Psychological Hx Reported Smoking Status: Former smoker Past Alcohol Use History: None Reported Past Drug Use History: None Reported - Past Family History Brother(s) Family Medical History: Cancer Additional Family Medical History / Comment(s): Prostate cancer. Father Family Medical History: Deep Vein Thrombosis (DVT) Additional Family Medical History / Comment(s): Father of dementia at the age of 79 yrs. Mother Family Medical History: No Reported History Additional Family Medical History / Comment(s): Mother was healthy and lived to be 86yrs old. Medications and Allergies Home Medications Medication Instructions Recorded Confirmed Type Alfuzosin HCl [Uroxatral ER] 10 mg PO DAILY 09/09/15 12/27/23 History Finasteride [Proscar] 5 mg PO DAILY 09/09/15 12/27/23 History Travoprost [Travatan Z 0.004%] 1 drop BOTH EYES HS 09/10/15 12/27/23 History rOPINIRole HCL [Requip] 2 mg PO TID PRN 04/20/20 12/27/23 History Empagliflozin [Jardiance] 10 mg PO DAILY #30 tablet 09/13/21 12/27/23 Rx Dorzolamide-Timol 2.23%/0.68% 1 drop RIGHT EYE BID 10/29/22 12/27/23 History [Cosopt] Enzalutamide [Xtandi] 160 mg PO DAILY 10/29/22 12/27/23 History Fluticasone/Umeclidin/Vilanter 1 puff INHALATION RT-DAILY 10/29/22 12/27/23 History [Trelegy Ellipta 100-62.5-25] Ergocalciferol (Vitamin D2) 1,250 mcg PO FR 11/29/23 12/27/23 History [Drisdol (50,000 Iu)] Furosemide [Lasix] 40 mg PO DAILY #30 tab 12/02/23 12/27/23 Rx Thiamine [Vitamin B-1] 100 mg PO DAILY #30 tab 12/02/23 12/27/23 Rx amLODIPine [Norvasc] 10 mg PO DAILY #30 tab 12/02/23 12/27/23 Rx Albuterol Inhaler [Ventolin Hfa 1 - 2 puff INHALATION RT-Q6H PRN 12/18/23 12/27/23 History Inhaler] lisinopriL [Zestril] 20 mg PO DAILY 12/18/23 12/27/23 History Albuterol Nebulized [Ventolin 2.5 mg INHALATION RT-TID PRN 12/27/23 12/27/23 History Nebulized] Apixaban [Eliquis] 5 mg PO DIRECTED 12/27/23 12/27/23 History Docusate [Colace] 100 mg PO DAILY 12/27/23 12/27/23 History Sennosides [Senokot] 17.2 mg PO DAILY PRN 12/27/23 12/27/23 History bisacodyL [Dulcolax] 10 mg RECTAL DAILY PRN 12/27/23 12/27/23 History Allergies Allergy/AdvReac Type Severity Reaction Status Date / Time amoxicillin trihydrate Allergy Unknown Verified 12/27/23 07:52 [From Augmentin] potassium clavulanate Allergy Unknown Verified 12/27/23 07:52 [From Augmentin] moxifloxacin HCl AdvReac Nausea & Verified 12/27/23 07:52 [From Avelox] Vomiting Physical Exam Vitals: Vital Signs Temp Pulse Resp BP Pulse Ox 12/27/23 07:17 60 25 H 83/64 100 12/27/23 06:24 97.3 F L 60 16 92/43 100 12/27/23 04:19 60 18 95/42 100 12/27/23 03:26 59 L 12/27/23 03:15 61 12/27/23 03:08 60 18 75/47 100 12/27/23 01:45 61 28 H 80/46 100 12/27/23 01:30 60 19 92/68 99 12/27/23 01:15 60 19 85/49 99 12/27/23 01:05 26 H 12/27/23 01:00 60 25 H 103/86 100 12/27/23 00:34 67 17 116/88 99 Intake and Output 12/26/23 12/27/23 12/27/23 22:59 06:59 14:59 Other: Weight 88.451 kg Results 12/27/23 00:35 12/27/23 00:35 Cardiac Enzymes 12/27/23 12/27/23 12/27/23 Range/Units 00:35 00:35 06:37 AST 26 (17-59) U/L Troponin I 4.150 H* 2.280 H* (0.000-0.034) ng/mL Coagulation 12/27/23 Range/Units 00:35 PT 11.4 (10.0-12.5) sec APTT 30.3 H (22.0-30.0) sec CBC 12/27/23 Range/Units 00:35 WBC 6.3 (3.8-10.6) k/uL RBC 2.54 L (4.30-5.90) m/uL Hgb 8.3 L D (13.0-17.5) gm/dL Hct 25.2 L (39.0-53.0) % Plt Count 149 L (150-450) k/uL Comprehensive Metabolic Panel 12/27/23 Range/Units 00:35 Sodium 135 L (137-145) mmol/L Potassium 4.5 (3.5-5.1) mmol/L Chloride 108 H (98-107) mmol/L Carbon Dioxide 18 L (22-30) mmol/L BUN 56 H (9-20) mg/dL Creatinine 1.75 H (0.66-1.25) mg/dL Glucose 143 H (74-99) mg/dL Calcium 8.1 L (8.4-10.2) mg/dL AST 26 (17-59) U/L ALT 12 (4-49) U/L Alkaline Phosphatase 100 (38-126) U/L Total Protein 5.5 L (6.3-8.2) g/dL Albumin 3.0 L (3.5-5.0) g/dL Current Medications Generic Name Dose Route Start Last Admin Trade Name Freq PRN Reason Stop Dose Admin Acetaminophen 650 mg 12/27/23 02:49 Acetaminophen Tab 325 Mg Tab PO Q6HR PRN Mild Pain or Fever > 100.5 Albuterol/Ipratropium 3 ml 12/27/23 04:00 12/27/23 03:12 Ipratropium-Albuterol 3 Ml Neb INHALATION Not Given RT-Q4H [id number] Furosemide 20 mg 12/27/23 09:00 Furosemide 10 Mg/Ml 2 Ml Vial IV Q12HR WILFREDO Naloxone HCl 0.2 mg 12/27/23 02:49 Naloxone 0.4 Mg/Ml 1 Ml Vial IV Q2M PRN Opioid Reversal Intake and Output 12/26/23 12/27/23 12/27/23 22:59 06:59 14:59 Other: Weight 88.451 kg 12/27/23 00:35 12/27/23 00:35
[2023-12-27] MEDS ORDERED: bisacodyL 10 MG SUPP RECTAL PRN (11:03)
[2023-12-27] MEDS ORDERED: ALBUTEROL NEBULIZED 2.5 MG/3 ML INHALATION PRN (11:03)
[2023-12-27] MEDS: ACETAMINOPHEN TAB 325 MG TAB PO PRN (11:07)
--- NOTE | 2023-12-27 15:17 | P.HPIM ---
History of Present Illness H&P Date: 12/27/23 History of present illness; patient is a 88-year-old gentleman with past medical history significant for cardiomyopathy, congestive heart failure, diabetes, recent pacemaker implantation and COPD who presented the ER because of worsening shortness of breath and chest discomfort. Patient has been complaining of chest discomfort which is central in location, nonradiating, no aggravating or relieving factor associated with chest discomfort. Over the last 2 days patient also started noticing shortness of breath which are present on rest as well as on exertion. There was no complaint of orthopnea or PND. There was no complaint of swelling of feet. Patient denies any fever or chills. There is no complaint of lightheadedness dizziness. Because of this chest discomfort and shortness of breath, patient came to the ER. Initial lab work done in the ER showed WBC 6.3, hemoglobin 8.3, platelet count 141, sodium 135, potassium 4.5, BUN 56, creatinine 1.75, troponin 4.150 glucose 143 magnesium 2.4 EKG done in the ER showed heart rate of 73, paced rhythm Chest x-ray done in the ER showed cardiomegaly and pulmonary vascular congestion Patient admitted to internal medicine service REVIEW OF SYSTEMS: CONSTITUTIONAL: No fever, no malaise, no fatigue. HEENT: No recent visual problems or hearing problems. Denied any sore throat. CARDIOVASCULAR: As mentioned above PULMONARY: As mentioned above GASTROINTESTINAL: No diarrhea, no nausea, no vomiting, no abdominal pain. NEUROLOGICAL: No headaches, no weakness, no numbness. HEMATOLOGICAL: Denies any bleeding or petechiae. GENITOURINARY: Denies any burning micturition, frequency, or urgency. MUSCULOSKELETAL/RHEUMATOLOGICAL: Denies any joint pain, swelling, or any muscle pain. ENDOCRINE: Denies any polyuria or polydipsia. The rest of the 14-point review of systems is negative. PHYSICAL EXAMINATION: GENERAL: The patient is alert and oriented x3, not in any acute distress. Ill looking HEENT: Pupils are round and equally reacting to light. EOMI. No scleral icterus. No conjunctival pallor. Normocephalic, atraumatic. No pharyngeal erythema. No thyromegaly. CARDIOVASCULAR: S1 and S2 present. No murmurs, rubs, or gallops. Left-sided pacemaker site seen PULMONARY: Diminished breath sound at the bases bilaterally ABDOMEN: Soft, nontender, nondistended, normoactive bowel sounds. No palpable organomegaly. MUSCULOSKELETAL: No joint swelling or deformity. EXTREMITIES: No cyanosis, clubbing, or pedal edema. NEUROLOGICAL: Gross neurological examination did not reveal any focal deficits. SKIN: No rashes. Assessment and plan NSTEMI Acute on chronic heart failure with reduced EF, 40 to 45% Acute anemia, etiology unclear Acute kidney injury Hypotension Recent dual-chamber pacemaker implantation, 12/19/2023, [employer] Nonischemic cardiomyopathy, 40-45% History of COPD History of diabetes History of PE, on [facility] outpatient Former nicotine dependence, patient quit smoking 6 years ago Monitor vital signs Monitor CBC Monitor CMP Continue telemetry monitoring Serial troponins Ordered strict I's and O's, daily weights Ordered IV Lasix 20 mg every 12 Ordered 2D echo Resume home med consult cardiology Labs and medication were reviewed.. Continue same treatment. Continue with symptomatic treatment. Resume home medication. Monitor labs and vitals. DVT and GI prophylaxis. Further recommendations as per clinical course of the patient Dictation was produced using [employer] dictation software. please excuse any grammatical, word or spelling errors. 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 Past Anesthesia/Blood Transfusion Reactions: No Reported Reaction Additional Past Anesthesia/Blood Transfusion Reaction / Comment(s): Pt has claustrophobia. Past Psychological History: No Psychological Hx Reported Smoking Status: Former smoker Past Alcohol Use History: None Reported Past Drug Use History: None Reported - Past Family History Brother(s) Family Medical History: Cancer Additional Family Medical History / Comment(s): Prostate cancer. Father Family Medical History: Deep Vein Thrombosis (DVT) Additional Family Medical History / Comment(s): Father of dementia at the age of 79 yrs. Mother Family Medical History: No Reported History Additional Family Medical History / Comment(s): Mother was healthy and lived to be 86yrs old. Medications and Allergies Home Medications Medication Instructions Recorded Confirmed Type Alfuzosin HCl [Uroxatral ER] 10 mg PO DAILY 09/09/15 12/27/23 History Finasteride [Proscar] 5 mg PO DAILY 09/09/15 12/27/23 History Travoprost [Travatan Z 0.004%] 1 drop BOTH EYES HS 09/10/15 12/27/23 History rOPINIRole HCL [Requip] 2 mg PO TID PRN 04/20/20 12/27/23 History Empagliflozin [Jardiance] 10 mg PO DAILY #30 tablet 09/13/21 12/27/23 Rx Dorzolamide-Timol 2.23%/0.68% 1 drop RIGHT EYE BID 10/29/22 12/27/23 History [Cosopt] Enzalutamide [Xtandi] 160 mg PO DAILY 10/29/22 12/27/23 History Fluticasone/Umeclidin/Vilanter 1 puff INHALATION RT-DAILY 10/29/22 12/27/23 History [Trelegy Ellipta 100-62.5-25] Ergocalciferol (Vitamin D2) 1,250 mcg PO FR 11/29/23 12/27/23 History [Drisdol (50,000 Iu)] Furosemide [Lasix] 40 mg PO DAILY #30 tab 12/02/23 12/27/23 Rx Thiamine [Vitamin B-1] 100 mg PO DAILY #30 tab 12/02/23 12/27/23 Rx amLODIPine [Norvasc] 10 mg PO DAILY #30 tab 12/02/23 12/27/23 Rx Albuterol Inhaler [Ventolin Hfa 1 - 2 puff INHALATION RT-Q6H PRN 12/18/23 12/27/23 History Inhaler] lisinopriL [Zestril] 20 mg PO DAILY 12/18/23 12/27/23 History Albuterol Nebulized [Ventolin 2.5 mg INHALATION RT-TID PRN 12/27/23 12/27/23 History Nebulized] Apixaban [Eliquis] 5 mg PO DIRECTED 12/27/23 12/27/23 History Docusate [Colace] 100 mg PO DAILY 12/27/23 12/27/23 History Sennosides [Senokot] 17.2 mg PO DAILY PRN 12/27/23 12/27/23 History bisacodyL [Dulcolax] 10 mg RECTAL DAILY PRN 12/27/23 12/27/23 History Allergies Allergy/AdvReac Type Severity Reaction Status Date / Time amoxicillin trihydrate Allergy Unknown Verified 12/27/23 07:52 [From Augmentin] potassium clavulanate Allergy Unknown Verified 12/27/23 07:52 [From Augmentin] moxifloxacin HCl AdvReac Nausea & Verified 12/27/23 07:52 [From Avelox] Vomiting Physical Exam Vitals: Vital Signs Temp Pulse Resp BP Pulse Ox 12/27/23 09:00 59 L 24 94/49 99 12/27/23 08:00 99 12/27/23 07:17 60 25 H 83/64 100 12/27/23 06:24 97.3 F L 60 16 92/43 100 12/27/23 04:19 60 18 95/42 100 12/27/23 03:26 59 L 12/27/23 03:15 61 12/27/23 03:08 60 18 75/47 100 12/27/23 01:45 61 28 H 80/46 100 12/27/23 01:30 60 19 92/68 99 12/27/23 01:15 60 19 85/49 99 12/27/23 01:05 26 H 12/27/23 01:00 60 25 H 103/86 100 12/27/23 00:34 67 17 116/88 99 Intake and Output 12/26/23 12/27/23 12/27/23 22:59 06:59 14:59 Other: Weight 88.451 kg Results CBC & Chem 7: 12/27/23 00:35 12/27/23 00:35 Labs: Abnormal Lab Results - Last 24 Hours (Table) 12/27/23 12/27/23 12/27/23 Range/Units 00:35 00:35 00:35 RBC 2.54 L (4.30-5.90) m/uL Hgb 8.3 L D (13.0-17.5) gm/dL Hct 25.2 L (39.0-53.0) % Plt Count 149 L (150-450) k/uL Lymphocytes # 0.7 L (1.0-4.8) k/uL APTT 30.3 H (22.0-30.0) sec Sodium 135 L (137-145) mmol/L Chloride 108 H (98-107) mmol/L Carbon Dioxide 18 L (22-30) mmol/L BUN 56 H (9-20) mg/dL Creatinine 1.75 H (0.66-1.25) mg/dL Glucose 143 H (74-99) mg/dL Calcium 8.1 L (8.4-10.2) mg/dL Magnesium 2.4 H (1.6-2.3) mg/dL Troponin I (0.000-0.034) ng/mL Total Protein 5.5 L (6.3-8.2) g/dL Albumin 3.0 L (3.5-5.0) g/dL 12/27/23 12/27/23 Range/Units 00:35 06:37 RBC (4.30-5.90) m/uL Hgb (13.0-17.5) gm/dL Hct (39.0-53.0) % Plt Count (150-450) k/uL Lymphocytes # (1.0-4.8) k/uL APTT (22.0-30.0) sec Sodium (137-145) mmol/L Chloride (98-107) mmol/L Carbon Dioxide (22-30) mmol/L BUN (9-20) mg/dL Creatinine (0.66-1.25) mg/dL Glucose (74-99) mg/dL Calcium (8.4-10.2) mg/dL Magnesium (1.6-2.3) mg/dL Troponin I 4.150 H* 2.280 H* (0.000-0.034) ng/mL Total Protein (6.3-8.2) g/dL Albumin (3.5-5.0) g/dL
[2023-12-27] MEDS: ATORVASTATIN 40 MG TAB PO SCH (19:42)
[2023-12-27] MEDS: DORZOLAMIDE-TIMOLOL 2.23%/0.68 10ML BTL RIGHT EYE SCH (19:42)
[2023-12-27] MEDS: LATANOPROST 0.005% OPHTH DROPS 2.5 ML BTL BOTH EYES SCH (19:42)
[2023-12-27] MEDS: IPRATROPIUM-ALBUTEROL 3 ML NEB INHALATION PRN (23:12)
[2023-12-28 06:41] LABS: Basophils % (A) 1 %; Eosinophils # (A) 0.2 k/uL (0-0.7); Eosinophils % (A) 5 %; HCT 25.6 % (39.0-53.0); HGB 8.3 gm/dL (13.0-17.5); Hypochromasia Slight; Lymphocytes # (A) 0.5 k/uL (1.0-4.8); Lymphocytes % (A) 11 %; MCHC 32.4 g/dL (31.0-37.0); MCV 101.9 fL (80.0-100.0); Macrocytosis Slight; Mean Platelet Volume 7.9; Monocytes # (A) 0.4 k/uL (0-1.0); Monocytes % (A) 8 %; Neutrophils # (A) 3.7 k/uL (1.3-7.7); Neutrophils % (A) 75 %; Platelet Count 141 k/uL (150-450); RBC 2.51 m/uL (4.30-5.90); RDW 13.8 % (11.5-15.5); WBC 4.9 k/uL (3.8-10.6)
[2023-12-28 07:49] LABS: African American GFR (CKD) 43 (>60 ml/min/1.73 sqM); Anion Gap 8 mmol/L; Blood Urea Nitrogen 58 mg/dL (9-20); Calcium 8.5 mg/dL (8.4-10.2); Carbon Dioxide 22 mmol/L (22-30); Chloride 105 mmol/L (98-107); Glucose 116 mg/dL (74-99); Non-African American GFR(CKD) 38 (>60 ml/min/1.73 sqM); Potassium 4.6 mmol/L (3.5-5.1); Sodium 135 mmol/L (137-145)
[2023-12-28] MEDS: SYMBICORT 80-4.5 MCG INHALER INHALATION SCH (09:38)
[2023-12-28] MEDS: IPRATROPIUM-ALBUTEROL 3 ML NEB INHALATION SCH (09:38)
[2023-12-28] MEDS: METOPROLOL TARTRATE 25 MG TAB PO SCH (09:50)
[2023-12-28] MEDS: THIAMINE 100 MG TAB PO SCH (09:50)
--- NOTE | 2023-12-28 11:14 | P.PN ---
Subjective HISTORY OF PRESENT ILLNESS: This is a 88-year-old male with a past medical history significant for recent pacemaker implantation, cardiomyopathy, congestive heart failure, diabetes, and COPD. Patient follows in the office with Dr. Gillette. We have been asked to see the patient in consultation for CHF, recent pacemaker, elevated troponin. Patient examined at the bedside in the emergency room. Patient underwent pacemaker implantation with Dr. Valdez on December 19, 2023. Patient states since having his pacemaker placed he has been having episodes of chest discomfort. He states that he has been getting sensations of pain poking through his chest and also having episodes of chest pressure. He reports that yesterday morning he began to have shortness of breath. Patient was found to be hypotensive with a systolic blood pressure in the 80s upon arrival. Patient was also found to be anemic with a hemoglobin of 8.3. Previous hemoglobin 10.7. Patient denies any bright red blood in his stools. He denies any black stools. He does report dark brown stools. Patient also found to have acute kidney injury with a creatinine of 1.75. Patient states he is a former cigarette smoker and quit smoking 6 years ago. DIAGNOSTICS: - EKG reveals ventricular paced rhythm - Chest xray cardiomegaly and pulmonary vascular congestion. Nonspecific nodular density seen in the left lung apex along the inferior aspects of the patient's chin. Moderate volume left pleural effusion - Laboratory data: WBC 6.3. Hemoglobin 8.3. Sodium 135. Potassium 4.5. BUN 56. Creatinine 1.75. Magnesium 2.4. Troponin 4.150. 2.280. proBNP 2460. - Current home cardiac medications include lisinopril 20 mg daily, amlodipine 10 mg daily, Lasix 40 mg daily, Jardiance 10 mg daily, Eliquis 5 mg twice a day - Most recent echocardiogram obtained in November 2023 revealing ejection fraction 40-45%, mild pulmonary hypertension, mild aortic stenosis, mild aortic regurgitation, moderate tricuspid regurgitation - Cardiac catheterization history: 2018 which did not reveal significant CAD -Patient underwent Lexiscan stress test in May 2020 which was negative for ischemia 12/28/2023 Patient examined this morning at the bedside. Patient states he is feeling better this morning. He denies any chest pain or pressure. He reports improvement in his shortness of breath. He remains on IV Lasix. Creatinine today 1.63. BUN 58. Patient's Eliquis remains on hold. Hemoglobin remains stable at 8.3. PHYSICAL EXAM: VITAL SIGNS: Reviewed. GENERAL: Well-developed in no acute distress. HEENT: Head is normocephalic. Pupils are equal, round. Sclerae anicteric. Mucous membranes of the mouth are moist. Neck supple. No JVD or thyromegaly LUNGS: Respirations even and unlabored. Lungs diminished bilaterally. HEART: Regular rate and rhythm. S1 and S2 heard. Distant heart sounds. ABDOMEN: Soft. Nondistended. Nontender. EXTREMITIES: Normal range of motion. No clubbing or cyanosis. Peripheral pulses intact. 1+ bilateral lower extremity edema. Legs are dry and scaly. NEUROLOGIC: Awake and alert. Oriented x 3. ASSESSMENT: Shortness of breath Acute on chronic heart failure with reduced EF, 40 to 45% Non-STEMI Acute anemia, etiology unclear Acute kidney injury Hypotension Recent dual-chamber pacemaker implantation, 12/19/2023, [employer] Nonischemic cardiomyopathy, 40-45% History of COPD History of diabetes History of PE, on Eliquis outpatient Former nicotine dependence, patient quit smoking 6 years ago PLAN: 2D echo remains pending. Await results. No IV heparin secondary to acute anemia. Hold Eliquis. Continue aspirin and atorvastatin Add metoprolol tartrate 25 mg twice a day Continue IV Lasix 20 mg every 12 hours. Anticipate transition to oral diuretics tomorrow Daily weights, accurate intake and output, and monitoring of kidney function Hold nephrotoxic agents Repeat CBC and BMP in a.m. Possible cardiac catheterization when acute kidney injury resolves Further recommendations pending patient course Nurse practitioner note has been reviewed by physician. Signing provider agrees with the documented findings, assessment, and plan of care documented by LOGISTICS COORDINATOR as a scribe. Objective - Vital Signs Vital signs: Vital Signs Temp 97.3 F L 12/28/23 09:49 Pulse 66 12/28/23 09:49 Resp 16 12/28/23 09:49 BP 139/66 12/28/23 09:49 Pulse Ox 98 12/28/23 09:49 FiO2 Intake & Output 12/27/23 12/28/23 12/28/23 18:59 06:59 18:59 Intake Total 190 Output Total 200 100 800 Balance -200 -100 -610 Weight 88.451 kg 88.6 kg Intake: IV 10 Invasive Line 1 10 Oral 180 Output: Urine 200 100 800 Other: Voiding Method External Catheter External Catheter # Voids 1 - Labs CBC & Chem 7: 12/28/23 05:18 12/28/23 05:50 Labs: Abnormal Lab Results - Last 24 Hours (Table) 12/27/23 12/28/23 12/28/23 Range/Units 14:33 05:18 05:50 RBC 2.51 L (4.30-5.90) m/uL Hgb 8.3 L (13.0-17.5) gm/dL Hct 25.6 L (39.0-53.0) % MCV 101.9 H (80.0-100.0) fL Plt Count 141 L (150-450) k/uL Lymphocytes # 0.5 L (1.0-4.8) k/uL Sodium 135 L (137-145) mmol/L BUN 58 H (9-20) mg/dL Creatinine 1.63 H (0.66-1.25) mg/dL Glucose 116 H (74-99) mg/dL Troponin I 1.470 H* (0.000-0.034) ng/mL
--- NOTE | 2023-12-28 12:24 | CA ---
Transthoracic Echo Report Name: Samy Gracia Age: 88 Gender: M : 1935 Exam Date: 12/28/2023 09:08 Exam Location: [facility] Ht (in): 72 Wt (lb): 195 Ordering Physician: Mona Ferrer Attending/Referring Phys: [id number], Nabil Union Carpenter Glory Amaya, KRISTIAN Procedure CPT: Indications: LV function, CP, SOB, NSTEMI Cardiac Hx: limited study, AICD Technical Quality: Technically difficult study Contrast 1: Definity Total Dose (mL): 2 Contrast 2: Total Dose (mL): MEASUREMENTS (Male / Female) Normal Values 2D ECHO LV Diastolic Volume MOD BP 51.4 cm??? 67 - 155 / 56 - 104 cm??? LV Systolic Volume MOD BP 23.8 cm??? 22 - 58 / 19 - 49 cm??? LV Ejection Fraction MOD BP 53.8 % >= 55 % LV Cardiac Index MOD BP 779.0 cm???/min???m??? LV Diastolic Volume MOD 4C 42.5 cm??? LV Systolic Volume MOD 4C 19.5 cm??? LV Ejection Fraction MOD 4C 54.2 % LV Cardiac Index MOD 4C 648.5 cm???/min???m??? LV Diastolic Length 4C 7.3 cm LV Systolic Length 4C 7.2 cm LV Diastolic Volume MOD 2C 60.5 cm??? LV Systolic Volume MOD 2C 29.3 cm??? LV Ejection Fraction MOD 2C 51.6 % LV Cardiac Index MOD 2C 878.8 cm???/min???m??? LV Diastolic Length 2C 7.6 cm LV Systolic Length 2C 7.3 cm DOPPLER AV Peak Velocity 156.0 cm/s AV Peak Gradient 9.7 mmHg TR Peak Velocity 295.5 cm/s TR Peak Gradient 34.9 mmHg Right Ventricular Systolic Press 44.9 mmHg FINDINGS Left Ventricle Mildly impaired LV function with EF between 45-50. No obvious regional wall motion abnormalities. Right Ventricle Right ventricle not well visualized. Moderate pulmonary hypertension. Right Atrium Right atrium not well visualized. Left Atrium Mitral Valve Structurally normal mitral valve. No mitral stenosis, regurgitation or prolapse. Aortic Valve Tricuspid Valve Mild tricuspid regurgitation. Pulmonic Valve Pericardium Small global pericardial effusion Aorta CONCLUSIONS Mildly impaired LV function with EF between 45 to 50% Small circumferential pericardial effusion Previewed by: Dr. Gopal Turner MD (Electronically Signed) Final Date: 28 December 2023 12:23
--- NOTE | 2023-12-28 13:07 | P.PN ---
Subjective Progress Note Date: 12/28/23 patient is a 88-year-old gentleman with past medical history significant for cardiomyopathy, congestive heart failure, diabetes, recent pacemaker implantation and COPD who presented the ER because of worsening shortness of breath and chest discomfort. Patient has been complaining of chest discomfort which is central in location, nonradiating, no aggravating or relieving factor associated with chest discomfort. Over the last 2 days patient also started noticing shortness of breath which are present on rest as well as on exertion. There was no complaint of orthopnea or PND. There was no complaint of swelling of feet. Patient denies any fever or chills. There is no complaint of lightheadedness dizziness. Because of this chest discomfort and shortness of breath, patient came to the ER. Initial lab work done in the ER showed WBC 6.3, hemoglobin 8.3, platelet count 141, sodium 135, potassium 4.5, BUN 56, creatinine 1.75, troponin 4.150 glucose 143 magnesium 2.4 EKG done in the ER showed heart rate of 73, paced rhythm Chest x-ray done in the ER showed cardiomegaly and pulmonary vascular congestion Patient admitted to internal medicine service 12/27. Patient seen and examined. Blood work done this morning showed sodium 135, potassium 4.6, BUN 58, creatinine 1.63. Anemia workup ordered. REVIEW OF SYSTEMS: CONSTITUTIONAL: No fever, no malaise,. CARDIOVASCULAR: No chest pain, no palpitations, no syncope. PULMONARY: Shortness of breath at rest. GASTROINTESTINAL: No diarrhea, no nausea, no vomiting, no abdominal pain. NEUROLOGICAL: No headaches, no weakness, PHYSICAL EXAMINATION: GENERAL: The patient is alert and oriented x3, not in any acute distress. Ill looking HEENT: Pupils are round and equally reacting to light. EOMI. No scleral icterus. No conjunctival pallor. Normocephalic, atraumatic. No pharyngeal erythema. No thyromegaly. CARDIOVASCULAR: S1 and S2 present. No murmurs, rubs, or gallops. PULMONARY: Diminished breath sounds at bases bilaterally, no wheezing or crackles. ABDOMEN: Soft, nontender, nondistended, normoactive bowel sounds. No palpable organomegaly. MUSCULOSKELETAL: No joint swelling or deformity. EXTREMITIES: No cyanosis, clubbing, or pedal edema. NEUROLOGICAL: Gross neurological examination did not reveal any focal deficits. SKIN: No rashes. Assessment and plan NSTEMI Acute on chronic heart failure with reduced EF, 40 to 45% Acute anemia, etiology unclear Acute kidney injury Hypotension Recent dual-chamber pacemaker implantation, 12/19/2023, [employer] Nonischemic cardiomyopathy, 40-45% History of COPD History of diabetes History of PE, on [facility] outpatient Former nicotine dependence, patient quit smoking 6 years ago Monitor vital signs Monitor CBC Monitor CMP Continue telemetry monitoring Strict I's and O's, daily weights and continue IV Lasix 20 mg every 12 Follow-up on 2D echo Ordered anemia workup Continue aspirin, Lipitor Cardiology following Labs and medication were reviewed.. Continue same treatment. Continue with symptomatic treatment. Resume home medication. Monitor labs and vitals. DVT and GI prophylaxis. Further recommendations as per clinical course of the patient Dictation was produced using [employer] dictation software. please excuse any grammatical, word or spelling errors. Objective - Vital Signs Vital signs: Vital Signs Temp 97.3 F L 12/28/23 09:49 Pulse 66 12/28/23 09:49 Resp 16 12/28/23 09:49 BP 139/66 12/28/23 09:49 Pulse Ox 98 12/28/23 09:49 FiO2 Intake & Output 12/27/23 12/28/23 12/28/23 18:59 06:59 18:59 Intake Total 190 Output Total 200 100 800 Balance -200 -100 -610 Weight 88.451 kg 88.6 kg Intake: IV 10 Invasive Line 1 10 Oral 180 Output: Urine 200 100 800 Other: Voiding Method External Catheter External Catheter # Voids 1 - Labs CBC & Chem 7: 12/28/23 05:18 12/28/23 05:50 Labs: Abnormal Lab Results - Last 24 Hours (Table) 12/27/23 12/28/23 12/28/23 Range/Units 14:33 05:18 05:50 RBC 2.51 L (4.30-5.90) m/uL Hgb 8.3 L (13.0-17.5) gm/dL Hct 25.6 L (39.0-53.0) % MCV 101.9 H (80.0-100.0) fL Plt Count 141 L (150-450) k/uL Lymphocytes # 0.5 L (1.0-4.8) k/uL Sodium 135 L (137-145) mmol/L BUN 58 H (9-20) mg/dL Creatinine 1.63 H (0.66-1.25) mg/dL Glucose 116 H (74-99) mg/dL Troponin I 1.470 H* (0.000-0.034) ng/mL
[2023-12-28 20:53] LABS: % Iron Saturation 8.81 (15.00-50.00)
[2023-12-29 08:14] LABS: Basophils % (A) 0 %; Eosinophils # (A) 0.3 k/uL (0-0.7); Eosinophils % (A) 5 %; HCT 28.3 % (39.0-53.0); Hypochromasia Slight; Lymphocytes # (A) 0.7 k/uL (1.0-4.8); Lymphocytes % (A) 12 %; MCH 32.4 pg (25.0-35.0); MCHC 31.8 g/dL (31.0-37.0); MCV 101.8 fL (80.0-100.0); Macrocytosis Slight; Mean Platelet Volume 7.8; Monocytes # (A) 0.3 k/uL (0-1.0); Monocytes % (A) 6 %; Neutrophils # (A) 4.1 k/uL (1.3-7.7); Neutrophils % (A) 75 %; Platelet Count 177 k/uL (150-450); RBC 2.78 m/uL (4.30-5.90); RDW 13.8 % (11.5-15.5); WBC 5.5 k/uL (3.8-10.6)
[2023-12-29 08:22] LABS: African American GFR (CKD) 68 (>60 ml/min/1.73 sqM); Anion Gap 6 mmol/L; Blood Urea Nitrogen 49 mg/dL (9-20); Calcium 8.7 mg/dL (8.4-10.2); Carbon Dioxide 28 mmol/L (22-30); Chloride 104 mmol/L (98-107); Glucose 103 mg/dL (74-99); Non-African American GFR(CKD) 59 (>60 ml/min/1.73 sqM); Potassium 4.6 mmol/L (3.5-5.1); Sodium 138 mmol/L (137-145)
[2023-12-29] MEDS: FINASTERIDE 5 MG TAB PO SCH (09:01)
--- NOTE | 2023-12-29 12:29 | P.PN ---
Subjective HISTORY OF PRESENT ILLNESS: This is a 88-year-old male with a past medical history significant for recent pacemaker implantation, cardiomyopathy, congestive heart failure, diabetes, and COPD. Patient follows in the office with Dr. Gillette. We have been asked to see the patient in consultation for CHF, recent pacemaker, elevated troponin. Patient examined at the bedside in the emergency room. Patient underwent pacemaker implantation with Dr. Valdez on December 19, 2023. Patient states since having his pacemaker placed he has been having episodes of chest discomfort. He states that he has been getting sensations of pain poking through his chest and also having episodes of chest pressure. He reports that yesterday morning he began to have shortness of breath. Patient was found to be hypotensive with a systolic blood pressure in the 80s upon arrival. Patient was also found to be anemic with a hemoglobin of 8.3. Previous hemoglobin 10.7. Patient denies any bright red blood in his stools. He denies any black stools. He does report dark brown stools. Patient also found to have acute kidney injury with a creatinine of 1.75. Patient states he is a former cigarette smoker and quit smoking 6 years ago. DIAGNOSTICS: - EKG reveals ventricular paced rhythm - Chest xray cardiomegaly and pulmonary vascular congestion. Nonspecific nodular density seen in the left lung apex along the inferior aspects of the patient's chin. Moderate volume left pleural effusion - Laboratory data: WBC 6.3. Hemoglobin 8.3. Sodium 135. Potassium 4.5. BUN 56. Creatinine 1.75. Magnesium 2.4. Troponin 4.150. 2.280. proBNP 2460. - Current home cardiac medications include lisinopril 20 mg daily, amlodipine 10 mg daily, Lasix 40 mg daily, Jardiance 10 mg daily, Eliquis 5 mg twice a day - Most recent echocardiogram obtained in November 2023 revealing ejection fraction 40-45%, mild pulmonary hypertension, mild aortic stenosis, mild aortic regurgitation, moderate tricuspid regurgitation - Cardiac catheterization history: 2018 which did not reveal significant CAD -Patient underwent Lexiscan stress test in May 2020 which was negative for ischemia 12/28/2023 Patient examined this morning at the bedside. Patient states he is feeling better this morning. He denies any chest pain or pressure. He reports improvement in his shortness of breath. He remains on IV Lasix. Creatinine today 1.63. BUN 58. Patient's Eliquis remains on hold. Hemoglobin remains stable at 8.3. 12/29/2023 Patient examined this morning the bedside. Patient currently denies any chest pain or pressure. He denies any shortness of breath. Creatinine today 1.13. Hemoglobin is stable at 9.0. Echocardiogram completed revealing ejection fraction 45 to 50% PHYSICAL EXAM: VITAL SIGNS: Reviewed. GENERAL: Well-developed in no acute distress. HEENT: Head is normocephalic. Pupils are equal, round. Sclerae anicteric. Mucous membranes of the mouth are moist. Neck supple. No JVD or thyromegaly LUNGS: Respirations even and unlabored. Lungs diminished bilaterally. HEART: Regular rate and rhythm. S1 and S2 heard. Distant heart sounds. ABDOMEN: Soft. Nondistended. Nontender. EXTREMITIES: Normal range of motion. No clubbing or cyanosis. Peripheral pulses intact. No bilateral lower extremity edema. Legs are dry and scaly. NEUROLOGIC: Awake and alert. Oriented x 3. ASSESSMENT: Shortness of breath Acute on chronic heart failure with mildly reduced EF, 45 to 50% Non-STEMI Acute anemia, etiology unclear Acute kidney injury Hypotension Recent dual-chamber pacemaker implantation, 12/19/2023, [employer] Nonischemic cardiomyopathy, 40-45%, now 45 to 50% History of COPD History of diabetes History of PE, on Eliquis outpatient Former nicotine dependence, patient quit smoking 6 years ago PLAN: Continue to hold Eliquis Continue aspirin, atorvastatin, and metoprolol Discontinue IV Lasix. Begin oral Lasix 20 mg daily starting tomorrow Repeat CBC and BMP in a.m. If kidney function remains stable tomorrow, likely resume low-dose lisinopril Possible cardiac catheterization to be performed Sunday by Dr. Gillette Further recommendations pending patient course Nurse practitioner note has been reviewed by physician. Signing provider agrees with the documented findings, assessment, and plan of care documented by GAME ENGINEER as a scribe. Objective - Vital Signs Vital signs: Vital Signs Temp 97.6 F 12/29/23 11:42 Pulse 65 12/29/23 11:42 Resp 16 12/29/23 11:42 BP 131/71 12/29/23 11:42 Pulse Ox 100 12/29/23 11:42 FiO2 Intake & Output 12/28/23 12/29/23 12/29/23 18:59 06:59 18:59 Intake Total 560 250 730 Output Total 1100 1050 725 Balance -540 -800 5 Weight 87.9 kg Intake: IV 20 10 Invasive Line 1 20 10 Oral 540 250 720 Output: Urine 1100 1050 725 Other: Voiding Method External Catheter External Catheter External Catheter # Voids 1 1 - Labs CBC & Chem 7: 12/29/23 07:36 12/29/23 07:36 Labs: Abnormal Lab Results - Last 24 Hours (Table) 12/28/23 12/29/23 12/29/23 Range/Units 13:12 07:36 07:36 RBC 2.78 L (4.30-5.90) m/uL Hgb 9.0 L (13.0-17.5) gm/dL Hct 28.3 L (39.0-53.0) % MCV 101.8 H (80.0-100.0) fL Lymphocytes # 0.7 L (1.0-4.8) k/uL BUN 49 H (9-20) mg/dL Glucose 103 H (74-99) mg/dL Iron 26 L (65-175) UG/DL % Saturation 8.81 L (15.00-50.00) Ferritin 387.0 H (22.0-322.0) ng/mL
--- NOTE | 2023-12-29 14:32 | P.PN ---
Subjective Progress Note Date: 12/29/23 patient is a 88-year-old gentleman with past medical history significant for cardiomyopathy, congestive heart failure, diabetes, recent pacemaker implantation and COPD who presented the ER because of worsening shortness of breath and chest discomfort. Patient has been complaining of chest discomfort which is central in location, nonradiating, no aggravating or relieving factor associated with chest discomfort. Over the last 2 days patient also started noticing shortness of breath which are present on rest as well as on exertion. There was no complaint of orthopnea or PND. There was no complaint of swelling of feet. Patient denies any fever or chills. There is no complaint of lightheadedness dizziness. Because of this chest discomfort and shortness of breath, patient came to the ER. Initial lab work done in the ER showed WBC 6.3, hemoglobin 8.3, platelet count 141, sodium 135, potassium 4.5, BUN 56, creatinine 1.75, troponin 4.150 glucose 143 magnesium 2.4 EKG done in the ER showed heart rate of 73, paced rhythm Chest x-ray done in the ER showed cardiomegaly and pulmonary vascular congestion Patient admitted to internal medicine service 12/27. Patient seen and examined. Blood work done this morning showed sodium 135, potassium 4.6, BUN 58, creatinine 1.63. Anemia workup ordered. 12/28. Patient seen and examined. Anemia workup suggestive of iron deficiency anemia, started Venofer. Cardiology switched IV Lasix to oral Lasix, possible cardiac cath on Sunday REVIEW OF SYSTEMS: CONSTITUTIONAL: No fever, no malaise,. CARDIOVASCULAR: No chest pain, no palpitations, no syncope. PULMONARY: Shortness of breath at rest. GASTROINTESTINAL: No diarrhea, no nausea, no vomiting, no abdominal pain. NEUROLOGICAL: No headaches, no weakness, PHYSICAL EXAMINATION: GENERAL: The patient is alert and oriented x3, not in any acute distress. Ill looking HEENT: Pupils are round and equally reacting to light. EOMI. No scleral icterus. No conjunctival pallor. Normocephalic, atraumatic. No pharyngeal erythema. No thyromegaly. CARDIOVASCULAR: S1 and S2 present. No murmurs, rubs, or gallops. PULMONARY: Diminished breath sounds at bases bilaterally, no wheezing or crackles. ABDOMEN: Soft, nontender, nondistended, normoactive bowel sounds. No palpable organomegaly. MUSCULOSKELETAL: No joint swelling or deformity. EXTREMITIES: No cyanosis, clubbing, or pedal edema. NEUROLOGICAL: Gross neurological examination did not reveal any focal deficits. SKIN: No rashes. Assessment and plan NSTEMI Acute on chronic heart failure with reduced EF, 40 to 45% Acute anemia, etiology unclear Acute kidney injury Hypotension Recent dual-chamber pacemaker implantation, 12/19/2023, [employer] Nonischemic cardiomyopathy, 40-45% History of COPD History of diabetes History of PE, on [facility] outpatient Former nicotine dependence, patient quit smoking 6 years ago Monitor vital signs Monitor CBC Monitor CMP Continue telemetry monitoring Strict I's and O's, daily weights, IV Lasix switched to oral Lasix Started IV Venofer Continue aspirin, Lipitor Cardiology following, planning cardiac cath on Sunday Labs and medication were reviewed.. Continue same treatment. Continue with symptomatic treatment. Resume home medication. Monitor labs and vitals. DVT and GI prophylaxis. Further recommendations as per clinical course of the patient Dictation was produced using [employer] dictation software. please excuse any grammatical, word or spelling errors. Objective - Vital Signs Vital signs: Vital Signs Temp 97.6 F 12/29/23 11:42 Pulse 65 12/29/23 11:42 Resp 16 12/29/23 11:42 BP 131/71 12/29/23 11:42 Pulse Ox 100 12/29/23 11:42 FiO2 Intake & Output 12/28/23 12/29/23 12/29/23 18:59 06:59 18:59 Intake Total 560 250 848 Output Total 1100 1050 725 Balance -540 -800 123 Weight 87.9 kg Intake: IV 20 10 Invasive Line 1 20 10 Oral 540 250 838 Output: Urine 1100 1050 725 Other: Voiding Method External Catheter External Catheter External Catheter # Voids 1 1 - Labs CBC & Chem 7: 12/29/23 07:36 12/29/23 07:36 Labs: Abnormal Lab Results - Last 24 Hours (Table) 12/28/23 12/29/23 12/29/23 Range/Units 13:12 07:36 07:36 RBC 2.78 L (4.30-5.90) m/uL Hgb 9.0 L (13.0-17.5) gm/dL Hct 28.3 L (39.0-53.0) % MCV 101.8 H (80.0-100.0) fL Lymphocytes # 0.7 L (1.0-4.8) k/uL BUN 49 H (9-20) mg/dL Glucose 103 H (74-99) mg/dL Iron 26 L (65-175) UG/DL % Saturation 8.81 L (15.00-50.00) Ferritin 387.0 H (22.0-322.0) ng/mL
[2023-12-29] MEDS: SODIUM FERRIC GLUCONAT-SUCROSE 125 MG in SODIUM CHLORIDE 0.9% 100 ML IVPB SCH (17:35)
[2023-12-30] MEDS ORDERED: ZINC OXIDE PASTE (Z-GUARD) 1 APPLIC TOPICAL PRN (06:52)
[2023-12-30 07:40] LABS: Basophils % (A) 1 %; Eosinophils # (A) 0.3 k/uL (0-0.7); Eosinophils % (A) 5 %; HCT 28.6 % (39.0-53.0); HGB 9.1 gm/dL (13.0-17.5); Lymphocytes # (A) 0.8 k/uL (1.0-4.8); Lymphocytes % (A) 16 %; MCH 31.9 pg (25.0-35.0); MCHC 31.7 g/dL (31.0-37.0); MCV 100.6 fL (80.0-100.0); Macrocytosis Slight; Mean Platelet Volume 7.8; Monocytes # (A) 0.4 k/uL (0-1.0); Monocytes % (A) 8 %; Neutrophils # (A) 3.4 k/uL (1.3-7.7); Neutrophils % (A) 68 %; Platelet Count 214 k/uL (150-450); RBC 2.85 m/uL (4.30-5.90); RDW 13.9 % (11.5-15.5)
[2023-12-30 07:55] LABS: African American GFR (CKD) 81 (>60 ml/min/1.73 sqM); Anion Gap 5 mmol/L; Blood Urea Nitrogen 39 mg/dL (9-20); Calcium 8.7 mg/dL (8.4-10.2); Carbon Dioxide 25 mmol/L (22-30); Chloride 106 mmol/L (98-107); Glucose 104 mg/dL (74-99); Non-African American GFR(CKD) 70 (>60 ml/min/1.73 sqM); Potassium 4.6 mmol/L (3.5-5.1); Sodium 136 mmol/L (137-145)
[2023-12-30] MEDS: bisacodyL 5 MG TABLET.DR PO PRN (09:08)
[2023-12-30] MEDS: SENNOSIDES 8.6 MG TAB PO PRN (09:08)
[2023-12-30] MEDS: FUROSEMIDE 20 MG TAB PO SCH (10:59)
[2023-12-30] MEDS ORDERED: ALPRAZolam 0.25 MG TAB PO PRN (12:54)
[2023-12-30] MEDS ORDERED: NITROGLYCERIN SL TABS 0.4 MG TAB SUBLINGUAL PRN (12:54)
--- NOTE | 2023-12-30 12:58 | P.PN ---
Subjective HISTORY OF PRESENT ILLNESS: This is a 88-year-old male with a past medical history significant for recent pacemaker implantation, cardiomyopathy, congestive heart failure, diabetes, and COPD. Patient follows in the office with Dr. Gillette. We have been asked to see the patient in consultation for CHF, recent pacemaker, elevated troponin. Patient examined at the bedside in the emergency room. Patient underwent pacemaker implantation with Dr. Valdez on December 19, 2023. Patient states since having his pacemaker placed he has been having episodes of chest discomfort. He states that he has been getting sensations of pain poking through his chest and also having episodes of chest pressure. He reports that yesterday morning he began to have shortness of breath. Patient was found to be hypotensive with a systolic blood pressure in the 80s upon arrival. Patient was also found to be anemic with a hemoglobin of 8.3. Previous hemoglobin 10.7. Patient denies any bright red blood in his stools. He denies any black stools. He does report dark brown stools. Patient also found to have acute kidney injury with a creatinine of 1.75. Patient states he is a former cigarette smoker and quit smoking 6 years ago. DIAGNOSTICS: - EKG reveals ventricular paced rhythm - Chest xray cardiomegaly and pulmonary vascular congestion. Nonspecific nodular density seen in the left lung apex along the inferior aspects of the patient's chin. Moderate volume left pleural effusion - Laboratory data: WBC 6.3. Hemoglobin 8.3. Sodium 135. Potassium 4.5. BUN 56. Creatinine 1.75. Magnesium 2.4. Troponin 4.150. 2.280. proBNP 2460. - Current home cardiac medications include lisinopril 20 mg daily, amlodipine 10 mg daily, Lasix 40 mg daily, Jardiance 10 mg daily, Eliquis 5 mg twice a day - Most recent echocardiogram obtained in November 2023 revealing ejection fraction 40-45%, mild pulmonary hypertension, mild aortic stenosis, mild aortic regurgitation, moderate tricuspid regurgitation - Cardiac catheterization history: 2018 which did not reveal significant CAD -Patient underwent Lexiscan stress test in May 2020 which was negative for ischemia 12/28/2023 Patient examined this morning at the bedside. Patient states he is feeling better this morning. He denies any chest pain or pressure. He reports improvement in his shortness of breath. He remains on IV Lasix. Creatinine today 1.63. BUN 58. Patient's Eliquis remains on hold. Hemoglobin remains stable at 8.3. 12/29/2023 Patient examined this morning the bedside. Patient currently denies any chest pain or pressure. He denies any shortness of breath. Creatinine today 1.13. Hemoglobin is stable at 9.0. Echocardiogram completed revealing ejection fraction 45 to 50% 12/30/2023 Patient examined this morning the bedside. Patient currently denies chest pain or pressure. He denies shortness of breath. Vital signs are stable. Blood pressure slightly on the lower side today. His Eliquis remains on hold. Kidney function stable at 0.98. Hemoglobin stable at 9.1. PHYSICAL EXAM: VITAL SIGNS: Reviewed. GENERAL: Well-developed in no acute distress. HEENT: Head is normocephalic. Pupils are equal, round. Sclerae anicteric. Mucous membranes of the mouth are moist. Neck supple. No JVD or thyromegaly LUNGS: Respirations even and unlabored. Lungs diminished bilaterally. HEART: Regular rate and rhythm. S1 and S2 heard. Distant heart sounds. ABDOMEN: Soft. Nondistended. Nontender. EXTREMITIES: Normal range of motion. No clubbing or cyanosis. Peripheral pulses intact. No bilateral lower extremity edema. Legs are dry and scaly. NEUROLOGIC: Awake and alert. Oriented x 3. ASSESSMENT: Shortness of breath Acute on chronic heart failure with mildly reduced EF, 45 to 50% Non-STEMI Acute anemia, etiology unclear Acute kidney injury Hypotension Recent dual-chamber pacemaker implantation, 12/19/2023, [employer] Nonischemic cardiomyopathy, 40-45%, now 45 to 50% History of COPD History of diabetes History of PE, on Eliquis outpatient Former nicotine dependence, patient quit smoking 6 years ago PLAN: Continue to hold Eliquis Continue aspirin, atorvastatin, and metoprolol Continue oral diuretics Repeat CBC and BMP in a.m. N.p.o. at midnight Patient to undergo cardiac catheterization tomorrow with Dr. Gillette Further recommendations pending patient course Nurse practitioner note has been reviewed by physician. Signing provider agrees with the documented findings, assessment, and plan of care documented by SOFT METALS ENGRAVER HAND as a scribe. Objective - Vital Signs Vital signs: Vital Signs Temp 97.6 F 12/30/23 11:37 Pulse 70 12/30/23 11:37 Resp 16 12/30/23 11:37 BP 130/63 11/17/24 11:37 Pulse Ox 99 12/30/23 11:37 FiO2 Intake & Output 12/29/23 12/30/23 12/30/23 18:59 06:59 18:59 Intake Total 1076 110 Output Total 725 250 300 Balance 351 -250 -190 Intake: IV 20 10 Invasive Line 1 20 10 Intake, IV Titration 100 100 Amount Sodium Ferric Gluconat- 100 100 Sucrose 125 mg In Sodium Chloride 0.9% 100 ml @ 100 mls/hr IVPB DAILY [facility] Rx#:[id number] Oral 956 Output: Urine 725 250 300 Other: Voiding Method External Catheter External Catheter External Catheter # Voids 1 1 - Labs CBC & Chem 7: 12/30/23 06:58 12/30/23 06:58 Labs: Abnormal Lab Results - Last 24 Hours (Table) 12/30/23 12/30/23 Range/Units 06:58 06:58 RBC 2.85 L (4.30-5.90) m/uL Hgb 9.1 L (13.0-17.5) gm/dL Hct 28.6 L (39.0-53.0) % MCV 100.6 H (80.0-100.0) fL Lymphocytes # 0.8 L (1.0-4.8) k/uL Sodium 136 L (137-145) mmol/L BUN 39 H (9-20) mg/dL Glucose 104 H (74-99) mg/dL
--- NOTE | 2023-12-30 13:34 | P.PN ---
Subjective Progress Note Date: 12/30/23 patient is a 88-year-old gentleman with past medical history significant for cardiomyopathy, congestive heart failure, diabetes, recent pacemaker implantation and COPD who presented the ER because of worsening shortness of breath and chest discomfort. Patient has been complaining of chest discomfort which is central in location, nonradiating, no aggravating or relieving factor associated with chest discomfort. Over the last 2 days patient also started noticing shortness of breath which are present on rest as well as on exertion. There was no complaint of orthopnea or PND. There was no complaint of swelling of feet. Patient denies any fever or chills. There is no complaint of lightheadedness dizziness. Because of this chest discomfort and shortness of breath, patient came to the ER. Initial lab work done in the ER showed WBC 6.3, hemoglobin 8.3, platelet count 141, sodium 135, potassium 4.5, BUN 56, creatinine 1.75, troponin 4.150 glucose 143 magnesium 2.4 EKG done in the ER showed heart rate of 73, paced rhythm Chest x-ray done in the ER showed cardiomegaly and pulmonary vascular congestion Patient admitted to internal medicine service 12/27. Patient seen and examined. Blood work done this morning showed sodium 135, potassium 4.6, BUN 58, creatinine 1.63. Anemia workup ordered. 12/28. Patient seen and examined. Anemia workup suggestive of iron deficiency anemia, started Venofer. Cardiology switched IV Lasix to oral Lasix, possible cardiac cath on Friday 12/29. Patient seen and examined. States he feels much better. Denies any chest pain. Patient being scheduled for cardiac cath tomorrow REVIEW OF SYSTEMS: CONSTITUTIONAL: No fever, no malaise,. CARDIOVASCULAR: No chest pain, no palpitations, no syncope. PULMONARY: Shortness of breath at rest. GASTROINTESTINAL: No diarrhea, no nausea, no vomiting, no abdominal pain. NEUROLOGICAL: No headaches, no weakness, PHYSICAL EXAMINATION: GENERAL: The patient is alert and oriented x3, not in any acute distress. Ill looking HEENT: Pupils are round and equally reacting to light. EOMI. No scleral icterus. No conjunctival pallor. Normocephalic, atraumatic. No pharyngeal erythema. No thyromegaly. CARDIOVASCULAR: S1 and S2 present. No murmurs, rubs, or gallops. PULMONARY: Diminished breath sounds at bases bilaterally, no wheezing or crackles. ABDOMEN: Soft, nontender, nondistended, normoactive bowel sounds. No palpable organomegaly. MUSCULOSKELETAL: No joint swelling or deformity. EXTREMITIES: No cyanosis, clubbing, or pedal edema. NEUROLOGICAL: Gross neurological examination did not reveal any focal deficits. SKIN: No rashes. Assessment and plan NSTEMI Acute on chronic heart failure with reduced EF, 40 to 45% Acute anemia, etiology unclear Acute kidney injury Hypotension Recent dual-chamber pacemaker implantation, 12/19/2023, [employer] Nonischemic cardiomyopathy, 40-45% History of COPD History of diabetes History of PE, on [facility] outpatient Former nicotine dependence, patient quit smoking 6 years ago Monitor vital signs Monitor CBC Monitor CMP Continue telemetry monitoring Strict I's and O's, daily weights, Lasix Continue IV Venofer Continue aspirin, Lipitor Cardiology following, planning cardiac cath on Sunday Labs and medication were reviewed.. Continue same treatment. Continue with symptomatic treatment. Resume home medication. Monitor labs and vitals. DVT and GI prophylaxis. Further recommendations as per clinical course of the patient Dictation was produced using [employer] dictation software. please excuse any grammatical, word or spelling errors. Objective - Vital Signs Vital signs: Vital Signs Temp 97.6 F 12/30/23 11:37 Pulse 70 12/30/23 11:37 Resp 16 12/30/23 11:37 BP 130/63 12/30/23 11:37 Pulse Ox 99 12/30/23 11:37 FiO2 Intake & Output 12/29/23 12/30/23 12/30/23 18:59 06:59 18:59 Intake Total 1076 110 Output Total 725 250 300 Balance 351 -250 -190 Intake: IV 20 10 Invasive Line 1 20 10 Intake, IV Titration 100 100 Amount Sodium Ferric Gluconat- 100 100 Sucrose 125 mg In Sodium Chloride 0.9% 100 ml @ 100 mls/hr IVPB DAILY [facility] Rx#:[id number] Oral 956 Output: Urine 725 250 300 Other: Voiding Method External Catheter External Catheter External Catheter # Voids 1 1 - Labs CBC & Chem 7: 12/30/23 06:58 12/30/23 06:58 Labs: Abnormal Lab Results - Last 24 Hours (Table) 11/17/24 11/17/24 Range/Units 06:58 06:58 RBC 2.85 L (4.30-5.90) m/uL Hgb 9.1 L (13.0-17.5) gm/dL Hct 28.6 L (39.0-53.0) % MCV 100.6 H (80.0-100.0) fL Lymphocytes # 0.8 L (1.0-4.8) k/uL Sodium 136 L (137-145) mmol/L BUN 39 H (9-20) mg/dL Glucose 104 H (74-99) mg/dL
[2023-12-30] MEDS: ALPRAZolam 0.5 MG TAB PO PRN (20:29)
[2023-12-31] MEDS: SODIUM CHLORIDE 0.9% 1,000 ML in EMPTY BAG 1 BAG IV SCH ×2 (02:13→09:28)
[2023-12-31] MEDS: ATORVASTATIN 80 MG TAB PO ONE (06:12)
[2023-12-31] MEDS: ASPIRIN 325 MG TAB PO ONE (06:12)
[2023-12-31] MEDS: fentaNYL (PF) 50 MCG/1 ML VIAL IVP ONE (07:41)
[2023-12-31] MEDS: MIDAZOLAM 2 MG/2 ML VIAL IVP ONE (07:41)
[2023-12-31] MEDS: LIDOCAINE 1% INJ 10MG/ML (20 ML MDV) SQ ONE (07:42)
[2023-12-31] MEDS: VERAPAMIL SYRINGE (5 MG/10 ML) INTRAARTER ONE (07:45)
[2023-12-31] MEDS: HEPARIN SODIUM 1,000 UN/ML (10ML VL) IV ONE (07:49)
[2023-12-31] MEDS: HEPARIN SODIUM,PORCINE 10,000 UNIT in SODIUM CHLORIDE 0.9% 1,000 ML IRRIGATION PRN (07:49)
[2023-12-31] MEDS: IV FLUID CONTINUATION 1,000 ML IV ONE (07:49)
[2023-12-31] MEDS: HEPARIN SODIUM,PORCINE (1 ML) 2,500 UNIT in SODIUM CHLORIDE 0.9% 250 ML IRRIGATION PRN (07:50)
[2023-12-31] MEDS: PHENYLEPHRINE-0.9% NACL SYG 1,000 MCG/10 ML SYRINGE IVP ONE (08:03)
[2023-12-31] MEDS: TICAGRELOR 90 MG TAB PO ONE (08:15)
[2023-12-31] MEDS: IOPAMIDOL-370 100ML BTL INJ ONE ×2 (08:29→08:53)
[2023-12-31] MEDS: NITROGLYCERIN 1000MCG/10ML SYRINGE INTRACORON ONE (08:38)
[2023-12-31] MEDS ORDERED: ATROPINE SULFATE 0.1 MG/ML 10ML SYRINGE IV PRN (08:43)
[2023-12-31] MEDS ORDERED: ZOLPIDEM 5 MG TAB PO PRN (08:43)
[2023-12-31] MEDS ORDERED: MAG HYDROX/AL HYDROX/SIMETH 30 ML CUP PO PRN (08:43)
[2023-12-31] MEDS ORDERED: NITROGLYCERIN SL TABS 0.4 MG TAB SUBLINGUAL PRN (08:43)
[2023-12-31] MEDS ORDERED: RX INFO: IV CONTRAST WAS GIVEN 1 EACH MISC MISCELLANE PRN (08:43)
--- NOTE | 2023-12-31 08:46 | P.PCN ---
Date of Procedure: 12/31/23 Operative Findings: PERCUTANEOUS CORONARY INTERVENTION Performing physician Gopal Turner M.D. Procedure Performed: 1. Successful stenting of the mid LAD using 3.0 x 28 mm Xience drug-eluting stent with an excellent angiographic results. 2. Adjunctive use of IVUS Indication: Acute non-ST elevation myocardial infarction Approach: Right radial art Complications: None Level of Sedation: Moderate with a sedation length of 32 minutes Procedure Discussion: After diagnostic heart catheterization was performed and the patient was found to have severe lesion involving the mid LAD which appeared to be hazy we decided to pursue with an intervention anticoagulation was initiated using heparin with continuous ACT monitoring. Subsequently I did engage the left main using JL 3.5 guiding catheter. Attempting wiring the LAD was favoring the LCx because the left main was short. I left the first wire in the left circumflex and subsequently I was able to wire the LAD and advanced the wire to the distal LAD. I did intravascular ultrasound IVUS and that showed a calcified lesion but not very heavily calcified with a diameter around 3 mm. Predilatation was performed using 3 mm NC balloon before I deployed 3.0 x 28 mm stent where the stent was positioned under fluoroscopy guidance and deployed under fluoroscopy guidance and postdilated using 3 mm NC balloon. After that I did angiogram and IVUS and that showed that the stent was well opposed. The procedure was completed with no complication Postprocedure Management: 1. Dual antiplatelet therapy using aspirin and Treanda for at least 12-month 2. Aggressive cholesterol control 3. Risk factors modification
[2023-12-31] MEDS: TICAGRELOR 90 MG TAB PO SCH (09:28)
--- NOTE | 2023-12-31 10:45 | CC ---
CARDIAC CATHETERIZATION REPORT INDICATION: [id number] elevation CO. This is an 88-year-old gentleman with history of bradycardia, status post recent permanent pacemaker, who presented to hospital with chest pain and ruled in for myocardial infarction. I was asked by my associate Dr. Townsend, who had evaluated the patient, to perform the cardiac catheterization. The patient was explained of risks, benefits, and alternatives. PROCEDURE NOTE: After obtaining informed consent, left heart catheterization and coronary angiogram were performed via the right radial artery using standard Sarina catheters. The patient tolerated the procedure well. He became somewhat hypotensive with the following sedation. We have given him fluids and if necessary, we will give him pressors. Right radial artery access was obtained using Seldinger technique, a 6-Nigerian sheath was placed. Catheters and wires were floated into the ascending aorta under fluoroscopic guidance. The patient received verapamil and heparin per protocol. FINDINGS: 1. Hemodynamics: Left ventricular end-diastolic pressure is 14 mmHg. There is no significant gradient across the aortic valve. 2. Left ventriculogram: Left ventriculogram is not performed. 3. Angiographic Data: a.Right coronary artery: Right coronary artery is a nondominant vessel and is free of significant stenosis. b.Left main coronary artery is a short vessel and is free of disease, divides into left anterior descending coronary artery and circumflex coronary artery. c.Circumflex coronary artery and its branches are free of significant stenosis. d.LAD shows an area of stenosis involving proximal LAD with what appears like an area of plaque rupture with 60% to 70% stenosis. CONCLUSIONS: 60% to 70% stenosis involving the LAD. PLAN: I am going to have Dr. Valdez, the on-call flask cleaner, review the angiographic data and advise on revascularization of the LAD. MMODL / IJN: [id number] /
[2023-12-31] MEDS: FUROSEMIDE 10 MG/ML 10 ML VIAL IV SCH (12:24)
--- NOTE | 2023-12-31 12:39 | P.PN ---
Subjective Progress Note Date: 12/31/23 patient is a 88-year-old gentleman with past medical history significant for cardiomyopathy, congestive heart failure, diabetes, recent pacemaker implantation and COPD who presented the ER because of worsening shortness of breath and chest discomfort. Patient has been complaining of chest discomfort which is central in location, nonradiating, no aggravating or relieving factor associated with chest discomfort. Over the last 2 days patient also started noticing shortness of breath which are present on rest as well as on exertion. There was no complaint of orthopnea or PND. There was no complaint of swelling of feet. Patient denies any fever or chills. There is no complaint of lightheadedness dizziness. Because of this chest discomfort and shortness of breath, patient came to the ER. Initial lab work done in the ER showed WBC 6.3, hemoglobin 8.3, platelet count 141, sodium 135, potassium 4.5, BUN 56, creatinine 1.75, troponin 4.150 glucose 143 magnesium 2.4 EKG done in the ER showed heart rate of 73, paced rhythm Chest x-ray done in the ER showed cardiomegaly and pulmonary vascular congestion Patient admitted to internal medicine service 12/27. Patient seen and examined. Blood work done this morning showed sodium 135, potassium 4.6, BUN 58, creatinine 1.63. Anemia workup ordered. 12/28. Patient seen and examined. Anemia workup suggestive of iron deficiency anemia, started Venofer. Cardiology switched IV Lasix to oral Lasix, possible cardiac cath on Friday 12/29. Patient seen and examined. States he feels much better. Denies any chest pain. Patient being scheduled for cardiac cath tomorrow 12/30. Patient seen examined. Patient underwent cardiac cath with successful stenting of the mid LAD. Currently on dual antiplatelet therapy REVIEW OF SYSTEMS: CONSTITUTIONAL: No fever, no malaise,. CARDIOVASCULAR: No chest pain, no palpitations, no syncope. PULMONARY: Shortness of breath at rest. GASTROINTESTINAL: No diarrhea, no nausea, no vomiting, no abdominal pain. NEUROLOGICAL: No headaches, no weakness, PHYSICAL EXAMINATION: GENERAL: The patient is alert and oriented x3, not in any acute distress. Ill looking HEENT: Pupils are round and equally reacting to light. EOMI. No scleral icterus. No conjunctival pallor. Normocephalic, atraumatic. No pharyngeal erythema. No thyromegaly. CARDIOVASCULAR: S1 and S2 present. No murmurs, rubs, or gallops. PULMONARY: Diminished breath sounds at bases bilaterally, no wheezing or crackles. ABDOMEN: Soft, nontender, nondistended, normoactive bowel sounds. No palpable organomegaly. MUSCULOSKELETAL: No joint swelling or deformity. EXTREMITIES: No cyanosis, clubbing, or pedal edema. NEUROLOGICAL: Gross neurological examination did not reveal any focal deficits. SKIN: No rashes. Assessment and plan NSTEMI Acute on chronic heart failure with reduced EF, 40 to 45% Acute anemia, etiology unclear Acute kidney injury Hypotension Recent dual-chamber pacemaker implantation, 12/19/2023, [employer] Nonischemic cardiomyopathy, 40-45% History of COPD History of diabetes History of PE, on [facility] outpatient Former nicotine dependence, patient quit smoking 6 years ago Monitor vital signs Monitor CBC Monitor CMP Continue telemetry monitoring Strict I's and O's, daily weights, Lasix Continue IV Venofer Continue aspirin, Lipitor Status post cardiac cath with successful stenting of the mid LAD. Added Brilinta Cardiology following Labs and medication were reviewed.. Continue same treatment. Continue with symptomatic treatment. Resume home medication. Monitor labs and vitals. DVT and GI prophylaxis. Further recommendations as per clinical course of the patient Dictation was produced using [employer] dictation software. please excuse any grammatical, word or spelling errors. Objective - Vital Signs Vital signs: Vital Signs Temp 97.6 F 12/31/23 04:00 Pulse 71 12/31/23 04:00 Resp 18 12/31/23 04:00 BP 112/60 12/31/23 04:00 Pulse Ox 98 12/31/23 04:00 FiO2 Intake & Output 12/30/23 12/31/23 12/31/23 18:59 06:59 18:59 Intake Total 1018 20 300 Output Total 650 350 Balance 368 -330 300 Weight 90 kg Intake: IV 20 20 300 Invasive Line 1 20 20 Intake, IV Titration 100 Amount Sodium Ferric Gluconat- 100 Sucrose 125 mg In Sodium Chloride 0.9% 100 ml @ 100 mls/hr IVPB DAILY [facility] Rx#:[id number] Oral 898 Output: Urine 650 350 Other: Voiding Method External Catheter External Catheter # Voids 1 - Labs CBC & Chem 7: 12/30/23 06:58 12/30/23 06:58
--- NOTE | 2023-12-31 14:29 | P.PN ---
Subjective Progress Note Date: 12/31/23 HISTORY OF PRESENT ILLNESS: This is a 88-year-old male with a past medical history significant for recent pacemaker implantation, cardiomyopathy, congestive heart failure, diabetes, and COPD. Patient follows in the office with Dr. Gillette. We have been asked to see the patient in consultation for CHF, recent pacemaker, elevated troponin. Patient examined at the bedside in the emergency room. Patient underwent pacemaker implantation with Dr. Valdez on December 19, 2023. Patient states since having his pacemaker placed he has been having episodes of chest discomfort. He states that he has been getting sensations of pain poking through his chest and also having episodes of chest pressure. He reports that yesterday morning he began to have shortness of breath. Patient was found to be hypotensive with a systolic blood pressure in the 80s upon arrival. Patient was also found to be anemic with a hemoglobin of 8.3. Previous hemoglobin 10.7. Patient denies any bright red blood in his stools. He denies any black stools. He does report dark brown stools. Patient also found to have acute kidney injury with a creatinine of 1.75. Patient states he is a former cigarette smoker and quit smoking 6 years ago. DIAGNOSTICS: - EKG reveals ventricular paced rhythm - Chest xray cardiomegaly and pulmonary vascular congestion. Nonspecific nodular density seen in the left lung apex along the inferior aspects of the patient's chin. Moderate volume left pleural effusion - Laboratory data: WBC 6.3. Hemoglobin 8.3. Sodium 135. Potassium 4.5. BUN 56. Creatinine 1.75. Magnesium 2.4. Troponin 4.150. 2.280. proBNP 2460. - Current home cardiac medications include lisinopril 20 mg daily, amlodipine 10 mg daily, Lasix 40 mg daily, Jardiance 10 mg daily, Eliquis 5 mg twice a day - Most recent echocardiogram obtained in November 2023 revealing ejection fraction 40-45%, mild pulmonary hypertension, mild aortic stenosis, mild aortic regurgitation, moderate tricuspid regurgitation - Cardiac catheterization history: 2018 which did not reveal significant CAD -Patient underwent Lexiscan stress test in May 2020 which was negative for ischemia 12/28/2023 Patient examined this morning at the bedside. Patient states he is feeling better this morning. He denies any chest pain or pressure. He reports improvement in his shortness of breath. He remains on IV Lasix. Creatinine today 1.63. BUN 58. Patient's Eliquis remains on hold. Hemoglobin remains stable at 8.3. 12/29/2023 Patient examined this morning the bedside. Patient currently denies any chest pain or pressure. He denies any shortness of breath. Creatinine today 1.13. Hemoglobin is stable at 9.0. Echocardiogram completed revealing ejection fraction 45 to 50% 12/30/2023 Patient examined this morning the bedside. Patient currently denies chest pain or pressure. He denies shortness of breath. Vital signs are stable. Blood pressure slightly on the lower side today. His Eliquis remains on hold. Kidney function stable at 0.98. Hemoglobin stable at 9.1. 12/31/2023 Patient is seen and examined. This morning, patient underwent cardiac catheterization with Dr. Gillette which revealed 60 to 70% stenosis involving the LAD followed by successful stenting of the mid LAD with RAMON with Dr. Turner. He denies feeling better after procedure. He states he cannot catch his breath. He is currently on IV fluids which will be continued for another hour and then 1 PM today will order Lasix, chest x-ray ordered. Dr. Valdez discussed with the patient and his the reasons that he could be having difficulty breathing including the the [place], chronic heart failure, anemia,etc. PHYSICAL EXAM: VITAL SIGNS: Reviewed. GENERAL: Well-developed in no acute distress. HEENT: Head is normocephalic. Pupils are equal, round. Sclerae anicteric. Mucous membranes of the mouth are moist. Neck supple. No JVD or thyromegaly LUNGS: Respirations even and unlabored. Lungs diminished bilaterally. HEART: Regular rate and rhythm. S1 and S2 heard. Distant heart sounds. ABDOMEN: Soft. Nondistended. Nontender. EXTREMITIES: Normal range of motion. No clubbing or cyanosis. Peripheral pulses intact. No bilateral lower extremity edema. Legs are dry and scaly. NEUROLOGIC: Awake and alert. Oriented x 3. ASSESSMENT: Shortness of breath Acute on chronic heart failure with mildly reduced EF, 45 to 50% Non-STEMI Acute anemia, etiology unclear Acute kidney injury Hypotension Recent dual-chamber pacemaker implantation, 12/19/2023, [employer] Nonischemic cardiomyopathy, 40-45%, now 45 to 50% History of COPD History of diabetes History of PE, on Eliquis outpatient Former nicotine dependence, patient quit smoking 6 years ago PLAN: Continue to hold Eliquis Continue aspirin, atorvastatin, and metoprolol 25 mg twice daily Patient has been started on Brilinta 90 mg twice daily Continue IV fluids until 1230 Start patient on IV Lasix 80 mg daily, start at 1300 today Monitor YADY, daily weights, electrolytes and renal function Further recommendations pending patient course Nurse practitioner note has been reviewed by physician. Signing provider agrees with the documented findings, assessment, and plan of care documented by LOFTSMAN as a scribe. Objective - Vital Signs Vital signs: Vital Signs Temp 98.2 F 12/31/23 09:00 Pulse 64 12/31/23 10:28 Resp 16 12/31/23 09:00 BP 143/84 12/31/23 10:28 Pulse Ox 100 12/31/23 10:28 FiO2 Intake & Output 12/30/23 12/31/23 12/31/23 18:59 06:59 18:59 Intake Total 1018 20 300 Output Total 650 350 Balance 368 -330 300 Weight 90 kg Intake: IV 20 20 300 Invasive Line 1 20 20 Intake, IV Titration 100 Amount Sodium Ferric Gluconat- 100 Sucrose 125 mg In Sodium Chloride 0.9% 100 ml @ 100 mls/hr IVPB DAILY [facility] Rx#:[id number] Oral 898 Output: Urine 650 350 Other: Voiding Method External Catheter External Catheter External Catheter # Voids 1 - Labs CBC & Chem 7: 12/30/23 06:58 12/30/23 06:58
--- NOTE | 2023-12-31 14:38 | XR ---
EXAMINATION TYPE: XR chest 1V portable DATE OF EXAM: 12/31/2023 2:06 PM COMPARISON: Chest radiographs from 12/27/2023 CLINICAL INDICATION: Male, 88 years old with history of chf; TECHNIQUE: XR chest 1V portable Frontal view of the chest. FINDINGS: Lungs/Pleura: No evidence of focal consolidation or pneumothorax. Blunting of the costophrenic angles is present. Pulmonary vascularity: Unremarkable. Heart/mediastinum: Cardiomediastinal silhouette is unremarkable. Two lead cardiac conduction device o verlying the left hemithorax with lead tips projecting over the right ventricle and right atrium. Musculoskeletal: No acute osseous pathology. Other findings: None IMPRESSION: Cardiomegaly and bilateral pleural effusions. Correlate with BNP for congestive heart failure. [facility], , 12/31/2023 2:36 PM
[2024-01-01 07:20] LABS: African American GFR (CKD) 85 (>60 ml/min/1.73 sqM); Anion Gap 3 mmol/L; Blood Urea Nitrogen 28 mg/dL (9-20); Calcium 8.3 mg/dL (8.4-10.2); Carbon Dioxide 28 mmol/L (22-30); Chloride 107 mmol/L (98-107); Glucose 124 mg/dL (74-99); Non-African American GFR(CKD) 73 (>60 ml/min/1.73 sqM); Potassium 4.1 mmol/L (3.5-5.1); Sodium 138 mmol/L (137-145)
[2024-01-01 09:57] LABS: Basophils % (A) 0 %; Eosinophils # (A) 0.2 k/uL (0-0.7); Eosinophils % (A) 3 %; HCT 28.9 % (39.0-53.0); HGB 9.3 gm/dL (13.0-17.5); Hypochromasia Slight; Lymphocytes # (A) 0.8 k/uL (1.0-4.8); Lymphocytes % (A) 11 %; MCH 32.5 pg (25.0-35.0); MCHC 32.2 g/dL (31.0-37.0); MCV 100.9 fL (80.0-100.0); Macrocytosis Slight; Mean Platelet Volume 7.9; Monocytes # (A) 0.4 k/uL (0-1.0); Monocytes % (A) 6 %; Neutrophils # (A) 5.7 k/uL (1.3-7.7); Neutrophils % (A) 79 %; Platelet Count 257 k/uL (150-450); RBC 2.86 m/uL (4.30-5.90); RDW 13.8 % (11.5-15.5); WBC 7.2 k/uL (3.8-10.6)
[2024-01-01 11:23] VITALS: BMI 26.6
[2024-01-01] MEDS: ENOXAPARIN 80 MG/0.8 ML SYRINGE SQ SCH (12:34)
--- NOTE | 2024-01-01 12:51 | P.PN ---
Subjective Progress Note Date: 01/01/24 patient is a 88-year-old gentleman with past medical history significant for cardiomyopathy, congestive heart failure, diabetes, recent pacemaker implantation and COPD who presented the ER because of worsening shortness of breath and chest discomfort. Patient has been complaining of chest discomfort which is central in location, nonradiating, no aggravating or relieving factor associated with chest discomfort. Over the last 2 days patient also started noticing shortness of breath which are present on rest as well as on exertion. There was no complaint of orthopnea or PND. There was no complaint of swelling of feet. Patient denies any fever or chills. There is no complaint of lightheadedness dizziness. Because of this chest discomfort and shortness of breath, patient came to the ER. Initial lab work done in the ER showed WBC 6.3, hemoglobin 8.3, platelet count 141, sodium 135, potassium 4.5, BUN 56, creatinine 1.75, troponin 4.150 glucose 143 magnesium 2.4 EKG done in the ER showed heart rate of 73, paced rhythm Chest x-ray done in the ER showed cardiomegaly and pulmonary vascular congestion Patient admitted to internal medicine service 12/27. Patient seen and examined. Blood work done this morning showed sodium 135, potassium 4.6, BUN 58, creatinine 1.63. Anemia workup ordered. 12/28. Patient seen and examined. Anemia workup suggestive of iron deficiency anemia, started Venofer. Cardiology switched IV Lasix to oral Lasix, possible cardiac cath on Friday 12/29. Patient seen and examined. States he feels much better. Denies any chest pain. Patient being scheduled for cardiac cath tomorrow 12/30. Patient seen examined. Patient underwent cardiac cath with successful stenting of the mid LAD. Currently on dual antiplatelet therapy 12/31. Patient seen and examined. Currently doing better, currently on IV Lasix. Complaining of shortness of breath at times. Patient is not ambulating much, encourage patient to get up from the bed and sit in the chair. REVIEW OF SYSTEMS: CONSTITUTIONAL: No fever, no malaise,. CARDIOVASCULAR: No chest pain, no palpitations, no syncope. PULMONARY: As mentioned above GASTROINTESTINAL: No diarrhea, no nausea, no vomiting, no abdominal pain. NEUROLOGICAL: No headaches, no weakness, PHYSICAL EXAMINATION: GENERAL: The patient is alert and oriented x3, not in any acute distress. Ill looking HEENT: Pupils are round and equally reacting to light. EOMI. No scleral icterus. No conjunctival pallor. Normocephalic, atraumatic. No pharyngeal erythema. No thyromegaly. CARDIOVASCULAR: S1 and S2 present. No murmurs, rubs, or gallops. PULMONARY: Diminished breath sounds at bases bilaterally, no wheezing or crackles. ABDOMEN: Soft, nontender, nondistended, normoactive bowel sounds. No palpable organomegaly. MUSCULOSKELETAL: No joint swelling or deformity. EXTREMITIES: No cyanosis, clubbing, or pedal edema. NEUROLOGICAL: Gross neurological examination did not reveal any focal deficits. SKIN: No rashes. Assessment and plan NSTEMI Acute on chronic heart failure with reduced EF, 40 to 45% Acute anemia, etiology unclear Acute kidney injury Hypotension Recent dual-chamber pacemaker implantation, 12/19/2023, [employer] Nonischemic cardiomyopathy, 40-45% History of COPD History of diabetes History of PE, on Eliquis outpatient Former nicotine dependence, patient quit smoking 6 years ago Monitor vital signs Monitor CBC Monitor CMP Continue telemetry monitoring Strict I's and O's, daily weights, Lasix 80 mg IV daily Continue IV Venofer Continue aspirin, Lipitor, Brilinta Status post cardiac cath with successful stenting of the mid LAD. Eliquis on hold Cardiology following Labs and medication were reviewed.. Continue same treatment. Continue with symptomatic treatment. Resume home medication. Monitor labs and vitals. DVT and GI prophylaxis. Further recommendations as per clinical course of the p atient Dictation was produced using [employer] dictation software. please excuse any grammatical, word or spelling errors. Objective - Vital Signs Vital signs: Vital Signs Temp 97.9 F 01/01/24 04:00 Pulse 66 01/01/24 04:00 Resp 18 01/01/24 04:00 BP 107/61 01/01/24 04:00 Pulse Ox 100 01/01/24 04:00 FiO2 Intake & Output 12/31/23 01/01/24 01/01/24 18:59 06:59 18:59 Intake Total 300 20 180 Output Total 1000 675 Balance -700 -655 180 Weight 89 kg Intake: IV 300 20 Invasive Line 1 20 Oral 180 Output: Urine 1000 675 Other: Voiding Method Indwelling Catheter Indwelling Catheter - Labs CBC & Chem 7: 01/01/24 06:32 01/01/24 06:32 Labs: Abnormal Lab Results - Last 24 Hours (Table) 01/01/24 Range/Units 06:32 BUN 28 H (9-20) mg/dL Glucose 124 H (74-99) mg/dL Calcium 8.3 L (8.4-10.2) mg/dL
--- NOTE | 2024-01-01 14:54 | P.PN ---
Subjective Progress Note Date: 01/01/24 HISTORY OF PRESENT ILLNESS: This is a 88-year-old male with a past medical history significant for recent pacemaker implantation, cardiomyopathy, congestive heart failure, diabetes, and COPD. Patient follows in the office with Dr. Gillette. We have been asked to see the patient in consultation for CHF, recent pacemaker, elevated troponin. Patient examined at the bedside in the emergency room. Patient underwent pacemaker implantation with Dr. Valdez on December 19, 2023. Patient states since having his pacemaker placed he has been having episodes of chest discomfort. He states that he has been getting sensations of pain poking through his chest and also having episodes of chest pressure. He reports that yesterday morning he began to have shortness of breath. Patient was found to be hypotensive with a systolic blood pressure in the 80s upon arrival. Patient was also found to be anemic with a hemoglobin of 8.3. Previous hemoglobin 10.7. Patient denies any bright red blood in his stools. He denies any black stools. He does report dark brown stools. Patient also found to have acute kidney injury with a creatinine of 1.75. Patient states he is a former cigarette smoker and quit smoking 6 years ago. DIAGNOSTICS: - EKG reveals ventricular paced rhythm - Chest xray cardiomegaly and pulmonary vascular congestion. Nonspecific nodular density seen in the left lung apex along the inferior aspects of the patient's chin. Moderate volume left pleural effusion - Laboratory data: WBC 6.3. Hemoglobin 8.3. Sodium 135. Potassium 4.5. BUN 56. Creatinine 1.75. Magnesium 2.4. Troponin 4.150. 2.280. proBNP 2460. - Current home cardiac medications include lisinopril 20 mg daily, amlodipine 10 mg daily, Lasix 40 mg daily, Jardiance 10 mg daily, Eliquis 5 mg twice a day - Most recent echocardiogram obtained in November 2023 revealing ejection fraction 40-45%, mild pulmonary hypertension, mild aortic stenosis, mild aortic regurgitation, moderate tricuspid regurgitation - Cardiac catheterization history: 2018 which did not reveal significant CAD -Patient underwent Lexiscan stress test in May 2020 which was negative for ischemia 12/28/2023 Patient examined this morning at the bedside. Patient states he is feeling better this morning. He denies any chest pain or pressure. He reports improvement in his shortness of breath. He remains on IV Lasix. Creatinine today 1.63. BUN 58. Patient's Eliquis remains on hold. Hemoglobin remains stable at 8.3. 12/29/2023 Patient examined this morning the bedside. Patient currently denies any chest pain or pressure. He denies any shortness of breath. Creatinine today 1.13. Hemoglobin is stable at 9.0. Echocardiogram completed revealing ejection fraction 45 to 50% 12/30/2023 Patient examined this morning the bedside. Patient currently denies chest pain or pressure. He denies shortness of breath. Vital signs are stable. Blood pressure slightly on the lower side today. His Eliquis remains on hold. Kidney function stable at 0.98. Hemoglobin stable at 9.1. 12/31/2023 Patient is seen and examined. This morning, patient underwent cardiac catheterization with Dr. Gillette which revealed 60 to 70% stenosis involving the LAD followed by successful stenting of the mid LAD with RAMON with Dr. Turner. He denies feeling better after procedure. He states he cannot catch his breath. He is currently on IV fluids which will be continued for another hour and then 1 PM today will order Lasix, chest x-ray ordered. Dr. Valdez discussed with the patient and his the reasons that he could be having difficulty breathing including the the [place], chronic heart failure, anemia,etc. 01/01/24 Patient is seen and examined he continues to have some shortness of breath multifactorial. Discussed with patient that we will change his Brilinta to Plavix. Blood pressure 143/74, heart rate 61, pulse ox 100% on 3 L. Repeat blood work reveals hemoglobin 9.3, creatinine 0.94. Chest x-ray reveals cardiomegaly and bilateral pleural effusions. Correlate for heart failure. Patient has been started on IV Lasix 80 mg daily starting yesterday. Fluid balance today is -1355. Daily weights are fluctuating. PHYSICAL EXAM: VITAL SIGNS: Reviewed. GENERAL: Well-developed in no acute distress. HEENT: Head is normocephalic. Pupils are equal, round. Sclerae anicteric. Mucous membranes of the mouth are moist. Neck supple. No JVD or thyromegaly LUNGS: Respirations even and unlabored. Lungs diminished bilaterally. HEART: Regular rate and rhythm. S1 and S2 heard. Distant heart sounds. ABDOMEN: Soft. Nondistended. Nontender. EXTREMITIES: No clubbing or cyanosis. Peripheral pulses intact. No bilateral lower extremity edema. Legs are dry and scaly. NEUROLOGIC: Awake and alert. Oriented x 3. ASSESSMENT: Shortness of breath Acute on chronic heart failure with mildly reduced EF, 45 to 50% Non-STEMI Acute anemia, etiology unclear Acute kidney injury Hypotension Recent dual-chamber pacemaker implantation, 12/19/2023, [employer] Nonischemic cardiomyopathy, 40-45%, now 45 to 50% History of COPD History of diabetes History of PE, on Eliquis outpatient Former nicotine dependence, patient quit smoking 6 years ago PLAN: Continue to hold Eliquis Start patient on Lovenox 1 mg/kg for bridging Discontinue Brilinta and start patient on Plavix with loading dose of 600 mg tonight followed by 75 mg tomorrow Continue aspirin, atorvastatin, and metoprolol 25 mg twice daily Continue patient on IV Lasix 80 mg daily Monitor YADY, daily weights, electrolytes and renal function Further recommendations pending patient course Nurse practitioner note has been reviewed by physician. Signing provider agrees with the documented findings, assessment, and plan of care documented by NUCLEAR PHYSICIAN as a scribe. Objective - Vital Signs Vital signs: Vital Signs Temp 98.4 F 01/01/24 08:00 Pulse 68 01/01/24 09:50 Resp 18 01/01/24 08:00 BP 122/64 01/01/24 08:00 Pulse Ox 98 01/01/24 08:00 FiO2 Intake & Output 12/31/23 01/01/24 01/01/24 18:59 06:59 18:59 Intake Total 300 20 180 Output Total 1000 675 Balance -700 -655 180 Weight 89 kg Intake: IV 300 20 Invasive Line 1 20 Oral 180 Output: Urine 1000 675 Other: Voiding Method Indwelling Catheter Indwelling Catheter Indwelling Catheter - Labs CBC & Chem 7: 01/01/24 06:32 01/01/24 06:32 Labs: Abnormal Lab Results - Last 24 Hours (Table) 01/01/24 01/01/24 Range/Units 06:32 06:32 RBC 2.86 L (4.30-5.90) m/uL Hgb 9.3 L (13.0-17.5) gm/dL Hct 28.9 L (39.0-53.0) % MCV 100.9 H (80.0-100.0) fL Lymphocytes # 0.8 L (1.0-4.8) k/uL BUN 28 H (9-20) mg/dL Glucose 124 H (74-99) mg/dL Calcium 8.3 L (8.4-10.2) mg/dL
[2024-01-01] MEDS: CLOPIDOGREL 75 MG TAB PO SCH (21:27)
[2024-01-02] MEDS: CLOPIDOGREL 75 MG TAB PO SCH (09:20)
--- NOTE | 2024-01-02 14:16 | P.PN ---
Subjective Progress Note Date: 01/02/24 patient is a 88-year-old gentleman with past medical history significant for cardiomyopathy, congestive heart failure, diabetes, recent pacemaker implantation and COPD who presented the ER because of worsening shortness of breath and chest discomfort. Patient has been complaining of chest discomfort which is central in location, nonradiating, no aggravating or relieving factor associated with chest discomfort. Over the last 2 days patient also started noticing shortness of breath which are present on rest as well as on exertion. There was no complaint of orthopnea or PND. There was no complaint of swelling of feet. Patient denies any fever or chills. There is no complaint of lightheadedness dizziness. Because of this chest discomfort and shortness of breath, patient came to the ER. Initial lab work done in the ER showed WBC 6.3, hemoglobin 8.3, platelet count 141, sodium 135, potassium 4.5, BUN 56, creatinine 1.75, troponin 4.150 glucose 143 magnesium 2.4 EKG done in the ER showed heart rate of 73, paced rhythm Chest x-ray done in the ER showed cardiomegaly and pulmonary vascular congestion Patient admitted to internal medicine service 12/27. Patient seen and examined. Blood work done this morning showed sodium 135, potassium 4.6, BUN 58, creatinine 1.63. Anemia workup ordered. 12/28. Patient seen and examined. Anemia workup suggestive of iron deficiency anemia, started Venofer. Cardiology switched IV Lasix to oral Lasix, possible cardiac cath on Friday 12/29. Patient seen and examined. States he feels much better. Denies any chest pain. Patient being scheduled for cardiac cath tomorrow 12/30. Patient seen examined. Patient underwent cardiac cath with successful stenting of the mid LAD. Currently on dual antiplatelet therapy 12/31. Patient seen and examined. Currently doing better, currently on IV Lasix. Complaining of shortness of breath at times. Patient is not ambulating much, encourage patient to get up from the bed and sit in the chair. 01/02/2024 Patient is seen in follow-up this morning with cardiology following continues on IV Lasix and will transition to oral Lasix on discharge. Patient continues to report shortness of breath although this is chronic and he wears 3 L outpatient. Oxygen saturations are 100%. Patient reports to feeling extremely weak and dyspneic on minimal exertion and evaluated by physical therapy recommending rehab. Patient does live alone although has help from his daughter will discuss further regarding possible ECF. Patient would likely benefit from ECF on discharge. Case management following making arrangements for discharge planning. REVIEW OF SYSTEMS: CONSTITUTIONAL: No fever, no malaise,. CARDIOVASCULAR: No chest pain, no palpitations, no syncope. PULMONARY: As mentioned above, reports continued dyspnea with minimal exertion GASTROINTESTINAL: No diarrhea, no nausea, no vomiting, no abdominal pain. NEUROLOGICAL: No headaches, reports of generalized weakness PHYSICAL EXAMINATION: GENERAL: The patient is alert and oriented x3, not in any acute distress. Elderly appearing, ill looking HEENT: Pupils are round and equally reacting to light. EOMI. No scleral icterus. No conjunctival pallor. Normocephalic, atraumatic. No pharyngeal erythema. No thyromegaly. CARDIOVASCULAR: S1 and S2 muffled PULMONARY: Diminished breath sounds at bases bilaterally, no wheezing or crackles. ABDOMEN: Soft, nontender, nondistended, normoactive bowel sounds. No palpable organomegaly. MUSCULOSKELETAL: No joint swelling or deformity. EXTREMITIES: No cyanosis, clubbing, or pedal edema. No significant swelling noted to the lower extremities NEUROLOGICAL: Gross neurological examination did not reveal any focal deficits. Diffusely weak SKIN: No rashes. Assessment: NSTEMI status post cardiac catheterization with successful stenting to the mid LAD Acute on chronic heart failure with reduced EF, 40 to 45% Acute on chronic hypoxic respiratory failure secondary to CHF, wears 3 L outpati ent Acute anemia, etiology unclear Acute kidney injury, improving Hypotension Recent dual-chamber pacemaker implantation, 12/19/2023, [employer] Nonischemic cardiomyopathy, 40-45% History of COPD History of diabetes History of PE, on Eliquis outpatient Former nicotine dependence, patient quit smoking 6 years ago Gait dysfunction with generalized weakness Plan: Patient continues on IV Lasix and will transition to oral Lasix on discharge. Patient continues to report shortness of breath with exertion and reports to feeling generalized weakness Iron studies low likely iron deficiency anemia and is being given iron transfusions Patient evaluated by physical therapy recommending rehab and patient is now agreeable. Patient would benefit for continued strength and mobility as he does live alone. Family has arranged for help in the home although would benefit from ECF on discharge Continue current regimen and encouraged increase activity as tolerated Continue holding anticoagulation per cardiology and will discuss further about when to resume. Monitor closely for any further bleeding or drop in hemoglobin. Transfuse if 7 or less Possible discharge planning to ECF in the next 24 to 48 hours The impression and plan of care has been dictated by Yessenia Gannon, Nurse Practitioner as directed. Dr. Leonora MD I have performed a history and examination and MDM of this patient, discussed the same with the dictator, and agree with the dictator's assessment and plan as written ,documented as a scribe. Based on total visit time, I have performed more than 50% of the visit. Objective - Vital Signs Vital signs: Vital Signs Temp 98 F 01/02/24 08:00 Pulse 72 01/02/24 08:24 Resp 18 01/02/24 08:24 BP 107/64 01/02/24 08:00 Pulse Ox 92 L 01/02/24 08:13 FiO2 Intake & Output 01/01/24 01/02/24 01/02/24 18:59 06:59 18:59 Intake Total 540 250 Output Total 1400 500 Balance -860 -500 250 Weight 89 kg 84.5 kg Intake: IV 10 Invasive Line 1 10 Oral 540 240 Output: Urine 1400 500 Other: Voiding Method Indwelling Catheter Indwelling Catheter Indwelling Catheter - Labs CBC & Chem 7: 01/01/24 06:32 01/01/24 06:32 Labs: Abnormal Lab Results - Last 24 Hours (Table) 01/01/24 Range/Units 06:32 RBC 2.86 L (4.30-5.90) m/uL Hgb 9.3 L (13.0-17.5) gm/dL Hct 28.9 L (39.0-53.0) % MCV 100.9 H (80.0-100.0) fL Lymphocytes # 0.8 L (1.0-4.8) k/uL
--- NOTE | 2024-01-02 15:25 | P.PN ---
Subjective Progress Note Date: 01/02/24 HISTORY OF PRESENT ILLNESS: This is a 88-year-old male with a past medical history significant for recent pacemaker implantation, cardiomyopathy, congestive heart failure, diabetes, and COPD. Patient follows in the office with Dr. Gillette. We have been asked to see the patient in consultation for CHF, recent pacemaker, elevated troponin. Patient examined at the bedside in the emergency room. Patient underwent pacemaker implantation with Dr. Valdez on December 19, 2023. Patient states since having his pacemaker placed he has been having episodes of chest discomfort. He states that he has been getting sensations of pain poking through his chest and also having episodes of chest pressure. He reports that yesterday morning he began to have shortness of breath. Patient was found to be hypotensive with a systolic blood pressure in the 80s upon arrival. Patient was also found to be anemic with a hemoglobin of 8.3. Previous hemoglobin 10.7. Patient denies any bright red blood in his stools. He denies any black stools. He does report dark brown stools. Patient also found to have acute kidney injury with a creatinine of 1.75. Patient states he is a former cigarette smoker and quit smoking 6 years ago. DIAGNOSTICS: - EKG reveals ventricular paced rhythm - Chest xray cardiomegaly and pulmonary vascular congestion. Nonspecific nodular density seen in the left lung apex along the inferior aspects of the patient's chin. Moderate volume left pleural effusion - Laboratory data: WBC 6.3. Hemoglobin 8.3. Sodium 135. Potassium 4.5. BUN 56. Creatinine 1.75. Magnesium 2.4. Troponin 4.150. 2.280. proBNP 2460. - Current home cardiac medications include lisinopril 20 mg daily, amlodipine 10 mg daily, Lasix 40 mg daily, Jardiance 10 mg daily, Eliquis 5 mg twice a day - Most recent echocardiogram obtained in November 2023 revealing ejection fraction 40-45%, mild pulmonary hypertension, mild aortic stenosis, mild aortic regurgitation, moderate tricuspid regurgitation - Cardiac catheterization history: 2018 which did not reveal significant CAD -Patient underwent Lexiscan stress test in May 2020 which was negative for ischemia 12/28/2023 Patient examined this morning at the bedside. Patient states he is feeling better this morning. He denies any chest pain or pressure. He reports improvement in his shortness of breath. He remains on IV Lasix. Creatinine today 1.63. BUN 58. Patient's Eliquis remains on hold. Hemoglobin remains stable at 8.3. 12/29/2023 Patient examined this morning the bedside. Patient currently denies any chest pain or pressure. He denies any shortness of breath. Creatinine today 1.13. Hemoglobin is stable at 9.0. Echocardiogram completed revealing ejection fraction 45 to 50% 12/30/2023 Patient examined this morning the bedside. Patient currently denies chest pain or pressure. He denies shortness of breath. Vital signs are stable. Blood pressure slightly on the lower side today. His Eliquis remains on hold. Kidney function stable at 0.98. Hemoglobin stable at 9.1. 12/31/2023 Patient is seen and examined. This morning, patient underwent cardiac catheterization with Dr. Gillette which revealed 60 to 70% stenosis involving the LAD followed by successful stenting of the mid LAD with RAMON with Dr. Turner. He denies feeling better after procedure. He states he cannot catch his breath. He is currently on IV fluids which will be continued for another hour and then 1 PM today will order Lasix, chest x-ray ordered. Dr. Valdez discussed with the patient and his the reasons that he could be having difficulty breathing including the the AL, chronic heart failure, anemia,etc. 01/01/24 Patient is seen and examined he continues to have some shortness of breath multifactorial. Discussed with patient that we will change his Brilinta to Plavix. Blood pressure 143/74, heart rate 61, pulse ox 100% on 3 L. Repeat blood work reveals hemoglobin 9.3, creatinine 0.94. Chest x-ray reveals cardiomegaly and bilateral pleural effusions. Correlate for heart failure. Patient has been started on IV Lasix 80 mg daily starting yesterday. Fluid balance today is -1355. Daily weights are fluctuating. 01/02/2024 Patient seen and examined. Patient states that he is going to go to [facility] for subacute rehab. He states his breathing is still a problem. He denies chest pain. He states he has ambulated from his chair to the doorway and back. No lightheadedness or dizziness. Blood pressure 122/76, heart rate 61, pulse ox 99% on 3 L nasal cannula. Yesterday, Brilinta was discontinued and patient started on loading dose of Plavix last evening and continued today at 75 mg daily in hopes that this change may help his breathing. PHYSICAL EXAM: VITAL SIGNS: Reviewed. GENERAL: Well-developed in no acute distress. HEENT: Head is normocephalic. Pupils are equal, round. Sclerae anicteric. Mucous membranes of the mouth are moist. Neck supple. No JVD or thyromegaly LUNGS: Respirations even and unlabored. Lungs diminished bilaterally. HEART: Regular rate and rhythm. S1 and S2 heard. Distant heart sounds. ABDOMEN: Soft. Nondistended. Nontender. EXTREMITIES: No clubbing or cyanosis. Peripheral pulses intact. No bilateral lower extremity edema. Legs are dry and scaly. NEUROLOGIC: Awake and alert. Oriented x 3. ASSESSMENT: Shortness of breath Acute on chronic heart failure with mildly reduced EF, 45 to 50% Non-STEMI Acute anemia, etiology unclear Acute kidney injury Hypotension Recent dual-chamber pacemaker implantation, 12/19/2023, [employer] Nonischemic cardiomyopathy, 40-45%, now 45 to 50% History of COPD History of diabetes History of PE, on Eliquis outpatient Former nicotine dependence, patient quit smoking 6 years ago PLAN: Continue to hold Eliquis Continue patient on Lovenox 1 mg/kg for bridging Continue Plavix 75 mg daily Continue aspirin, atorvastatin, and metoprolol 25 mg twice daily Continue patient on IV Lasix 80 mg daily Monitor YADY, daily weights, electrolytes and renal function Further recommendations pending patient course Nurse practitioner note has been reviewed by physician. Signing provider agrees with the documented findings, assessment, and plan of care documented by GENDER STUDIES PROFESSOR as a scribe. Objective - Vital Signs Vital signs: Vital Signs Temp 97.6 F 01/02/24 12:00 Pulse 61 01/02/24 12:00 Resp 18 01/02/24 12:00 BP 122/76 01/02/24 12:00 Pulse Ox 99 01/02/24 12:00 FiO2 Intake & Output 01/01/24 01/02/24 01/02/24 18:59 06:59 18:59 Intake Total 540 250 Output Total 1400 500 Balance -860 -500 250 Weight 89 kg 84.5 kg Intake: IV 10 Invasive Line 1 10 Oral 540 240 Output: Urine 1400 500 Other: Voiding Method Indwelling Catheter Indwelling Catheter Indwelling Catheter - Labs CBC & Chem 7: 01/01/24 06:32 01/01/24 06:32
[2024-01-03 01:28] VITALS: RESP 18
[2024-01-03 08:57] LABS: Basophils % (A) 0 %; Eosinophils # (A) 0.2 k/uL (0-0.7); Eosinophils % (A) 3 %; HCT 29.3 % (39.0-53.0); HGB 9.3 gm/dL (13.0-17.5); Hypochromasia Slight; Lymphocytes # (A) 0.8 k/uL (1.0-4.8); Lymphocytes % (A) 11 %; MCHC 31.7 g/dL (31.0-37.0); Macrocytosis Slight; Mean Platelet Volume 7.6; Monocytes # (A) 0.4 k/uL (0-1.0); Monocytes % (A) 5 %; Neutrophils # (A) 5.6 k/uL (1.3-7.7); Neutrophils % (A) 80 %; Platelet Count 256 k/uL (150-450); RDW 14.1 % (11.5-15.5)
[2024-01-03 09:38] LABS: African American GFR (CKD) 71 (>60 ml/min/1.73 sqM); Anion Gap 5 mmol/L; Blood Urea Nitrogen 27 mg/dL (9-20); Calcium 8.4 mg/dL (8.4-10.2); Carbon Dioxide 31 mmol/L (22-30); Chloride 101 mmol/L (98-107); Glucose 147 mg/dL (74-99); Non-African American GFR(CKD) 61 (>60 ml/min/1.73 sqM); Potassium 3.8 mmol/L (3.5-5.1); Sodium 137 mmol/L (137-145)
--- NOTE | 2024-01-03 09:55 | P.DS ---
Providers Date of admission: 12/27/23 02:51 Expected date of discharge: 01/03/24 Attending physician: Amalia Hirsch Consults: 12/27/23 02:49 Consult Physician Routine Consulting Provider: Antonio Christine Consult Reason/Comments: CHF, recent pacemaker, trop elevated Do you want consulting provider notified?: Yes 12/31/23 08:43 Consult Physician Routine Consulting Provider: [facility] Consult Reason/Comments: Post Interventional patient Do you want consulting provider notified?: Already Contacted Primary care physician: Shar Yu Hospital Course: Final diagnosis NSTEMI status post cardiac catheterization with successful stenting to the mid LAD Acute on chronic heart failure with reduced EF, 40 to 45% Acute on chronic hypoxic respiratory failure secondary to CHF, wears 3 L outpatient Acute anemia, etiology unclear Acute kidney injury, improving Hypotension Recent dual-chamber pacemaker implantation, 12/19/2023, [employer] Nonischemic cardiomyopathy, 40-45% History of COPD History of diabetes History of PE, on Eliquis outpatient Former nicotine dependence, patient quit smoking 6 years ago Gait dysfunction with generalized weakness Discharge disposition Patient is being discharged in a stable condition with guarded prognosis to [facility]. Patient will follow-up with Dr. Yu in the outpatient setting upon discharge. Patient is to continue with holding Xtandi and also holding anticoagulation per cardiology until outpatient follow-up with cardiology as scheduled. Patient is agreeable to no oncological care during ECF and will follow-up outpatient once discharged from [facility]. Total time taken is greater than 35 minutes. Hospital course This is a 88-year-old male who was recently admitted with increasing shortness of breath noted to have NSTEMI being followed by multiple consultations. Patient was continued on IV diuresis and evaluated by cardiology also underwent cardiac catheterization with successful stenting to the mid LAD. Patient with anemia, having anticoagulation remain on hold per cardiology. Patient recently also underwent dual-chamber pacemaker implantation on December 19, 2023. Patient continues with significant shortness of breath and overall weakness evaluated by physical therapy recommending rehab and patient is now agreeable. Will transition to oral Lasix on discharge and recommend outpatient follow-up with cardiology in 1 to 2 weeks. Patient is taking Xtandi although has not been taking during hospitalization and is agreeable to hold all oncological care until follow-up and discharge from ECF. Currently no reports of chest pain, shortness of breath, or palpitations. Patient is afebrile. No reports of nausea or vomiting and patient is tolerating diet. Patient will be going to [facility] on the [facility] today. Guarded prognosis and high risk for readmission given significant comorbidities. Physical exam: Gen: This is a 88-year-old male who is awake, alert and oriented x 3, well-deve loped, elderly appearing HEENT: Head is atraumatic, normocephalic. Pupils equal, round. Sclerae is anicteric. NECK: Supple. No JVD. No lymphadenopathy. No thyromegaly. LUNGS: Diminished breath sounds bilaterally otherwise clear to auscultation. No wheezes or rhonchi. No intercostal retractions. HEART: S1, S2 are muffled ABDOMEN: Soft. Bowel sounds are present. No masses. No tenderness. EXTREMITIES: No pedal edema. No calf tenderness. NEUROLOGICAL: Patient is awake, alert and oriented x3. Cranial nerves 2 through 12 are grossly intact. Diffusely weak Please refer to medication reconciliation sheet for a list of medications. The impression and plan of care has been dictated by Yessenia Gannon, Nurse Practitioner as directed. Dr. Leonora MD I have performed a history and examination and MDM of this patient, discussed the same with the dictator, and agree with the dictator's assessment and plan as written ,documented as a scribe. Based on total visit time, I have performed more than 50% of the visit. Patient Condition at Discharge: Fair Plan - Discharge Summary Discharge Rx Participant: No New Discharge Prescriptions: New Aspirin 81 mg PO DAILY tab bisacodyL [Dulcolax] 10 mg PO DAILY PRN tab PRN Reason: Constipation Ipratropium-Albuterol Nebulize [Duoneb 0.5 mg-3 mg/3 ml Soln] 3 ml INHALATION RT-QID each Ipratropium-Albuterol Nebulize [Duoneb 0.5 mg-3 mg/3 ml Soln] 3 ml INHALATION RT-Q2H PRN each PRN Reason: Shortness Of Breath Or Wheezing Enoxaparin [Lovenox] 80 mg SQ Q12HR each Atorvastatin [Lipitor] 40 mg PO HS tab Metoprolol Tartrate [Lopressor] 25 mg PO BID tab Mag Hydrox/Al Hydrox/Simeth [Maalox] 30 ml PO Q4HR PRN ml PRN Reason: Heartburn Nitroglycerin Sl Tabs [Nitrostat] 0.4 mg SUBLINGUAL Q5M PRN tab PRN Reason: Chest Pain Clopidogrel [Plavix] 75 mg PO DAILY tab Acetaminophen Tab [Tylenol] 650 mg PO Q6HR PRN tab PRN Reason: Mild Pain Or Fever > 100.5 ALPRAZolam [Xanax] 0.25 mg PO Q6HR PRN #4 tab PRN Reason: Mild Anxiety Continue Alfuzosin HCl [Uroxatral ER] 10 mg PO DAILY Finasteride [Proscar] 5 mg PO DAILY Travoprost [Travatan Z 0.004%] 1 drop BOTH EYES HS rOPINIRole HCL [Requip] 2 mg PO TID PRN PRN Reason: restless legs Albuterol Inhaler [Ventolin Hfa Inhaler] 1 - 2 puff INHALATION RT-Q6H PRN PRN Reason: Shortness Of Breath bisacodyL [Dulcolax] 10 mg RECTAL DAILY PRN PRN Reason: Constipation Docusate [Colace] 100 mg PO DAILY Albuterol Nebulized [Ventolin Nebulized] 2.5 mg INHALATION RT-TID PRN PRN Reason: Shortness Of Breath Dorzolamide-Timol 2.23%/0.68% [Cosopt] 1 drop RIGHT EYE BID Fluticasone/Umeclidin/Vilanter [Trelegy Ellipta 100-62.5-25] 1 puff INHALATION RT-DAILY Ergocalciferol (Vitamin D2) [Drisdol (50,000 Iu)] 1,250 mcg PO FR Thiamine [Vitamin B-1] 100 mg PO DAILY #30 tab Sennosides [Senokot] 17.2 mg PO DAILY PRN PRN Reason: Constipation Changed Furosemide [Lasix] 40 mg PO BID #30 tab Discontinued Empagliflozin [Jardiance] 10 mg PO DAILY #30 tablet Enzalutamide [Xtandi] 160 mg PO DAILY amLODIPine [Norvasc] 10 mg PO DAILY #30 tab lisinopriL [Zestril] 20 mg PO DAILY Apixaban [Eliquis] 5 mg PO DIRECTED Discharge Medication List Alfuzosin HCl [Uroxatral ER] 10 mg PO DAILY 09/09/15 [History] Finasteride [Proscar] 5 mg PO DAILY 09/09/15 [History] Travoprost [Travatan Z 0.004%] 1 drop BOTH EYES HS 09/10/15 [History] rOPINIRole HCL [Requip] 2 mg PO TID PRN 04/20/20 [History] Dorzolamide-Timol 2.23%/0.68% [Cosopt] 1 drop RIGHT EYE BID 10/29/22 [History] Fluticasone/Umeclidin/Vilanter [Trelegy Ellipta 100-62.5-25] 1 puff INHALATION RT-DAILY 10/29/22 [History] Ergocalciferol (Vitamin D2) [Drisdol (50,000 Iu)] 1,250 mcg PO FR 11/29/23 [History] Thiamine [Vitamin B-1] 100 mg PO DAILY #30 tab 12/02/23 [Rx] Albuterol Inhaler [Ventolin Hfa Inhaler] 1 - 2 puff INHALATION RT-Q6H PRN 12/18/23 [History] Albuterol Nebulized [Ventolin Nebulized] 2.5 mg INHALATION RT-TID PRN 12/27/23 [History] Docusate [Colace] 100 mg PO DAILY 12/27/23 [History] Sennosides [Senokot] 17.2 mg PO DAILY PRN 12/27/23 [History] bisacodyL [Dulcolax] 10 mg RECTAL DAILY PRN 12/27/23 [History] ALPRAZolam [Xanax] 0.25 mg PO Q6HR PRN #4 tab 01/03/24 [Rx] Acetaminophen Tab [Tylenol] 650 mg PO Q6HR PRN tab 01/03/24 [Rx] Aspirin 81 mg PO DAILY tab 01/03/24 [Rx] Atorvastatin [Lipitor] 40 mg PO HS tab 01/03/24 [Rx] Clopidogrel [Plavix] 75 mg PO DAILY tab 01/03/24 [Rx] Enoxaparin [Lovenox] 80 mg SQ Q12HR each 01/03/24 [Rx] Furosemide [Lasix] 40 mg PO BID #30 tab 01/03/24 [Rx] Ipratropium-Albuterol Nebulize [Duoneb 0.5 mg-3 mg/3 ml Soln] 3 ml INHALATION RT-Q2H PRN each 01/03/24 [Rx] Ipratropium-Albuterol Nebulize [Duoneb 0.5 mg-3 mg/3 ml Soln] 3 ml INHALATION RT-QID each 01/03/24 [Rx] Mag Hydrox/Al Hydrox/Simeth [Maalox] 30 ml PO Q4HR PRN ml 01/03/24 [Rx] Metoprolol Tartrate [Lopressor] 25 mg PO BID tab 01/03/24 [Rx] Nitroglycerin Sl Tabs [Nitrostat] 0.4 mg SUBLINGUAL Q5M PRN tab 01/03/24 [Rx] bisacodyL [Dulcolax] 10 mg PO DAILY PRN tab 01/03/24 [Rx] Follow up Appointment(s)/Referral(s): Shar Yu MD [Primary Care Provider] - 1-2 Days Gopal Turner MD [STAFF PHYSICIAN] - 1 Week Activity/Diet/Wound Care/Special [facility]: [facility] Continue with current medications as prescribed Continue holding anticoagulant per cardiology for now Follow-up with cardiology outpatient Repeat labs in 2 to 3 days to monitor CBC, CMP Patient is agreeable to hold oncology medications and treatment while at ECF Discharge/Stand Alone Forms: Who Do I Call?, Help In The Home, Personal Model Making Supervisor Discharge Disposition: TRANSFER TO SNF/ECF
[2024-01-03 10:49] VITALS: BP 122/78; TEMP 97.4
[2024-01-03 12:39] VITALS: PULSE 60
--- NOTE | 2024-01-03 14:46 | P.PN ---
Subjective Progress Note Date: 01/03/24 HISTORY OF PRESENT ILLNESS: This is a 88-year-old male with a past medical history significant for recent pacemaker implantation, cardiomyopathy, congestive heart failure, diabetes, and COPD. Patient follows in the office with Dr. Gillette. We have been asked to see the patient in consultation for CHF, recent pacemaker, elevated troponin. Patient examined at the bedside in the emergency room. Patient underwent pacemaker implantation with Dr. Valdez on December 19, 2023. Patient states since having his pacemaker placed he has been having episodes of chest discomfort. He states that he has been getting sensations of pain poking through his chest and also having episodes of chest pressure. He reports that yesterday morning he began to have shortness of breath. Patient was found to be hypotensive with a systolic blood pressure in the 80s upon arrival. Patient was also found to be anemic with a hemoglobin of 8.3. Previous hemoglobin 10.7. Patient denies any bright red blood in his stools. He denies any black stools. He does report dark brown stools. Patient also found to have acute kidney injury with a creatinine of 1.75. Patient states he is a former cigarette smoker and quit smoking 6 years ago. DIAGNOSTICS: - EKG reveals ventricular paced rhythm - Chest xray cardiomegaly and pulmonary vascular congestion. Nonspecific nodular density seen in the left lung apex along the inferior aspects of the patient's chin. Moderate volume left pleural effusion - Laboratory data: WBC 6.3. Hemoglobin 8.3. Sodium 135. Potassium 4.5. BUN 56. Creatinine 1.75. Magnesium 2.4. Troponin 4.150. 2.280. proBNP 2460. - Current home cardiac medications include lisinopril 20 mg daily, amlodipine 10 mg daily, Lasix 40 mg daily, Jardiance 10 mg daily, Eliquis 5 mg twice a day - Most recent echocardiogram obtained in November 2023 revealing ejection fraction 40-45%, mild pulmonary hypertension, mild aortic stenosis, mild aortic regurgitation, moderate tricuspid regurgitation - Cardiac catheterization history: 2018 which did not reveal significant CAD -Patient underwent Lexiscan stress test in May 2020 which was negative for ischemia 12/28/2023 Patient examined this morning at the bedside. Patient states he is feeling better this morning. He denies any chest pain or pressure. He reports improvement in his shortness of breath. He remains on IV Lasix. Creatinine today 1.63. BUN 58. Patient's Eliquis remains on hold. Hemoglobin remains stable at 8.3. 12/29/2023 Patient examined this morning the bedside. Patient currently denies any chest pain or pressure. He denies any shortness of breath. Creatinine today 1.13. Hemoglobin is stable at 9.0. Echocardiogram completed revealing ejection fraction 45 to 50% 12/30/2023 Patient examined this morning the bedside. Patient currently denies chest pain or pressure. He denies shortness of breath. Vital signs are stable. Blood pressure slightly on the lower side today. His Eliquis remains on hold. Kidney function stable at 0.98. Hemoglobin stable at 9.1. 12/31/2023 Patient is seen and examined. This morning, patient underwent cardiac catheterization with Dr. Gillette which revealed 60 to 70% stenosis involving the LAD followed by successful stenting of the mid LAD with RAMON with Dr. Turner. He denies feeling better after procedure. He states he cannot catch his breath. He is currently on IV fluids which will be continued for another hour and then 1 PM today will order Lasix, chest x-ray ordered. Dr. Valdez discussed with the patient and his the reasons that he could be having difficulty breathing including the the [place], chronic heart failure, anemia,etc. 01/01/24 Patient is seen and examined he continues to have some shortness of breath multifactorial. Discussed with patient that we will change his Brilinta to Plavix. Blood pressure 143/74, heart rate 61, pulse ox 100% on 3 L. Repeat blood work reveals hemoglobin 9.3, creatinine 0.94. Chest x-ray reveals cardiomegaly and bilateral pleural effusions. Correlate for heart failure. Patient has been started on IV Lasix 80 mg daily starting yesterday. Fluid balance today is -1355. Daily weights are fluctuating. 01/02/2024 Patient seen and examined. Patient states that he is going to go to [facility] for subacute rehab. He states his breathing is still a problem. He denies chest pain. He states he has ambulated from his chair to the doorway and back. No lightheadedness or dizziness. Blood pressure 122/76, heart rate 61, pulse ox 99% on 3 L nasal cannula. Yesterday, Brilinta was discontinued and patient started on loading dose of Plavix last evening and continued today at 75 mg daily in hopes that this change may help his breathing. 01/03/2024 Patient seen and examined. He is scheduled for discharge home today. During this stay, patient was on Lovenox for bridging but at discharge she can resume Eliquis. He has been on IV Lasix 80 mg daily. Patient has had a documented weight loss. Repeat blood work reveals hemoglobin 9.3. BUN 27 creatinine 1.09. PHYSICAL EXAM: VITAL SIGNS: Reviewed. GENERAL: Well-developed in no acute distress. HEENT: Head is normocephalic. Pupils are equal, round. Sclerae anicteric. Mucous membranes of the mouth are moist. Neck supple. No JVD or thyromegaly LUNGS: Respirations even and unlabored. Lungs diminished bilaterally. HEART: Regular rate and rhythm. S1 and S2 heard. Distant heart sounds. ABDOMEN: Soft. Nondistended. Nontender. EXTREMITIES: No clubbing or cyanosis. Peripheral pulses intact. No bilateral lower extremity edema. Legs are dry and scaly. NEUROLOGIC: Awake and alert. Oriented x 3. ASSESSMENT: Shortness of breath Acute on chronic heart failure with mildly reduced EF, 45 to 50% Non-STEMI Acute anemia, etiology unclear Acute kidney injury Hypotension Recent dual-chamber pacemaker implantation, 12/19/2023, [employer] Nonischemic cardiomyopathy, 40-45%, now 45 to 50% History of COPD History of diabetes History of PE, on Eliquis outpatient Former nicotine dependence, patient quit smoking 6 years ago PLAN: Resume Eliquis Discontinue Lovenox Continue aspirin, atorvastatin, Plavix 75 mg daily, and metoprolol 25 mg twice daily Transition IV Lasix to oral 40 mg twice daily Patient is cleared for discharge from cardiology and may follow-up in the office with Dr. Jamel De Guzman in 2 weeks Nurse practitioner note has been reviewed by physician. Signing provider agrees with the documented findings, assessment, and plan of care documented by DIRECTOR [employer] as a scribe. Objective - Vital Signs Vital signs: Vital Signs Temp 97.4 F L 01/03/24 10:47 Pulse 60 01/03/24 12:38 Resp 18 01/03/24 10:47 BP 122/78 01/03/24 10:47 Pulse Ox 100 01/03/24 10:47 FiO2 Intake & Output 01/02/24 01/03/24 01/03/24 18:59 06:59 18:59 Intake Total 260 138 Output Total 600 Balance -340 138 Weight 81.6 kg Intake: IV 20 20 Invasive Line 1 20 20 Oral 240 118 Output: Urine 600 Other: Voiding Method Indwelling Catheter Indwelling Catheter Indwelling Catheter - Labs CBC & Chem 7: 01/03/24 08:23 01/03/24 08:23 Labs: Abnormal Lab Results - Last 24 Hours (Table) 01/03/24 01/03/24 Range/Units 08:23 08:23 RBC 2.90 L (4.30-5.90) m/uL Hgb 9.3 L (13.0-17.5) gm/dL Hct 29.3 L (39.0-53.0) % MCV 101.0 H (80.0-100.0) fL Lymphocytes # 0.8 L (1.0-4.8) k/uL Carbon Dioxide 31 H (22-30) mmol/L BUN 27 H (9-20) mg/dL Glucose 147 H (74-99) mg/dL
== END 2024-01-03 14:58 | DRG 321 ==
LOC: EC 00:34 → 3SCARD 02:51
PROVIDERS: ADMIT Hospitalist; ATTEND Hospitalist
PROC: B240ZZ3 Ultrasonography of Single Coronary Artery, Intravascular (ICD-10-PCS; 2023-12-31)
PROC: 027034Z Dilation of Coronary Artery, One Artery with Drug-eluting Intraluminal Device, Percutaneous Approach (ICD-10-PCS; principal; 2023-12-31 09:30)
PROC: 4A023N7 Measurement of Cardiac Sampling and Pressure, Left Heart, Percutaneous Approach (ICD-10-PCS; 2023-12-31 09:30)
PROC: B2111ZZ Fluoroscopy of Multiple Coronary Arteries using Low Osmolar Contrast (ICD-10-PCS; 2023-12-31 09:30)
DX: I21.4 Non-ST elevation (NSTEMI) myocardial infarction (principal); I50.23 Acute on chronic systolic (congestive) heart failure; J96.21 Acute and chronic respiratory failure with hypoxia; N17.9 Acute kidney failure, unspecified; I42.8 Other cardiomyopathies; Z66 Do not resuscitate; I11.0 Hypertensive heart disease with heart failure; I95.9 Hypotension, unspecified; J44.9 Chronic obstructive pulmonary disease, unspecified; E11.9 Type 2 diabetes mellitus without complications; D50.9 Iron deficiency anemia, unspecified; I25.10 Atherosclerotic heart disease of native coronary artery without angina pectoris; E78.5 Hyperlipidemia, unspecified; N40.0 Benign prostatic hyperplasia without lower urinary tract symptoms; Z87.891 Personal history of nicotine dependence; Z79.01 Long term (current) use of anticoagulants; Z79.51 Long term (current) use of inhaled steroids; Z79.84 Long term (current) use of oral hypoglycemic drugs; Z79.899 Other long term (current) drug therapy; Z86.711 Personal history of pulmonary embolism; Z95.0 Presence of cardiac pacemaker; Z96.1 Presence of intraocular lens
CPT/HCPCS: 36415; 71045; 71046; 80048; 80053; 82607; 82728; 82747; 83540; 83550; 83735; 83880; 84484; 85025; 85610; 85730; 92978; 93005; 93306; 93458; 94640; 94760; 96361; 96374; 96375; 96376; 99291

== ENCOUNTER 2024-01-23 21:33 | Observation (INO) | payer MEDICARE ==
--- NOTE | 2024-01-23 22:09 | ED ---
General Adult HPI - General Chief complaint: Back Pain/Injury Stated complaint: Back Pain Time Seen by Provider: 01/23/24 21:57 Source: patient, EMS Mode of arrival: EMS Limitations: no limitations - History of Present Illness Initial comments: Dictation was produced using [employer] dictation software. please excuse any grammatical, word or spelling errors. Chief Complaint: 88-year-old male presents to the emergency department for interscapular pain History of Present Illness: Patient is 88-year-old male he had a routine appointment his primary care doctor earlier today. He was told that he was deemed in good health. He was at home has not really been having a decent appetite. He had dinner where he had some steak and potatoes. He did not benoit lly eat much. Shortly after he had episode of about 30 to 45 minutes of intrascapular dull pain. States that he did have some mild associated left anterior chest pain. States that the pain was moderate in intensity. Nonradiating not associated with deep inspiration or breathing. Patient otherwi se has no other complaints. They spoke with answering service for his primary care doctor and was told that he should come to the emergency room. No diaphoresis or nausea. The ROS documented in this emergency department record has been reviewed and confirmed by me. Those systems with pertinent positive or negative responses have been documented in the HPI. All other systems are other negative and/or noncontributory. - Related Data Home Medications Medication Instructions Recorded Confirmed Alfuzosin HCl [Uroxatral ER] 10 mg PO DAILY 09/09/15 12/27/23 Finasteride [Proscar] 5 mg PO DAILY 09/09/15 12/27/23 Travoprost [Travatan Z 0.004%] 1 drop BOTH EYES HS 09/10/15 12/27/23 rOPINIRole HCL [Requip] 2 mg PO TID PRN 04/20/20 12/27/23 Dorzolamide-Timol 2.23%/0.68% 1 drop RIGHT EYE BID 10/29/22 12/27/23 [Cosopt] Fluticasone/Umeclidin/Vilanter 1 puff INHALATION RT-DAILY 10/29/22 12/27/23 [Trelegy Ellipta 100-62.5-25] Ergocalciferol (Vitamin D2) 1,250 mcg PO FR 11/29/23 12/27/23 [Drisdol (50,000 Iu)] Albuterol Inhaler [Ventolin Hfa 1 - 2 puff INHALATION RT-Q6H PRN 12/18/23 12/27/23 Inhaler] Albuterol Nebulized [Ventolin 2.5 mg INHALATION RT-TID PRN 12/27/23 12/27/23 Nebulized] Docusate [Colace] 100 mg PO DAILY 12/27/23 12/27/23 Sennosides [Senokot] 17.2 mg PO DAILY PRN 12/27/23 12/27/23 bisacodyL [Dulcolax] 10 mg RECTAL DAILY PRN 12/27/23 12/27/23 Previous Rx's Medication Instructions Recorded Thiamine [Vitamin B-1] 100 mg PO DAILY #30 tab 12/02/23 ALPRAZolam [Xanax] 0.25 mg PO Q6HR PRN #4 tab 01/03/24 Acetaminophen Tab [Tylenol] 650 mg PO Q6HR PRN tab 01/03/24 Apixaban [Eliquis] 5 mg PO BID #60 tab 01/03/24 Aspirin 81 mg PO DAILY tab 01/03/24 Atorvastatin [Lipitor] 40 mg PO HS tab 01/03/24 Clopidogrel [Plavix] 75 mg PO DAILY tab 01/03/24 Furosemide [Lasix] 40 mg PO BID #30 tab 01/03/24 Ipratropium-Albuterol Nebulize 3 ml INHALATION RT-Q2H PRN each 01/03/24 [Duoneb 0.5 mg-3 mg/3 ml Soln] Ipratropium-Albuterol Nebulize 3 ml INHALATION RT-QID each 01/03/24 [Duoneb 0.5 mg-3 mg/3 ml Soln] Mag Hydrox/Al Hydrox/Simeth 30 ml PO Q4HR PRN ml 01/03/24 [Maalox] Metoprolol Tartrate [Lopressor] 25 mg PO BID tab 01/03/24 Nitroglycerin Sl Tabs [Nitrostat] 0.4 mg SUBLINGUAL Q5M PRN tab 01/03/24 bisacodyL [Dulcolax] 10 mg PO DAILY PRN tab 01/03/24 Allergies Allergy/AdvReac Type Severity Reaction Status Date / Time amoxicillin trihydrate Allergy Unknown Verified 01/23/24 21:57 [From Augmentin] potassium clavulanate Allergy Unknown Verified 01/23/24 21:57 [From Augmentin] moxifloxacin HCl AdvReac Nausea & Verified 01/23/24 21:57 [From Avelox] Vomiting Review of Systems ROS Statement: Those systems with pertinent positive or pertinent negative responses have been documented in the HPI. ROS Other: All systems not noted in ROS Statement are negative. 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 Past Anesthesia/Blood Transfusion Reactions: No Reported Reaction Additional Past Anesthesia/Blood Transfusion Reaction / Comment(s): Pt has claustrophobia. Type of Cardiac Device: Permanent Pacemaker Device Placement Date:: 12/19/23 Past Psychological History: No Psychological Hx Reported Smoking Status: Former smoker Past Alcohol Use History: None Reported Past Drug Use History: None Reported - Past Family History Brother(s) Family Medical History: Cancer Additional Family Medical History / Comment(s): Prostate cancer. Father Family Medical History: Deep Vein Thrombosis (DVT) Additional Family Medical History / Comment(s): Father of dementia at the age of 79 yrs. Mother Family Medical History: No Reported History Additional Family Medical History / Comment(s): Mother was healthy and lived to be 86yrs old. General Exam - General Exam Comments Initial Comments: PHYSICAL EXAM: General Impression: Alert and oriented x3, not in acute distress HEENT: Normocephalic atraumatic, extra-ocular movements intact, pupils equal and reactive to light bilaterally, mucous membranes moist. Cardiovascular: Heart regular rate and rhythm Chest: Able to complete full sentences, no retractions, no tachypnea Abdomen: abdomen soft, non-tender, non-distended, no organomegaly Musculoskeletal: Pulses present and equal in all extremities, no peripheral edema Motor: no focal deficits noted Neurological: CN II-XII grossly intact, no focal motor or sensory deficits noted Skin: Intact with no visualized rashes Psych: Normal affect and mood Limitations: no limitations Course Vital Signs 01/23/24 21:39 Temperature 97.1 F L Pulse Rate 65 Respiratory 18 Rate Blood Pressure 88/46 O2 Sat by Pulse 99 Oximetry EKG Findings - EKG Comments: EKG Findings:: My EKG interpretation: Ventricular rate 60, ventricular paced rhythm. 1293, QRS 60, QTc 391. No MN prolongation, no QTC prolongation, no ST or T-wave changes noted. EKG compared to January 01, 2024 showing no changes. Overall, this EKG is unremarkable Medical Decision Making - Medical Decision Making Was pt. sent in by a medical professional or institution (, PA, ELECTRIC SCOOP OPERATOR, urgent care, hospital, or skilled nursing...) When possible be specific @ -No Did you speak to anyone other than the patient for history (EMS, parent, family, police, friend...)? What history was obtained from this source @ -No Did you review nursing and triage notes (agree or disagree)? Why? @ -I reviewed and agree with nursing and triage notes Were old charts reviewed (outside hosp., previous admission, EMS record, old EKG, old radiological studies, urgent care reports/EKG's, skilled nursing records)? Report findings @ -No old charts were reviewed Differential Diagnosis (chest pain, altered mental status, abdominal pain women, abdominal pain men, vaginal bleeding, musculoskeletal, weakness, fever, dyspnea, syncope, headache, dizziness, GI bleed, back pain, seizure, CVA, palpatations, mental health)? @ -Differential Chest Pain: Stable Angina, Unstable Angina, STEMI, NSTEMI Aortic Dissection, Pneumothorax, Musculoskeletal, Esophageal Spasm GERD, Cholecystitis, Pancreatitis, Zoster, this is not meant to be an all-inclusive list. EKG interpreted by me (3pts min.). @ -See above X-rays interpreted by me (1pt min.). @ -Chest x-ray shows heart failure CT interpreted by me (1pt min.). @ -None done U/S interpreted by me (1pt. min.). @ -None done What testing was considered but not performed or refused? (CT, X-rays, U/S, xavier bs)? Why? @ -None What meds were considered but not given or refused? Why? @ -None Was smoking cessation discussed for >3mins.? @ -No Were there social determinants of health that impacted care today? How? (Homelessness, low income, unemployed, alcoholism, drug addiction, transportation, low edu. Level, literacy, decrease access to med. care, senior care, rehab)? @ -No Was there de-escalation of care discussed even if they declined (Discuss DNR or withdrawal of care, Hospice)? DNR status @ -No What co-morbidities impacted this encounter? (DM, HTN, Smoking, COPD, CAD, Cancer, CVA, ARF, Chemo, Hep., AIDS, mental health diagnosis, sleep apnea, morbid obesity)? @ -COPD, dyslipidemia hypertension PE Was patient admitted / discharged? Hospital course, mention meds given and route, prescriptions, significant lab abnormalities, going to OR and other pertinent info. @ -88-year-old male presents emergency department with interscapular pain that was pressure-like and associated with some mild left anterior chest pain. Patient has multiple comorbidities. Initial vital signs upon arrival shows blood pressure of 88/46. Repeat blood pressure is 107/52. Patient denies any symptoms at the bedside. Laboratory evaluation obtained. Labs within acceptable limits. Troponin is 0.023. Patient reevaluated bedside 12:15 AM continues to endorse no symptoms. Disposition options were discussed. There is some concern of acute coronary syndrome given that he had some left anterior chest pain. Patient given aspirin will be admitted to observation consultation to cardiology. Case discussed with hospitalist for admission. Did you discuss the management of the patient with other professionals ( professionals i.e. , PA, ELECTRIC SCOOP OPERATOR, lab, RT, psych nurse, social secretary, digital media buyer, teacher, chemistry technical officer, ed case manager)? Give summary @ -See above Was critical care preformed (if so, how long)? @ -No Undiagnosed new problem with uncertain prognosis? @ -No Drug Therapy requiring intensive monitoring for toxicity (Heparin, Nitro, Insulin, Cardizem)? @ -No Were any procedures done? @ -No Diagnosis/symptom? Acute, or Chronic, or Acute on Chronic? Uncomplicated (without systemic symptoms) or Complicated (systemic symptoms)? @ -Chest and back pain Side effects of treatment? @ -No Exacerbation, Progression, or Severe Exacerbation? @ -No Poses a threat to life or bodily function? How? (Chest pain, [place], [place], pneumonia, PE, COPD, DKA, ARF, appy, cholecystitis, CVA, Diverticulitis, Homicidal, Colin icidal, threat to staff... and all critical care pts) @ -yes - Lab Data Result diagrams: 01/23/24 22:05 01/23/24 22:05 Lab Results 01/23/24 01/23/24 01/23/24 Range/Units 22:05 22:05 22:05 WBC 3.8 (3.8-10.6) k/uL RBC 2.81 L (4.30-5.90) m/uL Hgb 9.5 L (13.0-17.5) gm/dL Hct 28.8 L (39.0-53.0) % MCV 102.3 H (80.0-100.0) fL MCH 33.8 (25.0-35.0) pg MCHC 33.0 (31.0-37.0) g/dL RDW 16.5 H (11.5-15.5) % Plt Count 125 L D (150-450) k/uL MPV 8.3 Neutrophils % 57 % Lymphocytes % 27 % Monocytes % 6 % Eosinophils % 6 % Basophils % 1 % Neutrophils # 2.2 (1.3-7.7) k/uL Lymphocytes # 1.1 (1.0-4.8) k/uL Monocytes # 0.2 (0-1.0) k/uL Eosinophils # 0.2 (0-0.7) k/uL Basophils # 0.0 (0-0.2) k/uL Anisocytosis Slight Macrocytosis Moderate Sodium 137 (137-145) mmol/L Potassium 4.4 (3.5-5.1) mmol/L Chloride 106 (98-107) mmol/L Carbon Dioxide 26 (22-30) mmol/L Anion Gap 5 mmol/L BUN 27 H (9-20) mg/dL Creatinine 1.09 (0.66-1.25) mg/dL Est GFR (CKD-EPI)AfAm 71 (>60 ml/min/1.73 sqM) Est GFR (CKD-EPI)NonAf 61 (>60 ml/min/1.73 sqM) Glucose 100 H (74-99) mg/dL Calcium 9.0 (8.4-10.2) mg/dL Total Bilirubin 0.6 (0.2-1.3) mg/dL AST 22 (17-59) U/L ALT 11 (4-49) U/L Alkaline Phosphatase 87 (38-126) U/L Troponin I 0.023 (0.000-0.034) ng/mL Total Protein 5.6 L (6.3-8.2) g/dL Albumin 3.4 L (3.5-5.0) g/dL Lipase 57 (23-300) U/L Disposition Clinical Impression: Chest pain Disposition: ADMITTED IP TO THIS HOSP Condition: Fair Referrals: Shar Yu MD [Primary Care Provider] - 1-2 days Decision Time: 00:15
[2024-01-23 22:47] LABS: ALT 11 U/L (4-49); AST 22 U/L (17-59); African American GFR (CKD) 71 (>60 ml/min/1.73 sqM); Albumin 3.4 g/dL (3.5-5.0); Alkaline Phosphatase 87 U/L (38-126); Anion Gap 5 mmol/L; Blood Urea Nitrogen 27 mg/dL (9-20); Carbon Dioxide 26 mmol/L (22-30); Chloride 106 mmol/L (98-107); Glucose 100 mg/dL (74-99); Lipase 57 U/L (23-300); Non-African American GFR(CKD) 61 (>60 ml/min/1.73 sqM); Potassium 4.4 mmol/L (3.5-5.1); Sodium 137 mmol/L (137-145); Total Bilirubin 0.6 mg/dL (0.2-1.3); Total Protein 5.6 g/dL (6.3-8.2)
--- NOTE | 2024-01-23 22:54 | XR ---
EXAMINATION TYPE: XR chest 2V DATE OF EXAM: 01/23/2024 CLINICAL HISTORY: Episode of interscapular pain and back pain TECHNIQUE: Frontal and lateral views of the chest are obtained. COMPARISON: Prior chest x-ray December 31, 2023 FINDINGS: There is persistent cardiomegaly with dual lead pacemaker. Persistent small to moderate s ize left pleural effusion. Mild central vascular congestion on current study. The osseous structures are intact. IMPRESSION: Cardiomegaly with small to moderate size left pleural effusion redemonstrated. New Mild c entral vascular congestion. Correlate for fluid overload state/CHF exacerbation. [facility], , 01/23/2024 10:51 PM
[2024-01-23 23:24] LABS: Anisocytosis Slight; Basophils % (A) 1 %; Eosinophils # (A) 0.2 k/uL (0-0.7); Eosinophils % (A) 6 %; HCT 28.8 % (39.0-53.0); HGB 9.5 gm/dL (13.0-17.5); Lymphocytes # (A) 1.1 k/uL (1.0-4.8); Lymphocytes % (A) 27 %; MCH 33.8 pg (25.0-35.0); MCV 102.3 fL (80.0-100.0); Macrocytosis Moderate; Mean Platelet Volume 8.3; Monocytes # (A) 0.2 k/uL (0-1.0); Monocytes % (A) 6 %; Neutrophils # (A) 2.2 k/uL (1.3-7.7); Neutrophils % (A) 57 %; RBC 2.81 m/uL (4.30-5.90); RDW 16.5 % (11.5-15.5); WBC 3.8 k/uL (3.8-10.6)
[2024-01-23 23:25] LABS: Platelet Count 125 k/uL (150-450)
[2024-01-24] MEDS ORDERED: NITROGLYCERIN SL TABS 0.4 MG TAB SUBLINGUAL PRN (00:11)
[2024-01-24] MEDS: ASPIRIN 81 MG PO STA (00:33)
[2024-01-24 08:16] VITALS: TEMP 97.4
[2024-01-24] MEDS ORDERED: ALBUTEROL NEBULIZED 2.5 MG/3 ML INHALATION PRN (10:34)
[2024-01-24] MEDS ORDERED: ACETAMINOPHEN TAB 325 MG TAB PO PRN (10:34)
[2024-01-24] MEDS ORDERED: SENNOSIDES 8.6 MG TAB PO PRN (10:34)
[2024-01-24] MEDS ORDERED: ALPRAZolam 0.25 MG TAB PO PRN (10:34)
[2024-01-24] MEDS ORDERED: NON FORMULARY DRUG (Albuterol Inhaler 90 MCG Puff) INHALATION PRN (10:34)
[2024-01-24] MEDS: CLOPIDOGREL 75 MG TAB PO SCH (10:39)
[2024-01-24] MEDS: FUROSEMIDE 40 MG TAB PO SCH (10:39)
[2024-01-24] MEDS: APIXABAN 5 MG TAB PO SCH (10:39)
[2024-01-24] MEDS: METOPROLOL TARTRATE 25 MG TAB PO SCH (10:39)
[2024-01-24] MEDS: LACTULOSE 20 GM/30 ML CUP PO SCH (10:40)
[2024-01-24] MEDS: DORZOLAMIDE-TIMOLOL 2.23%/0.68 10ML BTL RIGHT EYE SCH (11:42)
[2024-01-24] MEDS: DOCUSATE 100 MG CAP PO SCH (11:43)
[2024-01-24] MEDS: TAMSULOSIN 0.4 MG CAP.ER.24H PO SCH (11:43)
[2024-01-24] MEDS: FINASTERIDE 5 MG TAB PO SCH (11:43)
[2024-01-24] MEDS: THIAMINE 100 MG TAB PO SCH (11:43)
--- NOTE | 2024-01-24 14:05 | P.CRDCN ---
History of Present Illness Consult date: 01/24/24 Consult reason: chest pain History of present illness: This is an 88-year-old male patient of Dr. Jamel Gillette with past medical history of dilated cardiomyopathy with chronic systolic heart failure, diabetes mellitus type 2, COPD, prostate cancer. We have been asked to evaluate the patient for chest pain. Patient states that he developed chest pain that lasted about 10 to 15 minutes and between his shoulder blades. He denies any radiation to the of the pain. He may have had a little bit of chest pain in the anterior chest. Chest pain started while he was sitting at the table. He does have chronic shortness of breath due to his COPD. He denies any chest pain related to activity or exertion. No sweats. Pain is of dull type. Blood pressure 117/52, heart rate 61, pulse ox 90% on 3 L nasal cannula. -EKG: Paced rhythm -Chest x-ray: Cardiomegaly with small to moderate left pleural effusion redemonstrated. Mild central vascular congestion. Correlate for fluid overload. -Laboratory studies: WBC 3.8, hemoglobin 9.5, platelet count 125. Electrolytes are normal. BUN 27 creatinine 1.9. Troponin negative x 3. proBNP 1300 -Home cardiac medications: Eliquis 5 mg twice daily, aspirin 81 mg daily, Plavix 75 mg daily, Lasix 40 mg twice daily, Lopressor 25 mg twice daily. -Cardiac catheterization performed 12/27/2023 revealed 60 to 70% stenosis involving the LAD. -PCI with stenting of the mid LAD on 12/31/2023 -Echocardiogram performed 12/28/2023 revealed EF of 45 to 50%, small circumferential pericardial effusion. Review Of Systems: At the time of my exam: CONSTITUTIONAL: Denies fever or chills. HEENT: Denies blurred vision, vision changes, or eye pain. Denies hemoptysis CARDIOVASCULAR: Denies chest pain. Denies orthopnea. Denies PND. Denies palpitations RESPIRATORY: Denies shortness of breath. GASTROINTESTINAL: Denies abdominal pain. Denies nausea or vomiting. HEMATOLOGIC: Denies bleeding disorders. GENITOURINARY: Denies any blood in urine. SKIN: Denies puritis. Denies rash. Physical examination: Gen: This is an 88-year-old male in no acute distress VS: reviewed HEENT: Head is atraumatic, normocephalic. Pupils equal, round. Sclerae is anicteric. NECK: Supple. No JVD. LUNGS: Clear to auscultation. No wheezes or rhonchi. No intercostal retractions. HEART: Regular rate and rhythm. No murmur. ABDOMEN: Soft No tenderness. EXTREMITIES: No pedal edema. No calf tenderness. NEUROLOGICAL: Patient is awake, alert and oriented x3. Assessment: Atypical chest pain, acute coronary syndrome ruled out Dilated cardiomyopathy Chronic systolic heart failure Diabetes mellitus type 2 COPD Prostate cancer Plan: Resume patient's home cardiac medications Patient may eat, ambulate patient if no symptoms, discharge patient home today Patient may follow-up in the office with Dr. Gillette in 2 weeks. Thank you kindly for this consultation. Nurse practitioner note has been reviewed, I agree with documented findings and plan of care. Patient was seen and examined. 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 Past Anesthesia/Blood Transfusion Reactions: No Reported Reaction Additional Past Anesthesia/Blood Transfusion Reaction / Comment(s): Pt has claustrophobia. Type of Cardiac Device: Permanent Pacemaker Device Placement Date:: 12/19/23 Past Psychological History: No Psychological Hx Reported Smoking Status: Former smoker Past Alcohol Use History: None Reported Past Drug Use History: None Reported - Past Family History Brother(s) Family Medical History: Cancer Additional Family Medical History / Comment(s): Prostate cancer. Father Family Medical History: Deep Vein Thrombosis (DVT) Additional Family Medical History / Comment(s): Father of dementia at the age of 79 yrs. Mother Family Medical History: No Reported History Additional Family Medical History / Comment(s): Mother was healthy and lived to be 86yrs old. Medications and Allergies Home Medications Medication Instructions Recorded Confirmed Type Alfuzosin HCl [Uroxatral ER] 10 mg PO DAILY 09/09/15 01/24/24 History Finasteride [Proscar] 5 mg PO DAILY 09/09/15 01/24/24 History Travoprost [Travatan Z 0.004%] 1 drop BOTH EYES HS 09/10/15 01/24/24 History rOPINIRole HCL [Requip] 2 mg PO TID PRN 04/20/20 01/24/24 History Dorzolamide-Timol 2.23%/0.68% 1 drop RIGHT EYE BID 10/29/22 01/24/24 History [Cosopt] Fluticasone/Umeclidin/Vilanter 1 puff INHALATION RT-DAILY 10/29/22 01/24/24 History [Trelegy Ellipta 100-62.5-25] Ergocalciferol (Vitamin D2) 1,250 mcg PO FR 11/29/23 01/24/24 History [Drisdol (50,000 Iu)] Thiamine [Vitamin B-1] 100 mg PO DAILY #30 tab 12/02/23 01/24/24 Rx Albuterol Inhaler [Ventolin Hfa 1 - 2 puff INHALATION RT-Q6H PRN 12/18/23 01/24/24 History Inhaler] Albuterol Nebulized [Ventolin 2.5 mg INHALATION RT-TID PRN 12/27/23 01/24/24 History Nebulized] Docusate [Colace] 100 mg PO DAILY 12/27/23 01/24/24 History Sennosides [Senokot] 17.2 mg PO DAILY PRN 12/27/23 01/24/24 History ALPRAZolam [Xanax] 0.25 mg PO Q6HR PRN #4 tab 01/03/24 01/24/24 Rx Acetaminophen Tab [Tylenol] 650 mg PO Q6HR PRN tab 01/03/24 01/24/24 Rx Apixaban [Eliquis] 5 mg PO BID #60 tab 01/03/24 01/24/24 Rx Aspirin 81 mg PO DAILY tab 01/03/24 01/24/24 Rx Furosemide [Lasix] 40 mg PO BID #30 tab 01/03/24 01/24/24 Rx Metoprolol Tartrate [Lopressor] 25 mg PO BID tab 01/03/24 01/24/24 Rx Nitroglycerin Sl Tabs [Nitrostat] 0.4 mg SUBLINGUAL Q5M PRN tab 01/03/24 01/24/24 Rx Clopidogrel [Plavix] 75 mg PO DIRECTED 01/24/24 01/24/24 History Allergies Allergy/AdvReac Type Severity Reaction Status Date / Time amoxicillin trihydrate Allergy Unknown Verified 01/24/24 08:23 [From Augmentin] potassium clavulanate Allergy Unknown Verified 01/24/24 08:23 [From Augmentin] moxifloxacin HCl AdvReac Nausea & Verified 01/24/24 08:23 [From Avelox] Vomiting Physical Exam Vitals: Vital Signs Temp Pulse Pulse Resp BP BP Pulse Ox 01/24/24 08:10 97.4 F L 73 17 114/61 91 L 01/24/24 07:52 61 16 117/52 98 01/24/24 05:56 98.2 F 62 16 115/58 94 L 01/24/24 00:30 98.0 F 65 16 110/51 99 01/23/24 23:00 98.1 F 81 16 107/52 99 01/23/24 21:39 97.1 F L 65 18 88/46 99 Intake and Output 01/23/24 01/24/24 01/24/24 22:59 06:59 14:59 Other: Weight 86.183 kg Results 01/23/24 22:05 01/23/24 22:05 Cardiac Enzymes 01/23/24 01/23/24 01/24/24 Range/Units 22:05 22:05 00:55 AST 22 (17-59) U/L Troponin I 0.023 0.021 (0.000-0.034) ng/mL 01/24/24 Range/Units 03:13 AST (17-59) U/L Troponin I 0.020 (0.000-0.034) ng/mL CBC 01/23/24 Range/Units 22:05 WBC 3.8 (3.8-10.6) k/uL RBC 2.81 L (4.30-5.90) m/uL Hgb 9.5 L (13.0-17.5) gm/dL Hct 28.8 L (39.0-53.0) % Plt Count 125 L D (150-450) k/uL Comprehensive Metabolic Panel 01/23/24 Range/Units 22:05 Sodium 137 (137-145) mmol/L Potassium 4.4 (3.5-5.1) mmol/L Chloride 106 (98-107) mmol/L Carbon Dioxide 26 (22-30) mmol/L BUN 27 H (9-20) mg/dL Creatinine 1.09 (0.66-1.25) mg/dL Glucose 100 H (74-99) mg/dL Calcium 9.0 (8.4-10.2) mg/dL AST 22 (17-59) U/L ALT 11 (4-49) U/L Alkaline Phosphatase 87 (38-126) U/L Total Protein 5.6 L (6.3-8.2) g/dL Albumin 3.4 L (3.5-5.0) g/dL Current Medications Generic Name Dose Route Start Last Admin Trade Name Freq PRN Reason Stop Dose Admin Aspirin 325 mg 01/25/24 09:00 Aspirin 325 Mg Tab PO DAILY WILFREDO Nitroglycerin 0.4 mg 01/24/24 00:11 Nitroglycerin Sl Tabs 0.4 Mg Tab SUBLINGUAL Q5M PRN Chest Pain Intake and Output 01/23/24 01/24/24 01/24/24 22:59 06:59 14:59 Other: Weight 86.183 kg 01/23/24 22:05 01/23/24 22:05
[2024-01-24 14:53] VITALS: BP 147/68; PULSE 85; RESP 18
--- NOTE | 2024-01-24 15:04 | P.HPIM ---
History of Present Illness H&P Date: 01/24/24 History of present illness; Patient is 88-year-old male with CHF, dual-chamber pacemaker implantation [employer] in December, chronic respiratory failure on 3 L, history of PE on Eliquis, COPD, diabetes mellitus who presents with intrascapular pain. Pain began yesterday about 30 minutes after eating meal, he describes pain as dull located between the shoulder blades while he was sitting upright. Pain lasted for about 15 minutes. No associated shortness of breath, palpitations, diaphoresis. Pain was not associated with movement or breathing. Nonradiating in nature but patient does feel he had some left anterior chest pain as well. Today, he reports no other symptoms including fever, chills, palpitations. Labs done in ER WBC 3.8, hemoglobin 9.5, sodium 137, potassium 4.4, bicarb 26, BUN 27, creatinine 1.09, glucose 100, troponin 0.023 => 0.021 => 0.020, lipase 57. EKG done in the ER independently interpreted showed heart rate of 60, no ST segment elevation or depression seen, no T-wave inversions seen. Chest x-ray done independently interpreted in the ER showed cardiomegaly small- moderate left pleural effusion, mild central vascular congestion. Spoke with the ER physician, patient admission was accepted by internal medicine service for treatment. REVIEW OF SYSTEMS: Pertinent positives and negatives noted in HPI. PHYSICAL EXAMINATION: Vitals reviewed GENERAL: No acute distress. Well developed, well nourished. HEENT: Pupils are round and equally reacting to light. EOMI. No scleral icterus. Normocephalic, atraumatic. CARDIOVASCULAR: S1 and S2 present. No murmurs, rubs, or gallops. PULMONARY: Chest is clear to auscultation, no wheezing, rhonchi, or crackles. ABDOMEN: Soft, nontender, nondistended, normoactive bowel sounds. No palpable organomegaly. MUSCULOSKELETAL: No apparent joint swelling and deformities. EXTREMITIES: No apparent cyanosis, clubbing, or pedal edema. NEUROLOGICAL: The patient is alert and oriented x3, Gross neurological examination did not reveal any focal deficits. SKIN: No apparent rashes. Assessment and plan Patient is 88-year-old male with CHF, dual-chamber pacemaker implantation [employer] in December, chronic respiratory failure on 3 L, history of PE on Eliquis, COPD, diabetes mellitus who presents with intrascapular pain. #Atypical chest pain #Intrascapular pain #Dilated cardiomyopathy #Chronic systolic heart failure Given aspirin 325 mg Resume cardiac home medications Echo 01/05 with EF of 45 to 50% Consider RUQ ultrasound to rule out gallstones Cardiology consulted Chronic medical conditions #CHF #COPD #Anxiety depression #BPH #Prostate cancer #Chronic constipation #Diabetes mellitus type 2 Resume home medications F: P.o. E: Replete as needed N: Heart healthy diet DVT ppx: Eliquis 5 mg p.o. twice daily Code status: Full code Anticipated discharge place: Home Anticipated discharge time: Today or tomorrow Dictation was produced using [employer] dictation software. Please excuse any grammatical, word or spelling errors. 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 Past Anesthesia/Blood Transfusion Reactions: No Reported Reaction Additional Past Anesthesia/Blood Transfusion Reaction / Comment(s): Pt has claustrophobia. Type of Cardiac Device: Permanent Pacemaker Device Placement Date:: 12/19/23 Past Psychological History: No Psychological Hx Reported Smoking Status: Former smoker Past Alcohol Use History: None Reported Past Drug Use History: None Reported - Past Family History Brother(s) Family Medical History: Cancer Additional Family Medical History / Comment(s): Prostate cancer. Father Family Medical History: Deep Vein Thrombosis (DVT) Additional Family Medical History / Comment(s): Father of dementia at the age of 79 yrs. Mother Family Medical History: No Reported History Additional Family Medical History / Comment(s): Mother was healthy and lived to be 86yrs old. Medications and Allergies Home Medications Medication Instructions Recorded Confirmed Type Alfuzosin HCl [Uroxatral ER] 10 mg PO DAILY 09/09/15 01/24/24 History Finasteride [Proscar] 5 mg PO DAILY 09/09/15 01/24/24 History Travoprost [Travatan Z 0.004%] 1 drop BOTH EYES HS 09/10/15 01/24/24 History rOPINIRole HCL [Requip] 2 mg PO TID PRN 04/20/20 01/24/24 History Dorzolamide-Timol 2.23%/0.68% 1 drop RIGHT EYE BID 10/29/22 01/24/24 History [Cosopt] Fluticasone/Umeclidin/Vilanter 1 puff INHALATION RT-DAILY 10/29/22 01/24/24 History [Trelegy Ellipta 100-62.5-25] Ergocalciferol (Vitamin D2) 1,250 mcg PO FR 11/29/23 01/24/24 History [Drisdol (50,000 Iu)] Thiamine [Vitamin B-1] 100 mg PO DAILY #30 tab 12/02/23 01/24/24 Rx Albuterol Inhaler [Ventolin Hfa 1 - 2 puff INHALATION RT-Q6H PRN 12/18/23 01/24/24 History Inhaler] Albuterol Nebulized [Ventolin 2.5 mg INHALATION RT-TID PRN 12/27/23 01/24/24 History Nebulized] Docusate [Colace] 100 mg PO DAILY 12/27/23 01/24/24 History Sennosides [Senokot] 17.2 mg PO DAILY PRN 12/27/23 01/24/24 History ALPRAZolam [Xanax] 0.25 mg PO Q6HR PRN #4 tab 01/03/24 01/24/24 Rx Acetaminophen Tab [Tylenol] 650 mg PO Q6HR PRN tab 01/03/24 01/24/24 Rx Apixaban [Eliquis] 5 mg PO BID #60 tab 01/03/24 01/24/24 Rx Aspirin 81 mg PO DAILY tab 01/03/24 01/24/24 Rx Furosemide [Lasix] 40 mg PO BID #30 tab 01/03/24 01/24/24 Rx Metoprolol Tartrate [Lopressor] 25 mg PO BID tab 01/03/24 01/24/24 Rx Nitroglycerin Sl Tabs [Nitrostat] 0.4 mg SUBLINGUAL Q5M PRN tab 01/03/24 01/24/24 Rx Clopidogrel [Plavix] 75 mg PO DIRECTED 01/24/24 01/24/24 History Allergies Allergy/AdvReac Type Severity Reaction Status Date / Time amoxicillin trihydrate Allergy Unknown Verified 01/24/24 08:23 [From Augmentin] potassium clavulanate Allergy Unknown Verified 01/24/24 08:23 [From Augmentin] moxifloxacin HCl AdvReac Nausea & Verified 01/24/24 08:23 [From Avelox] Vomiting Physical Exam Vitals: Vital Signs Temp Pulse Pulse Resp BP BP Pulse Ox 01/24/24 08:10 97.4 F L 73 17 114/61 91 L 01/24/24 07:52 61 16 117/52 98 01/24/24 05:56 98.2 F 62 16 115/58 94 L 01/24/24 00:30 98.0 F 65 16 110/51 99 01/23/24 23:00 98.1 F 81 16 107/52 99 01/23/24 21:39 97.1 F L 65 18 88/46 99 Intake and Output 01/23/24 01/24/24 01/24/24 22:59 06:59 14:59 Other: Weight 86.183 kg Results CBC & Chem 7: 01/23/24 22:05 01/23/24 22:05 Labs: Abnormal Lab Results - Last 24 Hours (Table) 01/23/24 01/23/24 Range/Units 22:05 22:05 RBC 2.81 L (4.30-5.90) m/uL Hgb 9.5 L (13.0-17.5) gm/dL Hct 28.8 L (39.0-53.0) % MCV 102.3 H (80.0-100.0) fL RDW 16.5 H (11.5-15.5) % Plt Count 125 L D (150-450) k/uL BUN 27 H (9-20) mg/dL Glucose 100 H (74-99) mg/dL Total Protein 5.6 L (6.3-8.2) g/dL Albumin 3.4 L (3.5-5.0) g/dL
--- NOTE | 2024-01-24 15:15 | P.DS ---
Providers Date of admission: 01/24/24 00:11 Expected date of discharge: 01/24/24 Attending physician: Amalia Hirsch Consults: 01/24/24 00:11 Consult Physician Urgent Consulting Provider: Antonio Christine Consult Reason/Comments: chest pain Do you want consulting provider notified?: Yes Primary care physician: Shar Yu Hospital Course: Discharge diagnoses; #Atypical chest pain #Intrascapular pain #Dilated cardiomyopathy #Chronic systolic heart failure #CHF #COPD #Anxiety depression #BPH #Prostate cancer #Chronic constipation #Diabetes mellitus type 2 Hospital course; Patient discharged in stable condition to home. No new medications. Resume home medications. Patient is to follow-up with PCP in 1 to 2 days and cardiology in 1 to 2 weeks. Outpatient prescription given for ultrasound of abdomen to rule out gallstones given intrascapular pain postprandially. Patient is 88-year-old male with CHF, dual-chamber pacemaker implantation [employer] in December, chronic respiratory failure on 3 L, history of PE on Eliquis, COPD, diabetes mellitus who presents with intrascapular pain. Pain began yesterday about 30 minutes after eating meal, he describes pain as dull located between the shoulder blades while he was sitting upright. Pain lasted for about 15 minutes. No associated shortness of breath, palpitations, diaphoresis. Pain was not associated with movement or breathing. Nonradiating in nature but patient does feel he had some left anterior chest pain as well. Today, he reports no other symptoms including fever, chills, palpitations. Labs done in ER WBC 3.8, hemoglobin 9.5, sodium 137, potassium 4.4, bicarb 26, BUN 27, creatinine 1.09, glucose 100, troponin 0.023 => 0.021 => 0.020, lipase 57. EKG done in the ER independently interpreted showed heart rate of 60, no ST segment elevation or depression seen, no T-wave inversions seen. Chest x-ray done independently interpreted in the ER showed cardiomegaly small- moderate left pleural effusion, mild central vascular congestion. During hospital stay patient seen for atypical chest pain and intrascapular pain. ACS was ruled out by cardiology. PHYSICAL EXAMINATION: Vitals reviewed GENERAL: No acute distress. Well developed, well nourished. HEENT: Pupils are round and equally reacting to light. EOMI. No scleral icterus. Normocephalic, atraumatic. CARDIOVASCULAR: S1 and S2 present. No murmurs, rubs, or gallops. PULMONARY: Chest is clear to auscultation, no wheezing, rhonchi, or crackles. ABDOMEN: Soft, nontender, nondistended, normoactive bowel sounds. No palpable organomegaly. MUSCULOSKELETAL: No apparent joint swelling and deformities. EXTREMITIES: No apparent cyanosis, clubbing, or pedal edema. NEUROLOGICAL: The patient is alert and oriented x3, Gross neurological examination did not reveal any focal deficits. SKIN: No apparent rashes. Dictation was produced using [employer] dictation software. please excuse any grammatical, word or spelling errors. Patient Condition at Discharge: Stable Plan - Discharge Summary Discharge Rx Participant: No New Discharge Prescriptions: Continue Alfuzosin HCl [Uroxatral ER] 10 mg PO DAILY Finasteride [Proscar] 5 mg PO DAILY Travoprost [Travatan Z 0.004%] 1 drop BOTH EYES HS rOPINIRole HCL [Requip] 2 mg PO TID PRN PRN Reason: restless legs Albuterol Inhaler [Ventolin Hfa Inhaler] 1 - 2 puff INHALATION RT-Q6H PRN PRN Reason: Shortness Of Breath Docusate [Colace] 100 mg PO DAILY Albuterol Nebulized [Ventolin Nebulized] 2.5 mg INHALATION RT-TID PRN PRN Reason: Shortness Of Breath Aspirin 81 mg PO DAILY tab Furosemide [Lasix] 40 mg PO BID #30 tab Dorzolamide-Timol 2.23%/0.68% [Cosopt] 1 drop RIGHT EYE BID Fluticasone/Umeclidin/Vilanter [Trelegy Ellipta 100-62.5-25] 1 puff INHALATION RT-DAILY Ergocalciferol (Vitamin D2) [Drisdol (50,000 Iu)] 1,250 mcg PO FR Thiamine [Vitamin B-1] 100 mg PO DAILY #30 tab Sennosides [Senokot] 17.2 mg PO DAILY PRN PRN Reason: Constipation Metoprolol Tartrate [Lopressor] 25 mg PO BID tab Nitroglycerin Sl Tabs [Nitrostat] 0.4 mg SUBLINGUAL Q5M PRN tab PRN Reason: Chest Pain Acetaminophen Tab [Tylenol] 650 mg PO Q6HR PRN tab PRN Reason: Mild Pain Or Fever > 100.5 ALPRAZolam [Xanax] 0.25 mg PO Q6HR PRN #4 tab PRN Reason: Mild Anxiety Apixaban [Eliquis] 5 mg PO BID #60 tab Clopidogrel [Plavix] 75 mg PO DIRECTED Discharge Medication List Alfuzosin HCl [Uroxatral ER] 10 mg PO DAILY 09/09/15 [History] Finasteride [Proscar] 5 mg PO DAILY 09/09/15 [History] Travoprost [Travatan Z 0.004%] 1 drop BOTH EYES HS 09/10/15 [History] rOPINIRole HCL [Requip] 2 mg PO TID PRN 04/20/20 [History] Dorzolamide-Timol 2.23%/0.68% [Cosopt] 1 drop RIGHT EYE BID 10/29/22 [History] Fluticasone/Umeclidin/Vilanter [Trelegy Ellipta 100-62.5-25] 1 puff INHALATION RT-DAILY 10/29/22 [History] Ergocalciferol (Vitamin D2) [Drisdol (50,000 Iu)] 1,250 mcg PO FR 11/29/23 [History] Thiamine [Vitamin B-1] 100 mg PO DAILY #30 tab 12/02/23 [Rx] Albuterol Inhaler [Ventolin Hfa Inhaler] 1 - 2 puff INHALATION RT-Q6H PRN 12/18/23 [History] Albuterol Nebulized [Ventolin Nebulized] 2.5 mg INHALATION RT-TID PRN 12/27/23 [History] Docusate [Colace] 100 mg PO DAILY 12/27/23 [History] Sennosides [Senokot] 17.2 mg PO DAILY PRN 12/27/23 [History] ALPRAZolam [Xanax] 0.25 mg PO Q6HR PRN #4 tab 01/03/24 [Rx] Acetaminophen Tab [Tylenol] 650 mg PO Q6HR PRN tab 01/03/24 [Rx] Apixaban [Eliquis] 5 mg PO BID #60 tab 01/03/24 [Rx] Aspirin 81 mg PO DAILY tab 01/03/24 [Rx] Furosemide [Lasix] 40 mg PO BID #30 tab 01/03/24 [Rx] Metoprolol Tartrate [Lopressor] 25 mg PO BID tab 01/03/24 [Rx] Nitroglycerin Sl Tabs [Nitrostat] 0.4 mg SUBLINGUAL Q5M PRN tab 01/03/24 [Rx] Clopidogrel [Plavix] 75 mg PO DIRECTED 01/24/24 [History] Follow up Appointment(s)/Referral(s): Shar Yu MD [Primary Care Provider] - 1-2 days Godwin Gillette MD [STAFF PHYSICIAN] - 1 Week Ambulatory/Diagnostic Orders: US abdomen limited [RAD.AMB] Location: None Selected Discharge Disposition: HOME SELF-CARE
[2024-01-24] MEDS ORDERED: LATANOPROST 0.005% OPHTH DROPS 2.5 ML BTL BOTH EYES SCH (21:00)
[2024-01-25] MEDS ORDERED: IPRATROPIUM 0.5 MG/2.5 ML NEBU INHALATION SCH (08:00)
[2024-01-25] MEDS ORDERED: SYMBICORT 80-4.5 MCG INHALER INHALATION SCH (08:00)
[2024-01-25] MEDS ORDERED: ASPIRIN 325 MG TAB PO SCH (09:00)
== END 2024-01-24 17:23 | disposition home or self-care (01) ==
LOC: EC 21:33 → 6NMEDSUR 01-24 00:11
PROVIDERS: ADMIT Hospitalist; ATTEND Hospitalist
DX: R07.89 Other chest pain (principal); K59.09 Other constipation; J44.9 Chronic obstructive pulmonary disease, unspecified; J96.10 Chronic respiratory failure, unspecified whether with hypoxia or hypercapnia; I11.0 Hypertensive heart disease with heart failure; I50.22 Chronic systolic (congestive) heart failure; I42.0 Dilated cardiomyopathy; I25.10 Atherosclerotic heart disease of native coronary artery without angina pectoris; F32.A Depression, unspecified; N40.0 Benign prostatic hyperplasia without lower urinary tract symptoms; E78.5 Hyperlipidemia, unspecified; E11.9 Type 2 diabetes mellitus without complications; Z85.46 Personal history of malignant neoplasm of prostate; Z88.1 Allergy status to other antibiotic agents; Z88.0 Allergy status to penicillin; Z88.8 Allergy status to other drugs, medicaments and biological substances; Z79.899 Other long term (current) drug therapy; Z79.51 Long term (current) use of inhaled steroids; Z86.711 Personal history of pulmonary embolism; Z87.891 Personal history of nicotine dependence; Z79.82 Long term (current) use of aspirin; Z79.02 Long term (current) use of antithrombotics/antiplatelets; Z79.01 Long term (current) use of anticoagulants; Z95.5 Presence of coronary angioplasty implant and graft; Z99.81 Dependence on supplemental oxygen
CPT/HCPCS: 99285; 36415; 94760; 93005 ×2; 83880; 80053; 83690; 84484 ×2; 85025; 71046; G0378; S0138

== ENCOUNTER 2024-02-02 22:02 | Observation (INO) | payer MEDICARE ==
--- NOTE | 2024-02-02 22:05 | ED ---
Chest Pain HPI - General Stated Complaint: Chest Pain Time Seen by Provider: 02/02/24 22:04 Source: RN notes reviewed, old records reviewed Mode of arrival: ambulatory Limitations: no limitations - History of Present Illness Initial Comments: This is a 88-year-old male to the ER for evaluation of not feeling well, difficulty with eating tonight with some abdominal pain and chest pain concern for gallbladder issue history of, patient also complaining of chest pain this was not feeling well tonight folic something was wrong called EMS when he was on the phone with his daughter secondary to these concerns. MD Complaint: chest pain, other (Abdominal pain with nausea) -: hour(s) Onset: during rest, after eating Pain Location: substernal, epigastric Pain Radiation: none Severity: moderate Severity scale (1-10): 4 Quality: aching, dull Consistency: intermittent Improves With: nothing Worsens With: nothing Anginal Symptoms: nausea Other Symptoms: palpitations Treatments Prior to Arrival: none - Related Data Home Medications Medication Instructions Recorded Confirmed Alfuzosin HCl [Uroxatral ER] 10 mg PO DAILY 09/09/15 01/24/24 Finasteride [Proscar] 5 mg PO DAILY 09/09/15 01/24/24 Travoprost [Travatan Z 0.004%] 1 drop BOTH EYES HS 09/10/15 01/24/24 rOPINIRole HCL [Requip] 2 mg PO TID PRN 04/20/20 01/24/24 Dorzolamide-Timol 2.23%/0.68% 1 drop RIGHT EYE BID 10/29/22 01/24/24 [Cosopt] Fluticasone/Umeclidin/Vilanter 1 puff INHALATION RT-DAILY 10/29/22 01/24/24 [Trelegy Ellipta 100-62.5-25] Ergocalciferol (Vitamin D2) 1,250 mcg PO FR 11/29/23 01/24/24 [Drisdol (50,000 Iu)] Albuterol Inhaler [Ventolin Hfa 1 - 2 puff INHALATION RT-Q6H PRN 12/18/23 01/24/24 Inhaler] Albuterol Nebulized [Ventolin 2.5 mg INHALATION RT-TID PRN 12/27/23 01/24/24 Nebulized] Docusate [Colace] 100 mg PO DAILY 12/27/23 01/24/24 Sennosides [Senokot] 17.2 mg PO DAILY PRN 12/27/23 01/24/24 Clopidogrel [Plavix] 75 mg PO DIRECTED 01/24/24 01/24/24 Previous Rx's Medication Instructions Recorded Thiamine [Vitamin B-1] 100 mg PO DAILY #30 tab 12/02/23 ALPRAZolam [Xanax] 0.25 mg PO Q6HR PRN #4 tab 01/03/24 Acetaminophen Tab [Tylenol] 650 mg PO Q6HR PRN tab 01/03/24 Apixaban [Eliquis] 5 mg PO BID #60 tab 01/03/24 Aspirin 81 mg PO DAILY tab 01/03/24 Furosemide [Lasix] 40 mg PO BID #30 tab 01/03/24 Metoprolol Tartrate [Lopressor] 25 mg PO BID tab 01/03/24 Nitroglycerin Sl Tabs [Nitrostat] 0.4 mg SUBLINGUAL Q5M PRN tab 01/03/24 Allergies Allergy/AdvReac Type Severity Reaction Status Date / Time amoxicillin trihydrate Allergy Unknown Verified 02/02/24 22:13 [From Augmentin] potassium clavulanate Allergy Unknown Verified 02/02/24 22:13 [From Augmentin] moxifloxacin HCl AdvReac Nausea & Verified 02/02/24 22:13 [From Avelox] Vomiting Review of Systems ROS Statement: Those systems with pertinent positive or pertinent negative responses have been documented in the HPI. ROS Other: All systems not noted in ROS Statement are negative. 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 Past Anesthesia/Blood Transfusion Reactions: No Reported Reaction Additional Past Anesthesia/Blood Transfusion Reaction / Comment(s): Pt has claustrophobia. Type of Cardiac Device: Permanent Pacemaker Device Placement Date:: 12/19/23 Past Psychological History: No Psychological Hx Reported Smoking Status: Former smoker Past Alcohol Use History: None Reported Past Drug Use History: None Reported - Past Family History Brother(s) Family Medical History: Cancer Additional Family Medical History / Comment(s): Prostate cancer. Father Family Medical History: Deep Vein Thrombosis (DVT) Additional Family Medical History / Comment(s): Father of dementia at the age of 79 yrs. Mother Family Medical History: No Reported History Additional Family Medical History / Comment(s): Mother was healthy and lived to be 86yrs old. General Exam General appearance: alert, in no apparent distress Head exam: Present: atraumatic, normocephalic, normal inspection Eye exam: Present: normal appearance, PERRL, EOMI. Absent: scleral icterus, conjunctival injection, periorbital swelling ENT exam: Present: normal exam, mucous membranes moist Neck exam: Present: normal inspection. Absent: tenderness, meningismus, lymphadenopathy Respiratory exam: Present: normal lung sounds bilaterally. Absent: respiratory distress, wheezes, rales, rhonchi, stridor Cardiovascular Exam: Present: regular rate, normal rhythm, normal heart sounds. Absent: systolic murmur, diastolic murmur, rubs, gallop, clicks GI/Abdominal exam: Present: soft, normal bowel sounds. Absent: distended, tenderness, guarding, rebound, rigid Extremities exam: Present: normal inspection, full ROM, normal capillary refill. Absent: tenderness, pedal edema, joint swelling, calf tenderness Back exam: Present: normal inspection Neurological exam: Present: alert, oriented X3, CN II-XII intact Psychiatric exam: Present: normal affect, normal mood Skin exam: Present: warm, dry, intact, normal color. Absent: rash Course Vital Signs 02/02/24 02/02/24 02/02/24 22:05 23:24 23:30 Temperature 98.2 F Pulse Rate 74 65 60 Respiratory 18 18 18 Rate Blood Pressure 97/60 - Reevaluation(s) Reevaluation #1: 02/02/24 22:04 Medical records reviewed Reevaluation #2: 02/02/24 23:27 Patient symptoms unchanged Reevaluation #3: 02/03/24 01:54 Patient informed of results and questions answered Reevaluation #4: Was pt. sent in by a medical professional or institution (ELINA Luo, RETURN CLERK, urgent care, hospital, or assisted...) When possible be specific @ -no Did you speak to anyone other than the patient for history (EMS, parent, family, police, friend...)? What history was obtained from this source @ -no Did you review nursing and triage notes (agree or disagree)? Why? @ -agree Are old charts reviewed (outside hosp., previous admission, EMS record, old EKG, old radiological studies, urgent care reports/EKG's, assisted records)? Report findings @ -yes Differential Diagnosis (chest pain, altered mental status, abdominal pain women, abdominal pain men, vaginal bleeding, weakness, fever, dyspnea, syncope, headache, dizziness, GI bleed, back pain, seizure, CVA, palpatations, mental health, musculoskeletal)? @ -prior EKG interpreted by me (3pts min.). @ -yes X-rays interpreted by me (1pt min.). @ -yes negative for acute disease CT interpreted by me (1pt min.). @ -no U/S interpreted by me (1pt. min.). @ -no What testing was considered but not performed or refused? (CT, X-rays, U/S, labs)? Why? @ -none What meds were considered but not given or refused? Why? @ -none Did you discuss the management of the patient with other professionals (professionals i.e. ELINA Luo, RETURN CLERK, lab, RT, psych nurse, social media marketing manager, boss dyer, teacher, duty officer, welfare case worker)? Give summary @ -no Was smoking cessation discussed for >3mins.? @ -no Was critical care preformed (if so, how long)? @ -no Were there social determinants of health that impacted care today? How? (Homelessness, low income, unemployed, alcoholism, drug addiction, transportation, low edu. Level, literacy, decrease access to med. care, retirement, rehab)? @ -none Was there de-escalation of care discussed even if they declined (Discuss DNR or withdrawal of care, Hospice)? DNR status @ -no What co-morbidities impacted this encounter? (DM, HTN, Smoking, COPD, CAD, Cancer, CVA, ARF, Chemo, Hep., AIDS, mental health diagnosis, sleep apnea, morbid obesity)? @ -none Was patient admitted / discharged? Hospital course, mention meds given and route, prescriptions, significant lab abnormalities, going to OR and other pertinent info. @ - Undiagnosed new problem with uncertain prognosis? @ -no Drug Therapy requiring intensive monitoring for toxicity (Heparin, Nitro, Insulin, Cardizem)? @ -no Were any procedures done? @ -no Diagnosis/symptom? @ - Acute, or Chronic, or Acute on Chronic? @ -Acute Uncomplicated (without systemic symptoms) or Complicated (systemic symptoms)? @ -Complicated Side effects of treatment? @ -no Exacerbation, Progression, or Severe Exacerbation? @ -exacerbation Poses a threat to life or bodily function? How? (Chest pain, USA, NE, pneumonia, PE, COPD, DKA, ARF, appy, cholecystitis, CVA, Diverticulitis, Homicidal, Suicidal, threat to staff... and all critical care pts) @ -yes Reevaluation #5: Differential Chest Pain: Stable Angina, Unstable Angina, STEMI, NSTEMI Aortic Dissection, Pneumothorax, Musculoskeletal, Esophageal Spasm GERD, Cholecystitis, Pancreatitis, Zoster, this is not meant to be an all-inclusive list. - Consultations Consultation #1: With [facility] who agrees to admit this patient Chest Pain MDM - MDM 88 male to ER for evaluation of chest pain chest pain abdominal pain elevated troponin non-ST elevated NE. Patient admitted for cardiac observation Critical Care Time Critical Care Time: Yes Total Critical Care Time: 31 Disposition Clinical Impression: Chest pain, Weakness, Acute non-ST elevation myocardial infarction (NSTEMI) Disposition: ADMITTED IP TO THIS HOSP Condition: Fair Is patient prescribed a controlled substance at d/c from ED?: No Referrals: Shar Yu MD [Primary Care Provider] - 1-2 days Time of Disposition: 02:00
[2024-02-02 22:29] LABS: Basophils % (A) 1 %; Eosinophils # (A) 0.3 k/uL (0-0.7); Eosinophils % (A) 4 %; HCT 26.4 % (39.0-53.0); HGB 8.7 gm/dL (13.0-17.5); Lymphocytes # (A) 1.4 k/uL (1.0-4.8); Lymphocytes % (A) 25 %; MCHC 32.9 g/dL (31.0-37.0); MCV 103.5 fL (80.0-100.0); Macrocytosis Moderate; Mean Platelet Volume 7.4; Monocytes # (A) 0.3 k/uL (0-1.0); Monocytes % (A) 6 %; Neutrophils # (A) 3.6 k/uL (1.3-7.7); Neutrophils % (A) 63 %; Platelet Count 175 k/uL (150-450); RBC 2.55 m/uL (4.30-5.90); RDW 15.5 % (11.5-15.5); WBC 5.7 k/uL (3.8-10.6)
[2024-02-02] MEDS: SODIUM CHLORIDE 0.9% 500 ML 500 ML IV STA (22:30)
[2024-02-02 22:40] LABS: ALT 11 U/L (4-49); AST 20 U/L (17-59); African American GFR (CKD) 57 (>60 ml/min/1.73 sqM); Albumin 3.4 g/dL (3.5-5.0); Alkaline Phosphatase 95 U/L (38-126); Anion Gap 2 mmol/L; Blood Urea Nitrogen 35 mg/dL (9-20); Calcium 8.8 mg/dL (8.4-10.2); Carbon Dioxide 29 mmol/L (22-30); Chloride 104 mmol/L (98-107); Glucose 133 mg/dL (74-99); Lipase 271 U/L (23-300); Magnesium 2.2 mg/dL (1.6-2.3); Non-African American GFR(CKD) 49 (>60 ml/min/1.73 sqM); Potassium 4.5 mmol/L (3.5-5.1); Sodium 135 mmol/L (137-145); Total Bilirubin 0.7 mg/dL (0.2-1.3); Total Protein 5.9 g/dL (6.3-8.2)
[2024-02-02 22:48] LABS: NT-Pro-B-Type Natriuretic Pept 1490 pg/mL
[2024-02-02 23:00] LABS: Partial Thromboplastin Time 25.3 sec (22.0-30.0); Prothrombin Time 10.8 sec (10.0-12.5)
[2024-02-02] MEDS: IPRATROPIUM-ALBUTEROL 3 ML NEB INHALATION STA (23:23)
--- NOTE | 2024-02-03 01:29 | US ---
EXAM: US Abdomen Limited, Gallbladder CLINICAL HISTORY: ITS.REASON US Reason: pain TECHNIQUE: Real-time ultrasound of the right upper quadrant with image documentation. COMPARISON: 12/22/2022. FINDINGS: Liver: Liver measures 16.4 cm. Gallbladder: Gallbladder wall measures 0.2 cm. Negative ultrasound Negrete sign. No gallstones. Common bile duct: Common bile measures 0.8 cm. No stones. No dilation. Pancreas: Obscuration of the pancreas due to bowel gas. Right kidney: A 2.1 cm simple cyst of the right kidney is noted. Right kidney measures 11.5 cm without renal calculus or hydronephrosis. IMPRESSION: 1. No gallstones detected. 2. There is dilatation of the common bile duct measures 0.8 cm of uncertain etiology. Clinical correlation and correlation with laboratory values are advised. MRCP study is advised to follow-up for further assessment as deemed clinically necessary.
--- NOTE | 2024-02-03 01:30 | XR ---
EXAM: XR Chest, 2 Views CLINICAL HISTORY: ITS.REASON XR Reason: Chest Pain TECHNIQUE: Frontal and lateral views of the chest. COMPARISON: Chest x-ray of 01/23/2024. FINDINGS: Lungs: Prominence of central pulmonary vasculature. No consolidation. Pleural space: Moderate left pleural effusion. No pneumothorax. Heart: There is cardiomegaly. Mediastinum: Unremarkable. Normal mediastinal contour. Bones/joints: Osteopenia. No acute fracture. Vasculature: Atherosclerotic disease. Tubes, lines and devices: Pacemaker overlies the left upper chest. IMPRESSION: 1. Cardiomegaly and moderate left pleural effusion unchanged from the previous study. 2. Atherosclerotic disease. 3. Consider congestive heart failure.
[2024-02-03] MEDS ORDERED: NALOXONE 0.4 MG/ML 1 ML VIAL IV PRN (01:52)
[2024-02-03] MEDS ORDERED: ONDANSETRON 4 MG/2 ML VIAL IVP PRN (01:52)
[2024-02-03] MEDS: SODIUM CHLORIDE 0.9% 1,000 ML IV SCH (03:33)
[2024-02-03] MEDS: MORPHINE SULFATE 4 MG/ML SYRINGE IV PRN (05:46)
[2024-02-03] MEDS ORDERED: SENNOSIDES 8.6 MG TAB PO PRN (09:53)
[2024-02-03] MEDS ORDERED: NITROGLYCERIN SL TABS 0.4 MG TAB SUBLINGUAL PRN (09:53)
[2024-02-03] MEDS ORDERED: ALPRAZolam 0.25 MG TAB PO PRN (09:53)
[2024-02-03] MEDS ORDERED: bisacodyL 10 MG SUPP RECTAL PRN (09:53)
[2024-02-03] MEDS ORDERED: ALBUTEROL NEBULIZED 2.5 MG/3 ML INHALATION PRN ×2 (09:53)
--- NOTE | 2024-02-03 10:46 | P.HPIM ---
History of Present Illness H&P Date: 02/03/24 History of present illness; patient is a 88-year-old gentleman with past medical history significant for chronic systolic heart failure, diabetes mellitus, COPD, prostate cancer who presented to the ER because of chest pain and not feeling well.. Patient was seen recently in the hospital with similar episode of chest pain at which time cardiology evaluated and patient troponin were flat so cardio logy recommended no ischemic workup. Patient stated that he was all right yesterday when he started noticing that he was not feeling his usual self, patient was having chest pain that was central in location, nonradiating, no aggravating or relieving factor associated chest pain. Patient also complaining of abdominal pain which she related to eating. There was no complaint of nausea or vomiting. There is no complaint of fever or chills. Because of chest pain, patient came to the ER Initial lab work done in the ER showed WBC 5.7, hemoglobin 8.7, platelet count 175, sodium 135, potassium 4.5, BUN 35, creatinine 1.31, troponin 0.053, EKG done in the ER showed heart rate of 64, paced rhythm Ultrasound abdomen done showed no gallstones. Mild dilatation of the common bile duct measures 0.8 cm Chest x-ray done in the ER showed cardiomegaly and moderate left pleural effusion unchanged from previous study Patient admitted to internal medicine service REVIEW OF SYSTEMS: CONSTITUTIONAL: No fever, no malaise, no fatigue. HEENT: No recent visual problems or hearing problems. Denied any sore throat. CARDIOVASCULAR: Mentioned above PULMONARY: As mentioned above GASTROINTESTINAL: No diarrhea, no nausea, no vomiting, no abdominal pain. NEUROLOGICAL: No headaches, no weakness, no numbness. HEMATOLOGICAL: Denies any bleeding or petechiae. GENITOURINARY: Denies any burning micturition, frequency, or urgency. MUSCULOSKELETAL/RHEUMATOLOGICAL: Denies any joint pain, swelling, or any muscle pain. ENDOCRINE: Denies any polyuria or polydipsia. The rest of the 14-point review of systems is negative. PHYSICAL EXAMINATION: GENERAL: The patient is alert and oriented x3, ill looking HEENT: Pupils are round and equally reacting to light. EOMI. No scleral icterus. No conjunctival pallor. Normocephalic, atraumatic. No pharyngeal erythema. No thyromegaly. CARDIOVASCULAR: S1 and S2 present. No murmurs, rubs, or gallops. PULMONARY: Chest is clear to auscultation, no wheezing or crackles. ABDOMEN: Soft, nontender, nondistended, normoactive bowel sounds. No palpable organomegaly. MUSCULOSKELETAL: No joint swelling or deformity. EXTREMITIES: No cyanosis, clubbing, or pedal edema. NEUROLOGICAL: Gross neurological examination did not reveal any focal deficits. SKIN: No rashes. Assessment and plan Elevated troponin Dilated cardiomyopathy Chronic systolic heart failure Diabetes mellitus type 2 COPD Prostate cancer Monitor vital signs Monitor CBC Monitor CMP Continue telemetry monitoring Trend troponin Resume aspirin, Plavix Resume Eliquis Resume home meds Consult cardiology Labs and medication were reviewed.. Continue same treatment. Continue with symptomatic treatment. Resume home medication. Monitor labs and vitals. DVT and GI prophylaxis. Further recommendations as per clinical course of the patient Dictation was produced using [employer] dictation software. please excuse any grammatical, word or spelling errors. 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 Past Anesthesia/Blood Transfusion Reactions: No Reported Reaction Additional Past Anesthesia/Blood Transfusion Reaction / Comment(s): Pt has claustrophobia. Type of Cardiac Device: Permanent Pacemaker Device Placement Date:: 12/19/23 Past Psychological History: No Psychological Hx Reported Smoking Status: Former smoker Past Alcohol Use History: None Reported Past Drug Use History: None Reported - Past Family History Brother(s) Family Medical History: Cancer Additional Family Medical History / Comment(s): Prostate cancer. Father Family Medical History: Deep Vein Thrombosis (DVT) Additional Family Medical History / Comment(s): Father of dementia at the age of 79 yrs. Mother Family Medical History: No Reported History Additional Family Medical History / Comment(s): Mother was healthy and lived to be 86yrs old. Medications and Allergies Home Medications Medication Instructions Recorded Confirmed Type Alfuzosin HCl [Uroxatral ER] 10 mg PO DAILY 09/09/15 02/03/24 History Finasteride [Proscar] 5 mg PO DAILY 09/09/15 02/03/24 History Travoprost [Travatan Z 0.004%] 1 drop BOTH EYES HS 09/10/15 02/03/24 History rOPINIRole HCL [Requip] 2 mg PO TID PRN 04/20/20 02/03/24 History Dorzolamide-Timol 2.23%/0.68% 1 drop RIGHT EYE BID 10/29/22 02/03/24 History [Cosopt] Fluticasone/Umeclidin/Vilanter 1 puff INHALATION RT-DAILY 10/29/22 02/03/24 History [Trelegy Ellipta 100-62.5-25] Ergocalciferol (Vitamin D2) 1,250 mcg PO FR 11/29/23 02/03/24 History [Drisdol (50,000 Iu)] Thiamine [Vitamin B-1] 100 mg PO DAILY #30 tab 12/02/23 02/03/24 Rx Albuterol Inhaler [Ventolin Hfa 2 puff INHALATION RT-Q6H PRN 12/18/23 02/03/24 History Inhaler] Albuterol Nebulized [Ventolin 2.5 mg INHALATION RT-TID PRN 12/27/23 02/03/24 History Nebulized] Docusate [Colace] 100 mg PO DAILY 12/27/23 02/03/24 History Sennosides [Senokot] 17.2 mg PO DAILY PRN 12/27/23 02/03/24 History ALPRAZolam [Xanax] 0.25 mg PO Q6HR PRN #4 tab 01/03/24 02/03/24 Rx Acetaminophen Tab [Tylenol] 650 mg PO Q6HR PRN tab 01/03/24 02/03/24 Rx Apixaban [Eliquis] 5 mg PO BID #60 tab 01/03/24 02/03/24 Rx Aspirin 81 mg PO DAILY tab 01/03/24 02/03/24 Rx Furosemide [Lasix] 40 mg PO BID #30 tab 01/03/24 02/03/24 Rx Metoprolol Tartrate [Lopressor] 25 mg PO BID tab 01/03/24 02/03/24 Rx Nitroglycerin Sl Tabs [Nitrostat] 0.4 mg SUBLINGUAL Q5M PRN tab 01/03/24 02/03/24 Rx Clopidogrel [Plavix] 75 mg PO DAILY 01/24/24 02/03/24 History Enzalutamide [Xtandi] 160 mg PO DAILY 02/03/24 02/03/24 History Ipratropium-Albuterol Nebulize 3 ml INHALATION RT-Q2H PRN 02/03/24 02/03/24 History [Duoneb 0.5 mg-3 mg/3 ml Soln] Ipratropium-Albuterol Nebulize 3 ml INHALATION RT-QID 02/03/24 02/03/24 History [Duoneb 0.5 mg-3 mg/3 ml Soln] Mag Hydrox/Al Hydrox/Simeth 30 ml PO Q4H PRN 02/03/24 02/03/24 History [Maalox] bisacodyL [Dulcolax] 10 mg PO DAILY PRN 02/03/24 02/03/24 History bisacodyL [Dulcolax] 10 mg RECTAL DAILY PRN 02/03/24 02/03/24 History Allergies Allergy/AdvReac Type Severity Reaction Status Date / Time amoxicillin trihydrate Allergy Unknown Verified 02/03/24 09:43 [From Augmentin] potassium clavulanate Allergy Unknown Verified 02/03/24 09:43 [From Augmentin] moxifloxacin HCl AdvReac Nausea & Verified 02/03/24 09:43 [From Avelox] Vomiting Physical Exam Vitals: Vital Signs Temp Pulse Resp BP Pulse Ox 02/03/24 09:00 97.7 F 75 20 130/68 96 02/03/24 08:00 63 20 108/61 99 02/03/24 05:47 70 16 117/61 99 02/03/24 04:48 100 02/03/24 04:43 59 L 16 105/46 02/02/24 23:30 60 18 02/02/24 23:24 65 18 02/02/24 22:05 98.2 F 74 18 97/60 Intake and Output 12/21/24 12/22/24 12/22/24 22:59 06:59 14:59 Other: Weight 88.451 kg Results CBC & Chem 7: 02/02/24 22:04 02/02/24 22:04 Labs: Abnormal Lab Results - Last 24 Hours (Table) 02/02/24 02/02/24 02/02/24 Range/Units 22:04 22:04 22:04 RBC 2.55 L (4.30-5.90) m/uL Hgb 8.7 L (13.0-17.5) gm/dL Hct 26.4 L (39.0-53.0) % MCV 103.5 H (80.0-100.0) fL Sodium 135 L (137-145) mmol/L BUN 35 H (9-20) mg/dL Creatinine 1.31 H (0.66-1.25) mg/dL Glucose 133 H (74-99) mg/dL Troponin I 0.053 H* (0.000-0.034) ng/mL Total Protein 5.9 L (6.3-8.2) g/dL Albumin 3.4 L (3.5-5.0) g/dL 02/03/24 02/03/24 Range/Units 04:43 06:44 RBC (4.30-5.90) m/uL Hgb (13.0-17.5) gm/dL Hct (39.0-53.0) % MCV (80.0-100.0) fL Sodium (137-145) mmol/L BUN (9-20) mg/dL Creatinine (0.66-1.25) mg/dL Glucose (74-99) mg/dL Troponin I 0.051 H* 0.045 H* (0.000-0.034) ng/mL Total Protein (6.3-8.2) g/dL Albumin (3.5-5.0) g/dL
[2024-02-03] MEDS: ASPIRIN 81 MG PO SCH (12:27)
[2024-02-03] MEDS: CLOPIDOGREL 75 MG TAB PO SCH (12:36)
[2024-02-03] MEDS: IPRATROPIUM 0.5 MG/2.5 ML NEBU INHALATION SCH (15:52)
[2024-02-03] MEDS: ACETAMINOPHEN TAB 325 MG TAB PO PRN (16:19)
[2024-02-03] MEDS: FUROSEMIDE 40 MG TAB PO SCH (16:19)
[2024-02-03] MEDS: LATANOPROST 0.005% OPHTH DROPS 2.5 ML BTL BOTH EYES SCH (21:04)
[2024-02-03] MEDS: DORZOLAMIDE-TIMOLOL 2.23%/0.68 10ML BTL RIGHT EYE SCH (21:04)
[2024-02-03] MEDS: APIXABAN 5 MG TAB PO SCH (21:04)
[2024-02-03] MEDS: METOPROLOL TARTRATE 25 MG TAB PO SCH (21:04)
[2024-02-03] MEDS: SYMBICORT 80-4.5 MCG INHALER INHALATION SCH (21:11)
[2024-02-04 07:25] LABS: Basophils % (A) 1 %; Eosinophils # (A) 0.2 k/uL (0-0.7); Eosinophils % (A) 6 %; HCT 24.8 % (39.0-53.0); HGB 8.1 gm/dL (13.0-17.5); Lymphocytes # (A) 0.8 k/uL (1.0-4.8); Lymphocytes % (A) 20 %; MCH 34.2 pg (25.0-35.0); MCHC 32.7 g/dL (31.0-37.0); MCV 104.5 fL (80.0-100.0); Macrocytosis Moderate; Monocytes # (A) 0.3 k/uL (0-1.0); Monocytes % (A) 7 %; Neutrophils # (A) 2.5 k/uL (1.3-7.7); Neutrophils % (A) 64 %; Platelet Count 146 k/uL (150-450); RBC 2.37 m/uL (4.30-5.90); RDW 15.7 % (11.5-15.5)
[2024-02-04 07:56] LABS: ALT 9 U/L (4-49); AST 18 U/L (17-59); African American GFR (CKD) 67 (>60 ml/min/1.73 sqM); Albumin 3.1 g/dL (3.5-5.0); Alkaline Phosphatase 83 U/L (38-126); Anion Gap 3 mmol/L; Blood Urea Nitrogen 35 mg/dL (9-20); Calcium 8.8 mg/dL (8.4-10.2); Carbon Dioxide 30 mmol/L (22-30); Chloride 103 mmol/L (98-107); Glucose 103 mg/dL (74-99); Non-African American GFR(CKD) 58 (>60 ml/min/1.73 sqM); Potassium 4.8 mmol/L (3.5-5.1); Sodium 136 mmol/L (137-145); Total Bilirubin 0.4 mg/dL (0.2-1.3); Total Protein 5.4 g/dL (6.3-8.2)
[2024-02-04] MEDS: FINASTERIDE 5 MG TAB PO SCH (08:34)
[2024-02-04] MEDS: THIAMINE 100 MG TAB PO SCH (08:34)
[2024-02-04] MEDS: TAMSULOSIN 0.4 MG CAP.ER.24H PO SCH (08:35)
[2024-02-04 10:43] VITALS: TEMP 97.7
--- NOTE | 2024-02-04 12:00 | P.CRDCN ---
History of Present Illness History of present illness: HISTORY OF PRESENT ILLNESS: This is a 88-year-old male with a past medical history significant for coronary artery disease, congestive heart failure, valvular heart disease, cardiomyopath y, hypertension, diabetes, and COPD. Patient follows in the office with Dr. Gillette. We have been asked to see the patient in consultation for chest pain. Patient examined at the bedside. Patient is sitting up in the chair. Patient was recently hospitalized due to atypical chest pain. Patient states at that time he was having pain in between his shoulder blades. He states Sunday after eating dinner he " felt bad all over". Patient is very vague in his symptoms. He states he was not really having chest pain but " just did not feel normal". He does report having issues with constipation and is requesting a laxative. He currently denies chest pain or pressure. Denies shortness of breath. Denies dizziness or lightheadedness. DIAGNOSTICS: - EKG reveals paced rhythm - Chest xray cardiomegaly and moderate left pleural effusion unchanged from previous study. Atherosclerotic disease. - Laboratory data: WBC 4.0. Hemoglobin 8.1. Platelet count 146. Sodium 136. Potassium 4.8. BUN 35. Creatinine 1.14. Troponin 0.053. 0.051. 0.045. proBNP 1490. - Current home cardiac medications include Eliquis 5 mg twice a day, aspirin 81 mg daily, Plavix 75 mg daily, metoprolol tartrate 25 mg twice a day, Lasix 40 mg twice a day - Most recent echocardiogram obtained in December 2023 EF 45 to 50%, moderate pulmonary hypertension, small global pericardial effusion - Cardiac catheterization history: December 2023 revealing 60 to 70% stenosis of the LAD. Patient underwent stenting of the LAD with Dr. Turner. REVIEW OF SYSTEMS: At the time of my exam: CONSTITUTIONAL: Denies fever or chills. HEENT: Denies blurred vision, vision changes, or eye pain. Denies hemoptysis CARDIOVASCULAR: Denies chest pain. Denies orthopnea. Denies PND. Denies palpitations RESPIRATORY: Denies shortness of breath. GASTROINTESTINAL: Denies abdominal pain. Denies nausea or vomiting. HEMATOLOGIC: Denies bleeding disorders. GENITOURINARY: Denies any blood in urine. SKIN: Denies pruitis. Denies rash. PHYSICAL EXAM: VITAL SIGNS: Reviewed. GENERAL: Well-developed in no acute distress. HEENT: Head is normocephalic. Pupils are equal, round. Sclerae anicteric. Mucous membranes of the mouth are moist. Neck supple. No JVD or thyromegaly LUNGS: Respirations even and unlabored. Lungs essentially clear to auscultation bilaterally. HEART: Regular rate and rhythm. S1 and S2 heard. ABDOMEN: Soft. Nondistended. Nontender. EXTREMITIES: Normal range of motion. No clubbing or cyanosis. Peripheral pulses intact. No lower extremity edema NEUROLOGIC: Awake and alert. Oriented x 3. ASSESSMENT: Atypical chest pain, acute coronary syndrome ruled out Coronary artery disease with recent stenting of the LAD, December 2023 Acute kidney injury, resolved Constipation Chronic congestive heart failure with mildly reduced EF, 45 to 50%, currently euvolemic Hypertension Diabetes COPD Chronic hypoxic respiratory failure on home oxygen History of PE, on Eliquis outpatient History of dual-chamber permanent pacemaker implantation, [employer], 12/19/2023 I know I have this PLAN: An acute coronary event has been ruled out Continue Plavix and Eliquis. Discontinue aspirin. Add losartan 12.5 mg daily Add Farxiga 10 mg daily Decrease Lasix to 40 mg once a day instead of twice a day Add Aldactone 12.5 mg daily Continue to monitor kidney function Bowel regimen per primary medicine Patient is currently stable from a cardiac standpoint Patient to follow-up postdischarge with Dr. Shelley Nurse practitioner note has been reviewed by physician. Signing provider agrees with the documented findings, assessment, and plan of care documented by C[employer] COMPLIANCE SPECIALIST as a scribe. 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 Past Anesthesia/Blood Transfusion Reactions: No Reported Reaction Additional Past Anesthesia/Blood Transfusion Reaction / Comment(s): Pt has claustrophobia. Type of Cardiac Device: Permanent Pacemaker Device Placement Date:: 12/19/23 Past Psychological History: No Psychological Hx Reported Smoking Status: Former smoker Past Alcohol Use History: None Reported Additional Past Alcohol Use History / Comment(s): Pt started smoking in 1954 and quit 2017. He drinks 2 beers a day, sometimes more than 2/day. Past Drug Use History: None Reported - Past Family History Brother(s) Family Medical History: Cancer Additional Family Medical History / Comment(s): Prostate cancer. Father Family Medical History: Deep Vein Thrombosis (DVT) Additional Family Medical History / Comment(s): Father of dementia at the age of 79 yrs. Mother Family Medical History: No Reported History Additional Family Medical History / Comment(s): Mother was healthy and lived to be 86yrs old. Medications and Allergies Home Medications Medication Instructions Recorded Confirmed Type Alfuzosin HCl [Uroxatral ER] 10 mg PO DAILY 09/09/15 02/03/24 History Finasteride [Proscar] 5 mg PO DAILY 09/09/15 02/03/24 History Travoprost [Travatan Z 0.004%] 1 drop BOTH EYES HS 09/10/15 02/03/24 History rOPINIRole HCL [Requip] 2 mg PO TID PRN 04/20/20 02/03/24 History Dorzolamide-Timol 2.23%/0.68% 1 drop RIGHT EYE BID 10/29/22 02/03/24 History [Cosopt] Fluticasone/Umeclidin/Vilanter 1 puff INHALATION RT-DAILY 10/29/22 02/03/24 History [Trelegy Ellipta 100-62.5-25] Ergocalciferol (Vitamin D2) 1,250 mcg PO FR 11/29/23 02/03/24 History [Drisdol (50,000 Iu)] Thiamine [Vitamin B-1] 100 mg PO DAILY #30 tab 12/02/23 02/03/24 Rx Albuterol Inhaler [Ventolin Hfa 2 puff INHALATION RT-Q6H PRN 12/18/23 02/03/24 History Inhaler] Albuterol Nebulized [Ventolin 2.5 mg INHALATION RT-TID PRN 12/27/23 02/03/24 History Nebulized] Docusate [Colace] 100 mg PO DAILY 12/27/23 02/03/24 History Sennosides [Senokot] 17.2 mg PO DAILY PRN 12/27/23 02/03/24 History ALPRAZolam [Xanax] 0.25 mg PO Q6HR PRN #4 tab 01/03/24 02/03/24 Rx Acetaminophen Tab [Tylenol] 650 mg PO Q6HR PRN tab 01/03/24 02/03/24 Rx Apixaban [Eliquis] 5 mg PO BID #60 tab 01/03/24 02/03/24 Rx Aspirin 81 mg PO DAILY tab 01/03/24 02/03/24 Rx Furosemide [Lasix] 40 mg PO BID #30 tab 01/03/24 02/03/24 Rx Metoprolol Tartrate [Lopressor] 25 mg PO BID tab 01/03/24 02/03/24 Rx Nitroglycerin Sl Tabs [Nitrostat] 0.4 mg SUBLINGUAL Q5M PRN tab 01/03/24 02/03/24 Rx Clopidogrel [Plavix] 75 mg PO DAILY 01/24/24 02/03/24 History Enzalutamide [Xtandi] 160 mg PO DAILY 02/03/24 02/03/24 History Ipratropium-Albuterol Nebulize 3 ml INHALATION RT-Q2H PRN 02/03/24 02/03/24 History [Duoneb 0.5 mg-3 mg/3 ml Soln] Ipratropium-Albuterol Nebulize 3 ml INHALATION RT-QID 02/03/24 02/03/24 History [Duoneb 0.5 mg-3 mg/3 ml Soln] Mag Hydrox/Al Hydrox/Simeth 30 ml PO Q4H PRN 02/03/24 02/03/24 History [Maalox] bisacodyL [Dulcolax] 10 mg PO DAILY PRN 02/03/24 02/03/24 History bisacodyL [Dulcolax] 10 mg RECTAL DAILY PRN 02/03/24 02/03/24 History Allergies Allergy/AdvReac Type Severity Reaction Status Date / Time amoxicillin trihydrate Allergy Unknown Verified 02/03/24 09:43 [From Augmentin] potassium clavulanate Allergy Unknown Verified 02/03/24 09:43 [From Augmentin] moxifloxacin HCl AdvReac Nausea & Verified 02/03/24 09:43 [From Avelox] Vomiting Physical Exam Vitals: Vital Signs Temp Pulse Pulse Resp BP BP Pulse Ox 02/04/24 08:41 98 02/04/24 08:30 97.7 F 61 18 142/68 98 02/04/24 04:00 68 18 115/62 99 02/03/24 23:22 97.9 F 71 17 112/46 100 02/03/24 20:00 97.7 F 65 18 91/52 100 02/03/24 14:47 60 18 99/55 100 02/03/24 14:24 75 20 90/45 98 02/03/24 14:00 60 16 90/40 97 02/03/24 13:00 75 20 135/74 98 02/03/24 12:37 59 L 18 106/60 100 Intake and Output 02/03/24 02/04/24 02/04/24 22:59 06:59 14:59 Intake Total 232 Balance 232 Intake: IV 10 Invasive Line 1 10 Oral 222 Other: Voiding Method Toilet Toilet Toilet # Voids 1 Weight 88.451 kg 83.6 kg Results 02/04/24 06:50 02/04/24 06:50 Cardiac Enzymes 02/04/24 Range/Units 06:50 AST 18 (17-59) U/L CBC 02/04/24 Range/Units 06:50 WBC 4.0 (3.8-10.6) k/uL RBC 2.37 L (4.30-5.90) m/uL Hgb 8.1 L (13.0-17.5) gm/dL Hct 24.8 L (39.0-53.0) % Plt Count 146 L (150-450) k/uL Comprehensive Metabolic Panel 02/04/24 Range/Units 06:50 Sodium 136 L (137-145) mmol/L Potassium 4.8 (3.5-5.1) mmol/L Chloride 103 (98-107) mmol/L Carbon Dioxide 30 (22-30) mmol/L BUN 35 H (9-20) mg/dL Creatinine 1.14 (0.66-1.25) mg/dL Glucose 103 H (74-99) mg/dL Calcium 8.8 (8.4-10.2) mg/dL AST 18 (17-59) U/L ALT 9 (4-49) U/L Alkaline Phosphatase 83 (38-126) U/L Total Protein 5.4 L (6.3-8.2) g/dL Albumin 3.1 L (3.5-5.0) g/dL Current Medications Generic Name Dose Route Start Last Admin Trade Name Freq PRN Reason Stop Dose Admin Acetaminophen 650 mg 02/03/24 09:53 02/03/24 21:44 Acetaminophen Tab 325 Mg Tab PO 650 mg Q6HR PRN Administration Mild Pain or Fever > 100.5 Albuterol Sulfate 2.5 mg 02/03/24 09:53 Albuterol Nebulized 2.5 Mg/3 Ml INHALATION RT-Q6H PRN Shortness Of Breath Alprazolam 0.25 mg 02/03/24 09:53 Alprazolam 0.25 Mg Tab PO Q6HR PRN Mild Anxiety Apixaban 5 mg 02/03/24 21:00 02/04/24 08:34 Apixaban 5 Mg Tab PO 5 mg BID WILFREDO Administration Protocol Bisacodyl 10 mg 02/03/24 09:53 Bisacodyl 5 Mg Tablet.Dr PO DAILY PRN Constipation Bisacodyl 10 mg 02/03/24 09:53 Bisacodyl 10 Mg Supp RECTAL DAILY PRN Constipation Budesonide/Formoterol Fumarate 2 puff 02/03/24 20:00 02/04/24 08:42 Symbicort 80-4.5 Mcg Inhaler INHALATION Not Given RT-BID [facility] Clopidogrel Bisulfate 75 mg 02/03/24 10:30 02/04/24 08:34 Clopidogrel 75 Mg Tab PO 75 mg DAILY WILFREDO Administration Dapagliflozin 10 mg 02/04/24 10:15 Dapagliflozin Propanediol 10 Mg Tablet PO DAILY WILFREDO Dorzolamide/Timolol 1 drops 02/03/24 21:00 02/04/24 08:35 Dorzolamide-Timolol 2.23%/0.68 10ml Btl RIGHT EYE 1 drops BID WILFREDO Administration Ergocalciferol 1,250 mcg 02/08/24 09:00 Ergocalciferol 1,250 Mcg (50,000 Iu) Capsule PO FR WILFREDO Finasteride 5 mg 02/04/24 09:00 02/04/24 08:34 Finasteride 5 Mg Tab PO 5 mg DAILY WILFREDO Administration Furosemide 40 mg 02/05/24 09:00 Furosemide 40 Mg Tab PO DAILY [facility] Ipratropium [place] 0.5 mg 02/03/24 16:00 02/04/24 08:42 Ipratropium 0.5 Mg/2.5 Ml Nebu INHALATION Not Given RT-QID WILFREDO Latanoprost 1 drops 02/03/24 21:00 02/03/24 21:04 Latanoprost 0.005% Ophth Drops 2.5 Ml Btl BOTH EYES 1 drops HS [facility] Administration Losartan Potassium 12.5 mg 02/05/24 09:00 Losartan 25 Mg Tab PO DAILY [facility] Metoprolol Tartrate 25 mg 02/03/24 21:00 02/04/24 08:34 Metoprolol Tartrate 25 Mg Tab PO 25 mg BID WILFREDO Administration Morphine Sulfate 4 mg 02/03/24 01:52 02/03/24 05:46 Morphine Sulfate 4 Mg/Ml Syringe IV 4 mg Q4HR PRN Administration Severe Pain (Scale 7 to 10) Naloxone HCl 0.2 mg 02/03/24 01:52 Naloxone 0.4 Mg/Ml 1 Ml Vial IV Q2M PRN Opioid Reversal Nitroglycerin 0.4 mg 02/03/24 09:53 Nitroglycerin Sl Tabs 0.4 Mg Tab SUBLINGUAL Q5M PRN Chest Pain Ondansetron HCl 4 mg 02/03/24 01:52 Ondansetron 4 Mg/2 Ml Vial IVP Q8HR PRN Nausea And Vomiting Ropinirole HCl 2 mg 02/03/24 09:53 02/03/24 23:11 Ropinirole Hcl 1 Mg Tab PO 2 mg TID PRN Administration restless legs Senna 17.2 mg 02/03/24 09:53 Sennosides 8.6 Mg Tab PO DAILY PRN Constipation Spironolactone 12.5 mg 02/04/24 10:30 Spironolactone 25 Mg Tab PO DAILY [facility] Tamsulosin HCl 0.4 mg 02/04/24 09:00 02/04/24 08:35 Tamsulosin 0.4 Mg Cap.Er.24h PO 0.4 mg DAILY [facility] Administration Thiamine HCl 100 mg 02/04/24 09:00 02/04/24 08:34 Thiamine 100 Mg Tab PO 100 mg DAILY WILFREDO Administration Intake and Output 02/03/24 02/04/24 02/04/24 22:59 06:59 14:59 Intake Total 232 Balance 232 Intake: IV 10 Invasive Line 1 10 Oral 222 Other: Voiding Method Toilet Toilet Toilet # Voids 1 Weight 88.451 kg 83.6 kg 02/04/24 06:50 02/04/24 06:50
[2024-02-04] MEDS: SPIRONOLACTONE 25 MG TAB PO SCH (12:02)
[2024-02-04] MEDS: DAPAGLIFLOZIN PROPANEDIOL 10 MG TABLET PO SCH (12:02)
[2024-02-04] MEDS: bisacodyL 5 MG TABLET.DR PO PRN (12:15)
[2024-02-04 13:11] VITALS: BP 93/52; PULSE 62; RESP 16
--- NOTE | 2024-02-04 13:17 | P.DS ---
Providers Date of admission: 02/03/24 01:52 Expected date of discharge: 02/04/24 Attending physician: Amalia Hirsch Consults: 02/03/24 01:52 Consult Physician Routine Consulting Provider: Godwin Gillette Consult Reason/Comments: cp Do you want consulting provider notified?: Yes Primary care physician: Shar Yu Hospital Course: Discharge diagnoses; Elevated troponin Dilated cardiomyopathy Chronic systolic heart failure Prostate cancer Hypertension Diabetes COPD Chronic hypoxic respiratory failure on home oxygen History of PE, on Eliquis outpatient History of dual-chamber permanent pacemaker implantation Hospital course; patient is a 88-year-old gentleman with past medical history significant for chronic systolic heart failure, diabetes mellitus, COPD, prostate cancer who presented to the ER because of chest pain and not feeling well.. Patient was seen recently in the hospital with similar episode of chest pain at which time cardiology evaluated and patient troponin were flat so cardiology recommended no ischemic workup. Patient stated that he was all right yesterday when he started noticing that he was not feeling his usual self, patient was having chest pain that was central in location, nonradiating, no aggravating or relieving factor associated chest pain. Patient also complaining of abdominal pain which she related to eating. There was no complaint of nausea or vomiting. There is no complaint of fever or chills. Because of chest pain, patient came to the ER Initial lab work done in the ER showed WBC 5.7, hemoglobin 8.7, platelet count 175, sodium 135, potassium 4.5, BUN 35, creatinine 1.31, troponin 0.053, EKG done in the ER showed heart rate of 64, paced rhythm Ultrasound abdomen done showed no gallstones. Mild dilatation of the common bile duct measures 0.8 cm Chest x-ray done in the ER showed cardiomegaly and moderate left pleural effusion unchanged from previous study Patient admitted to internal medicine service 02/03. Patient seen and examined. WBC 4, hemoglobin 8.1, platelet count 126, sodium 130, potassium 4.8,. Cardiology evaluated, troponin remained flat. Cardiology recommended to continue Plavix and Eliquis. Discontinue aspirin. Add losartan 12.5 mg daily Add Farxiga 10 mg daily Decrease Lasix to 40 mg once a day instead of twice a day Add Aldactone 12.5 mg daily Being discharged stable condition PHYSICAL EXAMINATION: GENERAL: The patient is alert and oriented x3, not in any acute distress. Well developed, well nourished. HEENT: Pupils are round and equally reacting to light. EOMI. No scleral icterus. No conjunctival pallor. Normocephalic, atraumatic. No pharyngeal erythema. No thyromegaly. CARDIOVASCULAR: S1 and S2 present. No murmurs, rubs, or gallops. PULMONARY: Chest is clear to auscultation, no wheezing or crackles. ABDOMEN: Soft, nontender, nondistended, normoactive bowel sounds. No palpable organomegaly. MUSCULOSKELETAL: No joint swelling or deformity. EXTREMITIES: No cyanosis, clubbing, or pedal edema. NEUROLOGICAL: Gross neurological examination did not reveal any focal deficits. SKIN: No rashes. Dictation was produced using [employer] dictation software. please excuse any grammatical, word or spelling errors. Patient Condition at Discharge: Fair Plan - Discharge Summary Discharge Rx Participant: No New Discharge Prescriptions: New Spironolactone [Aldactone] 12.5 mg PO DAILY 30 Days #30 tab Losartan [Cozaar] 12.5 mg PO DAILY 30 Days #30 tab Dapagliflozin Propanediol [Farxiga] 10 mg PO DAILY 30 Days #30 tab Lactulose 20 gm PO BID PRN #600 ml PRN Reason: Constipation Continue Alfuzosin HCl [Uroxatral ER] 10 mg PO DAILY Finasteride [Proscar] 5 mg PO DAILY Travoprost [Travatan Z 0.004%] 1 drop BOTH EYES HS rOPINIRole HCL [Requip] 2 mg PO TID PRN PRN Reason: restless legs Albuterol Inhaler [Ventolin Hfa Inhaler] 2 puff INHALATION RT-Q6H PRN PRN Reason: Shortness Of Breath Docusate [Colace] 100 mg PO DAILY Albuterol Nebulized [Ventolin Nebulized] 2.5 mg INHALATION RT-TID PRN PRN Reason: Shortness Of Breath bisacodyL [Dulcolax] 10 mg PO DAILY PRN PRN Reason: Constipation Enzalutamide [Xtandi] 160 mg PO DAILY Ipratropium-Albuterol Nebulize [Duoneb 0.5 mg-3 mg/3 ml Soln] 3 ml INHALATION RT-Q2H PRN PRN Reason: Shortness Of Breath Dorzolamide-Timol 2.23%/0.68% [Cosopt] 1 drop RIGHT EYE BID Fluticasone/Umeclidin/Vilanter [Trelegy Ellipta 100-62.5-25] 1 puff INHAL ATION RT-DAILY Ergocalciferol (Vitamin D2) [Drisdol (50,000 Iu)] 1,250 mcg PO FR Thiamine [Vitamin B-1] 100 mg PO DAILY #30 tab Sennosides [Senokot] 17.2 mg PO DAILY PRN PRN Reason: Constipation Metoprolol Tartrate [Lopressor] 25 mg PO BID tab Nitroglycerin Sl Tabs [Nitrostat] 0.4 mg SUBLINGUAL Q5M PRN tab PRN Reason: Chest Pain Acetaminophen Tab [Tylenol] 650 mg PO Q6HR PRN tab PRN Reason: Mild Pain Or Fever > 100.5 ALPRAZolam [Xanax] 0.25 mg PO Q6HR PRN #4 tab PRN Reason: Mild Anxiety Apixaban [Eliquis] 5 mg PO BID #60 tab Clopidogrel [Plavix] 75 mg PO DAILY bisacodyL [Dulcolax] 10 mg RECTAL DAILY PRN PRN Reason: Constipation Mag Hydrox/Al Hydrox/Simeth [Maalox] 30 ml PO Q4H PRN PRN Reason: Gi Upset Changed Furosemide [Lasix] 40 mg PO DAILY #30 tab Discontinued Aspirin 81 mg PO DAILY tab Ipratropium-Albuterol Nebulize [Duoneb 0.5 mg-3 mg/3 ml Soln] 3 ml INHALATION RT-QID Discharge Medication List Alfuzosin HCl [Uroxatral ER] 10 mg PO DAILY 09/09/15 [History] Finasteride [Proscar] 5 mg PO DAILY 09/09/15 [History] Travoprost [Travatan Z 0.004%] 1 drop BOTH EYES HS 09/10/15 [History] rOPINIRole HCL [Requip] 2 mg PO TID PRN 04/20/20 [History] Dorzolamide-Timol 2.23%/0.68% [Cosopt] 1 drop RIGHT EYE BID 10/29/22 [History] Fluticasone/Umeclidin/Vilanter [Trelegy Ellipta 100-62.5-25] 1 puff INHALATION RT-DAILY 10/29/22 [History] Ergocalciferol (Vitamin D2) [Drisdol (50,000 Iu)] 1,250 mcg PO FR 11/29/23 [History] Thiamine [Vitamin B-1] 100 mg PO DAILY #30 tab 12/02/23 [Rx] Albuterol Inhaler [Ventolin Hfa Inhaler] 2 puff INHALATION RT-Q6H PRN 12/18/23 [History] Albuterol Nebulized [Ventolin Nebulized] 2.5 mg INHALATION RT-TID PRN 12/27/23 [History] Docusate [Colace] 100 mg PO DAILY 12/27/23 [History] Sennosides [Senokot] 17.2 mg PO DAILY PRN 12/27/23 [History] ALPRAZolam [Xanax] 0.25 mg PO Q6HR PRN #4 tab 01/03/24 [Rx] Acetaminophen Tab [Tylenol] 650 mg PO Q6HR PRN tab 01/03/24 [Rx] Apixaban [Eliquis] 5 mg PO BID #60 tab 01/03/24 [Rx] Metoprolol Tartrate [Lopressor] 25 mg PO BID tab 01/03/24 [Rx] Nitroglycerin Sl Tabs [Nitrostat] 0.4 mg SUBLINGUAL Q5M PRN tab 01/03/24 [Rx] Clopidogrel [Plavix] 75 mg PO DAILY 01/24/24 [History] Enzalutamide [Xtandi] 160 mg PO DAILY 02/03/24 [History] Ipratropium-Albuterol Nebulize [Duoneb 0.5 mg-3 mg/3 ml Soln] 3 ml INHALATION RT-Q2H PRN 02/03/24 [History] Mag Hydrox/Al Hydrox/Simeth [Maalox] 30 ml PO Q4H PRN 02/03/24 [History] bisacodyL [Dulcolax] 10 mg PO DAILY PRN 02/03/24 [History] bisacodyL [Dulcolax] 10 mg RECTAL DAILY PRN 02/03/24 [History] Dapagliflozin Propanediol [Farxiga] 10 mg PO DAILY 30 Days #30 tab 02/04/24 [Rx] Furosemide [Lasix] 40 mg PO DAILY #30 tab 02/04/24 [Rx] Lactulose 20 gm PO BID PRN #600 ml 02/04/24 [Rx] Losartan [Cozaar] 12.5 mg PO DAILY 30 Days #30 tab 02/04/24 [Rx] Spironolactone [Aldactone] 12.5 mg PO DAILY 30 Days #30 tab 02/04/24 [Rx] Follow up Appointment(s)/Referral(s): Shar Yu MD [Primary Care Provider] - 1-2 days Hayley Middleton MD [STAFF PHYSICIAN] - 1 Week Discharge Disposition: HOME SELF-CARE
[2024-02-05] MEDS ORDERED: FUROSEMIDE 40 MG TAB PO SCH (09:00)
[2024-02-05] MEDS ORDERED: LOSARTAN 25 MG TAB PO SCH (09:00)
[2024-02-08] MEDS ORDERED: ERGOCALCIFEROL 1,250 MCG (50,000 IU) CAPSULE PO SCH (09:00)
== END 2024-02-04 16:05 | disposition home or self-care (01) ==
LOC: EC 22:02 → 3SCARD 02-03 01:52
PROVIDERS: ADMIT Hospitalist; ATTEND Hospitalist
DX: I42.0 Dilated cardiomyopathy (principal); N17.9 Acute kidney failure, unspecified; R10.9 Unspecified abdominal pain; I11.0 Hypertensive heart disease with heart failure; I50.22 Chronic systolic (congestive) heart failure; I25.10 Atherosclerotic heart disease of native coronary artery without angina pectoris; J96.11 Chronic respiratory failure with hypoxia; J44.9 Chronic obstructive pulmonary disease, unspecified; N40.0 Benign prostatic hyperplasia without lower urinary tract symptoms; K59.00 Constipation, unspecified; E78.5 Hyperlipidemia, unspecified; E11.9 Type 2 diabetes mellitus without complications; Z79.899 Other long term (current) drug therapy; Z79.82 Long term (current) use of aspirin; Z88.0 Allergy status to penicillin; Z88.8 Allergy status to other drugs, medicaments and biological substances; Z88.1 Allergy status to other antibiotic agents; Z99.81 Dependence on supplemental oxygen; Z95.5 Presence of coronary angioplasty implant and graft; Z87.891 Personal history of nicotine dependence; Z86.711 Personal history of pulmonary embolism; Z85.46 Personal history of malignant neoplasm of prostate; Z79.02 Long term (current) use of antithrombotics/antiplatelets; Z79.01 Long term (current) use of anticoagulants
CPT/HCPCS: 96374; 99291; 36415; 94640; 93005; 83880; 80053 ×2; 83690; 83735; 84484 ×2; 85025 ×2; 85610; 85730; 71046; 76705; G0378 ×2; S0138; J2270